=== PATIENT | female | born 1965 | race Caucasian/White ===

== ENCOUNTER 2024-10-07 13:04 | Outpatient (RCR) | payer OTHER, SELFPAY | END 2024-10-17 23:59 | disposition home or self-care (01) | LOC: SCTC 13:04 | PROVIDERS: PCP Internal Medicine; Referring Provider Internal Medicine; Visit Provider Internal Medicine Hematology & Oncology | DX: C90.00 Multiple myeloma not having achieved remission (principal); Z94.81 Bone marrow transplant status; G62.0 Drug-induced polyneuropathy; T45.1X5D Adverse effect of antineoplastic and immunosuppressive drugs, subsequent encounter; Z92.3 Personal history of irradiation | CPT/HCPCS: 99212; G0463 ==

== ENCOUNTER 2024-11-06 07:53 | Outpatient (RCR) | payer OTHER, SELFPAY ==
[2024-11-06 09:35] LABS: Basophils # (Auto) 0.1 Thou/mm3 (0.0-0.2); Basophils % (Auto) 2 % (0-2.5); Eosinophils # (Auto) 0.2 Thou/mm3 (0.0-0.5); Eosinophils % (Auto) 5 % (0-10); Hematocrit 31.9 % (36.0-46.0); Hemoglobin 11.3 g/dL (12.0-16.0); Immature Granulocytes % (Auto) 0 % (0-0); Immature Granulocytes Auto 0.01 Thou/mm3 (0.00-0.00); Lymphocytes # (Auto) 1.8 Thou/mm3 (1.0-4.8); Lymphocytes % (Auto) 39 % (10-50); Mean Corpuscular HGB Conc 35.4 g/dl (31.0-37.0); Mean Corpuscular Hemoglobin 33.8 pg (25.0-35.0); Mean Corpuscular Volume 96 fL (80-100); Monocytes # (Auto) 0.6 Thou/mm3 (0.0-0.8); Monocytes % (Auto) 13 % (0-12); Neutrophils # (Auto) 1.9 Thou/mm3 (1.8-7.7); Neutrophils % (Auto) 42 % (37-80); Nucleated Red Blood Cell % 0 /100 WBC (0); Platelet Count 252 Thou/mm3 (140-440); RDW Standard Deviation 41.5 fL (36.4-46.3); Red Blood Count 3.34 Miln/mm3 (4.00-5.20); White Blood Count 4.6 Thou/mm3 (3.6-11.0)
[2024-11-06 09:57] LABS: Alanine Aminotransferase 25 U/L (10-49); Albumin, Serum 4.7 gm/dL (3.4-4.8); Albumin/Globulin Ratio 2.9 (1.2-2.2); Alkaline Phosphatase 57 U/L (46-116); Anion Gap 9 (7-16); Aspartate Amino Transferase 23 U/L (0-34); BUN/Creatinine Ratio 18 Ratio (12-20); Bilirubin,Total 0.5 mg/dL (0.3-1.2); Blood Urea Nitrogen 14 mg/dL (9-23); Calcium 10.1 mg/dL (8.3-10.6); Calcium (Corrected) 10.1 mg/dL (8.5-10.1); Chloride 99 mMol/L (98-107); Creatinine (Component) 0.8 mg/dL (0.6-1.3); Globulin 1.6 gm/dL (2.3-3.5); Glucose 81 mg/dL (74-106); Osmolality,Calculated 265 (275-295); Potassium 4.1 mMol/L (3.4-5.1); Sodium 133 mMol/L (136-145); Total Protein 6.3 gm/dL (5.7-8.2); eGFR > 60 See Note
[2024-11-11 13:47] LABS: Albumin 4.4 g/dL (3.8-4.8); Alpha-1-Globulin 0.3 g/dL (0.2-0.3); Alpha-2-Globulin 0.6 g/dL (0.5-0.9); Beta-1-Globulin 0.3 g/dL (0.4-0.6); Beta-2-globulin 0.2 g/dL (0.2-0.5); Gamma Globulin 0.3 g/dL (0.8-1.7)
[2024-11-12 06:37] LABS: Protein, total, serum 6.1 g/dL (6.1-8.1)
[2024-11-16 22:05] LABS: Immunoglobulin G 373 mg/dL (600-1540); Kappa Light Chain, Free 4.3 mg/L (3.3-19.4)
[2024-11-17 06:26] LABS: Immunoglobulin A 12 mg/dL (70-320); Immunoglobulin M 15 mg/dL (50-300); Kappa/Lambda, Free Ratio 1.43 (0.26-1.65)
== END 2024-11-17 23:59 | disposition home or self-care (01) ==
LOC: SCTC 07:53
PROVIDERS: PCP Internal Medicine; Referring Provider Internal Medicine; Visit Provider Internal Medicine Hematology & Oncology
DX: C90.00 Multiple myeloma not having achieved remission (principal); G62.9 Polyneuropathy, unspecified; Z92.3 Personal history of irradiation; Z79.82 Long term (current) use of aspirin
CPT/HCPCS: 36591; 80053; 82232; 82784; 83521; 84155; 84165; 85025; 86334; A4216; J1642

== ENCOUNTER 2024-12-17 08:05 | Outpatient (RCR) | payer OTHER, SELFPAY ==
[2024-11-19 08:42] LABS: Basophils # (Auto) 0.1 Thou/mm3 (0.0-0.2); Basophils % (Auto) 2 % (0-2.5); Eosinophils # (Auto) 0.2 Thou/mm3 (0.0-0.5); Eosinophils % (Auto) 5 % (0-10); Hematocrit 31.4 % (36.0-46.0); Hemoglobin 11.2 g/dL (12.0-16.0); Immature Granulocytes % (Auto) 0 % (0-0); Immature Granulocytes Auto 0.01 Thou/mm3 (0.00-0.00); Lymphocytes # (Auto) 1.7 Thou/mm3 (1.0-4.8); Lymphocytes % (Auto) 38 % (10-50); Mean Corpuscular HGB Conc 35.7 g/dl (31.0-37.0); Mean Corpuscular Hemoglobin 34.5 pg (25.0-35.0); Mean Corpuscular Volume 97 fL (80-100); Monocytes # (Auto) 0.8 Thou/mm3 (0.0-0.8); Monocytes % (Auto) 17 % (0-12); Neutrophils # (Auto) 1.7 Thou/mm3 (1.8-7.7); Neutrophils % (Auto) 38 % (37-80); Nucleated Red Blood Cell % 0 /100 WBC (0); Platelet Count 229 Thou/mm3 (140-440); RDW Standard Deviation 42.4 fL (36.4-46.3); Red Blood Count 3.25 Miln/mm3 (4.00-5.20); White Blood Count 4.5 Thou/mm3 (3.6-11.0)
[2024-11-19 09:05] LABS: Alanine Aminotransferase 68 U/L (10-49); Albumin, Serum 4.6 gm/dL (3.4-4.8); Albumin/Globulin Ratio 2.9 (1.2-2.2); Alkaline Phosphatase 66 U/L (46-116); Anion Gap 8 (7-16); Aspartate Amino Transferase 49 U/L (0-34); BUN/Creatinine Ratio 13 Ratio (12-20); Bilirubin,Total 0.5 mg/dL (0.3-1.2); Blood Urea Nitrogen 12 mg/dL (9-23); Calcium 9.3 mg/dL (8.3-10.6); Calcium (Corrected) 9.3 mg/dL (8.5-10.1); Carbon Dioxide 25.1 mMol/L (20.0-31.0); Chloride 103 mMol/L (98-107); Creatinine (Component) 0.9 mg/dL (0.6-1.3); Globulin 1.6 gm/dL (2.3-3.5); Glucose 96 mg/dL (74-106); Osmolality,Calculated 271 (275-295); Potassium 4.1 mMol/L (3.4-5.1); Sodium 136 mMol/L (136-145); Total Protein 6.2 gm/dL (5.7-8.2); eGFR > 60 See Note
[2024-12-03 08:56] LABS: Basophils # (Auto) 0.1 Thou/mm3 (0.0-0.2); Basophils % (Auto) 1 % (0-2.5); Eosinophils # (Auto) 0.5 Thou/mm3 (0.0-0.5); Eosinophils % (Auto) 6 % (0-10); Hematocrit 33.3 % (36.0-46.0); Hemoglobin 11.7 g/dL (12.0-16.0); Immature Granulocytes % (Auto) 1 % (0-0); Immature Granulocytes Auto 0.04 Thou/mm3 (0.00-0.00); Lymphocytes # (Auto) 1.9 Thou/mm3 (1.0-4.8); Lymphocytes % (Auto) 26 % (10-50); Mean Corpuscular HGB Conc 35.1 g/dl (31.0-37.0); Mean Corpuscular Hemoglobin 33.5 pg (25.0-35.0); Mean Corpuscular Volume 95 fL (80-100); Monocytes # (Auto) 0.6 Thou/mm3 (0.0-0.8); Monocytes % (Auto) 8 % (0-12); Neutrophils # (Auto) 4.4 Thou/mm3 (1.8-7.7); Neutrophils % (Auto) 59 % (37-80); Nucleated Red Blood Cell % 0 /100 WBC (0); Platelet Count 221 Thou/mm3 (140-440); RDW Standard Deviation 42.4 fL (36.4-46.3); Red Blood Count 3.49 Miln/mm3 (4.00-5.20); White Blood Count 7.5 Thou/mm3 (3.6-11.0)
[2024-12-03 09:17] LABS: Alanine Aminotransferase 46 U/L (10-49); Albumin, Serum 4.8 gm/dL (3.4-4.8); Albumin/Globulin Ratio 2.8 (1.2-2.2); Alkaline Phosphatase 94 U/L (46-116); Anion Gap 8 (7-16); Aspartate Amino Transferase 29 U/L (0-34); BUN/Creatinine Ratio 26 Ratio (12-20); Bilirubin,Total 0.4 mg/dL (0.3-1.2); Blood Urea Nitrogen 23 mg/dL (9-23); Carbon Dioxide 24.5 mMol/L (20.0-31.0); Chloride 100 mMol/L (98-107); Creatinine (Component) 0.9 mg/dL (0.6-1.3); Globulin 1.7 gm/dL (2.3-3.5); Glucose 99 mg/dL (74-106); Osmolality,Calculated 268 (275-295); Potassium 4.3 mMol/L (3.4-5.1); Sodium 132 mMol/L (136-145); Total Protein 6.5 gm/dL (5.7-8.2); eGFR > 60 See Note
[2024-12-17 08:48] LABS: Basophils # (Auto) 0.3 Thou/mm3 (0.0-0.2); Basophils % (Auto) 5 % (0-2.5); Eosinophils # (Auto) 0.7 Thou/mm3 (0.0-0.5); Eosinophils % (Auto) 13 % (0-10); Hematocrit 30.7 % (36.0-46.0); Hemoglobin 10.6 g/dL (12.0-16.0); Immature Granulocytes % (Auto) 0 % (0-0); Immature Granulocytes Auto 0.02 Thou/mm3 (0.00-0.00); Lymphocytes # (Auto) 1.3 Thou/mm3 (1.0-4.8); Lymphocytes % (Auto) 25 % (10-50); Mean Corpuscular HGB Conc 34.5 g/dl (31.0-37.0); Mean Corpuscular Hemoglobin 33.4 pg (25.0-35.0); Mean Corpuscular Volume 97 fL (80-100); Monocytes # (Auto) 0.5 Thou/mm3 (0.0-0.8); Monocytes % (Auto) 10 % (0-12); Neutrophils # (Auto) 2.5 Thou/mm3 (1.8-7.7); Neutrophils % (Auto) 47 % (37-80); Nucleated Red Blood Cell % 0 /100 WBC (0); Platelet Count 224 Thou/mm3 (140-440); RDW Standard Deviation 44.8 fL (36.4-46.3); Red Blood Count 3.17 Miln/mm3 (4.00-5.20); White Blood Count 5.3 Thou/mm3 (3.6-11.0)
[2024-12-17 09:16] LABS: Alanine Aminotransferase 84 U/L (10-49); Albumin, Serum 4.2 gm/dL (3.4-4.8); Albumin/Globulin Ratio 2.2 (1.2-2.2); Alkaline Phosphatase 117 U/L (46-116); Anion Gap 8 (7-16); Aspartate Amino Transferase 50 U/L (0-34); BUN/Creatinine Ratio 20 Ratio (12-20); Bilirubin,Total 0.5 mg/dL (0.3-1.2); Blood Urea Nitrogen 18 mg/dL (9-23); Calcium 9.6 mg/dL (8.3-10.6); Calcium (Corrected) 9.6 mg/dL (8.5-10.1); Chloride 100 mMol/L (98-107); Creatinine (Component) 0.9 mg/dL (0.6-1.3); Globulin 1.9 gm/dL (2.3-3.5); Glucose 114 mg/dL (74-106); Osmolality,Calculated 269 (275-295); Potassium 4.2 mMol/L (3.4-5.1); Sodium 133 mMol/L (136-145); Total Protein 6.1 gm/dL (5.7-8.2); eGFR > 60 See Note
[2024-12-31 08:43] LABS: Basophils # (Auto) 0.2 Thou/mm3 (0.0-0.2); Basophils % (Auto) 4 % (0-2.5); Eosinophils # (Auto) 0.4 Thou/mm3 (0.0-0.5); Eosinophils % (Auto) 8 % (0-10); Hematocrit 30.3 % (36.0-46.0); Hemoglobin 10.6 g/dL (12.0-16.0); Immature Granulocytes % (Auto) 0 % (0-0); Immature Granulocytes Auto 0.02 Thou/mm3 (0.00-0.00); Lymphocytes # (Auto) 1.5 Thou/mm3 (1.0-4.8); Lymphocytes % (Auto) 31 % (10-50); Mean Corpuscular Hemoglobin 33.5 pg (25.0-35.0); Mean Corpuscular Volume 96 fL (80-100); Monocytes # (Auto) 0.5 Thou/mm3 (0.0-0.8); Monocytes % (Auto) 11 % (0-12); Neutrophils # (Auto) 2.1 Thou/mm3 (1.8-7.7); Neutrophils % (Auto) 46 % (37-80); Nucleated Red Blood Cell % 0 /100 WBC (0); Platelet Count 244 Thou/mm3 (140-440); RDW Standard Deviation 44.7 fL (36.4-46.3); Red Blood Count 3.16 Miln/mm3 (4.00-5.20); White Blood Count 4.7 Thou/mm3 (3.6-11.0)
[2024-12-31 08:55] LABS: Alanine Aminotransferase 50 U/L (10-49); Albumin, Serum 4.1 gm/dL (3.4-4.8); Albumin/Globulin Ratio 2.6 (1.2-2.2); Alkaline Phosphatase 105 U/L (46-116); Anion Gap 5 (7-16); Aspartate Amino Transferase 46 U/L (0-34); BUN/Creatinine Ratio 18 Ratio (12-20); Bilirubin,Total 0.5 mg/dL (0.3-1.2); Blood Urea Nitrogen 14 mg/dL (9-23); Calcium 9.4 mg/dL (8.3-10.6); Calcium (Corrected) 9.4 mg/dL (8.5-10.1); Chloride 104 mMol/L (98-107); Creatinine (Component) 0.8 mg/dL (0.6-1.3); Globulin 1.6 gm/dL (2.3-3.5); Glucose 94 mg/dL (74-106); Osmolality,Calculated 268 (275-295); Potassium 4.4 mMol/L (3.4-5.1); Sodium 134 mMol/L (136-145); Total Protein 5.7 gm/dL (5.7-8.2); eGFR > 60 See Note
[2025-01-05 23:34] LABS: Albumin 3.9 g/dL (3.8-4.8); Alpha-1-Globulin 0.2 g/dL (0.2-0.3); Alpha-2-Globulin 0.6 g/dL (0.5-0.9); Beta-1-Globulin 0.4 g/dL (0.4-0.6); Beta-2-globulin 0.2 g/dL (0.2-0.5); Gamma Globulin 0.3 g/dL (0.8-1.7)
[2025-01-06 06:23] LABS: Protein, total, serum 5.7 g/dL (6.1-8.1)
[2025-01-06 08:48] LABS: Immunoglobulin G 428 mg/dL (600-1540); Kappa Light Chain, Free 8.1 mg/L (3.3-19.4); Lambda Light Chain, Free 4.1 mg/L (5.7-26.3)
[2025-01-07 06:26] LABS: Immunoglobulin A 14 mg/dL (70-320); Immunoglobulin M 15 mg/dL (50-300); Kappa/Lambda, Free Ratio 1.98 (0.26-1.65)
== END 2024-12-18 23:59 | disposition home or self-care (01) ==
LOC: SCTC 08:05
PROVIDERS: Internal Medicine Hematology & Oncology; PCP Internal Medicine; Referring Provider Internal Medicine; Visit Provider Radiology Therapeutic Radiology
DX: Z51.11 Encounter for antineoplastic chemotherapy (principal); C90.00 Multiple myeloma not having achieved remission; Z92.3 Personal history of irradiation; Z94.81 Bone marrow transplant status
CPT/HCPCS: 36591; 80053; 85025; 96365; 96367; 96401; 99213; A4216; J1642; J3489; J7040; J9041; G0463

== ENCOUNTER → 2025-01-09 | Outpatient (CLI) | payer OTHER, SELFPAY ==
--- NOTE | 2025-01-09 09:30 | XR_ITS ---
Examination: MRI cervical spine with intravenous contrast Technique: Multiple sagittal and axial MR images cervical spine post intravenous ministration 12 cc gadolinium Indications: Diagnosis multiple myeloma, history weakly hypermetabolic soft tissue mass 17 x 16 mm destroying the left lateral articulating facets C1 involving the pedicle and left lamina Exam date and time: January 09, 2025 at 0959 hrs. Comparison January 27, 2024 Findings: The soft tissue mass involving the C1 left articulating facets and left pedicle is less evident on this study Smaller area of enhancement is noted involving the left C1 lateral articulating facet, measuring 8 x 6 mm compared to 17 x 16 mm on the PET/CT study February 15, 2024 There is no recurrent tumor impingement upon the cervical cord No localized enlargement cervical cord No abnormal enhancement involving the cervical cord Impression: Improvement compared to the PET CT scan February 15, 2024 Smaller area of enhancement is noted involving the left C1 lateral articulating facet, measuring 8 x 6 mm compared to 17 x 16 mm on the PET/CT scan February 15, 2024 There is no current enhancing tumor impinging upon the cervical cord on this study Follow-up CT scan cervical spine with better bone detail would best assess osteolytic component of the soft tissue tumor mass involving C1
--- NOTE | 2025-01-09 10:00 | XR_ITS ---
Examination: MRI thoracic spine with intravenous contrast Technique: Multiple axial sagittal MR images thoracic spine post intravenous ministration 12 cc gadolinium Indications: Diagnosis multiple myeloma MRI thoracic spine March 03, 2024 multiple enhancing lesions, the largest lesion in the thoracic spine involving T11 right lateral body of T11 the right pedicle and lamina and transverse process Exam date and time: January 09, 2025 1004 hrs. Comparison March 03, 2024 Findings: There remains abnormal enhancement involving the T11 posterior right vertebral body right pedicle, right lamina and right transverse process, but the area of tumor involvement is smaller on the current study compared to March 03, 2024 The transverse dimension of the enhancement in the vertebral body is 16 mm compared to 22 mm on March 03, 2024 The transverse dimension of the tumor involvement involving the pedicle and lamina T11 measures 12 mm compared to 20 mm on March 03, 2024 The enhancing lesions involving multiple other thoracic vertebral bodies on the March 03, 2024 exam are no longer evident On this study no tumor enhancement impinging upon the thoracic cord is identified Impression: Significant treatment response compared with March 03, 2024
== END | disposition home or self-care (01) ==
LOC: SMRI 08:58
PROVIDERS: Referring Provider Radiology Therapeutic Radiology; Visit Provider Radiology Therapeutic Radiology
DX: C90.00 Multiple myeloma not having achieved remission (principal)
CPT/HCPCS: 72142; 72147; A9579

== ENCOUNTER 2025-01-14 08:01 | Outpatient (RCR) | payer OTHER, SELFPAY ==
[2025-01-14 08:41] LABS: Basophils # (Auto) 0.1 Thou/mm3 (0.0-0.2); Basophils % (Auto) 3 % (0-2.5); Eosinophils # (Auto) 0.3 Thou/mm3 (0.0-0.5); Eosinophils % (Auto) 6 % (0-10); Hematocrit 31.2 % (36.0-46.0); Hemoglobin 10.7 g/dL (12.0-16.0); Immature Granulocytes % (Auto) 0 % (0-0); Immature Granulocytes Auto 0.02 Thou/mm3 (0.00-0.00); Lymphocytes # (Auto) 1.6 Thou/mm3 (1.0-4.8); Lymphocytes % (Auto) 35 % (10-50); Mean Corpuscular HGB Conc 34.3 g/dl (31.0-37.0); Mean Corpuscular Hemoglobin 32.9 pg (25.0-35.0); Mean Corpuscular Volume 96 fL (80-100); Monocytes # (Auto) 0.5 Thou/mm3 (0.0-0.8); Monocytes % (Auto) 12 % (0-12); Neutrophils % (Auto) 45 % (37-80); Nucleated Red Blood Cell % 0 /100 WBC (0); Platelet Count 199 Thou/mm3 (140-440); Red Blood Count 3.25 Miln/mm3 (4.00-5.20); White Blood Count 4.5 Thou/mm3 (3.6-11.0)
[2025-01-14 08:53] LABS: Alanine Aminotransferase 45 U/L (10-49); Albumin, Serum 4.4 gm/dL (3.4-4.8); Albumin/Globulin Ratio 2.6 (1.2-2.2); Alkaline Phosphatase 78 U/L (46-116); Anion Gap 7 (7-16); Aspartate Amino Transferase 35 U/L (0-34); BUN/Creatinine Ratio 18 Ratio (12-20); Bilirubin,Total 0.6 mg/dL (0.3-1.2); Blood Urea Nitrogen 18 mg/dL (9-23); Calcium 9.9 mg/dL (8.3-10.6); Calcium (Corrected) 9.9 mg/dL (8.5-10.1); Carbon Dioxide 26.7 mMol/L (20.0-31.0); Chloride 102 mMol/L (98-107); Globulin 1.7 gm/dL (2.3-3.5); Glucose 104 mg/dL (74-106); Osmolality,Calculated 273 (275-295); Sodium 136 mMol/L (136-145); Total Protein 6.1 gm/dL (5.7-8.2); eGFR > 60 See Note
== END 2025-01-15 23:59 | disposition home or self-care (01) ==
LOC: SCTC 08:01
PROVIDERS: Internal Medicine Hematology & Oncology; PCP Internal Medicine; Referring Provider Internal Medicine; Visit Provider Radiology Therapeutic Radiology
DX: Z51.11 Encounter for antineoplastic chemotherapy (principal); C90.00 Multiple myeloma not having achieved remission; Z92.3 Personal history of irradiation; G62.9 Polyneuropathy, unspecified; Z94.81 Bone marrow transplant status
CPT/HCPCS: 36591; 80053; 85025; 96401; A4216; J1642; J9041

== ENCOUNTER → 2025-02-09 | Outpatient (CLI) | payer OTHER, SELFPAY ==
[2025-02-09 12:33] LABS: Basophils # (Auto) 0.1 Thou/mm3 (0.0-0.2); Basophils % (Auto) 3 % (0-2.5); Eosinophils # (Auto) 0.2 Thou/mm3 (0.0-0.5); Eosinophils % (Auto) 4 % (0-10); Hemoglobin 10.5 g/dL (12.0-16.0); Immature Granulocytes % (Auto) 0 % (0-0); Immature Granulocytes Auto 0.01 Thou/mm3 (0.00-0.00); Lymphocytes # (Auto) 1.3 Thou/mm3 (1.0-4.8); Lymphocytes % (Auto) 29 % (10-50); Mean Corpuscular Hemoglobin 33.4 pg (25.0-35.0); Mean Corpuscular Volume 96 fL (80-100); Monocytes # (Auto) 0.5 Thou/mm3 (0.0-0.8); Monocytes % (Auto) 11 % (0-12); Neutrophils # (Auto) 2.3 Thou/mm3 (1.8-7.7); Neutrophils % (Auto) 52 % (37-80); Nucleated Red Blood Cell % 0 /100 WBC (0); Platelet Count 186 Thou/mm3 (140-440); RDW Standard Deviation 45.4 fL (36.4-46.3); Red Blood Count 3.14 Miln/mm3 (4.00-5.20); White Blood Count 4.4 Thou/mm3 (3.6-11.0)
[2025-02-09 12:46] LABS: Collection Type, Urine Clean Catch
[2025-02-09 13:20] LABS: Vitamin B12 400 pg/mL (211-911); Vitamin D 25 Hydroxy Total 31.7 ng/mL (7.3-40.2)
[2025-02-09 13:23] LABS: Bilirubin,Urine Negative (Negative); Blood,Urine Negative (Negative); Clarity,Urine Clear (Clear/Hazy); Color,Urine Colorless (Lt Yel-Yel); Glucose, Urine Negative (Negative); Ketones,Urine Negative (Negative); Leukocyte Esterase,Urine Negative (Negative); Nitrite,Urine Negative (Negative); PH,Urine 6.5 (5.0-7.0); Protein,Urine Negative (Neg - Trace); RBC,Urine 2 /hpf (0-3); Specific Gravity,Urine 1.014 (1.001-1.035); Squamous Epithelial Cell,Urine < 1 /hpf (0-5); Urobilinogen,Urine Negative mg/dL (0.0-1.0); WBC,Urine 1 /hpf (0-5)
[2025-02-09 15:53] LABS: Glucose Estimated Average 103 mg/dL (80-131); Hemoglobin A1C 5.2 % Hgb (4.8-6.0)
[2025-02-09 20:40] LABS: Alanine Aminotransferase 55 U/L (10-49); Albumin, Serum 4.2 gm/dL (3.4-4.8); Albumin/Globulin Ratio 2.6 (1.2-2.2); Alkaline Phosphatase 81 U/L (46-116); Anion Gap 9 (7-16); Aspartate Amino Transferase 39 U/L (0-34); BUN/Creatinine Ratio 18 Ratio (12-20); Bilirubin,Total 0.5 mg/dL (0.3-1.2); Blood Urea Nitrogen 18 mg/dL (9-23); Calcium 9.6 mg/dL (8.3-10.6); Calcium (Corrected) 9.6 mg/dL (8.5-10.1); Carbon Dioxide 25.7 mMol/L (20.0-31.0); Cardiac Risk Estimate 1.9 RATIO (3.7-5.6); Chloride 99 mMol/L (98-107); Cholesterol 175 mg/dL (132-200); Globulin 1.6 gm/dL (2.3-3.5); Glucose 84 mg/dL (74-106); HDL Cholesterol 91 mg/dL (40-60); LDL Cholesterol,Calculated 71 mg/dL (0-130); Osmolality,Calculated 269 (275-295); Potassium 4.5 mMol/L (3.4-5.1); Sodium 134 mMol/L (136-145); Thyroid Stimulating Hormone 1.71 uIU/mL (0.55-4.78); Total Protein 5.8 gm/dL (5.7-8.2); Triglycerides 64 mg/dL (30-150); Uric Acid 4.8 mg/dL (3.1-7.8); eGFR > 60 See Note
== END | disposition home or self-care (01) ==
LOC: COPL 11:43
PROVIDERS: PCP Internal Medicine; Referring Provider Internal Medicine; Visit Provider Internal Medicine
DX: Z00.00 Encounter for general adult medical examination without abnormal findings (principal); E03.9 Hypothyroidism, unspecified
CPT/HCPCS: 36415; 80053; 80061; 81001; 82306; 82607; 83036; 84443; 84550; 85025

== ENCOUNTER 2025-02-11 07:51 | Outpatient (RCR) | payer OTHER, SELFPAY ==
[2025-01-27 11:51] LABS: Basophils # (Auto) 0.1 Thou/mm3 (0.0-0.2); Basophils % (Auto) 3 % (0-2.5); Eosinophils # (Auto) 0.2 Thou/mm3 (0.0-0.5); Eosinophils % (Auto) 4 % (0-10); Hematocrit 32.5 % (36.0-46.0); Hemoglobin 11.1 g/dL (12.0-16.0); Immature Granulocytes % (Auto) 1 % (0-0); Immature Granulocytes Auto 0.02 Thou/mm3 (0.00-0.00); Lymphocytes # (Auto) 1.1 Thou/mm3 (1.0-4.8); Lymphocytes % (Auto) 27 % (10-50); Mean Corpuscular HGB Conc 34.2 g/dl (31.0-37.0); Mean Corpuscular Hemoglobin 33.9 pg (25.0-35.0); Mean Corpuscular Volume 99 fL (80-100); Monocytes # (Auto) 0.4 Thou/mm3 (0.0-0.8); Monocytes % (Auto) 9 % (0-12); Neutrophils # (Auto) 2.4 Thou/mm3 (1.8-7.7); Neutrophils % (Auto) 57 % (37-80); Nucleated Red Blood Cell % 0 /100 WBC (0); Platelet Count 198 Thou/mm3 (140-440); RDW Standard Deviation 47.1 fL (36.4-46.3); Red Blood Count 3.27 Miln/mm3 (4.00-5.20); White Blood Count 4.2 Thou/mm3 (3.6-11.0)
[2025-01-27 12:11] LABS: Alanine Aminotransferase 43 U/L (10-49); Albumin, Serum 4.1 gm/dL (3.4-4.8); Albumin/Globulin Ratio 2.3 (1.2-2.2); Alkaline Phosphatase 68 U/L (46-116); Anion Gap 7 (7-16); Aspartate Amino Transferase 31 U/L (0-34); BUN/Creatinine Ratio 20 Ratio (12-20); Bilirubin,Total 0.5 mg/dL (0.3-1.2); Blood Urea Nitrogen 18 mg/dL (9-23); Calcium 9.2 mg/dL (8.3-10.6); Calcium (Corrected) 9.2 mg/dL (8.5-10.1); Carbon Dioxide 23.8 mMol/L (20.0-31.0); Chloride 101 mMol/L (98-107); Creatinine (Component) 0.9 mg/dL (0.6-1.3); Globulin 1.8 gm/dL (2.3-3.5); Glucose 114 mg/dL (74-106); Osmolality,Calculated 267 (275-295); Potassium 4.4 mMol/L (3.4-5.1); Sodium 132 mMol/L (136-145); Total Protein 5.9 gm/dL (5.7-8.2); eGFR > 60 See Note
[2025-01-31 22:04] LABS: Kappa Light Chain, Free 7.5 mg/L (3.3-19.4); Lambda Light Chain, Free 4.3 mg/L (5.7-26.3)
[2025-02-01 07:18] LABS: Kappa/Lambda, Free Ratio 1.74 (0.26-1.65)
[2025-02-01 13:49] LABS: Albumin 4.1 g/dL (3.8-4.8); Alpha-1-Globulin 0.2 g/dL (0.2-0.3); Alpha-2-Globulin 0.6 g/dL (0.5-0.9); Beta-1-Globulin 0.3 g/dL (0.4-0.6); Beta-2-globulin 0.2 g/dL (0.2-0.5); Gamma Globulin 0.3 g/dL (0.8-1.7)
[2025-02-02 06:42] LABS: Protein, total, serum 5.8 g/dL (6.1-8.1)
[2025-02-05 07:05] LABS: Immunoglobulin G 445 mg/dL (600-1540)
[2025-02-08 06:53] LABS: Immunoglobulin A 16 mg/dL (70-320); Immunoglobulin M 14 mg/dL (50-300)
[2025-02-11 08:32] LABS: Basophils # (Auto) 0.2 Thou/mm3 (0.0-0.2); Basophils % (Auto) 4 % (0-2.5); Eosinophils # (Auto) 0.2 Thou/mm3 (0.0-0.5); Eosinophils % (Auto) 5 % (0-10); Hematocrit 29.6 % (36.0-46.0); Hemoglobin 10.3 g/dL (12.0-16.0); Immature Granulocytes % (Auto) 1 % (0-0); Immature Granulocytes Auto 0.02 Thou/mm3 (0.00-0.00); Lymphocytes # (Auto) 1.1 Thou/mm3 (1.0-4.8); Lymphocytes % (Auto) 25 % (10-50); Mean Corpuscular HGB Conc 34.8 g/dl (31.0-37.0); Mean Corpuscular Hemoglobin 33.6 pg (25.0-35.0); Mean Corpuscular Volume 96 fL (80-100); Monocytes # (Auto) 0.4 Thou/mm3 (0.0-0.8); Monocytes % (Auto) 10 % (0-12); Neutrophils # (Auto) 2.4 Thou/mm3 (1.8-7.7); Neutrophils % (Auto) 57 % (37-80); Nucleated Red Blood Cell % 0 /100 WBC (0); Platelet Count 189 Thou/mm3 (140-440); RDW Standard Deviation 46.6 fL (36.4-46.3); Red Blood Count 3.07 Miln/mm3 (4.00-5.20); White Blood Count 4.3 Thou/mm3 (3.6-11.0)
[2025-02-11 08:49] LABS: Alanine Aminotransferase 68 U/L (10-49); Albumin, Serum 4.1 gm/dL (3.4-4.8); Albumin/Globulin Ratio 2.2 (1.2-2.2); Alkaline Phosphatase 80 U/L (46-116); Anion Gap 8 (7-16); Aspartate Amino Transferase 67 U/L (0-34); BUN/Creatinine Ratio 18 Ratio (12-20); Bilirubin,Total 0.5 mg/dL (0.3-1.2); Blood Urea Nitrogen 16 mg/dL (9-23); Calcium 9.8 mg/dL (8.3-10.6); Calcium (Corrected) 9.8 mg/dL (8.5-10.1); Carbon Dioxide 24.1 mMol/L (20.0-31.0); Chloride 103 mMol/L (98-107); Creatinine (Component) 0.9 mg/dL (0.6-1.3); Globulin 1.9 gm/dL (2.3-3.5); Glucose 95 mg/dL (74-106); Osmolality,Calculated 271 (275-295); Potassium 4.3 mMol/L (3.4-5.1); Sodium 135 mMol/L (136-145); eGFR > 60 See Note
--- NOTE | 2025-03-17 07:15 | CTCFLWUP_ITS ---
Patient: EDER CORDOVA : 1965 MR#: [id number] Page 2 of 7 TELEHEALTH FOLLOW UP NOTE DATE OF CONSULTATION: 01/21/2025 NAME: EDER CORDOVA ACCOUNT: [id number] : 1965 AGE: 59 REFERRING PHYSICIAN: Austin Ryan MD PRIMARY PHYSICIAN: Jc Rico MD Patient did not complete visit. Electronically Signed by: Reynaldo Koch MD T: 7:13 AM CC: PCP: Jc Rico Referring: Austin Ryan This document was completed utilizing speech recognition software. Grammatical errors, random word insertions, pronoun errors, and incomplete sentences are an occasional consequence of this system due to software limitations, ambient noise, and hardware issues. Any formal questions or concerns about the content, text or information contained within the body of this dictation should be directly addressed to the provider for clarification.
== END 2025-02-15 23:59 | disposition home or self-care (01) ==
LOC: SCTC 07:51
PROVIDERS: PCP Internal Medicine; Referring Provider Internal Medicine; Visit Provider Internal Medicine Hematology & Oncology
DX: Z51.11 Encounter for antineoplastic chemotherapy (principal); C90.00 Multiple myeloma not having achieved remission; Z94.81 Bone marrow transplant status; Z92.3 Personal history of irradiation; Z92.21 Personal history of antineoplastic chemotherapy
CPT/HCPCS: 80053; 82784; 83521; 84155; 84165; 85025; 86334; 96401; 99212; A4216; J1642; J3489; J9041; G0463

== ENCOUNTER → 2025-02-25 | Outpatient (CLI) | payer OTHER, SELFPAY ==
--- NOTE | 2025-02-25 13:35 | XR_ITS ---
Examination: Bone densitometry Date and time of exam:February 25, 2025 1343 hrs. Indications: Hysterectomy age 30, family history mother osteoporosis, family history, mother hip fracture, personal history osteopenia, diagnosis multiple myeloma Chemotherapy Technique: Lumbar spine and hip total bone mineralization values of an calculated. Peak reference and age match control results have been displayed. Findings: Lumbar spine total bone mineralization is0.710 gm/cm2. This is 3.1 standard deviations below peak reference. This is 1.6 standard deviations below age-matched controls. Hip total bone mineralization is 0.760 gm/cm2 This is 1.5 standard deviations below peak reference. This is 0.5 standard deviations below age-matched controls Impression: There is osteoporosis based on lumbar spine measurements. There is osteopenia based on hip measurements Lumbar mineralization is decreased 18.9% compared with June 20, 2017 Hip mineralization is decreased 2.2% compared with June 20, 2017
--- NOTE | 2025-02-25 14:30 | XR_ITS ---
Examination: Screening digital mammography, bilateral Computer aided detection 3-D breast Tomosynthesis, bilateral Date and time of exam: 02/25/2025, 1:27 PM Comparisons: November 2020 through January 2024 Indications: Screening Technique: Nonmagnified MLO, CC views of the breasts to been obtained, reconstructed from 3-D Tomosynthesis images. R2 computer aided detection program utilized for evaluation of suspicious masses and/or abnormal calcifications. 3-D Tomosynthesis images obtained. Technologist: Findings: The breasts are heterogeneously dense, which may obscure small masses. No evidence of abnormal masses or suspicious calcifications. Stable postbiopsy marker clip Impression: BI-RADS category 2: Benign findings Recommend 1 year follow-up mammogram
== END | disposition home or self-care (01) ==
PROVIDERS: PCP Internal Medicine; Referring Provider Internal Medicine; Visit Provider Internal Medicine
DX: Z12.31 Encounter for screening mammogram for malignant neoplasm of breast (principal); R92.323 Mammographic fibroglandular density, bilateral breasts; M81.0 Age-related osteoporosis without current pathological fracture; M85.89 Other specified disorders of bone density and structure, multiple sites
CPT/HCPCS: 77063; 77067; 77080

== ENCOUNTER 2025-03-17 07:46 | Outpatient (RCR) | payer OTHER, SELFPAY ==
[2025-02-25 09:04] LABS: Basophils # (Auto) 0.2 Thou/mm3 (0.0-0.2); Basophils % (Auto) 4 % (0-2.5); Eosinophils # (Auto) 0.2 Thou/mm3 (0.0-0.5); Eosinophils % (Auto) 6 % (0-10); Hematocrit 30.9 % (36.0-46.0); Hemoglobin 10.9 g/dL (12.0-16.0); Immature Granulocytes % (Auto) 0 % (0-0); Immature Granulocytes Auto 0.01 Thou/mm3 (0.00-0.00); Lymphocytes # (Auto) 1.3 Thou/mm3 (1.0-4.8); Lymphocytes % (Auto) 32 % (10-50); Mean Corpuscular HGB Conc 35.3 g/dl (31.0-37.0); Mean Corpuscular Hemoglobin 34.3 pg (25.0-35.0); Mean Corpuscular Volume 97 fL (80-100); Monocytes # (Auto) 0.4 Thou/mm3 (0.0-0.8); Monocytes % (Auto) 11 % (0-12); Neutrophils % (Auto) 48 % (37-80); Nucleated Red Blood Cell % 0 /100 WBC (0); Platelet Count 198 Thou/mm3 (140-440); RDW Standard Deviation 47.8 fL (36.4-46.3); Red Blood Count 3.18 Miln/mm3 (4.00-5.20); White Blood Count 4.2 Thou/mm3 (3.6-11.0)
[2025-02-25 09:34] LABS: Alanine Aminotransferase 72 U/L (10-49); Albumin, Serum 4.3 gm/dL (3.4-4.8); Albumin/Globulin Ratio 2.4 (1.2-2.2); Alkaline Phosphatase 99 U/L (46-116); Anion Gap 8 (7-16); Aspartate Amino Transferase 49 U/L (0-34); BUN/Creatinine Ratio 18 Ratio (12-20); Bilirubin,Total 0.8 mg/dL (0.3-1.2); Blood Urea Nitrogen 18 mg/dL (9-23); Calcium 9.3 mg/dL (8.3-10.6); Calcium (Corrected) 9.3 mg/dL (8.5-10.1); Chloride 103 mMol/L (98-107); Globulin 1.8 gm/dL (2.3-3.5); Glucose 96 mg/dL (74-106); Osmolality,Calculated 270 (275-295); Potassium 4.3 mMol/L (3.4-5.1); Sodium 134 mMol/L (136-145); Total Protein 6.1 gm/dL (5.7-8.2); eGFR > 60 See Note
[2025-03-01 17:50] LABS: Albumin 4.1 g/dL (3.8-4.8); Alpha-1-Globulin 0.2 g/dL (0.2-0.3); Alpha-2-Globulin 0.6 g/dL (0.5-0.9); Beta-1-Globulin 0.4 g/dL (0.4-0.6); Beta-2-globulin 0.2 g/dL (0.2-0.5); Gamma Globulin 0.4 g/dL (0.8-1.7)
[2025-03-02 06:35] LABS: Protein, total, serum 5.9 g/dL (6.1-8.1)
[2025-03-08 11:18] LABS: Immunoglobulin G 503 mg/dL (600-1540); Kappa Light Chain, Free 8.5 mg/L (3.3-19.4); Lambda Light Chain, Free 5.8 mg/L (5.7-26.3)
[2025-03-09 06:35] LABS: Immunoglobulin A 25 mg/dL (70-320); Immunoglobulin M 17 mg/dL (50-300); Kappa/Lambda, Free Ratio 1.47 (0.26-1.65)
[2025-03-17 08:55] LABS: Basophils # (Auto) 0.1 Thou/mm3 (0.0-0.2); Basophils % (Auto) 3 % (0-2.5); Eosinophils # (Auto) 0.1 Thou/mm3 (0.0-0.5); Eosinophils % (Auto) 2 % (0-10); Hematocrit 29.7 % (36.0-46.0); Hemoglobin 10.3 g/dL (12.0-16.0); Immature Granulocytes % (Auto) 0 % (0-0); Immature Granulocytes Auto 0.02 Thou/mm3 (0.00-0.00); Lymphocytes % (Auto) 21 % (10-50); Mean Corpuscular HGB Conc 34.7 g/dl (31.0-37.0); Mean Corpuscular Hemoglobin 33.8 pg (25.0-35.0); Mean Corpuscular Volume 97 fL (80-100); Monocytes # (Auto) 0.4 Thou/mm3 (0.0-0.8); Monocytes % (Auto) 7 % (0-12); Neutrophils # (Auto) 3.3 Thou/mm3 (1.8-7.7); Neutrophils % (Auto) 66 % (37-80); Nucleated Red Blood Cell % 0 /100 WBC (0); Platelet Count 212 Thou/mm3 (140-440); RDW Standard Deviation 48.6 fL (36.4-46.3); Red Blood Count 3.05 Miln/mm3 (4.00-5.20); White Blood Count 4.9 Thou/mm3 (3.6-11.0)
[2025-03-17 09:15] LABS: Alanine Aminotransferase 53 U/L (10-49); Albumin, Serum 4.1 gm/dL (3.4-4.8); Albumin/Globulin Ratio 2.4 (1.2-2.2); Alkaline Phosphatase 87 U/L (46-116); Anion Gap 8 (7-16); Aspartate Amino Transferase 43 U/L (0-34); BUN/Creatinine Ratio 29 Ratio (12-20); Bilirubin,Total 1.1 mg/dL (0.3-1.2); Blood Urea Nitrogen 23 mg/dL (9-23); Carbon Dioxide 24.3 mMol/L (20.0-31.0); Chloride 104 mMol/L (98-107); Creatinine (Component) 0.8 mg/dL (0.6-1.3); Globulin 1.7 gm/dL (2.3-3.5); Glucose 106 mg/dL (74-106); Osmolality,Calculated 275 (275-295); Potassium 4.4 mMol/L (3.4-5.1); Sodium 136 mMol/L (136-145); Total Protein 5.8 gm/dL (5.7-8.2); eGFR > 60 See Note
== END 2025-03-17 23:59 | disposition home or self-care (01) ==
LOC: SCTC 07:46
PROVIDERS: PCP Internal Medicine; Referring Provider Internal Medicine; Visit Provider Internal Medicine Hematology & Oncology
DX: Z51.11 Encounter for antineoplastic chemotherapy (principal); C90.00 Multiple myeloma not having achieved remission; Z92.3 Personal history of irradiation; Z94.81 Bone marrow transplant status; G62.9 Polyneuropathy, unspecified
CPT/HCPCS: 80053; 82784; 83521; 84155; 84165; 85025; 86334; 96365; 96367; 96401; 96413; A4216; J1642; J3489; J7040; J9041

== ENCOUNTER → 2025-04-08 | Outpatient (CLI) | payer OTHER, SELFPAY ==
--- NOTE | 2025-04-08 16:15 | XR_ITS ---
EXAMINATION: PET/CT FUSION SKULL TO THIGH EXAM DATE AND TIME: April 08, [address] scan February 15, 2024 INDICATIONS: Diagnosis multiple myeloma, history hypermetabolic soft tissue mass destroying the left lateral articulating facet C1 vertebral body including the left pedicle and lamina, osteolytic lesions right eighth rib, C3, C5, C7, T11 on PET CT scan February 15, 2024 CTDI:vol (mGy) 4 DLP: (mGycm) 514.59 PROCEDURE: 17.3 mCi FDG was administered intravenously To allow for distribution and uptake of radiotracer, the patient was allowed to rest quietly in a shielded room. Imaging was performed on an integrated 16-slice PET/CT scanner, with scanning from the skull base to the mid thigh. CT scanning was performed without oral or intravenous contrast material. FINDINGS: Head and Neck: There is no mansoor hypermetabolism in the neck. The visualized portions of the brain are normal in appearance on CT. Chest: There is no mansoor hypermetabolism in the chest. There are no pulmonary nodules. Abdomen and Pelvis: There is no mansoor hypermetabolism in retroperitoneal or pelvic chains. The spleen is normal in size and FDG avidity. Musculoskeletal: The osteolytic lesion articulating left facet C1 left pedicle and lamina have re-mineralized on the current study substantially. This area is not hypermetabolic on the current PET CT scan Similarly the right eighth rib lesion now shows significant re-mineralization The small osteolytic lesions at C3 C5 and C7 are stable in appearance The T11 osteolytic lesion has partially re-mineralized posteriorly with the posterior cortex of this vertebral body now intact compared to the prior study. L1 vertebral body now demonstrates a 14 mm osteolytic defect not seen on the PET/CT scan February 15, 2024 There are new osteolytic lesions in the posterior iliac bones bilaterally, for instance image [id number] and 204, the largest is 16 mm image 201 IMPRESSION: Compared to PET/CT scan February 15, 2024: Prominent re-mineralization of the C1 osteolytic lesions Stable osteolytic lesion C3, C5, C7 Re-mineralization of the right eighth rib osteolytic lesion New 14 mm osteolytic defect L1 vertebral body New osteolytic lesions in the posterior iliac bones bilaterally, the largest is 16 mm in the left iliac bone
== END | disposition home or self-care (01) ==
PROVIDERS: PCP Internal Medicine; Referring Provider Internal Medicine Hematology; Visit Provider Internal Medicine Hematology
DX: M89.58 Osteolysis, other site (principal); C90.00 Multiple myeloma not having achieved remission
CPT/HCPCS: 78816; A9552

== ENCOUNTER 2025-04-14 08:46 | Outpatient (RCR) | payer OTHER, SELFPAY ==
--- NOTE | 2025-03-28 20:26 | CTCFLWUP_ITS ---
Patient: EDER CORDOVA : 1965 Page 3 of 5 FOLLOW UP NOTE DATE OF SERVICE: 03/24/2025 NAME: EDER CORDOVA ACCOUNT: [id number] : 1965 AGE: 59 INTERVAL HISTORY: No new complains ONCOLOGY HISTORY: DIAGNOSIS: ?CloneDiagnosis? Multiple myeloma not having achieved remission [ICD10] C90.00 R2-ISS intermediate?high risk: 2 poins, ISS?II (Albumin 3.7, beta-2 microglobulin 3.14, LDH 159, t(4;14)) IgG lambda multiple myeloma with multiple bone lytic lesions (01/27/2024) s/p radiation therapy to the cervical spine (02/07/2024 - 02/19/2024) S/p 4 cycles of D RVD chemotherapy (02/12/2024?05/15/2024). 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 daily DATE OF DIAGNOSIS: 02/03/2024 STAGE/TNM: Stage 3 s/p transplant high risk TREATMENT HISTORY: Care?Plan Start?Date Cycle Day Intent Zoledronic?Acid?4?mg?q?28?days?myeloma 02/12/2024 1 28 Palliative 1?DRVd?pretransplant?Ronaldo?Study?Induction 02/18/2024 1 21 Palliative [facility]?High?risk?MM?Maint?-?Bortezomib?1.3?mg/m*2,?Rx?Lenalido?10mg,?Rx?Dexa?20 11/19/2024 1 28 Maintenance Xgeva?120?mg?q?3?months 03/24/2025 1 90 Palliative HISTORY OF PRESENT ILLNESS: Oncological history Myeloma IgG lambda diagnosed on 01/27/2024 R-ISS stage II intermediate high risk 3 third out of 4 categories Deletion 17P present - and the patient also had 1 q. mutation serum LDH more than upper limit of normal also has T4 to 14 mutation high risk genetic mutation and there is a loss of T p53. Substantial skeletal involvement at presentation in the cervical spine treated with radiation status post 5 cycles pretransplant required induction with Nicolasa VRD S/p melphalan 200 based autotransplant day 0 was 07/01/2024 10/01/2024 D90 s/p melphalan autotransplant Myeloma serologies and marrow morphology from 08/31/2024 shows no evidence of myeloma Measurable residual disease by clonal sequence shows 13 cells per million. Low but detectable. Recommendations Maintenance with 10 mg lenalidomide daily Aspirin 81 mg for DVT prophylaxis Velcade 1.3 mg/m? subcu every 2 weeks Dex 20 mg p.o. every 2 weeks with Velcade Bone marrow planned for June 2025 At highest risk immunocompromise due to myeloma therapy PCP prophylaxis Bactrim DS q. Saturday We saturday for 3 to 6 months if CD4 count is more than 200 can stop every 3 months HSV varicella prophylaxis continue acyclovir 400 mg p.o. twice daily Consider IVIG if persistently less than 400 or in for infection complications Vaccination as per [facility] schedule 02/07/2024 - 02/19/2024: Ms. Cordova is with a total of 2900 cGy radiation therapy to the C-spine. 02/12/2024: Serum protein electrophoresis showed abnormal protein band of 5.7 g/dL. 02/12/2024: Ms. Cordova is started on DRVD chemotherapy as well as Zometa. She also started taking acyclovir, Bactrim, Levaquin as well as Eliquis. OTHER MEDICAL HISTORY/CONDITIONS: ANXIETY Laproscopic hysterectomy and RT ophorectomy- 2005 Cholecystectomy/ Appendectomy 2001 ?Clone Other Med Hx? FAMILY HISTORY: Patient?denies?family?cancer?history. ?Clone Family Hx? 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 Tobacco?Use:?denies ETOH?Use:?denies Drug?Note:?Denies Social?History?Note:?Lives?with? ?Clone Social Hx? [employer] HISTORY: Menarche?-?Age:?12 Date?LMP:?12/19/2005 :?2 Live?Births:?2 Age?1st?:?24 ?Clone [employer] TE[employer] Hx? MEDICATIONS: 1. acyclovir - 400 mg 1 tab Twice a Day 2. aspirin - 81 mg 1 tab Daily 3. Citracal + D Slow Release - 600 mg-12.5 mcg (500 unit) 1 tab one tab po twice a day 4. cyclobenzaprine - 10 mg 1 tab one tab po three times a day prn cramping 5. dapsone - 100 mg 1 tab Daily 6. dexamethasone - 4 mg 5 tab every 14 days on Day of Velcade injection 7. gabapentin - 100 mg 1 - 2 Capsule three times a day 8. hydromorphone - 4 mg 1 tab q6 9. lenalidomide - 10 mg 1 Capsule Daily 10. levothyroxine - 125 mcg 1 tab Daily?Palabra Meds? Medications Last Reconciled by Keerthi Elizalde MA on 03/24/2025 ALLERGIES: Penicillins; ZOLEDRONIC ACID REVIEW OF SYSTEMS: A complete 14-point review of systems was performed and is negative except as noted in interval history. PHYSICAL EXAMINATION: VITAL SIGNS: Temperature?98.3, B/P?127/79, Oxygen?Saturation?92% Weight?147?lbs (Change?since?03/17/25:?0.2?lbs) PAIN: 0 - No pain ECOG Performance Status: 0 - Asymptomatic and fully active GENERAL APPEARANCE: Appears well, in no apparent distress, appropriately interactive. HEENT: Normocephalic, no temporal wasting, normal conjunctiva, no scleral icterus, normal hearing, lips without lesions, neck normal range of motion. CARDIOVASCULAR: Not assessed. PULMONARY: Normal respiratory effort, no respiratory distress or use of accessory muscles, speaking in full sentences, no tachypnea. EXTREMITIES: No pedal edema or cyanosis. SKIN: Normal skin appearance. NEUROLOGIC: Alert and oriented x4. PSHYCHIATRIC: Appropriate affect, mood normal, behavior normal, intact thought and speech. LABORATORY DATA: I have personally reviewed and interpreted each of the patient?s relevant lab tests, abnormal findings are below: Date 02/25/25 03/17/25 ??WHITE?BLOOD?COUNT?(Thou/mm3) 4.2 4.9 ??RED?BLOOD?COUNT?(Miln/mm3) 3.18?L 3.05?L ??HEMOGLOBIN?(gm/dl) 10.9?L 10.3?L ??HEMATOCRIT?(%) 30.9?L 29.7?L ??PLATELET?COUNT?(Thou/mm3) 198 212 ??NEUTROPHILS?%,?AUTO?(%) 48 66 ??LYMPH?%,?AUTO?(%) 32 21 ??NEUTROPHILS,?AUTO?(Thou/mm3) 2.0 3.3 ??GLUCOSE,RANDOM?(mg/dL) 96 106 ??BLOOD?UREA?NITROGEN?(mg/dL) 18 23 ??CREATININE?(mg/dL) 1.00 0.80 ??SODIUM?(mmol/L) 134?L 136 ??POTASSIUM?(mmol/L) 4.3 4.4 ??CHLORIDE?(mmol/L) 103 104 ??CrCl?(CandG)?(ml/min) 61.59 77.63 ??AST/SGOT?(Unit/L) 49?H 43?H ??ALT/SGPT?(Unit/L) 72?H 53?H ??ALKALINE?PHOSPHATASE?(Unit/L) 99 87 ??BILIRUBIN,?TOTAL?(mg/dL) 0.8 1.1 ??PROTEIN?TOTAL?(gm/dl) 6.1 5.8 ??ALBUMIN,?SERUM?(gm/dl) 4.3 4.1 ??GLOBULIN?(gm/dl) 1.8?L 1.7?L ??ALBUMIN/GLOBULIN?RATIO 2.4?H 2.4?H ??CALCIUM,?SERUM?(mg/dL) 9.3 9.0 ??CALCIUM?SERUM?(CORRECTED)?(mg/dL) 9.3 9.0 ASSESSMENT/PLAN: R2-ISS intermediate?high risk: 2 poins, ISS?II(Albumin 3.7, beta-2 microglobulin 3.14, LDH 159, t(4;14)) IgG lambda multiple myeloma with multiple bone lytic lesions (01/27/2024) s/p radiation therapy to the cervical spine (02/07/2024 - 02/19/2024) 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 S/p me lphalan based autologous bone marrow transplantation on 07/01/2024.. Patient's myeloma series and marrow morphology from August 2024 shows no myeloma Patient had clonseq which showed 13 cells per million thus her myeloma is detectable As patient have intermediate risk myeloma, double maintenance therapy is recommended by [facility] Patient is advised to have following maintenance therapy Lenalidomide 10 mg daily Aspirin 81 daily for DVT prophylaxis Velcade 1.3 mg/m? subcu every 2 weeks Dex 20 mg p.o. every 2 weeks with Velcade I discussed with the patient that Velcade will cause neuropathy and will worsen it as the time goes off. Patient want to follow with dual therapy as recommended by higher level care. Will continue above therapy Serum amino pheresis and SPEP, free light chain ratio every 2 months along with CBC and CMP RTC in 2 months ORDERS: Order # Description [id number] CBC [id number] Lab Appointment [id number] Injection Clinic 15 Min [id number] CBC + Comprehensive Metabolic Panel [id number] Lab Appointment [id number] Basic Metabolic Panel [id number] Lab Appointment [id number] Follow Up Appointment [id number] Injection Clinic 15 Min [id number] Infusion 1 Hour [id number] CBC [id number] Lab Appointment [id number] Injection Clinic 15 Min [id number] CBC + Comprehensive Metabolic Panel [id number] Lab Appointment [id number] Follow Up Appointment [id number] Basic Metabolic Panel [id number] Lab Appointment [id number] Infusion 1 Hour [id number] Basic Metabolic Panel [id number] Lab Appointment [id number] Infusion 1 Hour [id number] Basic Metabolic Panel [id number] Lab Appointment [id number] Infusion 1 Hour [id number] Basic Metabolic Panel [id number] Lab Appointment [id number] Infusion 1 Hour [id number] Basic Metabolic Panel [id number] Lab Appointment [id number] Infusion 1 Hour [id number] Basic Metabolic Panel [id number] Lab Appointment [id number] Infusion 1 Hour [id number] Basic Metabolic Panel [id number] Lab Appointment [id number] Infusion 1 Hour [id number] Basic Metabolic Panel [id number] Lab Appointment [id number] Infusion 1 Hour [id number] Basic Metabolic Panel [id number] Lab Appointment [id number] Infusion 1 Hour [id number] Basic Metabolic Panel [id number] Lab Appointment [id number] Infusion 1 Hour [id number] Basic Metabolic Panel [id number] Lab Appointment [id number] Infusion 1 Hour [id number] Basic Metabolic Panel [id number] Lab Appointment [id number] Infusion 1 Hour [id number] Basic Metabolic Panel [id number] Lab Appointment [id number] Infusion 1 Hour [id number] Basic Metabolic Panel [id number] Lab Appointment [id number] Infusion 1 Hour [id number] Basic Metabolic Panel [id number] Lab Appointment [id number] Infusion 1 Hour [id number] Basic Metabolic Panel [id number] Lab Appointment [id number] Infusion 1 Hour [id number] Basic Metabolic Panel [id number] Lab Appointment [id number] Infusion 1 Hour [id number] Basic Metabolic Panel [id number] Lab Appointment RETURN TO CLINIC: BILLING AND COMPLIANCE: I reviewed external records from providers outside my specialty as summarized above. I spent a total of 50 minutes on this patient?s care on the day of their visit excluding time spent related to any billed procedures. This time includes time spent with the patient as well as time spent documenting in the medical record, reviewing patients records and tests, obtaining history, placing orders, communicating with other healthcare professionals, counseling the patient, family or caregiver, and/or care coordination for the diagnoses above. Electronically Signed by: Reynaldo Koch MD T: 8:24 PM CC: PCP: Jc Rico Referring: Jc Rico This document was completed utilizing speech recognition software. Grammatical errors, random word insertions, pronoun errors, and incomplete sentences are an occasional consequence of this system due to software limitations, ambient noise, and hardware issues. Any formal questions or concerns about the content, text or information contained within the body of this dictation should be directly addressed to the provider for clarification.
[2025-03-31 09:28] LABS: Basophils # (Auto) 0.1 Thou/mm3 (0.0-0.2); Basophils % (Auto) 1 % (0-2.5); Eosinophils # (Auto) 0.1 Thou/mm3 (0.0-0.5); Eosinophils % (Auto) 3 % (0-10); Hematocrit 26.1 % (36.0-46.0); Immature Granulocytes % (Auto) 1 % (0-0); Immature Granulocytes Auto 0.05 Thou/mm3 (0.00-0.00); Lymphocytes # (Auto) 1.1 Thou/mm3 (1.0-4.8); Lymphocytes % (Auto) 26 % (10-50); Mean Corpuscular HGB Conc 33.3 g/dl (31.0-37.0); Mean Corpuscular Hemoglobin 34.4 pg (25.0-35.0); Mean Corpuscular Volume 103 fL (80-100); Monocytes # (Auto) 0.3 Thou/mm3 (0.0-0.8); Monocytes % (Auto) 8 % (0-12); Neutrophils # (Auto) 2.7 Thou/mm3 (1.8-7.7); Neutrophils % (Auto) 61 % (37-80); Nucleated Red Blood Cell % 0 /100 WBC (0); Platelet Count 255 Thou/mm3 (140-440); RDW Standard Deviation 67.6 fL (36.4-46.3); Red Blood Count 2.53 Miln/mm3 (4.00-5.20); White Blood Count 4.4 Thou/mm3 (3.6-11.0)
[2025-03-31 09:35] LABS: Hemoglobin 8.7 g/dL (12.0-16.0)
[2025-03-31 09:36] LABS: Alanine Aminotransferase 72 U/L (10-49); Albumin, Serum 4.1 gm/dL (3.4-4.8); Albumin/Globulin Ratio 2.3 (1.2-2.2); Alkaline Phosphatase 131 U/L (46-116); Anion Gap 6 (7-16); Aspartate Amino Transferase 34 U/L (0-34); BUN/Creatinine Ratio 15 Ratio (12-20); Bilirubin,Total 1.2 mg/dL (0.3-1.2); Blood Urea Nitrogen 12 mg/dL (9-23); Calcium 8.4 mg/dL (8.3-10.6); Calcium (Corrected) 8.4 mg/dL (8.5-10.1); Carbon Dioxide 24.6 mMol/L (20.0-31.0); Chloride 106 mMol/L (98-107); Creatinine (Component) 0.8 mg/dL (0.6-1.3); Globulin 1.8 gm/dL (2.3-3.5); Glucose 130 mg/dL (74-106); Osmolality,Calculated 275 (275-295); Potassium 4.2 mMol/L (3.4-5.1); Sodium 137 mMol/L (136-145); Total Protein 5.9 gm/dL (5.7-8.2); eGFR > 60 See Note
[2025-04-06 11:54] LABS: Basophils # (Auto) 0.1 Thou/mm3 (0.0-0.2); Basophils % (Auto) 2 % (0-2.5); Eosinophils # (Auto) 0.1 Thou/mm3 (0.0-0.5); Eosinophils % (Auto) 4 % (0-10); Hematocrit 24.5 % (36.0-46.0); Immature Granulocytes % (Auto) 1 % (0-0); Immature Granulocytes Auto 0.03 Thou/mm3 (0.00-0.00); Lymphocytes # (Auto) 1.2 Thou/mm3 (1.0-4.8); Lymphocytes % (Auto) 33 % (10-50); Mean Corpuscular HGB Conc 35.1 g/dl (31.0-37.0); Mean Corpuscular Hemoglobin 35.5 pg (25.0-35.0); Mean Corpuscular Volume 101 fL (80-100); Monocytes # (Auto) 0.5 Thou/mm3 (0.0-0.8); Monocytes % (Auto) 15 % (0-12); Neutrophils # (Auto) 1.7 Thou/mm3 (1.8-7.7); Neutrophils % (Auto) 46 % (37-80); Nucleated Red Blood Cell % 0 /100 WBC (0); Platelet Count 213 Thou/mm3 (140-440); RDW Standard Deviation 64.4 fL (36.4-46.3); Red Blood Count 2.42 Miln/mm3 (4.00-5.20); White Blood Count 3.6 Thou/mm3 (3.6-11.0)
[2025-04-06 12:11] LABS: Hemoglobin 8.6 g/dL (12.0-16.0)
[2025-04-06 12:13] LABS: Alanine Aminotransferase 54 U/L (10-49); Albumin, Serum 4.1 gm/dL (3.4-4.8); Albumin/Globulin Ratio 2.3 (1.2-2.2); Alkaline Phosphatase 108 U/L (46-116); Anion Gap 6 (7-16); Aspartate Amino Transferase 32 U/L (0-34); BUN/Creatinine Ratio 22 Ratio (12-20); Bilirubin,Total 1.3 mg/dL (0.3-1.2); Blood Urea Nitrogen 20 mg/dL (9-23); Calcium 9.2 mg/dL (8.3-10.6); Calcium (Corrected) 9.2 mg/dL (8.5-10.1); Carbon Dioxide 27.4 mMol/L (20.0-31.0); Chloride 100 mMol/L (98-107); Creatinine (Component) 0.9 mg/dL (0.6-1.3); Globulin 1.8 gm/dL (2.3-3.5); Glucose 96 mg/dL (74-106); Osmolality,Calculated 268 (275-295); Sodium 133 mMol/L (136-145); Total Protein 5.9 gm/dL (5.7-8.2); eGFR > 60 See Note
[2025-04-14 09:35] LABS: Basophils # (Auto) 0.1 Thou/mm3 (0.0-0.2); Basophils % (Auto) 2 % (0-2.5); Eosinophils # (Auto) 0.1 Thou/mm3 (0.0-0.5); Eosinophils % (Auto) 1 % (0-10); Hematocrit 27.2 % (36.0-46.0); Hemoglobin 9.3 g/dL (12.0-16.0); Immature Granulocytes % (Auto) 1 % (0-0); Immature Granulocytes Auto 0.03 Thou/mm3 (0.00-0.00); Lymphocytes % (Auto) 16 % (10-50); Mean Corpuscular HGB Conc 34.2 g/dl (31.0-37.0); Mean Corpuscular Hemoglobin 35.8 pg (25.0-35.0); Mean Corpuscular Volume 105 fL (80-100); Monocytes # (Auto) 0.2 Thou/mm3 (0.0-0.8); Monocytes % (Auto) 4 % (0-12); Neutrophils # (Auto) 4.5 Thou/mm3 (1.8-7.7); Neutrophils % (Auto) 76 % (37-80); Nucleated Red Blood Cell % 0 /100 WBC (0); Platelet Count 208 Thou/mm3 (140-440); White Blood Count 5.9 Thou/mm3 (3.6-11.0)
[2025-04-14 09:51] LABS: Alanine Aminotransferase 74 U/L (10-49); Albumin, Serum 4.4 gm/dL (3.4-4.8); Albumin/Globulin Ratio 2.8 (1.2-2.2); Alkaline Phosphatase 110 U/L (46-116); Anion Gap 10 (7-16); Aspartate Amino Transferase 54 U/L (0-34); BUN/Creatinine Ratio 23 Ratio (12-20); Bilirubin,Total 1.2 mg/dL (0.3-1.2); Blood Urea Nitrogen 21 mg/dL (9-23); Calcium 9.1 mg/dL (8.3-10.6); Calcium (Corrected) 9.1 mg/dL (8.5-10.1); Carbon Dioxide 23.4 mMol/L (20.0-31.0); Chloride 102 mMol/L (98-107); Creatinine (Component) 0.9 mg/dL (0.6-1.3); Globulin 1.6 gm/dL (2.3-3.5); Glucose 107 mg/dL (74-106); Osmolality,Calculated 273 (275-295); Potassium 4.1 mMol/L (3.4-5.1); Sodium 135 mMol/L (136-145); eGFR > 60 See Note
[2025-04-19 22:05] LABS: Immunoglobulin G 565 mg/dL (600-1540); Kappa Light Chain, Free 9.2 mg/L (3.3-19.4); Lambda Light Chain, Free 6.7 mg/L (5.7-26.3)
[2025-04-19 23:35] LABS: Albumin 4.3 g/dL (3.8-4.8); Alpha-1-Globulin 0.3 g/dL (0.2-0.3); Alpha-2-Globulin 0.5 g/dL (0.5-0.9); Beta-1-Globulin 0.4 g/dL (0.4-0.6); Beta-2-globulin 0.2 g/dL (0.2-0.5); Gamma Globulin 0.4 g/dL (0.8-1.7)
[2025-04-20 06:33] LABS: Beta 2 Microglobulin 1.82 mg/L (< OR = 2.51); Immunoglobulin A 23 mg/dL (70-320); Immunoglobulin M 14 mg/dL (50-300); Kappa/Lambda, Free Ratio 1.37 (0.26-1.65); Protein, total, serum 6.1 g/dL (6.1-8.1)
== END 2025-04-17 23:59 | disposition home or self-care (01) ==
LOC: SCTC 08:46
PROVIDERS: PCP Internal Medicine; Referring Provider Internal Medicine; Visit Provider Internal Medicine Hematology & Oncology
DX: Z51.11 Encounter for antineoplastic chemotherapy (principal); C90.00 Multiple myeloma not having achieved remission; Z92.3 Personal history of irradiation; Z94.81 Bone marrow transplant status
CPT/HCPCS: 36591; 80053; 82232; 82784; 83521; 84155; 84165; 85025; 86334; 96360; 96401; 99212; A4216; J1642; J7030; J9041; G0463

== ENCOUNTER 2025-05-04 09:22 | Outpatient (RCR) | payer OTHER, SELFPAY ==
[2025-04-28 09:58] LABS: Basophils # (Auto) 0.1 Thou/mm3 (0.0-0.2); Basophils % (Auto) 2 % (0-2.5); Eosinophils # (Auto) 0.1 Thou/mm3 (0.0-0.5); Eosinophils % (Auto) 1 % (0-10); Hemoglobin 10.3 g/dL (12.0-16.0); Immature Granulocytes % (Auto) 0 % (0-0); Immature Granulocytes Auto 0.02 Thou/mm3 (0.00-0.00); Lymphocytes # (Auto) 0.6 Thou/mm3 (1.0-4.8); Lymphocytes % (Auto) 11 % (10-50); Mean Corpuscular HGB Conc 35.5 g/dl (31.0-37.0); Mean Corpuscular Hemoglobin 36.4 pg (25.0-35.0); Mean Corpuscular Volume 103 fL (80-100); Monocytes # (Auto) 0.1 Thou/mm3 (0.0-0.8); Monocytes % (Auto) 2 % (0-12); Neutrophils # (Auto) 4.3 Thou/mm3 (1.8-7.7); Neutrophils % (Auto) 83 % (37-80); Nucleated Red Blood Cell % 0 /100 WBC (0); Platelet Count 216 Thou/mm3 (140-440); RDW Standard Deviation 49.1 fL (36.4-46.3); Red Blood Count 2.83 Miln/mm3 (4.00-5.20); White Blood Count 5.2 Thou/mm3 (3.6-11.0)
[2025-04-28 10:13] LABS: Alanine Aminotransferase 61 U/L (10-49); Albumin, Serum 4.3 gm/dL (3.4-4.8); Albumin/Globulin Ratio 2.5 (1.2-2.2); Alkaline Phosphatase 111 U/L (46-116); Anion Gap 10 (7-16); Aspartate Amino Transferase 45 U/L (0-34); BUN/Creatinine Ratio 19 Ratio (12-20); Bilirubin,Total 0.7 mg/dL (0.3-1.2); Blood Urea Nitrogen 17 mg/dL (9-23); Calcium 9.4 mg/dL (8.3-10.6); Calcium (Corrected) 9.4 mg/dL (8.5-10.1); Carbon Dioxide 23.3 mMol/L (20.0-31.0); Chloride 103 mMol/L (98-107); Creatinine (Component) 0.9 mg/dL (0.6-1.3); Globulin 1.7 gm/dL (2.3-3.5); Glucose 106 mg/dL (74-106); Osmolality,Calculated 273 (275-295); Potassium 4.1 mMol/L (3.4-5.1); Sodium 136 mMol/L (136-145); eGFR > 60 See Note
== END 2025-05-17 23:59 | disposition home or self-care (01) ==
LOC: SCTC 09:22
PROVIDERS: PCP Internal Medicine; Referring Provider Internal Medicine; Visit Provider Internal Medicine Hematology & Oncology
DX: Z51.11 Encounter for antineoplastic chemotherapy (principal); C90.00 Multiple myeloma not having achieved remission; G62.0 Drug-induced polyneuropathy; T45.1X5D Adverse effect of antineoplastic and immunosuppressive drugs, subsequent encounter
CPT/HCPCS: 36591; 80053; 84450; 85025; 96360; 96372; 96401; A4216; J0897; J1642; J7030; J9041

== ENCOUNTER → 2025-06-04 | Outpatient (CLI) | payer OTHER, SELFPAY ==
--- NOTE | 2025-06-04 17:30 | XR_ITS ---
Examination: MRI lumbar spine, without intravenous contrast. MRI lumbar spine , with intravenous contrast. Exam date and time: June 04, 2025 1841 hours INDICATIONS: Diagnosis multiple myeloma not having achieved remission Technique: Multiple axial, sagittal and coronal images of the lumbar spine have been obtained with the Siemens high-resolution 1.5 Tressa MRI scanner. Images obtained included T2 weighted fat suppressed sagittal sections, TR 3500, TE 46, T2 weighted coronal fat suppressed images, TR 3050, TE 84, T2-weighted transverse fat suppressed images, TR 30-60, TE 63, proton density transverse images, TR 4720, TE 46, and T1 weighted coronal images, TR 560, TE 13. Axial, sagittal and coronal images are obtained post intravenous injection 13 cc gadolinium. Findings: Focal areas of abnormal signal each approximately 15 mm in the anterior inferior margin L1 and anterior superior margin L2, as well as 12 mm increased signal in the right margin of T12 These areas show enhancement on the postcontrast images No enhancing epidural tumor impinging upon the conus medullaris or cauda equina No pathologic vertebral body fracture IMPRESSION: Enhancing osseous lesions involving L1-L2, T12 consistent with the patient's diagnosis of multiple myeloma
--- NOTE | 2025-06-04 18:15 | XR_ITS ---
Examination: MRI right hip, without contrast Date and time of exam: June 04, 2025 1651 hours INDICATIONS: Multiple myeloma not having achieved remission, hip pain 3 weeks Technique: Multiple axial sagittal and coronal images of the right hip have been obtained with the Siemens high-resolution 1.5 Tressa MRI scanner. Images obtained include T2-weighted fat-suppressed sagittal sections, TR 3500, TE 46, T2 weighted coronal fat suppressed images, TR 3050, TE 84, T2-weighted transverse fat suppressed images, TR 3260, TE 63, proton density transverse images, TR 4720 TE 46, and T1 weighted coronal images, TR 560, TE 13. Findings: Homogeneous marrow signal involving the right femoral head neck and intertrochanteric as well as subtrochanteric region No occult fracture No avascular necrosis Left hip bones of the pelvis intact Intact urinary bladder No soft tissue mass in the pelvis IMPRESSION: No right hip occult fracture bone contusion or marrow edema, negative for osseous metastatic disease or osteolytic lesions involving the right hip
== END | disposition home or self-care (01) ==
PROVIDERS: PCP Internal Medicine; Referring Provider Internal Medicine Hematology & Oncology; Visit Provider Internal Medicine Hematology
DX: M25.551 Pain in right hip (principal); G95.89 Other specified diseases of spinal cord; C90.00 Multiple myeloma not having achieved remission
CPT/HCPCS: 72158; 73723; A9579

== ENCOUNTER 2025-06-16 08:25 | Outpatient (RCR) | payer OTHER, SELFPAY ==
[2025-05-19 09:45] LABS: Basophils # (Auto) 0.1 Thou/mm3 (0.0-0.2); Basophils % (Auto) 3 % (0-2.5); Eosinophils # (Auto) 0.1 Thou/mm3 (0.0-0.5); Eosinophils % (Auto) 2 % (0-10); Hematocrit 32.4 % (36.0-46.0); Hemoglobin 11.6 g/dL (12.0-16.0); Immature Granulocytes Auto 0.03 Thou/mm3 (0.00-0.00); Lymphocytes # (Auto) 0.9 Thou/mm3 (1.0-4.8); Lymphocytes % (Auto) 21 % (10-50); Mean Corpuscular HGB Conc 35.8 g/dl (31.0-37.0); Mean Corpuscular Hemoglobin 35.5 pg (25.0-35.0); Mean Corpuscular Volume 99 fL (80-100); Monocytes # (Auto) 0.1 Thou/mm3 (0.0-0.8); Monocytes % (Auto) 3 % (0-12); Neutrophils # (Auto) 2.9 Thou/mm3 (1.8-7.7); Neutrophils % (Auto) 70 % (37-80); Nucleated Red Blood Cell # 0.00 Thou/mm3 (0.00-0.00); Nucleated Red Blood Cell % 0 /100 WBC (0); Platelet Count 221 Thou/mm3 (140-440); RDW Standard Deviation 44.8 fL (36.4-46.3); Red Blood Count 3.27 Miln/mm3 (4.00-5.20); White Blood Count 4.1 Thou/mm3 (3.6-11.0)
[2025-05-19 10:21] LABS: Alanine Aminotransferase 55 U/L (10-49); Albumin, Serum 4.4 gm/dL (3.4-4.8); Albumin/Globulin Ratio 2.4 (1.2-2.2); Alkaline Phosphatase 93 U/L (46-116); Anion Gap 6 (7-16); Aspartate Amino Transferase 50 U/L (0-34); BUN/Creatinine Ratio 20 Ratio (12-20); Bilirubin,Total 0.4 mg/dL (0.3-1.2); Blood Urea Nitrogen 18 mg/dL (9-23); Calcium 9.4 mg/dL (8.3-10.6); Calcium (Corrected) 9.4 mg/dL (8.5-10.1); Carbon Dioxide 23.9 mMol/L (20.0-31.0); Chloride 105 mMol/L (98-107); Creatinine (Component) 0.9 mg/dL (0.6-1.3); Globulin 1.8 gm/dL (2.3-3.5); Glucose 127 mg/dL (74-106); Osmolality,Calculated 274 (275-295); Potassium 4.0 mMol/L (3.4-5.1); Sodium 135 mMol/L (136-145); Total Protein 6.2 gm/dL (5.7-8.2); eGFR > 60 See Note
[2025-05-25 08:48] LABS: Albumin 4.2 g/dL (3.8-4.8); Alpha-1-Globulin 0.3 g/dL (0.2-0.3); Alpha-2-Globulin 0.6 g/dL (0.5-0.9); Beta-1-Globulin 0.4 g/dL (0.4-0.6); Beta-2-globulin 0.2 g/dL (0.2-0.5); Gamma Globulin 0.5 g/dL (0.8-1.7)
[2025-05-25 13:49] LABS: Immunoglobulin G 576 mg/dL (600-1540); Kappa Light Chain, Free 10.8 mg/L (3.3-19.4); Lambda Light Chain, Free 6.5 mg/L (5.7-26.3)
[2025-05-26 06:19] LABS: Beta 2 Microglobulin 1.64 mg/L (< OR = 2.51); Immunoglobulin A 44 mg/dL (70-320); Immunoglobulin M 19 mg/dL (50-300); Kappa/Lambda, Free Ratio 1.66 (0.26-1.65); Protein, total, serum 6.2 g/dL (6.1-8.1)
[2025-06-02 09:33] LABS: Basophils # (Auto) 0.1 Thou/mm3 (0.0-0.2); Basophils % (Auto) 3 % (0-2.5); Eosinophils # (Auto) 0.1 Thou/mm3 (0.0-0.5); Eosinophils % (Auto) 1 % (0-10); Hematocrit 31.7 % (36.0-46.0); Hemoglobin 11.4 g/dL (12.0-16.0); Immature Granulocytes Auto 0.01 Thou/mm3 (0.00-0.00); Lymphocytes # (Auto) 0.9 Thou/mm3 (1.0-4.8); Lymphocytes % (Auto) 16 % (10-50); Mean Corpuscular HGB Conc 36.0 g/dl (31.0-37.0); Mean Corpuscular Hemoglobin 34.5 pg (25.0-35.0); Mean Corpuscular Volume 96 fL (80-100); Monocytes # (Auto) 0.2 Thou/mm3 (0.0-0.8); Monocytes % (Auto) 3 % (0-12); Neutrophils # (Auto) 4.1 Thou/mm3 (1.8-7.7); Neutrophils % (Auto) 77 % (37-80); Nucleated Red Blood Cell # 0.00 Thou/mm3 (0.00-0.00); Nucleated Red Blood Cell % 0 /100 WBC (0); Platelet Count 188 Thou/mm3 (140-440); RDW Standard Deviation 43.6 fL (36.4-46.3); Red Blood Count 3.30 Miln/mm3 (4.00-5.20); White Blood Count 5.4 Thou/mm3 (3.6-11.0)
[2025-06-02 09:48] LABS: Alanine Aminotransferase 82 U/L (10-49); Albumin, Serum 4.3 gm/dL (3.4-4.8); Albumin/Globulin Ratio 2.3 (1.2-2.2); Alkaline Phosphatase 104 U/L (46-116); Anion Gap 9 (7-16); Aspartate Amino Transferase 75 U/L (0-34); BUN/Creatinine Ratio 17 Ratio (12-20); Bilirubin,Total 0.5 mg/dL (0.3-1.2); Blood Urea Nitrogen 15 mg/dL (9-23); Calcium 9.8 mg/dL (8.3-10.6); Calcium (Corrected) 9.8 mg/dL (8.5-10.1); Carbon Dioxide 24.8 mMol/L (20.0-31.0); Chloride 101 mMol/L (98-107); Creatinine (Component) 0.9 mg/dL (0.6-1.3); Globulin 1.9 gm/dL (2.3-3.5); Glucose 113 mg/dL (74-106); Osmolality,Calculated 271 (275-295); Potassium 4.0 mMol/L (3.4-5.1); Sodium 135 mMol/L (136-145); Total Protein 6.2 gm/dL (5.7-8.2); eGFR > 60 See Note
[2025-06-16 09:45] LABS: Basophils # (Auto) 0.2 Thou/mm3 (0.0-0.2); Basophils % (Auto) 3 % (0-2.5); Eosinophils # (Auto) 0.1 Thou/mm3 (0.0-0.5); Eosinophils % (Auto) 1 % (0-10); Hematocrit 33.8 % (36.0-46.0); Hemoglobin 11.7 g/dL (12.0-16.0); Immature Granulocytes Auto 0.03 Thou/mm3 (0.00-0.00); Lymphocytes # (Auto) 1.0 Thou/mm3 (1.0-4.8); Lymphocytes % (Auto) 19 % (10-50); Mean Corpuscular HGB Conc 34.6 g/dl (31.0-37.0); Mean Corpuscular Hemoglobin 33.8 pg (25.0-35.0); Mean Corpuscular Volume 98 fL (80-100); Monocytes # (Auto) 0.2 Thou/mm3 (0.0-0.8); Monocytes % (Auto) 5 % (0-12); Neutrophils # (Auto) 3.7 Thou/mm3 (1.8-7.7); Neutrophils % (Auto) 72 % (37-80); Nucleated Red Blood Cell # 0.00 Thou/mm3 (0.00-0.00); Nucleated Red Blood Cell % 0 /100 WBC (0); Platelet Count 190 Thou/mm3 (140-440); RDW Standard Deviation 44.2 fL (36.4-46.3); Red Blood Count 3.46 Miln/mm3 (4.00-5.20); White Blood Count 5.1 Thou/mm3 (3.6-11.0)
[2025-06-16 10:04] LABS: Alanine Aminotransferase 101 U/L (10-49); Albumin, Serum 4.3 gm/dL (3.4-4.8); Albumin/Globulin Ratio 2.3 (1.2-2.2); Alkaline Phosphatase 135 U/L (46-116); Anion Gap 6 (7-16); Aspartate Amino Transferase 90 U/L (0-34); BUN/Creatinine Ratio 18 Ratio (12-20); Bilirubin,Total 0.4 mg/dL (0.3-1.2); Blood Urea Nitrogen 16 mg/dL (9-23); Calcium 9.1 mg/dL (8.3-10.6); Calcium (Corrected) 9.1 mg/dL (8.5-10.1); Carbon Dioxide 24.6 mMol/L (20.0-31.0); Chloride 103 mMol/L (98-107); Creatinine (Component) 0.9 mg/dL (0.6-1.3); Globulin 1.9 gm/dL (2.3-3.5); Glucose 111 mg/dL (74-106); Osmolality,Calculated 270 (275-295); Potassium 4.1 mMol/L (3.4-5.1); Sodium 134 mMol/L (136-145); Total Protein 6.2 gm/dL (5.7-8.2); eGFR > 60 See Note
== END 2025-06-17 23:59 | disposition home or self-care (01) ==
LOC: SCTC 08:25
PROVIDERS: Internal Medicine Hematology & Oncology; PCP Internal Medicine; Referring Provider Pediatrics Pediatric Gastroenterology; Visit Provider Radiology Therapeutic Radiology
DX: Z51.11 Encounter for antineoplastic chemotherapy (principal); C90.00 Multiple myeloma not having achieved remission; G89.3 Neoplasm related pain (acute) (chronic); Z94.81 Bone marrow transplant status; Z92.3 Personal history of irradiation
CPT/HCPCS: 36591; 80053; 82232; 82784; 83521; 84155; 84165; 85025; 86334; 96360; 96361; 96401; 99213; A4216; J1642; J7030; J9041; G0463

== ENCOUNTER → 2025-07-13 | Outpatient (CLI) | payer OTHER, SELFPAY ==
--- NOTE | 2025-07-13 08:45 | XR_ITS ---
EXAMINATION: PET/CT FUSION SKULL TO THIGH EXAM DATE AND TIME: July 13, 2025, 0950 hours, comparison PET CT scan February 15, 2024, PET CT scan April 08, 2025, MRI lumbar spine June 04, 2025 INDICATIONS: Diagnosis multiple myeloma, hypermetabolic soft tissue mass 17 x 16 mm The left lateral articulating facet of C1 vertebral body including the left pedicle and lamina, osteolytic lesions right eighth rib C3 C5 C7 C [address] scan February 15, 2024, PET CT scan April 08, 2025 re-mineralizations C1 osteolytic lesions, stable osteolytic lesion C3 C5 C7, new 14 mm osteolytic lesion L1 vertebral body new osteolytic lesions posterior iliac bones including 16 mm in the left iliac bone, enhancing osseous lesions L1, L2, T12 on MR lumbar spine June 04, 2025 CTDI:vol (mGy) 3.96 DLP: (mGycm) 410.72 PROCEDURE: 16.6 mCi FDG was administered intravenously To allow for distribution and uptake of radiotracer, the patient was allowed to rest quietly in a shielded room. Imaging was performed on an integrated 16-slice PET/CT scanner, with scanning from the skull base to the mid thigh. CT scanning was performed without oral or intravenous contrast material. FINDINGS: Head and Neck: There is no mansoor hypermetabolism in the neck. The visualized portions of the brain are normal in appearance on CT. The C1 vertebral body again demonstrates re-mineralization with no hypermetabolic activity Stable non hypermetabolic osteolytic lesions C3, C5, C7 compared with April 08, 2025. Chest: No interval hypermetabolic osteolytic rib lesions Stable osteolytic lesion posterior right T11 vertebral body Abdomen and Pelvis: Stable non hypermetabolic osteolytic lesion L1 compared with April 08, 2025 Stable non hypermetabolic osteolytic lesions posterior right and left iliac bones Musculoskeletal: Stable non hypermetabolic osteolytic lesions as above The whole-body 3-D images demonstrate no interval hypermetabolic lesions IMPRESSION: Compared with PET/CT scan April 08, 2025: Stable non hypermetabolic osteolytic lesions C3, C5, C7, T11, L1, posterior right and left iliac bones No new osteolytic lesions The 3-D whole-body images demonstrate no hypermetabolic lesions
== END | disposition home or self-care (01) ==
PROVIDERS: PCP Internal Medicine Hematology & Oncology; Referring Provider Internal Medicine Hematology & Oncology; Visit Provider Internal Medicine Hematology & Oncology
DX: M89.58 Osteolysis, other site (principal); C90.00 Multiple myeloma not having achieved remission
CPT/HCPCS: 78815; A9552

== ENCOUNTER 2025-07-14 08:10 | Outpatient (RCR) | payer OTHER, SELFPAY ==
--- NOTE | 2025-06-24 11:04 | CTCFLWUP_ITS ---
Patient: EDER CORDOVA : 1965 Page 3 of 5 FOLLOW UP NOTE DATE OF SERVICE: 06/24/2025 NAME: EDER CORDOVA ACCOUNT: [id number] : 1965 AGE: 59 INTERVAL HISTORY: Patient is complaining of pain in the hip. Patient states that gabapentin works and she already taking pain medicines. ONCOLOGY HISTORY:?CloneBlock Oncology Hx? DIAGNOSIS: ?CloneDiagnosis? Multiple myeloma not having achieved remission [ICD10] C90.00 R2-ISS intermediate?high risk: 2 poins, ISS?II (Albumin 3.7, beta-2 microglobulin 3.14, LDH 159, t(4;14)) IgG lambda multiple myeloma with multiple bone lytic lesions (01/27/2024) s/p radiation therapy to the cervical spine (02/07/2024 - 02/19/2024) S/p 4 cycles of D RVD chemotherapy (02/12/2024?05/15/2024). 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 daily DATE OF DIAGNOSIS: 02/03/2024 STAGE/TNM: Stage 3 s/p transplant high risk TREATMENT HISTORY: Care?Plan Start?Date Cycle Day Intent Zoledronic?Acid?4?mg?q?28?days?myeloma 02/12/2024 1 28 Palliative 1?DRVd?pretransplant?Ronaldo?Study?Induction 02/18/2024 1 21 Palliative [facility]?High?risk?MM?Maint?-?Bortezomib?1.3?mg/m*2,?Rx?Lenalido?10mg,?Rx?Dexa?20 11/19/2024 1 28 Maintenance Xgeva?120?mg?q?3?months 03/24/2025 1 90 Palliative PROLia?60mg?every?6?months 05/04/2025 1 180 Maintenance HISTORY OF PRESENT ILLNESS: Oncological history Myeloma IgG lambda diagnosed on 01/27/2024 R-ISS stage II intermediate high risk 3 third out of 4 categories Deletion 17P present 4- and the patient also had 1 q. mutation serum LDH more than upper limit of normal also has T4 to 14 mutation high risk genetic mutation and there is a loss of T p53. Substantial skeletal involvement at presentation in the cervical spine treated with radiation status post 5 cycles pretransplant required induction with Nicolasa VRD S/p melphalan 200 based autotransplant day 0 was 07/01/2024 10/01/2024 D90 s/p melphalan autotransplant Myeloma serologies and marrow morphology from 08/31/2024 shows no evidence of myeloma Measurable residual disease by clonal sequence shows 13 cells per million. Low but detectable. Recommendations Maintenance with 10 mg lenalidomide daily Aspirin 81 mg for DVT prophylaxis Velcade 1.3 mg/m? subcu every 2 weeks Dex 20 mg p.o. every 2 weeks with Velcade Bone marrow planned for June 2025 At highest risk immunocompromise due to myeloma therapy PCP prophylaxis Bactrim DS q. Saturday We saturday for 3 to 6 months if CD4 count is more than 200 can stop every 3 months HSV varicella prophylaxis continue acyclovir 400 mg p.o. twice daily Consider IVIG if persistently less than 400 or in for infection complications Vaccination as per [facility] schedule 02/07/2024 - 02/19/2024: Ms. Cordova is with a total of 2900 cGy radiation therapy to the C-spine. 02/12/2024: Serum protein electrophoresis showed abnormal protein band of 5.7 g/dL. 02/12/2024: Ms. Cordova is started on DRVD chemotherapy as well as Zometa. She also started taking acyclovir, Bactrim, Levaquin as well as Eliquis. OTHER MEDICAL HISTORY/CONDITIONS: ANXIETY Laproscopic hysterectomy and RT ophorectomy- 2005 Cholecystectomy/ Appendectomy 2001 ?Clone Other Med Hx? FAMILY HISTORY: Patient?denies?family?cancer?history. ?Clone Family Hx? 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 Tobacco?Use:?denies ETOH?Use:?denies Drug?Note:?Denies Social?History?Note:?Lives?with? ?Clone Social Hx? [employer] HISTORY: Menarche?-?Age:?12 Date?LMP:?12/19/2005 :?2 Live?Births:?2 Age?1st?:?24 ?Clone [employer] Hx? MEDICATIONS: 1. acyclovir - 400 mg 1 tab Twice a Day 2. aspirin - 81 mg 1 tab Daily 3. Citracal + D Slow Release - 600 mg-12.5 mcg (500 unit) 1 tab one tab po twice a day 4. Claritin - 10 mg 1 tab Daily 5. cyclobenzaprine - 10 mg 1 tab one tab po three times a day prn cramping 6. dexamethasone - 4 mg 5 tab every 14 days on Day of Velcade injection 7. gabapentin - 100 mg 2 - 3 Capsule three times a day 8. gabapentin - 300 mg 2 Capsule 2 caps three times a day 9. lenalidomide - 10 mg 1 Capsule Daily 10. levothyroxine - 125 mcg 1 tab Daily?Palabra Meds? Medications Last Reconciled by Keertih Elizalde MA on 06/24/2025 ALLERGIES: Penicillins; ZOLEDRONIC ACID REVIEW OF SYSTEMS: A complete 14-point review of systems was performed and is negative except as noted in interval history. PHYSICAL EXAMINATION:?CloneBlock PE? VITAL SIGNS: PAIN: 5 - Between moderate and severe pain GENERAL APPEARANCE: Appears well, in no apparent distress, appropriately interactive. HEENT: Normocephalic, no temporal wasting, normal conjunctiva, no scleral icterus, normal hearing, lips without lesions, neck normal range of motion. CARDIOVASCULAR: Not assessed. PULMONARY: Normal respiratory effort, no respiratory distress or use of accessory muscles, speaking in full sentences, no tachypnea. EXTREMITIES: No pedal edema or cyanosis. Able to move all extremities SKIN: Normal skin appearance. NEUROLOGIC: Alert and oriented x4. PSHYCHIATRIC: Appropriate affect, mood normal, behavior normal, intact thought and speech. LABORATORY DATA: I have personally reviewed and interpreted each of the patient?s relevant lab tests, abnormal findings are below: Date 06/02/25 06/16/25 ??WHITE?BLOOD?COUNT?(Thou/mm3) 5.4 5.1 ??RED?BLOOD?COUNT?(Miln/mm3) 3.30?L 3.46?L ??HEMOGLOBIN?(gm/dl) 11.4?L 11.7?L ??HEMATOCRIT?(%) 31.7?L 33.8?L ??PLATELET?COUNT?(Thou/mm3) 188 190 ??NEUTROPHILS?%,?AUTO?(%) 77 72 ??LYMPH?%,?AUTO?(%) 16 19 ??NEUTROPHILS,?AUTO?(Thou/mm3) 4.1 3.7 ??GLUCOSE,RANDOM?(mg/dL) 113?H 111?H ??BLOOD?UREA?NITROGEN?(mg/dL) 15 16 ??CREATININE?(mg/dL) 0.90 0.90 ??SODIUM?(mmol/L) 135?L 134?L ??POTASSIUM?(mmol/L) 4.0 4.1 ??CHLORIDE?(mmol/L) 101 103 ??CrCl?(CandG)?(ml/min) 70.32 69.75 ??AST/SGOT?(Unit/L) 75?H 90?H ??ALT/SGPT?(Unit/L) 82?H 101?H ??ALKALINE?PHOSPHATASE?(Unit/L) 104 135?H ??BILIRUBIN,?TOTAL?(mg/dL) 0.5 0.4 ??PROTEIN?TOTAL?(gm/dl) 6.2 6.2 ??ALBUMIN,?SERUM?(gm/dl) 4.3 4.3 ??GLOBULIN?(gm/dl) 1.9?L 1.9?L ??ALBUMIN/GLOBULIN?RATIO 2.3?H 2.3?H ??CALCIUM,?SERUM?(mg/dL) 9.8 9.1 ??CALCIUM?SERUM?(CORRECTED)?(mg/dL) 9.8 9.1 ASSESSMENT/PLAN:?Ivon Koch Assessment/Plan? 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 S/p melphalan based autologous bone marrow transplantation on 07/01/2024.. Patient's myeloma series and marrow morphology from August 2024 shows no myeloma Patient had clonseq which showed 13 cells per million thus her myeloma is detectable As patient have intermediate risk myeloma, double maintenance therapy is recommended by [facility] Patient is advised to have following maintenance therapy Lenalidomide 10 mg daily Aspirin 81 daily for DVT prophylaxis Velcade 1.3 mg/m? subcu every 2 weeks Dex 20 mg p.o. every 2 weeks with Velcade I discussed with the patient that Velcade will cause neuropathy and will worsen it as the time goes off. Patient want to follow with dual therapy as recommended by higher level care. Will continue above therapy Serum amino pheresis and SPEP, free light chain ratio every 2 months along with CBC and CMP RTC in 2 months. Patient is following up with [facility] in 2 weeks after the PET scan. I will wait for the recommendation Discussed with Ms. Cordova that her neuropathy is getting worse and that is the likely cause of her pain in the hips Will increase gabapentin to 600 mg 3 times daily as needed Continue current management RTC in 3 months Transaminitis Left elevated ORDERS: Order # Description [id number] Follow Up 3 Months [id number] Hep A, B and C panel [id number] Comprehensive Metabolic Panel - 12 + CBC with Auto Diff + AFP [id number] CBC [id number] Lab Appointment [id number] Injection Clinic 15 Min [id number] Basic Metabolic Panel [id number] Lab Appointment [id number] Infusion 1 Hour [id number] CBC + Comprehensive Metabolic Panel [id number] Lab Appointment [id number] Follow Up Appointment [id number] Injection Clinic 15 Min [id number] CBC [id number] Lab Appointment [id number] Injection Clinic 15 Min [id number] Basic Metabolic Panel [id number] Lab Appointment [id number] Infusion 1 Hour [id number] CBC + Comprehensive Metabolic Panel [id number] Lab Appointment [id number] Follow Up Appointment [id number] Injection Clinic 15 Min [id number] CBC [id number] Lab Appointment [id number] Injection Clinic 15 Min [id number] Basic Metabolic Panel [id number] Lab Appointment [id number] Infusion 1 Hour [id number] CBC + Comprehensive Metabolic Panel [id number] Lab Appointment [id number] Follow Up Appointment [id number] Injection Clinic 15 Min [id number] CBC [id number] Lab Appointment [id number] Injection Clinic 15 Min [id number] Basic Metabolic Panel [id number] Lab Appointment [id number] Infusion 1 Hour [id number] CBC + Comprehensive Metabolic Panel [id number] Lab Appointment [id number] Follow Up Appointment [id number] Injection Clinic 15 Min [id number] CBC [id number] Lab Appointment [id number] Injection Clinic 15 Min [id number] Basic Metabolic Panel [id number] Basic Metabolic Panel [id number] Lab Appointment [id number] Infusion 1 Hour [id number] CBC + Comprehensive Metabolic Panel [id number] Lab Appointment [id number] Follow Up Appointment [id number] Basic Metabolic Panel [id number] Lab Appointment [id number] Infusion 1 Hour [id number] Basic Metabolic Panel [id number] Lab Appointment [id number] Infusion 1 Hour [id number] Basic Metabolic Panel [id number] Lab Appointment [id number] Infusion 1 Hour [id number] Basic Metabolic Panel [id number] Lab Appointment [id number] Infusion 1 Hour [id number] Basic Metabolic Panel [id number] Lab Appointment [id number] Infusion 1 Hour [id number] Basic Metabolic Panel [id number] Lab Appointment [id number] Infusion 1 Hour [id number] Basic Metabolic Panel [id number] Basic Metabolic Panel [id number] Lab Appointment [id number] Infusion 1 Hour [id number] Basic Metabolic Panel [id number] Lab Appointment [id number] Infusion 1 Hour [id number] Basic Metabolic Panel [id number] Lab Appointment [id number] Infusion 1 Hour [id number] Basic Metabolic Panel [id number] Lab Appointment [id number] Infusion 1 Hour [id number] Basic Metabolic Panel [id number] Lab Appointment [id number] Infusion 1 Hour [id number] Basic Metabolic Panel [id number] Lab Appointment RETURN TO CLINIC: I reviewed the diagnosis, prognosis, and recommended treatment/procedure options with the patient (and/or their legal safety representative), including the potential benefits, risks, side effects and alternative therapies. We also discussed the option of no treatment and the possibility of clinical trial participation, if applicable. All questions were addressed, and they demonstrated understanding. They provided informed consent to proceed with the proposed plan of care. BILLING AND COMPLIANCE: I reviewed external records from providers outside my specialty as summarized above. I spent a total of 50 minutes on this patient?s care on the day of their visit excluding time spent related to any billed procedures. This time includes time spent with the patient as well as time spent documenting in the medical record, reviewing patients records and tests, obtaining history, placing orders, communicating with other healthcare professionals, counseling the patient, family or caregiver, and/or care coordination for the diagnoses above. Electronically Signed by: Reynaldo Koch MD T: 11:02 AM CC: PCP: Jc Rico Referring: Jc Rico This document was completed utilizing speech recognition software. Grammatical errors, random word insertions, pronoun errors, and incomplete sentences are an occasional consequence of this system due to software limitations, ambient noise, and hardware issues. Any formal questions or concerns about the content, text or information contained within the body of this dictation should be directly addressed to the provider for clarification.
[2025-06-30 09:56] LABS: Basophils # (Auto) 0.1 Thou/mm3 (0.0-0.2); Basophils % (Auto) 2 % (0-2.5); Eosinophils # (Auto) 0.2 Thou/mm3 (0.0-0.5); Eosinophils % (Auto) 4 % (0-10); Hematocrit 32.7 % (36.0-46.0); Hemoglobin 11.3 g/dL (12.0-16.0); Immature Granulocytes Auto 0.01 Thou/mm3 (0.00-0.00); Lymphocytes # (Auto) 0.9 Thou/mm3 (1.0-4.8); Lymphocytes % (Auto) 18 % (10-50); Mean Corpuscular HGB Conc 34.6 g/dl (31.0-37.0); Mean Corpuscular Hemoglobin 33.0 pg (25.0-35.0); Mean Corpuscular Volume 96 fL (80-100); Monocytes # (Auto) 0.3 Thou/mm3 (0.0-0.8); Monocytes % (Auto) 7 % (0-12); Neutrophils # (Auto) 3.2 Thou/mm3 (1.8-7.7); Neutrophils % (Auto) 69 % (37-80); Nucleated Red Blood Cell # 0.00 Thou/mm3 (0.00-0.00); Nucleated Red Blood Cell % 0 /100 WBC (0); Platelet Count 186 Thou/mm3 (140-440); RDW Standard Deviation 44.0 fL (36.4-46.3); Red Blood Count 3.42 Miln/mm3 (4.00-5.20); White Blood Count 4.7 Thou/mm3 (3.6-11.0)
[2025-06-30 10:03] LABS: Alanine Aminotransferase 75 U/L (10-49); Albumin, Serum 4.0 gm/dL (3.4-4.8); Albumin/Globulin Ratio 2.5 (1.2-2.2); Alkaline Phosphatase 109 U/L (46-116); Anion Gap 8 (7-16); Aspartate Amino Transferase 57 U/L (0-34); BUN/Creatinine Ratio 16 Ratio (12-20); Bilirubin,Total 0.6 mg/dL (0.3-1.2); Blood Urea Nitrogen 13 mg/dL (9-23); Calcium 9.1 mg/dL (8.3-10.6); Calcium (Corrected) 9.1 mg/dL (8.5-10.1); Carbon Dioxide 23.6 mMol/L (20.0-31.0); Chloride 106 mMol/L (98-107); Creatinine (Component) 0.8 mg/dL (0.6-1.3); Globulin 1.6 gm/dL (2.3-3.5); Glucose 97 mg/dL (74-106); Osmolality,Calculated 275 (275-295); Potassium 4.0 mMol/L (3.4-5.1); Sodium 138 mMol/L (136-145); Total Protein 5.6 gm/dL (5.7-8.2); eGFR > 60 See Note
[2025-07-02 23:32] LABS: Albumin 3.8 g/dL (3.8-4.8); Alpha-1-Globulin 0.2 g/dL (0.2-0.3); Alpha-2-Globulin 0.6 g/dL (0.5-0.9); Beta-1-Globulin 0.4 g/dL (0.4-0.6); Beta-2-globulin 0.2 g/dL (0.2-0.5); Gamma Globulin 0.4 g/dL (0.8-1.7)
[2025-07-04 15:34] LABS: Immunoglobulin G 507 mg/dL (600-1540); Kappa Light Chain, Free 7.7 mg/L (3.3-19.4); Lambda Light Chain, Free 5.0 mg/L (5.7-26.3)
[2025-07-05 06:51] LABS: Protein, total, serum 5.6 g/dL (6.1-8.1)
[2025-07-05 07:04] LABS: Beta 2 Microglobulin 1.60 mg/L (< OR = 2.51); Immunoglobulin A 45 mg/dL (70-320); Immunoglobulin M 16 mg/dL (50-300); Kappa/Lambda, Free Ratio 1.54 (0.26-1.65)
[2025-07-14 09:12] LABS: Basophils # (Auto) 0.1 Thou/mm3 (0.0-0.2); Basophils % (Auto) 3 % (0-2.5); Eosinophils # (Auto) 0.1 Thou/mm3 (0.0-0.5); Eosinophils % (Auto) 2 % (0-10); Hematocrit 33.8 % (36.0-46.0); Hemoglobin 11.6 g/dL (12.0-16.0); Immature Granulocytes Auto 0.02 Thou/mm3 (0.00-0.00); Lymphocytes # (Auto) 0.7 Thou/mm3 (1.0-4.8); Lymphocytes % (Auto) 18 % (10-50); Mean Corpuscular HGB Conc 34.3 g/dl (31.0-37.0); Mean Corpuscular Hemoglobin 32.6 pg (25.0-35.0); Mean Corpuscular Volume 95 fL (80-100); Monocytes # (Auto) 0.2 Thou/mm3 (0.0-0.8); Monocytes % (Auto) 6 % (0-12); Neutrophils # (Auto) 2.9 Thou/mm3 (1.8-7.7); Neutrophils % (Auto) 71 % (37-80); Nucleated Red Blood Cell # 0.00 Thou/mm3 (0.00-0.00); Nucleated Red Blood Cell % 0 /100 WBC (0); Platelet Count 186 Thou/mm3 (140-440); RDW Standard Deviation 45.6 fL (36.4-46.3); Red Blood Count 3.56 Miln/mm3 (4.00-5.20); White Blood Count 4.0 Thou/mm3 (3.6-11.0)
[2025-07-14 09:36] LABS: Alanine Aminotransferase 83 U/L (10-49); Albumin, Serum 4.2 gm/dL (3.4-4.8); Albumin/Globulin Ratio 2.6 (1.2-2.2); Alkaline Phosphatase 130 U/L (46-116); Anion Gap 9 (7-16); Aspartate Amino Transferase 50 U/L (0-34); BUN/Creatinine Ratio 19 Ratio (12-20); Bilirubin,Total 0.7 mg/dL (0.3-1.2); Blood Urea Nitrogen 17 mg/dL (9-23); Calcium 9.5 mg/dL (8.3-10.6); Calcium (Corrected) 9.5 mg/dL (8.5-10.1); Carbon Dioxide 24.0 mMol/L (20.0-31.0); Chloride 104 mMol/L (98-107); Creatinine (Component) 0.9 mg/dL (0.6-1.3); Globulin 1.6 gm/dL (2.3-3.5); Glucose 107 mg/dL (74-106); Osmolality,Calculated 275 (275-295); Potassium 4.2 mMol/L (3.4-5.1); Sodium 137 mMol/L (136-145); Total Protein 5.8 gm/dL (5.7-8.2); eGFR > 60 See Note
== END 2025-07-18 23:59 | disposition home or self-care (01) ==
LOC: SCTC 08:10
PROVIDERS: PCP Internal Medicine; Referring Provider Internal Medicine; Visit Provider Internal Medicine Hematology & Oncology
DX: Z51.11 Encounter for antineoplastic chemotherapy (principal); C90.00 Multiple myeloma not having achieved remission; Z92.3 Personal history of irradiation; G62.0 Drug-induced polyneuropathy; T45.1X5D Adverse effect of antineoplastic and immunosuppressive drugs, subsequent encounter
CPT/HCPCS: 36591; 80053; 82232; 82784; 83521; 84155; 84165; 85025; 86334; 96360; 96361; 96401; 99212; A4216; J1642; J7030; J9041; G0463

== ENCOUNTER 2025-08-11 07:02 | Outpatient (RCR) | payer OTHER, SELFPAY ==
[2025-08-11 07:46] LABS: Basophils # (Auto) 0.1 Thou/mm3 (0.0-0.2); Basophils % (Auto) 2 % (0-2.5); Eosinophils # (Auto) 0.5 Thou/mm3 (0.0-0.5); Eosinophils % (Auto) 10 % (0-10); Hematocrit 30.5 % (36.0-46.0); Hemoglobin 10.8 g/dL (12.0-16.0); Immature Granulocytes Auto 0.03 Thou/mm3 (0.00-0.00); Lymphocytes # (Auto) 0.7 Thou/mm3 (1.0-4.8); Lymphocytes % (Auto) 14 % (10-50); Mean Corpuscular HGB Conc 35.4 g/dl (31.0-37.0); Mean Corpuscular Hemoglobin 33.3 pg (25.0-35.0); Mean Corpuscular Volume 94 fL (80-100); Monocytes # (Auto) 0.6 Thou/mm3 (0.0-0.8); Monocytes % (Auto) 13 % (0-12); Neutrophils # (Auto) 2.9 Thou/mm3 (1.8-7.7); Neutrophils % (Auto) 60 % (37-80); Nucleated Red Blood Cell # 0.00 Thou/mm3 (0.00-0.00); Nucleated Red Blood Cell % 0 /100 WBC (0); Platelet Count 200 Thou/mm3 (140-440); RDW Standard Deviation 50.0 fL (36.4-46.3); Red Blood Count 3.24 Miln/mm3 (4.00-5.20); White Blood Count 4.8 Thou/mm3 (3.6-11.0)
[2025-08-11 07:58] LABS: Alanine Aminotransferase 80 U/L (10-49); Albumin, Serum 4.1 gm/dL (3.4-4.8); Albumin/Globulin Ratio 2.4 (1.2-2.2); Alkaline Phosphatase 252 U/L (46-116); Anion Gap 10 (7-16); Aspartate Amino Transferase 67 U/L (0-34); BUN/Creatinine Ratio 13 Ratio (12-20); Bilirubin,Total 0.7 mg/dL (0.3-1.2); Blood Urea Nitrogen 10 mg/dL (9-23); Calcium 9.1 mg/dL (8.3-10.6); Calcium (Corrected) 9.1 mg/dL (8.5-10.1); Carbon Dioxide 24.3 mMol/L (20.0-31.0); Chloride 102 mMol/L (98-107); Creatinine (Component) 0.8 mg/dL (0.6-1.3); Globulin 1.7 gm/dL (2.3-3.5); Glucose 120 mg/dL (74-106); Osmolality,Calculated 271 (275-295); Potassium 3.7 mMol/L (3.4-5.1); Sodium 136 mMol/L (136-145); Total Protein 5.8 gm/dL (5.7-8.2); eGFR > 60 See Note
== END 2025-08-17 23:59 | disposition home or self-care (01) ==
LOC: SCTC 07:02
PROVIDERS: PCP Internal Medicine; Referring Provider Internal Medicine; Visit Provider Internal Medicine Hematology & Oncology
DX: Z51.11 Encounter for antineoplastic chemotherapy (principal); C90.00 Multiple myeloma not having achieved remission; Z92.3 Personal history of irradiation; G62.0 Drug-induced polyneuropathy; T45.1X5D Adverse effect of antineoplastic and immunosuppressive drugs, subsequent encounter; R74.01 Elevation of levels of liver transaminase levels
CPT/HCPCS: 80053; 85025; 86850; 86900; 86901; 96367; 96375; 96413; 96415; A4216; J1200; J1642; J2405; J2919; J3490; J7030; J7040; J9145

== ENCOUNTER 2025-09-15 06:57 | Outpatient (RCR) | payer OTHER, SELFPAY ==
[2025-08-18 08:31] LABS: Basophils # (Auto) 0.1 Thou/mm3 (0.0-0.2); Basophils % (Auto) 2 % (0-2.5); Eosinophils # (Auto) 0.6 Thou/mm3 (0.0-0.5); Eosinophils % (Auto) 13 % (0-10); Hematocrit 29.3 % (36.0-46.0); Hemoglobin 10.3 g/dL (12.0-16.0); Immature Granulocytes Auto 0.02 Thou/mm3 (0.00-0.00); Lymphocytes # (Auto) 0.3 Thou/mm3 (1.0-4.8); Lymphocytes % (Auto) 7 % (10-50); Mean Corpuscular HGB Conc 35.2 g/dl (31.0-37.0); Mean Corpuscular Hemoglobin 32.8 pg (25.0-35.0); Mean Corpuscular Volume 93 fL (80-100); Monocytes # (Auto) 0.5 Thou/mm3 (0.0-0.8); Monocytes % (Auto) 11 % (0-12); Neutrophils # (Auto) 3.0 Thou/mm3 (1.8-7.7); Neutrophils % (Auto) 67 % (37-80); Nucleated Red Blood Cell # 0.00 Thou/mm3 (0.00-0.00); Nucleated Red Blood Cell % 0 /100 WBC (0); Platelet Count 194 Thou/mm3 (140-440); RDW Standard Deviation 50.4 fL (36.4-46.3); Red Blood Count 3.14 Miln/mm3 (4.00-5.20); White Blood Count 4.5 Thou/mm3 (3.6-11.0)
[2025-08-18 08:39] LABS: Alanine Aminotransferase 52 U/L (10-49); Albumin, Serum 4.0 gm/dL (3.4-4.8); Albumin/Globulin Ratio 2.2 (1.2-2.2); Alkaline Phosphatase 241 U/L (46-116); Anion Gap 10 (7-16); Aspartate Amino Transferase 42 U/L (0-34); BUN/Creatinine Ratio 11 Ratio (12-20); Bilirubin,Total 0.8 mg/dL (0.3-1.2); Blood Urea Nitrogen 9 mg/dL (9-23); Calcium 9.2 mg/dL (8.3-10.6); Calcium (Corrected) 9.2 mg/dL (8.5-10.1); Carbon Dioxide 23.0 mMol/L (20.0-31.0); Chloride 103 mMol/L (98-107); Creatinine (Component) 0.8 mg/dL (0.6-1.3); Globulin 1.8 gm/dL (2.3-3.5); Glucose 125 mg/dL (74-106); Osmolality,Calculated 271 (275-295); Potassium 3.4 mMol/L (3.4-5.1); Sodium 136 mMol/L (136-145); Total Protein 5.8 gm/dL (5.7-8.2); eGFR > 60 See Note
[2025-09-15 08:07] LABS: Basophils # (Auto) 0.1 Thou/mm3 (0.0-0.2); Basophils % (Auto) 3 % (0-2.5); Eosinophils # (Auto) 0.4 Thou/mm3 (0.0-0.5); Eosinophils % (Auto) 9 % (0-10); Hematocrit 32.9 % (36.0-46.0); Hemoglobin 11.1 g/dL (12.0-16.0); Immature Granulocytes Auto 0.02 Thou/mm3 (0.00-0.00); Lymphocytes # (Auto) 1.2 Thou/mm3 (1.0-4.8); Lymphocytes % (Auto) 27 % (10-50); Mean Corpuscular HGB Conc 33.7 g/dl (31.0-37.0); Mean Corpuscular Hemoglobin 32.3 pg (25.0-35.0); Mean Corpuscular Volume 96 fL (80-100); Monocytes # (Auto) 0.7 Thou/mm3 (0.0-0.8); Monocytes % (Auto) 16 % (0-12); Neutrophils # (Auto) 2.0 Thou/mm3 (1.8-7.7); Neutrophils % (Auto) 45 % (37-80); Nucleated Red Blood Cell # 0.00 Thou/mm3 (0.00-0.00); Nucleated Red Blood Cell % 0 /100 WBC (0); Platelet Count 220 Thou/mm3 (140-440); RDW Standard Deviation 53.9 fL (36.4-46.3); Red Blood Count 3.44 Miln/mm3 (4.00-5.20); White Blood Count 4.4 Thou/mm3 (3.6-11.0)
[2025-09-15 08:24] LABS: Alanine Aminotransferase 45 U/L (10-49); Albumin, Serum 4.4 gm/dL (3.4-4.8); Albumin/Globulin Ratio 3.1 (1.2-2.2); Alkaline Phosphatase 162 U/L (46-116); Anion Gap 11 (7-16); Aspartate Amino Transferase 84 U/L (0-34); BUN/Creatinine Ratio 13 Ratio (12-20); Bilirubin,Total 0.7 mg/dL (0.3-1.2); Blood Urea Nitrogen 10 mg/dL (9-23); Calcium 8.9 mg/dL (8.3-10.6); Calcium (Corrected) 8.9 mg/dL (8.5-10.1); Carbon Dioxide 24.1 mMol/L (20.0-31.0); Chloride 105 mMol/L (98-107); Creatinine (Component) 0.8 mg/dL (0.6-1.3); Globulin 1.4 gm/dL (2.3-3.5); Glucose 91 mg/dL (74-106); Osmolality,Calculated 278 (275-295); Potassium 4.1 mMol/L (3.4-5.1); Sodium 140 mMol/L (136-145); Total Protein 5.8 gm/dL (5.7-8.2); eGFR > 60 See Note
[2025-09-17 23:34] LABS: Albumin 3.6 g/dL (3.8-4.8); Alpha-1-Globulin 0.4 g/dL (0.2-0.3); Alpha-2-Globulin 0.9 g/dL (0.5-0.9); Beta-1-Globulin 0.4 g/dL (0.4-0.6); Beta-2-globulin 0.2 g/dL (0.2-0.5); Gamma Globulin 0.3 g/dL (0.8-1.7)
[2025-09-20 07:00] LABS: Protein, total, serum 5.8 g/dL (6.1-8.1)
[2025-09-21 15:36] LABS: Immunoglobulin G 353 mg/dL (600-1540); Kappa Light Chain, Free 7.1 mg/L (3.3-19.4); Lambda Light Chain, Free 3.7 mg/L (5.7-26.3)
[2025-09-22 06:28] LABS: Beta 2 Microglobulin 2.18 mg/L (< OR = 2.51); Immunoglobulin A 34 mg/dL (70-320); Immunoglobulin M 12 mg/dL (50-300); Kappa/Lambda, Free Ratio 1.92 (0.26-1.65)
== END 2025-09-17 23:59 | disposition home or self-care (01) ==
LOC: SCTC 06:57
PROVIDERS: Internal Medicine Hematology & Oncology; PCP Internal Medicine; Referring Provider Internal Medicine; Visit Provider Radiology Therapeutic Radiology
DX: Z51.11 Encounter for antineoplastic chemotherapy (principal); C90.00 Multiple myeloma not having achieved remission; Z92.3 Personal history of irradiation
CPT/HCPCS: 80053; 82232; 82784; 83521; 84155; 84165; 85025; 86334; 96367; 96375; 96413; 96415; 99213; A4216; J1200; J1642; J2405; J2919; J3490; J7040; J9145; A9270; G0463

== ENCOUNTER 2025-09-16 10:38 | Inpatient (IN) | payer OTHER, SELFPAY ==
[2025-09-16] VITALS (64 sets, daily range): BP systolic 70–162; BP diastolic 39–110; PULSE 47–245; RESP 0–27; TEMP 35.9–36.5; O2SAT 96–100; BMI 22.8
--- NOTE | 2025-09-16 | ECHO_ITS ---
Patient Info Name: Jeanine Lozano Age: 59 yrs Admit Date: 09/16/2025 Exam Date: 09/16/2025 12:39 PM Patient Status: E Site: [facility] Wt: 77 kg Gender: Female : 1965 Exam Type: CCL heart cath LT ventricle Procedure Staff Name: Matheus Braxton Title: Role: Film Drying Machine Operator Name: Gordo Diaz Title: LAKESHA Role: Case Management Rn Name: Keerthi Montez Title: Tech Role: Monitor Name: Guy Montiel Title: Quality Assurance Test Program Manager Role: Scrub Name: Cherri Bello Title: LAKESHA Role: Sedation Nurse Name: Leela Palumbo Title: LAKESHA Role: Case Management Rn Procedure(s) Code: 89704039 Description: [facility] WITH VENTRICULOGRAM Code: [id number] Description: CONSCIOUS SEDATION INITIAL Exam Priority: S Diagnostic Cath Status: Emergency Diagnostic Findings * No disease noted in the Left Main, Left Anterior Descending, Right, or Circumflex coronary arteries. * Coronary angiography shows left dominance. Left Ventriculography Findings Normal left ventricular systolic function. EF 60 %, estimated. Cath Hemodynamic Data Pressures Phase:Baseline AO : 117 mmHg/69 mmHg(85 mmHg) @ 12:52:49 PM LV : 133 mmHg/-1 mmHg/21 mmHg @ 12:52:41 PM 127 mmHg/-1 mmHg/22 mmHg @ 12:52:42 PM AO HR: 95 bpm @ 12:52:49 PM LV HR: 97 bpm @ 12:52:41 PM 96 bpm @ 12:52:42 PM LV DP/DT: 1,206 mmHg/s @ 12:52:41 PM 1,061 mmHg/s @ 12:52:42 PM Procedural Details Post Procedure Teaching Performed. Patient Verbalizes Understanding Of Teaching. 5FR ANGIO KIT 5FR. Brilinta PO 180 mg. SpO2 93%; HR 102 bpm; 129/63/89 NBP; LOC 1; LOP 0; RR 0/min INSP: 0 mmHg; EXP: 0 mmHg; used for stiff micro puncture. Percutaneous Puncture To RFA. Patient intubated. Versed drip 2mg/hr. Right Coronary System Injected and Multiple Views Taken. Catheter Repositioned. Patient Allergies: PENCILLINS. 6fr x 10cm Sheath / [place]. Guidewire Inserted. Patient prepped and draped in usual sterile technique. Propofol IV 40 mg. Pullback from LV to AO. Infusor 500ml pressure bag administered. Guidewire/ 0.035/ 260cm/ 3mm J (Exchange). FROM THE ER. 500ml NS with 2500 units Heparin administered. 6fr x 10cm Sheath / Hadley sheath inserted into RFA. Catheter Removed. Catheter Removed catheter inserted by guidewire. 1% Lidocaine Administered To Rt Groin. 1000 ml NS with 5000 units Heparin administered. Left Coronary System Injected and Multiple Views Taken. Sterile Dressing Applied To Site. Catheter Removed with Guidewire. FL4 Catheter Inserted By Guidewire. Snapshot: Pullback from LV to AO. Guidewire Removed. Propofol IV 45 mg. LV Gram Performed. Consent Signed And On Chart (Emergent). Guidewire Inserted. Complication Findings None. Cardiac Arrest: Out of Hospital Arrest Witnessed: No First Cardiac Arrest Rhythm: Shockable X-ray Summary Total Time (min): 1.63 Interventional Time (min): --- Diagnostic Time (min): --- Total Dose (mGy): --- Air Kerma (mGy): --- DAP (cGy*cm2): --- Contrast Contrast: ISOVUE 370 Amount (mL): 70 ml Conclusions 1. No disease noted in the Left Main, Left Anterior Descending, Right, or Circumflex coronary arteries. 2. Normal left ventricular systolic function. 3. EF 60 %, estimated. Recommendations * Continue medical management and risk factor modification. Report Signatures Interventional Finalized by Matheus Braxton on 09/16/2025 01:07 PM Diagnostic Finalized by Matheus Braxton on 09/16/2025 01:07 PM
[2025-09-16] MEDS: EPINEPHrine INJ 0.1 MG/ML SYRINGE 10ML 1 MG IVP (10:44)
[2025-09-16] MEDS: ETOMIDATE INJ 2 MG/ML VIAL 10 ML 20 MG IVP (10:45)
[2025-09-16] MEDS: SUCCINYLCHOLINE INJ 20 MG/ML VIAL 10 ML 100 MG IV (10:45)
[2025-09-16] MEDS: Sodium Bicarb Inj 8.4% SYR 50 ML SYRINGE IV ×2 (10:49)
--- NOTE | 2025-09-16 10:50 | PD.EDARRY ---
ED Arrhythmia Palp. RME/HPI General Stated Complaint: STAT Arrival date/time: 09/16/25 10:38 Related Data Home Medications ?Medication ?Instructions ?Recorded ?Confirmed levothyroxine 125 mcg tablet 125 mcg PO QAM 01/29/18 05/26/24 acyclovir 800 mg tablet 800 mg PO BID 02/07/24 03/04/24 sulfamethoxazole 800 1 tab PO QDAY 02/07/24 05/26/24 mg-trimethoprim 160 mg tablet calcium 325 mg-vit D3 12.5 2 tab PO BID 03/04/24 03/04/24 mcg-zinc 2.75 [id number] tablet (Citracal-D3 Maximum Plus) cyclobenzaprine 10 mg tablet 10 mg PO DAILY PRN Cramps 03/04/24 05/26/24 hydrocodone 5 mg-acetaminophen 325 1 tab PO Q6H PRN Pain 03/04/24 05/26/24 mg tablet ondansetron 4 mg disintegrating 4 mg PO Q6H PRN Nausea And Vomiting 03/04/24 05/26/24 tablet sodium chloride 1 gram tablet 1,000 mg PO TID 03/04/24 05/26/24 gabapentin 100 mg capsule 100 mg PO BID 05/26/24 05/26/24 Previous Rx's ?Medication ?Instructions ?Recorded apixaban 2.5 mg tablet (Eliquis) 2.5 mg PO BID 1 month #60 tabs 03/05/24 Held on 05/26/24. Instructions: Resume on 06/17/24. resume medication when PCP says when it is appropriate to take sennosides 8.6 mg capsule (senna) 8.6 mg PO BID PRN constipation #30 03/05/24 caps Allergies Allergy/AdvReac Type Severity Reaction Status Date / Time Penicillins Allergy Unknown Rash Verified 05/25/24 16:40 Course Orders Category Date Time Status Etomidate Inj [Amidate Inj] Med 09/16/25 10:41 Discontinued 20 mg .ROUTE .STK-MED ONE Succinylcholine Inj [Anectine Inj] Med 09/16/25 10:41 Discontinued 200 mg .ROUTE .STK-MED ONE Arrhythmia/Palpitations Medications / Prescriptions Medication administrations:: Medication Administration History Discontinued Medications Etomidate (Etomidate Inj 2 Mg/Ml Vial 10 Ml) Confirm Administered Dose 20 mg .ROUTE .STK-MED ONE Stop: 09/16/25 10:42 Succinylcholine Chloride (Succinylcholine Inj 20 Mg/Ml Vial 10 Ml) Confirm Administered Dose 200 mg .ROUTE .STK-MED ONE Stop: 09/16/25 10:42 Discharge Plan Prescriptions/Referrals Prescriptions/Med Rec: No Action levothyroxine 125 mcg Tablet 125 mcg PO QAM cyclobenzaprine 10 mg tablet 10 mg PO DAILY PRN (Reason: Cramps) hydrocodone-acetaminophen 5-325 mg Tablet 1 tab PO Q6H PRN (Reason: Pain) sodium chloride 1 gram Tablet 1,000 mg PO TID ondansetron 4 mg Tablet,Disintegrating 4 mg PO Q6H PRN (Reason: Nausea And Vomiting) [id number] [Citracal-D3 Maximum Plus] 325 mg-12.5 mcg -2.75 mg Tablet 2 tab PO BID senna 8.6 mg capsule 8.6 mg PO BID PRN (Reason: constipation) Qty: 30 0RF Eliquis 2.5 mg tablet 2.5 mg PO BID 30 Days Qty: 60 0RF sulfamethoxazole-trimethoprim 800-160 mg tablet 1 tab PO QDAY Patient Comments: TAKE 1 TABLET BY MOUTH EVERY DAY acyclovir 800 mg tablet 800 mg PO BID Patient Comments: TAKE 1 TABLET BY MOUTH TWICE DAILY gabapentin 100 mg Capsule 100 mg PO BID Rx Instructions: take 2 capsule of 100mg BID Referrals: Jc Rico MD [Primary Care Provider, Nephrology] - In 1 week Patient/Caregiver Discharge Instructions Print Language: Citizen [place]
--- NOTE | 2025-09-16 10:51 | PD.EDCPR ---
ED CPR RME/HPI General Chief Complaint: Cardiac Arrest/CPR Stated Complaint: STAT Arrival date/time: 09/16/25 10:38 RME / HPI RME / HPI narrative: See [facility] for Dr. Cordova's HPI documentation. Related Data Home Medications ?Medication ?Instructions ?Recorded ?Confirmed levothyroxine 125 mcg tablet 125 mcg PO QAM 01/29/18 09/17/25 acyclovir 800 mg tablet 800 mg PO BID 02/07/24 03/04/24 sulfamethoxazole 800 1 tab PO QDAY 02/07/24 05/26/24 mg-trimethoprim 160 mg tablet calcium 325 mg-vit D3 12.5 2 tab PO BID 03/04/24 03/04/24 mcg-zinc 2.75 [id number] tablet (Citracal-D3 Maximum Plus) cyclobenzaprine 10 mg tablet 10 mg PO DAILY PRN Cramps 03/04/24 05/26/24 hydrocodone 5 mg-acetaminophen 325 1 tab PO Q6H PRN Pain 03/04/24 05/26/24 mg tablet ondansetron 4 mg disintegrating 4 mg PO Q6H PRN Nausea And Vomiting 03/04/24 05/26/24 tablet sodium chloride 1 gram tablet 1,000 mg PO TID 03/04/24 05/26/24 gabapentin 100 mg capsule 100 mg PO BID 05/26/24 05/26/24 acyclovir 400 mg tablet 400 mg PO Q12H 09/17/25 09/17/25 aspirin 81 mg tablet 81 mg PO QDAY 09/17/25 09/17/25 denosumab 120 mg/1.7 mL (70 mg/mL) 120 mg subcut Q7D 09/17/25 09/17/25 subcutaneous solution gabapentin 300 mg capsule 600 mg PO Q8H 09/17/25 09/17/25 ondansetron HCl 8 mg tablet 8 mg PO QDAY 09/17/25 09/17/25 Previous Rx's ?Medication ?Instructions ?Recorded apixaban 2.5 mg tablet (Eliquis) 2.5 mg PO BID 1 month #60 tabs 03/05/24 Held on 05/26/24. Instructions: Resume on 06/17/24. resume medication when PCP says when it is appropriate to take sennosides 8.6 mg capsule (senna) 8.6 mg PO BID PRN constipation #30 03/05/24 caps Allergies Allergy/AdvReac Type Severity Reaction Status Date / Time Penicillins Allergy Unknown Rash Verified 05/25/24 16:40 Review of Systems Review of Systems ROS Unobtainable: unobtainable due to mental status Past Medical History Past Medical History NEUROLOGIC: Positive Neurological Disorders and Meningitis RESPIRATORY: Positive Bronchitis (in past) GASTROINTESTINAL: Positive Gastrointestinal Disorders and Gall Bladder Disease GENITOURINARY: Positive Genitourinary Disorders and Kidney Stones REPRODUCTIVE: Positive Previous Pregnancies MUSCULOSKELETAL: Positive Musculoskeletal Disorders (right side of neck pain) ENDOCRINE: Positive Endocrine Disorders and Hypothyroidism HEMATOLOGIC: Positive Blood Disorders and Anemia PSYCHO/SOCIAL: Positive Anxiety (not taking meds) OTHER HISTORY: Positive Hospitalization, Chemotherapy, Radiation Therapy, Measles and Cancer (multiple myeloma) Family History FAMILY HISTORY: Positive Family Respiratory Disorders, Family Cardiac Disorders and Family Gastrointestinal Problems Surgical History SURGICAL: Positive Abdominal Surgery and Hysterectomy Social History SMOKING STATUS: Never smoker ED Exam Narrative Physical exam: See MDM for Dr. Cordova's physical exam documentation. Course Quality Measures none Orders Category Date Time Status Bedside COVID-19 Antigen Test NOW Care 09/16/25 10:51 Active COVID-19 Screening Questionnaire NOW Care 09/16/25 12:[address] Screening NOW Care 09/16/25 10:54 Active Decision to Admit X1 Care 09/16/25 12:05 Completed EKG (ED ONLY) *Do not use* NOW Care 09/16/25 10:53 Completed [place] to [place] Routine Care 09/16/25 10:52 Ordered Insert NG / OG tube NOW Care 09/16/25 10:52 Active Intubation NOW Care 09/16/25 11:05 Completed Saline [Insert IV] NOW Care 09/16/25 10:52 Active Consult to Cardiology Stat Cons 09/16/25 11:07 Ordered Consult to Practice Billing Associate Stat Cons 09/16/25 11:25 Ordered CCL heart cath LT ventricle Stat Exams 09/16/[address] angio chest abdomen pelvis Stat Exams 09/16/25 10:[address] cervical spine wo con Stat Exams 09/16/25 10:[address] head/brain wo con Stat Exams 09/16/25 10:54 Completed EKG (ED Only) Stat Exams 09/16/25 10:53 Draft US abdomen limited Stat Exams 09/16/25 10:54 Ordered XR chest 1V portable Stat Exams 09/16/25 10:54 Completed Alcohol, Blood Medical Stat Lab 09/16/25 10:52 Completed BNP [B-Type Natriuretic Peptide] Stat Lab 09/16/25 10:52 Completed Beta Hydroxybutyrate Stat Lab 09/16/25 10:52 Completed Bilirubin,Direct Stat Lab 09/16/25 10:52 Completed Blood Culture (Lab) Stat Lab 09/16/25 14:25 Received CBC Stat Lab 09/16/25 10:52 Completed CK [Creatine Kinase] Stat Lab 09/16/25 10:52 Completed CMP [Comprehensive Metabolic Panel] Stat Lab 09/16/25 10:52 Completed CRP [C-Reactive Protein] Stat Lab 09/16/25 10:52 Completed D-Dimer Stat Lab 09/16/25 10:52 Completed Drug Screen,Urine Stat Lab 09/16/25 11:45 Completed ESR [Sed Rate (ESR)] Stat Lab 09/16/25 10:52 Completed Lactate (Lactic Acid) Stat Lab 09/16/25 10:52 Completed Lipase Stat Lab 09/16/25 10:52 Completed Magnesium Stat Lab 09/16/25 10:52 Completed PT [Prothrombin Time with INR] Stat Lab 09/16/25 10:52 Completed PTT [Partial Thromboplastin Time] Stat Lab 09/16/25 10:52 Completed Procalcitonin Stat Lab 09/16/25 10:52 Completed TSH [Thyroid Stimulating Hormone] Stat Lab 09/16/25 10:52 Completed Troponin I Stat Lab 09/16/25 10:52 Completed UA, C/S IF [Urinalysis, C/S if Indicated] Stat Lab 09/16/25 11:45 Completed Urine Culture Stat Lab 09/16/25 11:45 Received Adenosine 6mg Inj [Adenocard Inj] Med 09/16/25 11:58 Discontinued 30 mg .ROUTE .STK-MED ONE Amiodarone 360 mg Ivpb [Nexterone Ivpb] Med 09/16/25 12:11 Discontinued 360 mg in 200 ml IV .STK-MED Amiodarone 360 mg Ivpb [Nexterone Ivpb] Med 09/16/25 10:52 Discontinued 360 mg in 200 ml IV 33.333 mls/hr Amiodarone Inj [Cordarone Inj] Med 09/16/25 11:58 Discontinued 900 mg IV .STK-MED ONE Amiodarone Inj [Cordarone Inj] 300 mg Med 09/16/25 10:40 Discontinued Dextrose 5%-Water [D5w] 100 ml IV X1 Aspirin Chew Med 09/16/25 12:36 Discontinued 324 mg .ROUTE .STK-MED ONE Atropine Inj Vial Med 09/16/25 11:57 Discontinued 1 mg .ROUTE .STK-MED ONE Azithromycin Inj [Zithromax Inj] 500 mg Med 09/16/25 11:58 Discontinued Sodium Chloride 0.9% 250 ml [Ns] 250 ml IV X1 DOPamine/D5w 400 MG IVPB [Intropin in D5w Ivpb] Med 09/16/25 12:07 Discontinued 400 mg in 250 ml IV .STK-MED EPINEPHrine Inj Abboject Med 09/16/25 11:59 Discontinued 1 mg .ROUTE .STK-MED ONE EPINEPHrine Inj Abboject Med 09/16/25 10:40 Discontinued 1 mg IVP X1 ONE EPINEPHrine in NS 4 MG IVPB [Adrenalin/NS 4 MG IVPB] Med 09/16/25 10:52 Discontinued 4 mg in 250 ml IV 0.05 mcg/kg/min Etomidate Inj [Amidate Inj] Med 09/16/25 10:41 Discontinued 20 mg .ROUTE .STK-MED ONE Etomidate Inj [Amidate Inj] Med 09/16/25 10:40 Discontinued 20 mg IVP X1 ONE Heparin* 1000 UNITS/ML- 10 ML [Heparin 1000 UNITS/ML- Med 09/16/25 11:58 Discontinued 10 ML] 30,000 unit .ROUTE .STK-MED ONE Lidocaine 1% Pf 30 ml [Xylocaine 1% Pf 30 ml] Med 09/16/25 11:58 Discontinued 30 ml .ROUTE .STK-MED ONE Lidocaine 2% Abboject 5 ml [Xylocaine 2% Abboject 5 ml] Med 09/16/25 11:30 Discontinued 100 mg IV X1 ONE Lidocaine/D5w 1,000 mg Ivpb [Xylocaine in D5w Ivpb] Med 09/16/25 11:28 Discontinued 1,000 mg in 250 ml IV 15 mls/hr Magnesium Sulfate 2 GM Ivpb [Magnesium Sulfate Ivpb] 50 Med 09/16/25 11:08 Discontinued ml IV .STK-MED Metoprolol Tartrate Inj [Lopressor Inj] Med 09/16/25 11:57 Discontinued 15 mg .ROUTE .STK-MED ONE Midazolam Inj [Versed Inj] Med 09/16/25 11:57 Discontinued 2 mg .ROUTE .STK-MED ONE Midazolam Inj [Versed Inj] Med 09/16/25 11:16 Discontinued 5 mg IVP X1 ONE Midazolam Inj [Versed Inj] Med 09/16/25 11:15 Discontinued 6 mg .ROUTE .STK-MED ONE Midazolam/Ns 100 mg Ivpb [Versed Pf Inj in Ns Premix] Med 09/16/25 11:18 Discontinued 100 mg in 100 ml IV .STK-MED Midazolam/Ns 100 mg Ivpb [Versed Pf Inj in Ns Premix] Med 09/16/25 11:16 Discontinued 100 mg in 100 ml IV 1 mg/hr NALOXONE INJ (Vial) [Narcan Inj (Vial)] Med 09/16/25 11:57 Discontinued 1.2 mg .ROUTE .STK-MED ONE Nitroglycerin/D5w 50 MG IVPB [Nitroglycerin in D5w Ivpb Med 09/16/25 11:59 Discontinued ] 50 mg in 250 ml .ROUTE .STK-MED Norepinephrine/D5W 8mg/250ml [Levophed in D5W 8mg/250ml Med 09/16/25 12:07 Discontinued ] 8 mg in 250 ml IV .STK-MED Ondansetron Inj [Zofran Inj] Med 09/16/25 10:52 Discontinued 4 mg IVP X1 ONE PHENYLEPHRINE INJ in NS [Jakob-synephrine Inj/Ns] Med 09/16/25 11:58 Discontinued 1,000 mcg .ROUTE .STK-MED ONE Propofol 1,000 mg Ivpb [Diprivan Ivpb] Med 09/16/25 10:57 Discontinued 1,000 mg in 100 ml IV 5 mcg/kg/min Ringers Lactated 1000 ml [Lactated Ringers] 1,000 ml Med 09/16/25 12:41 Discontinued IV 999 mls/hr Ringers Lactated 1000 ml [Lactated Ringers] 1,000 ml Med 09/16/25 12:41 Discontinued IV 999 mls/hr Sodium Bicarb 8.4% SYR Med 09/16/25 10:50 Discontinued 50 ml IV X1 ONE Sodium Chloride 0.9% 1000 ml [Ns] 1,000 ml Med 09/16/25 10:52 Discontinued IV 999 mls/hr Sodium Chloride 0.9% 1000 ml [Ns] 1,000 ml Med 09/16/25 11:30 Discontinued IV 999 mls/hr Sodium Chloride Rt Gail 10% [NS Rt Gail 10%] Med 09/16/25 11:06 Discontinued 5 ml INH X1 ONE Succinylcholine Inj [Anectine Inj] Med 09/16/25 10:40 Discontinued 100 mg IV X1 ONE Succinylcholine Inj [Anectine Inj] Med 09/16/25 10:41 Discontinued 200 mg .ROUTE .STK-MED ONE Ticagrelor [Brilinta] Med 09/16/25 12:36 Discontinued 180 mg .ROUTE .STK-MED ONE fentaNYL INJ [Sublimaze Inj] Med 09/16/25 11:57 Discontinued 100 mcg .ROUTE .STK-MED ONE flumazeniL [Romazicon Inj] Med 09/16/25 11:58 Discontinued 1 mg .ROUTE .STK-MED ONE Mechanical [Volume Ventilator] Stat RT 09/16/25 Active Sputum Induction PRN RT 09/16/25 11:15 Ordered Vital Signs Vital signs: Vital Signs Pulse Rate 245 H 09/16/25 10:44 Blood Pressure 121/68 09/16/25 10:44 PROCEDURES: Intubation Time out performed: Yes sedative: Etomidate Mg Given: 20 paralytic: Succinylcholine Mg Given: 100 Laryngoscope: fiber optic video scope Assist Device Used: fiber optic device ET Tube Size: 7.5 ET Tube Uncuffed: No Tube Secured Depth (cm): 22 Tube Secured Location: lips Tube Placement Confirmation: visualized tube passing through cords, equal breath sounds bilaterally, no breath sounds over epigastrium and confirmation by capnometry Patient Tolerated Procedure: well and no complications Intubation Complications: none Cardiac Arrest / CPR MDM Narrative MDM Narrative:: This section includes all my notes and documentations, including HPI, PE, and ED course. Nithin Cordova MD HPI: 59 year old female here after probable cardiac arrest. 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 She was sitting on a bench outside. Witnessed syncope and collapse on the bench. Didn't fall off the bed. AED shocked her once. EMS shocked her 3 times for ventricular tachycardia/fibrillation. ROS: All negative except as documented in HPI. Physical Exam: General: Patient is unresponsive. Eyes: Pupils fixed and dilated. ENT: No signs of head trauma. Heart: No cardiac activity. Lungs: No spontaneous respiration. Abdomen: Soft. Skin: Cyanosis and pallor noted. Neuro: GCS 3. I reviewed EMS notes. I reviewed all diagnostic test results: My interpretation of the EKG is sinus rhythm with no STEMI. My interpretation of the chest x-ray is bilateral infiltrates. My review of head CT report is NAD. My review of cervical spine CT report is no fracture. My review of chest/abdominal CT report is PE, bilateral pneumonia, and bilateral rib fractures. Blood tests and urine tests: D-Dimer >3,820, lactic acid 7.9, potassium 3.7, magnesium 1.8, troponin 7.031, BNP 385. Urine with 48 RBC and 46 WBC, rare bacteria, no leukocyte esterase At this point, diagnoses include: Cardiac arrest Acute PA PE Syncope and collapse Ventricular tachycardia Ventricular fibrillation Treatment from me here included: ACLS protocol including epinephrine as needed and multiple defibrillations due to ventricular tachycardia/fibrillation Intubation (see procedure note) Etomidate 20 mg IV and succinylcholine 100 mg IV for intubation IV fluid Amiodarone bolus and drip Propofol drip Versed bolus and drip MgSO4 4 gram IV Lidocaine bolus and drip due to persistent ventricular tachycardia/fibrillation Epinephrine drip Bicarb boluses I discussed the case with our ICU team and our academic interventionist, Dr. Braxton.? About the presentation and exam and diagnostics and treatments here.? And need of further care in the hospital.? Will accept the patient. 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 My interpretation of the chest x-ray is bilateral infiltrates. My review of head CT report is NAD. My review of cervical spine CT report is no fracture. My review of chest/abdominal CT report is PE, bilateral pneumonia, and bilateral rib fractures. Blood tests and urine tests: D-Dimer >3,820, lactic acid 7.9, potassium 3.7, magnesium 1.8, troponin 7.031, BNP 385. Urine with 48 RBC and 46 WBC, rare bacteria, no leukocyte esterase Medications / Prescriptions Medications or Prescriptions considered but not ordered:: None Medication administrations:: Medication Administration History Norepinephrine/Dextrose (Levophed In D5w 8mg/250ml) 8 mg in 250 mls @ 6.572 mls/hr IV .Q24H PRN; Protocol PRN Reason: PER PROTOCOL Stop: 10/16/25 14:42 Last Titration: 09/17/25 06:00 Dose: 0.09 mcg/kg/min, 11.829 mls/hr Documented By: Titration: 09/17/25 05:00 Dose: 0.09 mcg/kg/min, 11.829 mls/hr Documented By: Titration: 09/17/25 04:00 Dose: 0.11 mcg/kg/min, 14.458 mls/hr Documented By: Titration: 09/17/25 03:45 Dose: 0.13 mcg/kg/min, 17.087 mls/hr Documented By: Admin: 09/17/25 03:38 Dose: 0.15 mcg/kg/min, 19.716 mls/hr Documented By: Titration: 09/17/25 03:38 Dose: Infused Documented By: Titration: 09/17/25 02:00 Dose: 0.15 mcg/kg/min, 19.716 mls/hr Documented By: Titration: 09/17/25 01:00 Dose: 0.15 mcg/kg/min, 19.716 mls/hr Documented By: Titration: 09/17/25 00:30 Dose: 0.15 mcg/kg/min, 19.716 mls/hr Documented By: Titration: 09/17/25 00:15 Dose: 0.17 mcg/kg/min, 22.344 mls/hr Documented By: Titration: 09/17/25 00:00 Dose: 0.19 mcg/kg/min, 24.973 mls/hr Documented By: Titration: 09/16/25 23:00 Dose: 0.21 mcg/kg/min, 27.602 mls/hr Documented By: Titration: 09/16/25 22:00 Dose: 0.21 mcg/kg/min, 27.602 mls/hr Documented By: Titration: 09/16/25 21:15 Dose: 0.21 mcg/kg/min, 27.602 mls/hr Documented By: Titration: 09/16/25 21:00 Dose: 0.19 mcg/kg/min, 24.973 mls/hr Documented By: Titration: 09/16/25 20:45 Dose: 0.17 mcg/kg/min, 22.344 mls/hr Documented By: Titration: 09/16/25 20:30 Dose: 0.15 mcg/kg/min, 19.716 mls/hr Documented By: Titration: 09/16/25 20:20 Dose: 0.13 mcg/kg/min, 17.087 mls/hr Documented By: Titration: 09/16/25 20:10 Dose: 0.11 mcg/kg/min, 14.458 mls/hr Documented By: Titration: 09/16/25 19:21 Dose: 0.09 mcg/kg/min, 11.829 mls/hr Documented By: Titration: 09/16/25 19:00 Dose: 0.11 mcg/kg/min, 14.458 mls/hr Documented By: Titration: 09/16/25 18:58 Dose: 0.13 mcg/kg/min, 17.087 mls/hr Documented By: Titration: 09/16/25 18:49 Dose: 0.15 mcg/kg/min, 19.716 mls/hr Documented By: Titration: 09/16/25 18:10 Dose: 0.17 mcg/kg/min, 22.344 mls/hr Documented By: Titration: 09/16/25 18:00 Dose: 0.19 mcg/kg/min, 24.973 mls/hr Documented By: Titration: 09/16/25 17:15 Dose: 0.17 mcg/kg/min, 22.344 mls/hr Documented By: Titration: 09/16/25 17:05 Dose: 0.15 mcg/kg/min, 19.716 mls/hr Documented By: Titration: 09/16/25 17:00 Dose: 0.13 mcg/kg/min, 17.087 mls/hr Documented By: Titration: 09/16/25 16:51 Dose: 0.11 mcg/kg/min, 14.458 mls/hr Documented By: Titration: 09/16/25 16:45 Dose: 0.09 mcg/kg/min, 11.829 mls/hr Documented By: Titration: 09/16/25 16:39 Dose: 0.07 mcg/kg/min, 9.201 mls/hr Documented By: Admin: 09/16/25 16:28 Dose: 0.05 mcg/kg/min, 6.572 mls/hr Documented By: GE Vasopressin/Sodium Chloride (Vasostrict/Ns Ivpb) 20 unit in 100 mls @ 9 mls/hr IV .Q11H7M PRN; Protocol PRN Reason: PER PROTOCOL Stop: 10/16/25 17:51 Last Titration: 09/17/25 06:00 Dose: 0.03 unit/min, 9 mls/hr Documented By: Titration: 09/17/25 05:00 Dose: 0.03 unit/min, 9 mls/hr Documented By: Titration: 09/17/25 04:00 Dose: 0.03 unit/min, 9 mls/hr Documented By: Admin: 09/17/25 03:38 Dose: 0.03 unit/min, 9 mls/hr Documented By: LIBERTAD Heparin Sodium/Dextrose (Heparin In D5w Ivpb) 25,000 unit in 250 mls @ 12.618 mls/hr IV .[id number] GABE; Protocol Stop: 09/30/25 18:14 Last Titration: 09/17/25 06:00 Dose: 15 units/kg/hr, 10.515 mls/hr Documented By: LIBERTAD Co-signed By: AD Titration: 09/17/25 05:00 Dose: 15 units/kg/hr, 10.515 mls/hr Documented By: LIBERTAD Co-signed By: AD Titration: 09/17/25 03:25 Dose: 15 units/kg/hr, 10.515 mls/hr Documented By: LIBERTAD Co-signed By: VR Titration: 09/17/25 02:25 Dose: 0 units/kg/hr, 0 mls/hr Documented By: LIBERTAD Co-signed By: MLD Titration: 09/16/25 21:00 Dose: 18 units/kg/hr, 12.618 mls/hr Documented By: LIBERTAD Co-signed By: MLD Titration: 09/16/25 20:00 Dose: 18 units/kg/hr, 12.618 mls/hr Documented By: LIBERTAD Co-signed By: MLD Titration: 09/16/25 19:00 Dose: 18 units/kg/hr, 12.618 mls/hr Documented By: LIBERTAD Co-signed By: MLD Admin: 09/16/25 18:35 Dose: 18 units/kg/hr, 12.618 mls/hr Documented By: HR Co-signed By: manisha Cefepime HCl 2 gm/ Sodium (Chloride) 50 mls @ 100 mls/hr IV Q8HR GABE Stop: 09/23/25 21:59 Last Infusion: 09/17/25 07:00 Dose: Infused Documented By: Admin: 09/16/25 23:15 Dose: 100 mls/hr Documented By: LIBERTAD Albumin Human (Albuminex 25% Ivpb) 25 gm in 100 mls @ 100 mls/hr IV QDAY GABE Stop: 09/19/25 20:49 Last Infusion: 09/17/25 07:00 Dose: Infused Documented By: Admin: 09/16/25 21:52 Dose: 100 mls/hr Documented By: LIBERTAD Amiodarone HCl/Dextrose (Nexterone Ivpb) 360 mg in 200 mls @ 16.667 mls/hr IV .Q12H GABE Stop: 09/17/25 21:59 Last Infusion: 09/17/25 06:00 Dose: 16.667 mls/hr Documented By: Infusion: 09/17/25 05:00 Dose: 16.667 mls/hr Documented By: Infusion: 09/17/25 04:00 Dose: 16.667 mls/hr Documented By: Infusion: 09/17/25 03:00 Dose: 16.667 mls/hr Documented By: Infusion: 09/17/25 02:00 Dose: 16.667 mls/hr Documented By: Infusion: 09/17/25 01:00 Dose: 16.667 mls/hr Documented By: Infusion: 09/17/25 00:00 Dose: 16.667 mls/hr Documented By: Infusion: 09/16/25 23:00 Dose: 16.667 mls/hr Documented By: Admin: 09/16/25 22:00 Dose: 16.667 mls/hr Documented By: LIBERTAD Vancomycin/Sodium Chloride (Vancomycin/Ns 750 Mg Ivpb) 750 mg in 150 mls @ 120 mls/hr IV Q12H GABE; Protocol Stop: 09/24/25 09:59 Fentanyl Citrate (Sublimaze Inj 2,500 Mcg/250 Ml Bag) 2,500 mcg in 250 mls @ 2.5 mls/hr IV .Q24H PRN; Protocol PRN Reason: PER PROTOCOL Stop: 09/21/25 13:46 Propofol (Diprivan Ivpb) 1,000 mg in 100 mls @ 2.31 mls/hr IV .Q24H PRN; Protocol PRN Reason: Per Protocol Stop: 10/16/25 10:56 Levothyroxine Sodium (Levothyroxine Inj 100 Mcg Vial) 88 mcg IV DAILY GABE Stop: 10/17/25 08:59 Pantoprazole Sodium (Pantoprazole Inj 40 Mg Vial) 40 mg IV QDAY GABE Stop: 10/16/25 16:44 Last Admin: 09/16/25 16:58 Dose: 40 mg Documented By: Pharmacy Consult (Vancomycin Pharmacy To Dose 1 Each Each) 1 each IV QDAY GABE Stop: 10/17/25 08:59 Discontinued Medications Adenosine (Adenosine Inj 3 Mg/Ml Vial) Confirm Administered Dose 30 mg .ROUTE .STK-MED ONE Stop: 09/16/25 11:59 Last Admin: 09/16/25 14:25 Dose: Not Given Documented By: GE Non-Admin Reason: Duplicate Medication on eMAR Albumin Human (Albumin Human-Kjda 25% Ivpb 25 Gm/100 Ml Btl) 25 gm IV X1 ONE Stop: 09/17/25 01:01 Last Admin: 09/17/25 01:10 Dose: 25 gm Documented By: LIBERTAD Amiodarone HCl (Amiodarone Inj 50 Mg/Ml Vial 9 Ml) Confirm Administered Dose 900 mg IV .STK-MED ONE Stop: 09/16/25 11:59 Last Admin: 09/16/25 14:25 Dose: Not Given Documented By: GE Non-Admin Reason: Duplicate Medication on eMAR Aspirin (Aspirin 81 Mg Chew) Confirm Administered Dose 324 mg .ROUTE .STK-MED ONE Stop: 09/16/25 12:37 Last Admin: 09/16/25 14:27 Dose: Not Given Documented By: GE Non-Admin Reason: Duplicate Medication on eMAR Atropine Sulfate (Atropine Sulf Inj 1 Mg/Ml Vial) Confirm Administered Dose 1 mg .ROUTE .STK-MED ONE Stop: 09/16/25 11:58 Last Admin: 09/16/25 14:24 Dose: Not Given Documented By: GE Non-Admin Reason: Duplicate Medication on eMAR Calcium Gluconate (Calcium Gluconate 10% Inj 1 Gm/10 Ml Vial) 1 gm IV X1 ONE Stop: 09/16/25 21:12 Last Admin: 09/16/25 21:52 Dose: 1 gm Documented By: LIBERTAD Epinephrine HCl (Epinephrine Inj 0.1 Mg/Ml Syringe 10ml) Confirm Administered Dose 1 mg .ROUTE .STK-MED ONE Stop: 09/16/25 12:00 Last Admin: 09/16/25 14:25 Dose: Not Given Documented By: GE Non-Admin Reason: Duplicate Medication on eMAR Epinephrine HCl (Epinephrine Inj 0.1 Mg/Ml Syringe 10ml) 1 mg IVP X1 ONE Stop: 09/16/25 10:41 Last Admin: 09/16/25 10:44 Dose: 1 mg Documented By: RADHA Etomidate (Etomidate Inj 2 Mg/Ml Vial 10 Ml) Confirm Administered Dose 20 mg .ROUTE .STK-MED ONE Stop: 09/16/25 10:42 Last Admin: 09/16/25 12:11 Dose: Not Given Documented By: LF Non-Admin Reason: Override Medication Etomidate (Etomidate Inj 2 Mg/Ml Vial 10 Ml) 20 mg IVP X1 ONE Stop: 09/16/25 10:41 Last Admin: 09/16/25 10:45 Dose: 20 mg Documented By: VL Fentanyl Citrate (Fentanyl Cit Inj 50 Mcg/Ml Amp 2ml) Confirm Administered Dose 100 mcg .ROUTE .STK-MED ONE Stop: 09/16/25 11:58 Last Admin: 09/16/25 14:24 Dose: Not Given Documented By: GE Non-Admin Reason: Duplicate Medication on eMAR Flumazenil (Flumazenil Inj 0.1 Mg/Ml Vial 10 Ml) Confirm Administered Dose 1 mg .ROUTE .STK-MED ONE Stop: 09/16/25 11:59 Last Admin: 09/16/25 14:25 Dose: Not Given Documented By: GE Non-Admin Reason: Duplicate Medication on eMAR Heparin Sodium (Porcine) (Heparin Sod Inj 1000 Unit/Ml Vial 10 Ml) Confirm Administered Dose 30,000 unit .ROUTE .STK-MED ONE Stop: 09/16/25 11:59 Last Admin: 09/16/25 14:25 Dose: Not Given Documented By: GE Non-Admin Reason: Duplicate Medication on eMAR Heparin Sodium (Porcine) (Heparin Sod Inj 5000 Unit/Ml Vial) 5,000 unit SC Q12HR GABE Stop: 09/30/25 20:59 Heparin Sodium (Porcine) (Heparin Sod Inj 5000 Unit/Ml Vial) 5,600 unit 80 unit/kg (5600 unit) IV X1 ONE; Protocol Stop: 09/16/25 18:11 Last Admin: 09/16/25 18:33 Dose: 5,600 unit Documented By: HR Co-signed By: manisha Epinephrine/Sodium Chloride (Adrenalin/Ns 4 Mg Ivpb) 4 mg in 250 mls @ 14.438 mls/hr IV .[id number] PRN; Protocol PRN Reason: per protocol Stop: 10/16/25 10:51 Last Titration: 09/16/25 16:30 Dose: 0 mcg/kg/min, 0 mls/hr Documented By: Titration: 09/16/25 16:09 Dose: 0.01 mcg/kg/min, 2.888 mls/hr Documented By: Titration: 09/16/25 14:38 Dose: 0.03 mcg/kg/min, 8.663 mls/hr Documented By: Titration: 09/16/25 14:30 Dose: 0.01 mcg/kg/min, 2.888 mls/hr Documented By: Titration: 09/16/25 14:23 Dose: 0.03 mcg/kg/min, 8.663 mls/hr Documented By: Titration: 09/16/25 14:00 Dose: 0.05 mcg/kg/min, 14.438 mls/hr Documented By: Admin: 09/16/25 13:39 Dose: 0.05 mcg/kg/min, 14.438 mls/hr Documented By: GE Sodium Chloride (Ns) 1,000 mls @ 999 mls/hr IV .Q1H1M ONE Stop: 09/16/25 11:52 Last Admin: 09/16/25 12:50 Dose: Not Given Documented By: VL Non-Admin Reason: Cancelled by Provider Amiodarone HCl/Dextrose (Nexterone Ivpb) 360 mg in 200 mls @ 33.333 mls/hr IV .Q6H ONE Stop: 09/16/25 16:51 Last Admin: 09/16/25 11:03 Dose: 33.333 mls/hr Documented By: LF Propofol (Diprivan Ivpb) 1,000 mg in 100 mls @ 2.31 mls/hr IV .Q24H PRN; Protocol PRN Reason: Per Protocol Stop: 10/16/25 10:56 Last Titration: 09/16/25 16:00 Dose: 30 mcg/kg/min, 13.86 mls/hr Documented By: Titration: 09/16/25 15:00 Dose: 25 mcg/kg/min, 11.55 mls/hr Documented By: Titration: 09/16/25 14:00 Dose: 30 mcg/kg/min, 13.86 mls/hr Documented By: Titration: 09/16/25 13:39 Dose: 30 mcg/kg/min, 13.86 mls/hr Documented By: Admin: 09/16/25 11:07 Dose: 5 mcg/kg/min, 2.31 mls/hr Documented By: LF Co-signed By: VG Magnesium Sulfate (Magnesium Sulfate Ivpb) Confirm Administered Dose 50 mls @ ud IV .STK-MED ONE Stop: 09/16/25 11:09 Last Admin: 09/16/25 11:14 Dose: 200 mls/hr Documented By: LF Midazolam HCl (Versed Pf Inj In Ns Premix) 100 mg in 100 mls @ 1 mls/hr IV .Q24H PRN; Protocol PRN Reason: PER PROTOCOL Stop: 09/21/25 11:15 Last Titration: 09/16/25 14:00 Dose: 0 mg/hr, 0 mls/hr Documented By: Admin: 09/16/25 12:09 Dose: 1 mg/hr, 1 mls/hr Documented By: LF Co-signed By: ROSELYN Midazolam HCl (Versed Pf Inj In Ns Premix) Confirm Administered Dose 100 mg in 100 mls @ ud IV .STK-MED ONE Stop: 09/16/25 11:19 Last Admin: 09/16/25 12:10 Dose: Not Given Documented By: LF Non-Admin Reason: Duplicate Medication on eMAR Lidocaine HCl/Dextrose (Xylocaine In D5w Ivpb) 1,000 mg in 250 mls @ 15 mls/hr IV .[id number] GABE; Protocol Stop: 10/16/25 11:27 Last Infusion: 09/16/25 21:02 Dose: 0 mls/hr Documented By: Infusion: 09/16/25 18:12 Dose: 15 mls/hr Documented By: Admin: 09/16/25 14:38 Dose: 22.5 mls/hr Documented By: GE Sodium Chloride (Ns) 1,000 mls @ 999 mls/hr IV .Q1H1M ONE Stop: 09/16/25 12:30 Last Admin: 09/16/25 12:51 Dose: Not Given Documented By: VL Non-Admin Reason: Cancelled by Provider Azithromycin 500 mg/ Sodium (Chloride) 250 mls @ 250 mls/hr IV X1 ONE Stop: 09/16/25 12:57 Last Admin: 09/16/25 17:16 Dose: Not Given Documented By: GE Non-Admin Reason: Cancelled by Provider Nitroglycerin/Dextrose (Nitroglycerin In D5w Ivpb) Confirm Administered Dose 50 mg in 250 mls @ ud .ROUTE .STK-MED ONE Stop: 09/16/25 12:00 Last Admin: 09/16/25 14:26 Dose: Not Given Documented By: GE Non-Admin Reason: Duplicate Medication on eMAR Dopamine HCl/Dextrose (Intropin In D5w Ivpb) Confirm Administered Dose 400 mg in 250 mls @ ud IV .STK-MED ONE Stop: 09/16/25 12:08 Last Admin: 09/16/25 14:26 Dose: Not Given Documented By: GE Non-Admin Reason: Duplicate Medication on eMAR Norepinephrine/Dextrose (Levophed In D5w 8mg/250ml) Confirm Administered Dose 8 mg in 250 mls @ ud IV .STK-MED ONE Stop: 09/16/25 12:08 Last Admin: 09/16/25 14:26 Dose: Not Given Documented By: GE Non-Admin Reason: Duplicate Medication on eMAR Amiodarone HCl/Dextrose (Nexterone Ivpb) Confirm Administered Dose 360 mg in 200 mls @ ud IV .STK-MED ONE Stop: 09/16/25 12:12 Last Admin: 09/16/25 14:26 Dose: Not Given Documented By: GE Non-Admin Reason: Duplicate Medication on eMAR Amiodarone HCl 300 mg/ (Dextrose) 106 mls @ 600 mls/hr IV X1 ONE Stop: 09/16/25 10:50 Last Admin: 09/16/25 12:50 Dose: Not Given Documented By: RADHA Non-Admin Reason: WRONG MED ENTERED Lactated Ringer's (Lactated Ringers) 1,000 mls @ 999 mls/hr IV .Q1H1M ONE Stop: 09/16/25 13:41 Last Infusion: 09/16/25 15:07 Dose: Infused Documented By: Admin: 09/16/25 11:55 Dose: 999 mls/hr Documented By: VL Lactated Ringer's (Lactated Ringers) 1,000 mls @ 999 mls/hr IV .Q1H1M ONE Stop: 09/16/25 13:41 Last Infusion: 09/16/25 15:07 Dose: Infused Documented By: Admin: 09/16/25 11:55 Dose: 999 mls/hr Documented By: VL Magnesium Sulfate (Magnesium Sulfate Ivpb) 2 gm in 50 mls @ 999 mls/hr IV X1 ONE Stop: 09/16/25 11:10 Last Infusion: 09/17/25 07:00 Dose: Infused Documented By: Admin: 09/16/25 11:10 Dose: 999 mls/hr Documented By: RADHA Azithromycin 500 mg/ Sodium (Chloride) 250 mls @ 250 mls/hr IV QDAY [facility] Stop: 09/24/25 08:59 Ceftriaxone Sodium/Dextrose (Rocephin/D5w 1gm Iv Premix) 1 gm in 50 mls @ 100 mls/hr IV QDAY [facility] Stop: 09/23/25 13:46 Last Infusion: 09/17/25 07:00 Dose: Infused Documented By: Admin: 09/16/25 16:32 Dose: 100 mls/hr Documented By: PERICO Fentanyl Citrate (Sublimaze Inj 2,500 Mcg/250 Ml Bag) 2,500 mcg in 250 mls @ 2.5 mls/hr IV .Q24H PRN; Protocol PRN Reason: PER PROTOCOL Stop: 09/21/25 13:46 Last Titration: 09/17/25 07:00 Dose: 125 mcg/hr, 12.5 mls/hr Documented By: Titration: 09/17/25 06:00 Dose: 125 mcg/hr, 12.5 mls/hr Documented By: Titration: 09/17/25 05:00 Dose: 125 mcg/hr, 12.5 mls/hr Documented By: Titration: 09/17/25 04:00 Dose: 125 mcg/hr, 12.5 mls/hr Documented By: Titration: 09/17/25 03:00 Dose: 125 mcg/hr, 12.5 mls/hr Documented By: Titration: 09/17/25 02:00 Dose: 125 mcg/hr, 12.5 mls/hr Documented By: Titration: 09/17/25 01:00 Dose: 125 mcg/hr, 12.5 mls/hr Documented By: Titration: 09/17/25 00:00 Dose: 125 mcg/hr, 12.5 mls/hr Documented By: Titration: 09/16/25 23:00 Dose: 125 mcg/hr, 12.5 mls/hr Documented By: Titration: 09/16/25 22:00 Dose: 125 mcg/hr, 12.5 mls/hr Documented By: Titration: 09/16/25 21:00 Dose: 125 mcg/hr, 12.5 mls/hr Documented By: Titration: 09/16/25 20:00 Dose: 125 mcg/hr, 12.5 mls/hr Documented By: Titration: 09/16/25 19:25 Dose: 125 mcg/hr, 12.5 mls/hr Documented By: Titration: 09/16/25 18:48 Dose: 75 mcg/hr, 7.5 mls/hr Documented By: Titration: 09/16/25 18:12 Dose: 25 mcg/hr, 2.5 mls/hr Documented By: Titration: 09/16/25 18:00 Dose: 75 mcg/hr, 7.5 mls/hr Documented By: Titration: 09/16/25 17:00 Dose: 75 mcg/hr, 7.5 mls/hr Documented By: Titration: 09/16/25 16:00 Dose: 75 mcg/hr, 7.5 mls/hr Documented By: Titration: 09/16/25 15:20 Dose: 75 mcg/hr, 7.5 mls/hr Documented By: Titration: 09/16/25 15:00 Dose: 25 mcg/hr, 2.5 mls/hr Documented By: Admin: 09/16/25 14:09 Dose: 25 mcg/hr, 2.5 mls/hr Documented By: PERICO Co-signed By: HR Propofol (Diprivan Ivpb) 1,000 mg in 100 mls @ 2.31 mls/hr IV .Q24H PRN; Protocol PRN Reason: Per Protocol Stop: 10/16/25 10:56 Last Titration: 09/17/25 02:00 Dose: 20 mcg/kg/min, 9.24 mls/hr Documented By: Titration: 09/17/25 01:00 Dose: 20 mcg/kg/min, 9.24 mls/hr Documented By: Titration: 09/17/25 00:00 Dose: 20 mcg/kg/min, 9.24 mls/hr Documented By: Titration: 09/16/25 23:00 Dose: 20 mcg/kg/min, 9.24 mls/hr Documented By: Titration: 09/16/25 22:00 Dose: 20 mcg/kg/min, 9.24 mls/hr Documented By: Titration: 09/16/25 21:45 Dose: 20 mcg/kg/min, 9.24 mls/hr Documented By: Titration: 09/16/25 21:00 Dose: 20 mcg/kg/min, 9.24 mls/hr Documented By: Titration: 09/16/25 20:00 Dose: 20 mcg/kg/min, 9.24 mls/hr Documented By: Titration: 09/16/25 19:32 Dose: 15 mcg/kg/min, 6.93 mls/hr Documented By: Titration: 09/16/25 18:49 Dose: 10 mcg/kg/min, 4.62 mls/hr Documented By: Titration: 09/16/25 18:35 Dose: 0 mcg/kg/min, 0 mls/hr Documented By: Titration: 09/16/25 18:00 Dose: 30 mcg/kg/min, 13.86 mls/hr Documented By: Titration: 09/16/25 17:52 Dose: 30 mcg/kg/min, 13.86 mls/hr Documented By: Titration: 09/16/25 17:00 Dose: 35 mcg/kg/min, 16.17 mls/hr Documented By: Admin: 09/16/25 16:19 Dose: 35 mcg/kg/min, 16.17 mls/hr Documented By: PERICO Co-signed By: TERRI Doxycycline Hyclate 100 mg/ (Sodium Chloride) 100 mls @ 100 mls/hr IV BID GABE Stop: 09/23/25 20:59 Potassium Chloride (Kcl Ivpb) 10 meq in 100 mls @ 100 mls/hr IV Q1H GABE Stop: 09/16/25 19:36 Last Infusion: 09/17/25 07:00 Dose: Infused Documented By: Admin: 09/16/25 19:32 Dose: 100 mls/hr Documented By: Infusion: 09/16/25 19:32 Dose: Infused Documented By: Admin: 09/16/25 18:59 Dose: 100 mls/hr Documented By: Infusion: 09/16/25 18:49 Dose: Infused Documented By: Admin: 09/16/25 17:49 Dose: 100 mls/hr Documented By: Infusion: 09/16/25 17:31 Dose: Infused Documented By: Admin: 09/16/25 16:31 Dose: 100 mls/hr Documented By: PERICO Amiodarone HCl/Dextrose (Nexterone Ivpb) 360 mg in 200 mls @ 33.333 mls/hr IV .Q6H ONE Stop: 09/16/25 23:09 Last Admin: 09/16/25 17:17 Dose: 33.333 mls/hr Documented By: PERICO Ceftriaxone Sodium 2 gm/ (Sodium Chloride) 50 mls @ 100 mls/hr IV QDAY GABE Stop: 09/23/25 18:18 Last Infusion: 09/17/25 07:00 Dose: Infused Documented By: Admin: 09/16/25 19:32 Dose: 100 mls/hr Documented By: LIBERTAD Propofol (Diprivan Ivpb) 1,000 mg in 100 mls @ 2.103 mls/hr IV .Q24H PRN; Protocol PRN Reason: Per Protocol Stop: 10/16/25 10:56 Last Titration: 09/17/25 07:00 Dose: 30 mcg/kg/min, 12.618 mls/hr Documented By: Titration: 09/17/25 06:00 Dose: 30 mcg/kg/min, 12.618 mls/hr Documented By: Titration: 09/17/25 05:00 Dose: 30 mcg/kg/min, 12.618 mls/hr Documented By: Titration: 09/17/25 04:00 Dose: 25 mcg/kg/min, 10.515 mls/hr Documented By: Admin: 09/17/25 03:04 Dose: 20 mcg/kg/min, 8.412 mls/hr Documented By: LIBERTAD Vancomycin HCl/Dextrose (Vancomycin/D5w 1500 Mg Ivpb) 300 mls @ 120 mls/hr IV X1 ONE Stop: 09/16/25 22:14 Last Infusion: 09/17/25 07:00 Dose: Infused Documented By: Admin: 09/16/25 20:44 Dose: 120 mls/hr Documented By: JANETH Amiodarone HCl/Dextrose (Nexterone Ivpb) 360 mg in 200 mls @ 20.8 mls/hr IV .Q9H37M ONE Stop: 09/17/25 02:46 Sodium Chloride (Ns) 1,000 mls @ 999 mls/hr IV .Q1H1M ONE Stop: 09/17/25 00:44 Last Infusion: 09/17/25 07:00 Dose: Infused Documented By: Admin: 09/16/25 23:40 Dose: 999 mls/hr Documented By: LIBERTAD Amiodarone HCl/Dextrose (Nexterone Ivpb) 360 mg in 200 mls @ 16.667 mls/hr IV .Q12H GABE Stop: 09/18/25 00:55 Sodium Chloride (Ns) 1,000 mls @ 250 mls/hr IV .Q4H ONE Stop: 09/17/25 07:02 Last Admin: 09/17/25 03:05 Dose: 250 mls/hr Documented By: LIBERTAD Lidocaine HCl (Lidocaine Inj 2% 20 Mg/Ml Syringe 5 Ml) 100 mg IV X1 ONE Stop: 09/16/25 11:31 Last Admin: 09/16/25 11:47 Dose: 100 mg Documented By: FER Lidocaine HCl (Lidocaine Inj Pf 1% 30 Ml Vial) Confirm Administered Dose 30 ml .ROUTE .STK-MED ONE Stop: 09/16/25 11:59 Last Admin: 09/16/25 14:25 Dose: Not Given Documented By: PERICO Non-Admin Reason: Duplicate Medication on eMAR Metoprolol Tartrate (Metoprolol Tartrate Inj 1 Mg/Ml Amp 5 Ml) Confirm Administered Dose 15 mg .ROUTE .STK-MED ONE Stop: 09/16/25 11:58 Last Admin: 09/16/25 14:24 Dose: Not Given Documented By: PERICO Non-Admin Reason: Duplicate Medication on eMAR Midazolam HCl (Midazolam Inj 1 Mg/Ml Vial 2 Ml) 5 mg IVP X1 ONE Stop: 09/16/25 11:17 Last Admin: 09/16/25 11:23 Dose: 5 mg Documented By: FER Midazolam HCl (Midazolam Inj 1 Mg/Ml Vial 2 Ml) Confirm Administered Dose 6 mg .ROUTE .STK-MED ONE Stop: 09/16/25 11:16 Last Admin: 09/16/25 12:09 Dose: Not Given Documented By: FER Non-Admin Reason: Duplicate Medication on eMAR Midazolam HCl (Midazolam Inj 1 Mg/Ml Vial 2 Ml) Confirm Administered Dose 2 mg .ROUTE .STK-MED ONE Stop: 09/16/25 11:58 Last Admin: 09/16/25 14:24 Dose: Not Given Documented By: GE Non-Admin Reason: Duplicate Medication on eMAR Naloxone HCl (Naloxone Inj 0.4 Mg/Ml Vial) Confirm Administered Dose 1.2 mg .ROUTE .STK-MED ONE Stop: 09/16/25 11:58 Last Admin: 09/16/25 14:25 Dose: Not Given Documented By: GE Non-Admin Reason: Duplicate Medication on eMAR Ondansetron HCl (Ondansetron Inj 2 Mg/Ml Inj 2 Ml) 4 mg IVP X1 ONE; Protocol Stop: 09/16/25 10:53 Last Admin: 09/16/25 12:50 Dose: Not Given Documented By: VL Non-Admin Reason: Cancelled by Provider Phenylephrine HCl (Phenylephrine Inj In Ns 100 Mcg/Ml 10 Ml Syringe) Confirm Administered Dose 1,000 mcg .ROUTE .STK-MED ONE Stop: 09/16/25 11:59 Last Admin: 09/16/25 14:25 Dose: Not Given Documented By: GE Non-Admin Reason: Duplicate Medication on eMAR Sodium Bicarbonate (Sodium Bicarb Inj 8.4% Syr 50 Ml Syringe) 50 ml IV X1 ONE Stop: 09/16/25 10:51 Last Admin: 09/16/25 10:49 Dose: 50 ml Documented By: RADHA Sodium Bicarbonate (Sodium Bicarb Inj 8.4% Syr 50 Ml Syringe) 50 ml IV X1 ONE Stop: 09/16/25 10:49 Last Admin: 09/16/25 10:49 Dose: 50 ml Documented By: RADHA Sodium Chloride (Sodium Chloride Rt 10% 15 Ml Nebu) 5 ml INH X1 ONE Stop: 09/16/25 11:07 Last Admin: 09/16/25 20:14 Dose: Not Given Documented By: AD Non-Admin Reason: Not In Room Sodium Chloride (Sodium Chloride Rt 10% 15 Ml Nebu) 5 ml INH X1 ONE Stop: 09/16/25 13:47 Last Admin: 09/16/25 20:14 Dose: Not Given Documented By: AD Non-Admin Reason: Not In Room Sodium Chloride (Sodium Chloride Rt 10% 15 Ml Nebu) 5 ml INH X1 ONE Stop: 09/16/25 19:56 Succinylcholine Chloride (Succinylcholine Inj 20 Mg/Ml Vial 10 Ml) Confirm Administered Dose 200 mg .ROUTE .STK-MED ONE Stop: 09/16/25 10:42 Last Admin: 09/16/25 12:10 Dose: Not Given Documented By: LF Non-Admin Reason: Duplicate Medication on eMAR Succinylcholine Chloride (Succinylcholine Inj 20 Mg/Ml Vial 10 Ml) 100 mg IV X1 ONE Stop: 09/16/25 10:41 Last Admin: 09/16/25 10:45 Dose: 100 mg Documented By: RADHA Ticagrelor (Ticagrelor 90 Mg Tablet) Confirm Administered Dose 180 mg .ROUTE .STK-MED ONE Stop: 09/16/25 12:37 Last Admin: 09/16/25 14:27 Dose: Not Given Documented By: GE Non-Admin Reason: Duplicate Medication on eMAR Treatment FROM ME here included: ACLS protocol including epinephrine as needed and multiple defibrillations due to ventricular tachycardia/fibrillation Intubation (see procedure note) Etomidate 20 mg IV and succinylcholine 100 mg IV for intubation IV fluid Amiodarone bolus and drip Propofol drip Versed bolus and drip MgSO4 4 gram IV Lidocaine bolus and drip due to persistent ventricular tachycardia/fibrillation Epinephrine drip Bicarb boluses Consultations Consultation(s) initiated? (list below): Yes Consultation #1 (Physician, Specialty, Details): I discussed the case with our ICU team and our academic interventionist, Dr. Braxton.? About the presentation and exam and diagnostics and treatments here.? And need of further care in the hospital.? Will accept the patient. Diagnosis Cardiac arrest differential diagnosis: acute massive pulmonary embolism, acute respiratory failure, acute myocardial infarction and cardiac arrest Most likely diagnosis given after review of the tests above:: At this point, diagnoses include: Cardiac arrest Acute PA PE Syncope and collapse Ventricular tachycardia Ventricular fibrillation Admission Indicated Admission indicated?: indicated Explain why admission is indicated or not indicated:: Cardiac arrest Acute PA PE Syncope and collapse Ventricular tachycardia Ventricular fibrillation Admission Request Was there a request for admission?: Yes Admission Attestation Admission request attestation: Discussed case with our ICU service regarding admission. Discussed patients ED course, exam findings, labs, and radiology results. Agreed to accept the patient for admission. Disposition Plan Disposition Plan: Admit Critical Care Time Critical Care Time Critical Care Time: Yes Total Critical Care Time (min.): 60 Attestation: Due to a high probability of clinically significant, life threatening deterioration, the patient required my highest level of preparedness to intervene emergently and I personally spent this critical care time directly and personally managing the patient. This critical care time included obtaining a history; examining the patient; ordering and review of studies; arranging urgent treatment with development of a management plan; evaluation of patient's response to treatment; frequent reassessment; and discussions with family and other providers. It was exclusive of separately billable procedures and treating other patients and teaching time. Nithin Cordova MD Discharge Plan Plan Patient Disposition: Admit Acute Care w/in Hospital Problem List Clinical Impression: Cardiac arrest, Acute PA, Syncope and collapse, Ventricular tachycardia, Ventricular fibrillation, UTI (urinary tract infection), Pneumonia
--- NOTE | 2025-09-16 10:53 | EKG_ITS ---
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
--- NOTE | 2025-09-16 10:54 | XR_ITS ---
Examination: CT brain head without contrast. 2-D sagittal coronal reconstructions Date and time of exam: September 16, 2025, 1530 hours INDICATIONS: Altered mental status today, patient fell with injury to head, head pain CTDI: vol (mGy): 48.5 DLP: (mGycm): 966 Technique: Multiple CT axial sections of the brain have been obtained, 5 mm slice thickness. Contrast has not been administered. 2-D sagittal, coronal reconstructions have been obtained Low dose protocols were performed. One or more of the following dose reduction techniques were used; automated exposure control, adjustment of the mA and/or KV according to patient size, use of iterative reconstruction technique. Findings: No significant ventricular enlargement. Intra-axial or extra-axial hemorrhage density is not seen. No mass effect or midline shift Basal cisterns are not remarkable. Fourth ventricle is midline. Numerous osteolytic cranial fossa lesions ranging in size from 2 mm to 6 mm in the left frontal bone Impression: Negative for acute hemorrhage, mass effect or midline shift
--- NOTE | 2025-09-16 10:54 | XR_ITS ---
EXAMINATION: AP chest single view TECHNIQUE: AP portable supine chest single view Date and time: September 16, 2025, 1116 hours INDICATIONS: Status post cardiopulmonary arrest, post intubation FINDINGS: Extensive bilateral lung opacity, consider pulmonary edema, aspiration pneumonia Minor prominence left ventricle Right internal jugular Port-A-Cath tip SVC satisfactory position Endotracheal tube tip approximately 5.3 cm above josephine There appears to be an orogastric tube coiled in the upper esophagus No pneumothorax Acute appearing nondisplaced fracture left seventh rib in the midaxillary line Fracture right eighth rib posterolaterally IMPRESSION: Endotracheal tube tip 5.3 cm above josephine Extensive bilateral pneumonia and or pulmonary edema No pneumothorax Acute appearing fractures left seventh rib and right eighth rib Recommend removing the orogastric tube completely and reinserting
--- NOTE | 2025-09-16 10:54 | XR_ITS ---
Examination: CT cervical spine without contrast 2-D sagittal reconstructions 2-D coronal reconstructions 3-D reconstructions. Exam date and time: September 16, 2025, 1530 hours INDICATIONS: Patient fell today with injury to the neck, neck pain CTDI:vol (mGy) 14.2 DLP: (mGycm) 330 Technique: Multiple 2 mm axial sections of the cervical spine have been obtained. The coronal and sagittal reconstructions have been obtained. 3-D reconstructions have been obtained. Low dose protocols were performed. One or more of the following dose reduction techniques were used; automated exposure control, adjustment of the mA and/or KV according to patient size, use of iterative reconstruction technique. Findings: Severe osteopenia No acute cervical fracture Multiple osteolytic lesions in the cervical spine, including left articulating facet C1, posterior C3 vertebral body anterior C5 vertebral body right C6 vertebral body, T1 posteriorly No acute cervical vertebral body compression fracture Satisfactory alignment posterior spinous processes Extensive opacity in the lung porter, consider aspiration pneumonia, pulmonary edema IMPRESSION: Severe osteopenia No acute cervical fracture Multiple osteolytic lesions consistent with the patient's diagnosis of multiple myeloma Extensive lung opacity, consider aspiration pneumonia
--- NOTE | 2025-09-16 10:54 | XR_ITS ---
Examination: CTA chest, with intravenous contrast. CTA abdomen, with intravenous contrast. CTA pelvis, with intravenous contrast. 2-D sagittal and coronal reconstructions. 3-D reconstructions. Date and time of exam: September 16, 2025, 1548 hours INDICATIONS: Status post cardiopulmonary arrest today, post intubation, syncope, hemoptysis, vomiting, diagnosis multiple myeloma CTDI vol (mgy) 49.9 DLP (MGycm) 1199 Technique: Multiple CTA images, 2.0 mm slice thickness, obtained chest, abdomen, pelvis, with the high-resolution 64 slice scanner. 100 cc Isovue-370 is administered intravenously. Sagittal and coronal 2-D reconstructions are obtained. 3-D reconstructions, angiographic images are obtained. 3-D postprocessing, including vascular maximum intensity projections. Low dose protocols were performed. One or more of the following dose reduction techniques were used; automated exposure control, adjustment of the mA and/or KV according to patient size, use of iterative reconstruction technique. Findings: No thoracic aortic aneurysm dilatation or dissection Positive for pulmonary artery emboli in upper lobe right pulmonary artery branches, for instance axial images 72 through 75 and right lower lobe pulmonary artery branches for instance axial image 91 as well as right upper lobe pulmonary artery branches for instance axial image 99 Diffuse extensive lung opacity more severe in the left lung consider aspiration pneumonia, pulmonary hemorrhage not excluded No pneumothorax Endotracheal tube 3.2 cm above josephine Manubrium and body of the sternum intact Widespread osteolytic lesions in the thoracic and lumbar spine, the largest involves T11 including the posterior vertebral body pedicle and part of the lamina, L1 anterior portion of the vertebral body bilateral posterior iliac bones. Acute fractures right first, second, third, fourth, fifth, sixth ribs anterolaterally, acute fractures left third fourth fifth sixth ribs anteriorly without displacement No visualized liver splenic lesion Abdominal aorta intact No bowel obstruction Urinary bladder contracted around a Yung catheter Orogastric tube in the stomach No pericecal inflammatory change No diverticulitis IMPRESSION: Positive for pulmonary artery emboli Diffuse extensive lung opacity, differential would include aspiration pneumonia, pulmonary hemorrhage not excluded Endotracheal tube 3.2 cm above josephine Widespread osteolytic lesions as above consistent with the patient's diagnosis of multiple myeloma Multiple bilateral rib fractures, however no pneumothorax No abdominal parenchymal laceration Abdominal aorta intact No free fluid in the abdomen or pelvis
[2025-09-16] MEDS: AMIODARONE 360 MG IVPB 360 MG/200 ML BAG 33.333 MG IV ×2 (11:03→17:17)
[2025-09-16] MEDS: PROPOFOL 1,000 MG IVPB 1,000 MG/100 ML VIAL 2.31 MG IV (11:07)
[2025-09-16 11:10] LABS: Basophils # (Auto) 0.1 Thou/mm3 (0.0-0.2); Basophils % (Auto) 2 % (0-2.5); Eosinophils # (Auto) 0.1 Thou/mm3 (0.0-0.5); Eosinophils % (Auto) 2 % (0-10); Hematocrit 37.6 % (36.0-46.0); Hemoglobin 12.0 g/dL (12.0-16.0); Immature Granulocytes Auto 0.33 Thou/mm3 (0.00-0.00); Lymphocytes # (Auto) 3.8 Thou/mm3 (1.0-4.8); Lymphocytes % (Auto) 44 % (10-50); Mean Corpuscular HGB Conc 31.9 g/dl (31.0-37.0); Mean Corpuscular Hemoglobin 32.2 pg (25.0-35.0); Mean Corpuscular Volume 101 fL (80-100); Monocytes # (Auto) 0.8 Thou/mm3 (0.0-0.8); Monocytes % (Auto) 10 % (0-12); Neutrophils # (Auto) 3.3 Thou/mm3 (1.8-7.7); Neutrophils % (Auto) 39 % (37-80); Nucleated Red Blood Cell # 0.05 Thou/mm3 (0.00-0.00); Nucleated Red Blood Cell % 1 /100 WBC (0); Platelet Count 215 Thou/mm3 (140-440); RDW Standard Deviation 57.9 fL (36.4-46.3); Red Blood Count 3.73 Miln/mm3 (4.00-5.20); White Blood Count 8.5 Thou/mm3 (3.6-11.0)
[2025-09-16] MEDS: Magnesium Sulfate 2 GM Ivpb 2 GM/50 ML BAG IV (11:10)
[2025-09-16 11:11] LABS: Lactate (Lactic Acid) 7.9 mMol/L (0.4-2.0)
[2025-09-16] MEDS: Magnesium Sulfate 2 GM Ivpb 50 ML IV (11:14)
[2025-09-16 11:17] LABS: Beta Hydroxybutyrate 0.1 mmol/L (<0.6)
[2025-09-16 11:21] LABS: INR 1.1 (0.9-1.3); Partial Thromboplastin Time 20.6 Seconds (22.0-36.0); Prothrombin Time 11.3 Seconds (9.0-12.2)
[2025-09-16] MEDS: MIDAZOLAM INJ 1 MG/ML VIAL 2 ML 5 MG IVP (11:23)
[2025-09-16 11:26] LABS: B-Type Natriuretic Peptide 385 pg/mL (0-100)
[2025-09-16 11:36] LABS: D-Dimer > 3820 ng/mL (<600)
[2025-09-16 11:43] LABS: Alanine Aminotransferase 95 U/L (10-49); Albumin, Serum 3.9 gm/dL (3.4-4.8); Albumin/Globulin Ratio 2.6 (1.2-2.2); Alcohol, Blood Medical < 3.0 mg/dL (0-10.0); Alkaline Phosphatase 170 U/L (46-116); Anion Gap 15 (7-16); Aspartate Amino Transferase 136 U/L (0-34); BUN/Creatinine Ratio 10 Ratio (12-20); Bilirubin,Direct < 0.1 mg/dL (0.0-0.3); Bilirubin,Total 0.4 mg/dL (0.3-1.2); Blood Urea Nitrogen 11 mg/dL (9-23); C-Reactive Protein < 0.5 mg/dL (0.0-0.9); Calcium 8.8 mg/dL (8.3-10.6); Calcium (Corrected) 8.9 mg/dL (8.5-10.1); Carbon Dioxide 19.9 mMol/L (20.0-31.0); Chloride 106 mMol/L (98-107); Creatine Kinase 211 U/L (34-171); Creatinine (Component) 1.1 mg/dL (0.6-1.3); Globulin 1.5 gm/dL (2.3-3.5); Glucose 120 mg/dL (74-106); Lipase 35 U/L (12-53); Magnesium 1.8 mg/dL (1.6-2.6); Osmolality,Calculated 281 (275-295); Potassium 3.7 mMol/L (3.4-5.1); Procalcitonin 0.05 ng/ml (0.0-0.49); Sodium 141 mMol/L (136-145); Thyroid Stimulating Hormone 3.31 uIU/mL (0.55-4.78); Total Protein 5.4 gm/dL (5.7-8.2); eGFR 57 See Note
[2025-09-16 11:51] LABS: Collection Type, Urine Clean Catch
[2025-09-16 11:52] LABS: Troponin I 7.031 ng/mL (0.0-0.045)
[2025-09-16] MEDS: RINGERS LACTATED 1000 ML 1,000 ML 999 ML IV ×2 (11:55)
[2025-09-16 11:57] LABS: Sed Rate (ESR) 2 mm/hr (0-30)
[2025-09-16 12:09] LABS: Bacteria,Urine Rare; Bilirubin,Urine Negative (Negative); Blood,Urine 2+ (Negative); Color,Urine Lt-Yellow (Lt Yel-Yel); Glucose, Urine 3+ (Negative); Ketones,Urine Negative (Negative); Leukocyte Esterase,Urine Negative (Negative); Nitrite,Urine Negative (Negative); PH,Urine 7.0 (5.0-7.0); Protein,Urine 3+ (Neg - Trace); RBC,Urine 48 /hpf (0-3); Specific Gravity,Urine 1.016 (1.001-1.035); Squamous Epithelial Cell,Urine < 1 /hpf (0-5); Urobilinogen,Urine Negative mg/dL (0.0-1.0); WBC,Urine 46 /hpf (0-5)
[2025-09-16] MEDS: MIDAZOLAM/NS 100 MG IVPB 100 MG/100 ML BAG IV (12:09)
[2025-09-16 12:10] LABS: Clarity,Urine Hazy (Clear/Hazy); Culture Indicated,Urine Yes
--- NOTE | 2025-09-16 12:10 | PC.NURSE ---
PATIENT WAS BROUGHT IN BY EMS FROM A SCHOOL FACILITY PRIOR TO ARRIVAL. PATIENT WAS BROUGHT IN A STAT POST CARDIAC ARREST FROM FIELD. PER EMS PATIENT WAS GIVEN CPR BY BYSTANDER AFTER BECOMING UNRESPONSIVE AT THE SCHOOL. PATIENT KNOWN TO HAVE HISTORY OF CANCER, PATIENT LAST CHEMO WAS YESTERDAY. PATIENT WAS GIVEN CPR AND ONE SHOCK AT SCHOOL FACILITY. WHEN EMS ARRIVED PATIENT WAS RESPONSIVE BUT IN V-TACH HEART RATE 250S. EMS SHOCKED PATIENT A TOTAL OF 3 TIMES BEFORE ARRIVING TO ED. PATIENT ON ARRIVAL WAS AWAKE BUT IN V-TACH HEART RATE 200S. 300MG IV AMIODRAONE PUSH WAS GIVEN PER DR. HERNANDEZ ORDER WELL 2GM MAGNESIUM IV PUSH. PATIENT LOST PULSE AT 1042. CODE BLUE CALLED. PLEASE SEE CODE SHEET FOR MORE INFORMATION. PATIENT REGAINED ROSC AT 1047. PATIENT WAS STARTED ON EPI DRIP, PROPOFOL DRIP, AMIODARONE DRIP, VERSED DRIP, FLUIDS, LIDOCAINE IV PUSH GIVEN WELL LIDOCAINE DRIP STARTED, AND 2 MORE GRAMS OF MAGNESIUM IV WIDE OPEN PER DR. HERNANDEZ ORDER. PATIENT WAS GOING IN AND OUT OF V FIB. PATIENT WAS SHOCKED A TOTAL OF 7 TIMES IN ED ROOM 2 DURING THIS PROCESS. PATIENT CAME TO BEDSIDE. DR. BARRETT ASSESSED PATIENT AT BEDSIDE. PATIENT WAS [place] [address] FOR PROCEDURE. TRANSFER OF CARE/ REPORT WAS GIVEN TO LAKESHA OSMAN IN ICU AND LAKESHA TONEY IN ICU.
[2025-09-16 12:11] LABS: Amphetamine/Methamp Scrn,U Negative (Negative); Barbiturate Screen,Urine Negative (Negative); Benzodiazepines Screen,Urine Negative (Negative); Benzoylecgonine Screen, Ur Negative (Negative); Fentanyl Screen,Urine Negative (Negative); Opiate Screen,Urine Negative (Negative); THC Screen,Urine Positive (Negative)
--- NOTE | 2025-09-16 12:26 | PC.NURSE ---
REPORT GIVEN TO LAKESHA TONEY PATIENT TAKEN TO CERTIFIED LACTATION COUNSELOR VIA GURNEY WITH DR. MATIAS AT BEDSIDE AND [employer].
--- NOTE | 2025-09-16 13:04 | ESCONSULT_ITS ---
<Statement entered by Matheus Braxton MD - 09/18/25 13:13> I personally evaluated examined the patient emergency room in consultation as well as spent additional 60 minutes of critical care time managing in the emergency room with management of ventricular fibrillation and antiarrhythmic drug therapy and bedside echo patient the patient had [id number] cardiac arrest successfully resuscitated primary arrhythmia was ventricular fibrillation has recurrent ventricular fibrillation episodes in the emergency department multiple shocks were delivered multiple vasopressors epinephrine has been given maintaining sinus rhythm so far lidocaine amiodarone infusion also started. Because of t high likelihood of possibility of acute myocardial infarction ischemic etiology causing ventricular fibrillation emergency coronary angiogram was recommended. I did perform coronary angiogram emergency procedure showed evidence of widely patent coronary arteries normal left ventricle function. Bedside echo also showed normal left ventricle function Patient also with ventricular fibrillation possibly due to polymorphic ventricular tachycardia and VF due to prolonged QT interval possibly aggravated by Zofran and other medications patient has had history of multiple myeloma bone marrow stem cell transplantation now undergoing chemotherapy with Revlimid received Zofran has had [id number] cardiac arrest witnessed arrest successful resuscitation cardiac catheterization laboratory RN was present providing BLS until EMS arrived defibrillated the patient successfully rhythm strips clearly show ventricular fibrillation polymorphic torsade de points type of ventricular fibrillation possibly due to QT prolongation. Patient is transported to ICU in stable condition hemodynamically requiring IV vasopressors including epinephrine sheath was placed and placed to have hemodynamic monitoring discussed with local telephone operator as well coordinated the care. CT scan of the chest was ordered to evaluate for possible pulm embolism high likelihood because of setting of malignancy. Evaluated patient with resident physician and treatment plan recommendation discussed with ICU team agree with the treatment plan recommendation as documented by Dr. Tomer OSUNA. HPI Data of Consult Primary Care Provider: Jc Rico MD Consult Narrative History of present illness: Jeanine Lzoano is a 59-year-old female with a past medical history of multiple myeloma with multiple bony lytic lesions (status post radiation, four cycles of D-RVd chemotherapy, and bone marrow transplant), Basia's thyroiditis, and SIADH/hyponatremia who presents after having undergone cardiac arrest. Upon evaluation, patient was intubated and sedated and history obtained from various medical personnel, who is at bedside, and chart review. Patient was at an elementary school visiting her granddaughter where she was found unconscious on a bench by medical personnel and did not have a pulse and so CPR started immediately. On scene, school staff had placed an AED and shocked once and then fire department arrived, continued CPR momentarily but patient was conscious and moving. En route, she was shocked an additional 3 times prior to arrival to the ED. In the ED, patient was reported to have multiple episodes of VT/VF requiring multiple shocks while on amiodarone drip and at this time cardiology was called, who recommended to start patient on lidocaine drip. Soon thereafter cardiology arrived to the ED and in the interim she was intubated and sedated. Bedside echo was performed that did not show signs of regional wall motion abnormalities, though patient noted to be on pressor support with epinephrine. Given that leading cause of VT/VF remains to be ischemic heart disease risks and benefits were discussed with at bedside regarding cardiac cath and decision was made to take patient to flue dust laborer emergently. Cardiology consulted for cardiac arrest secondary to VT/VF. PMHx: multiple myeloma, Basia's thyroiditis, SIADH FHx: maternal grandmother with emphysema, mother with hypertension and pacemaker but both parents in mid-80s SHx: lives with , Dylan; no history of significant EtOH, smoking, or illlicit drug use PSHx: cholecystectomy (), appendectomy (), hysterectomy & R oophorectomy (1995) cc:: cc: Review of Systems Review of Systems ROS Unobtainable: unobtainable due to mental status, unobtainable due to medical condition and due to endotracheal tube Exam Vital Signs Temp Pulse Resp BP Pulse Ox O2 Del Method FiO2 97.7 F 97 16 93/62 98 Room Air 100 09/16/25 11:33 09/16/25 11:33 09/16/25 11:33 09/16/25 11:33 09/16/25 11:33 09/16/25 11:33 09/16/25 11:09 Narrative Exam General: intubated and sedated on mechanical ventilation, OG tube in place HEENT: NC/AT, mucous membranes moist, bilateral sclera anicteric Cardiovascular: regular rate and rhythm, S1/S2 present, no murmurs appreciated Pulmonary: clear to auscultation bilaterally, no rales/rhonchi/wheezes Abdominal: soft, non-tender, non-distended, no rebound/guarding, normal bowel sounds present Musculoskeletal: normal ROM, no peripheral edema Skin: warm and dry, intact, no rashes Results Labs 09/18/25 10:00 09/18/25 03:02 Labs: Short CBC 09/16/25 Range/Units 10:52 WBC 8.5 D (3.6-11.0) Thou/mm3 Hgb 12.0 (12.0-16.0) g/dL Hct 37.6 (36.0-46.0) % Plt Count 215 (140-440) Thou/mm3 BMP 09/16/25 10:52 Sodium 141 Potassium 3.7 Chloride 106 Carbon Dioxide 19.9 L BUN 11 Creatinine 1.1 Glucose 120 H Calcium 8.8 Cardiac Enzymes 09/16/25 Range/Units 10:52 Total Creatine Kinase 211 H (34-171) U/L Troponin I 7.031 H* (0.0-0.045) ng/mL Liver Function 09/16/25 Range/Units 10:52 Total Bilirubin 0.4 (0.3-1.2) mg/dL Direct Bilirubin < 0.1 (0.0-0.3) mg/dL AST 136 H (0-34) U/L ALT 95 H (10-49) U/L Alkaline Phosphatase 170 H (46-116) U/L Albumin 3.9 D (3.4-4.8) gm/dL Urine 09/16/25 Range/Units 11:45 Urine Color Lt-Yellow (Lt Yel-Yel) Urine Clarity Hazy (Clear/Hazy) Urine pH 7.0 (5.0-7.0) Ur Specific [place] 1.016 (1.001-1.035) Urine Protein 3+ A (Neg - Trace) Urine Glucose (UA) 3+ A (Negative) Quality Measures Quality Measures none Medications Home Medications and Allergies Home Medications ?Medication ?Instructions ?Recorded ?Confirmed ?Type levothyroxine 125 mcg tablet 125 mcg PO QAM 01/29/18 1 11/18/24 History sulfamethoxazole 800 1 tab PO QDAY 02/07/2409/18 History mg-trimethoprim 160 mg tablet Held on 09/18/25. Instructions: Doctor's Order calcium 325 mg-vit D3 12.5 2 tab PO BID 03/04/2409/18 History mcg-zinc 2.75 zx-bipsyp-haujbiqge tablet (Citracal-D3 Maximum Plus) cyclobenzaprine 10 mg tablet 10 mg PO DAILY PRN Cramps 03/04/24 09/18/25 History hydrocodone 5 mg-acetaminophen 325 1 tab PO Q6H PRN Pa in 03/04/24 09/18/25 History mg tablet Held on 09/18/25. Instructions: Doctor's Order ondansetron 4 mg disintegrating 4 mg PO Q6H PRN Nausea And Vomiting 03/04/24 09/18/25 History tablet sodium chloride 1 gram tablet 1,000 mg PO TID 03/04/24 09/18/25 History gabapentin 100 mg capsule 100 mg PO BID 05/26/2409/18 History acyclovir 400 mg tablet 400 mg PO Q12H 09/17/2512/12 History aspirin 81 mg tablet 81 mg PO QDAY 09/17/2509/18 History denosumab 120 mg/1.7 mL (70 mg/mL) 120 mg subcut Q7D 1 09/17/25 History subcutaneous solution gabapentin 300 mg capsule 600 mg PO Q8H 09/17/2509/18 History ondansetron HCl 8 mg tablet 8 mg PO QDAY 09/17/2508/20 History docusate sodium 100 mg capsule 100 mg PO QDAY PRN cons tipation 09/18/25 09/18/25 History loratadine 10 mg capsule (Allergy 10 mg PO QDAY 09/18/25 History Relief (loratadine)) Allergies Allergy/AdvReac Type Severity Reaction Status Date / Time Penicillins Allergy Unknown Rash Verified 05/25/24 16:40 Visit Medications Heparin Sodium (Porcine) (Heparin Sod Inj 5000 Unit/Ml Vial) 5,000 unit SC Q12HR GABE Stop: 09/30/25 20:59 Epinephrine/Sodium Chloride (Adrenalin/Ns 4 Mg Ivpb) 4 mg in 250 mls @ 14.438 mls/hr IV .[id number] PRN; Protocol PRN Reason: per protocol Stop: 10/16/25 10:51 Amiodarone HCl/Dextrose (Nexterone Ivpb) 360 mg in 200 mls @ 33.333 mls/hr IV .Q6H ONE Stop: 09/16/25 16:51 Last Admin: 09/16/25 11:03 Dose: 33.333 mls/hr Propofol (Diprivan Ivpb) 1,000 mg in 100 mls @ 2.31 mls/hr IV .Q24H PRN; Protocol PRN Reason: Per Protocol Stop: 10/16/25 10:56 Last Admin: 09/16/25 11:07 Dose: 5 mcg/kg/min, 2.31 mls/hr Midazolam HCl (Versed Pf Inj In Ns Premix) 100 mg in 100 mls @ 1 mls/hr IV .Q24H PRN; Protocol PRN Reason: PER PROTOCOL Stop: 09/21/25 11:15 Last Admin: 09/16/25 12:09 Dose: 1 mg/hr, 1 mls/hr Lidocaine HCl/Dextrose (Xylocaine In D5w Ivpb) 1,000 mg in 250 mls @ 15 mls/hr IV .[id number] GABE; Protocol Stop: 10/16/25 11:27 Lactated Ringer's (Lactated Ringers) 1,000 mls @ 999 mls/hr IV .Q1H1M ONE Stop: 09/16/25 13:41 Lactated Ringer's (Lactated Ringers) 1,000 mls @ 999 mls/hr IV .Q1H1M ONE Stop: 09/16/25 13:41 Magnesium Sulfate (Magnesium Sulfate Ivpb) 2 gm in 50 mls @ 999 mls/hr IV X1 ONE Stop: 09/16/25 11:10 Pantoprazole Sodium (Pantoprazole 40 Mg Tablet) 40 mg PO QDAY [facility] Stop: 10/16/25 13:14 Discontinued Medications Epinephrine HCl (Epinephrine Inj 0.1 Mg/Ml Syringe 10ml) 1 mg IVP X1 ONE Stop: 09/16/25 10:41 Last Admin: 09/16/25 10:44 Dose: 1 mg Etomidate (Etomidate Inj 2 Mg/Ml Vial 10 Ml) 20 mg IVP X1 ONE Stop: 09/16/25 10:41 Last Admin: 09/16/25 10:45 Dose: 20 mg Sodium Chloride (Ns) 1,000 mls @ 999 mls/hr IV .Q1H1M ONE Stop: 09/16/25 11:52 Last Admin: 09/16/25 12:50 Dose: Not Given Sodium Chloride (Ns) 1,000 mls @ 999 mls/hr IV .Q1H1M ONE Stop: 09/16/25 12:30 Last Admin: 09/16/25 12:51 Dose: Not Given Azithromycin 500 mg/ Sodium (Chloride) 250 mls @ 250 mls/hr IV X1 ONE Stop: 09/16/25 12:57 Ceftriaxone Sodium/Dextrose (Rocephin/D5w 1gm Iv Premix) 1 gm in 50 mls @ 100 mls/hr IV X1 ONE Stop: 09/16/25 12:27 Amiodarone HCl 300 mg/ (Dextrose) 106 mls @ 600 mls/hr IV X1 ONE Stop: 09/16/25 10:50 Last Admin: 09/16/25 12:50 Dose: Not Given Lidocaine HCl (Lidocaine Inj 2% 20 Mg/Ml Syringe 5 Ml) 100 mg IV X1 ONE Stop: 09/16/25 11:31 Last Admin: 09/16/25 11:47 Dose: 100 mg Midazolam HCl (Midazolam Inj 1 Mg/Ml Vial 2 Ml) 5 mg IVP X1 ONE Stop: 09/16/25 11:17 Last Admin: 09/16/25 11:23 Dose: 5 mg Ondansetron HCl (Ondansetron Inj 2 Mg/Ml Inj 2 Ml) 4 mg IVP X1 ONE; Protocol Stop: 09/16/25 10:53 Last Admin: 09/16/25 12:50 Dose: Not Given Sodium Bicarbonate (Sodium Bicarb Inj 8.4% Syr 50 Ml Syringe) 50 ml IV X1 ONE Stop: 09/16/25 10:51 Last Admin: 09/16/25 10:49 Dose: 50 ml Sodium Chloride (Sodium Chloride Rt 10% 15 Ml Nebu) 5 ml INH X1 ONE Stop: 09/16/25 11:07 Succinylcholine Chloride (Succinylcholine Inj 20 Mg/Ml Vial 10 Ml) 100 mg IV X1 ONE Stop: 09/16/25 10:41 Last Admin: 09/16/25 10:45 Dose: 100 mg Assessment & Plan Plan Jeanine Lozano is a 59-year-old female with a past medical history of multiple myeloma with multiple bony lytic lesions (status post radiation, four cycles of D-RVd chemotherapy, and bone marrow transplant), Basia's thyroiditis, and SIADH/hyponatremia who is admitted status-post cardiac arrest secondary to ventricular arrhythmia and cardiology consulted for the same. #[id number] cardiac arrest successful resuscitation primary arrhythmia ventricular fibrillation polymorphic VTCardiac arrest #Ventricular fibrillation polymorphic ventricular tachycardia Prolonged QT interval possibly secondary to drug-induced Presents after suffering cardiac arrest in field, underwent CPR, and required multiple shocks for ventricular arrhythmia. Started on amiodarone drip and continued to have episodes of arrhythmia requiring defibrillation and recommended lidocaine drip. Bedside echo did not show regional wall motion abnormalities but patient noted to be on epinephrine drip. Given that leading cause of ventricular arrhythmia remains to be ischemic heart disease decision was made to take patient to Associate Product Manager emergently but revealed no significant no coronary artery disease, normal LV systolic function with estimated EF of 60%. Differentials include cardiomyopathy (dilated vs hypertrophic vs infiltrative), electrolyte abnormalities, channelopathies, drug-induced, and acute illness. Electrolytes were within normal limits. EKG 09/16 showed QTc 479 on amiodarone and previous EKGs show QTc 440-480. However the EKG manual measurement of the QT is more than 400 ms QTc appears to be close to 500 ms T wave is almost near the P wave.Per chart review, she is on some medications associated with arrhythmias (Bactrim, dapsone, gabapentin, lenalidomide, Velcade). Imaging revealed diffuse left-sided lung opacity concerning for pneumonia/ARDS and multiple pulmonary emboli with no signs of RV strain. ? Continue amiodarone drip ? Wean off lidocaine drip ? Closely monitor electrolytes; K > 4, Mg > 2 ? Closely monitor on telemetry ? Avoid QT prolonging agents when possible ?The patient has a prolonged QT interval secondary to Zofran and multiple agents #Shock, likely septic vs Cardiogenic shock #Pneumonia with ARDS CT scan of the chest showed evidence of extensive left lung infiltrate possible pneumonia and immunocompromise host #Multiple pulmonary emboli The patient had a CT scan of the chest pulmonary angio showed evidence of multiple pulmonary emboli subsegmental branches not massive. Bedside echo showed no evidence of RV overload #Hepatitis #Lactic acidosis #Basia disease #Sepsis ? Continue management per primary team ----- Matheus Osuna MD PGY-2 Internal Medicine Attending Provider Attestation/Addendum I personally examined the patient and evaluated the patient emergency room spent more than 60 minutes critical care time in the emergency room and evaluation and consultation report subsequently went on to perform coronary angiography cardiac catheterization on emergency basis.
[2025-09-16] MEDS: EPINEPHrine in NS 4 MG IVPB 4 MG/250 ML BAG 14.438 MG IV (13:39)
[2025-09-16 14:05] LABS: Reflex Lactate? Y
[2025-09-16] MEDS: fentaNYL 2,500 MCG/250 ML BAG 2,500 MCG/250 ML BAG IV (14:09)
[2025-09-16 14:36] LABS: Lactate (Lactic Acid) 4.5 mMol/L (0.4-2.0)
[2025-09-16] MEDS: LIDOCAINE IV (14:38)
[2025-09-16] MEDS: D5W IV (14:38)
[2025-09-16 15:00] LABS: Alanine Aminotransferase 292 U/L (10-49); Albumin, Serum 3.4 gm/dL (3.4-4.8); Albumin/Globulin Ratio 3.1 (1.2-2.2); Alkaline Phosphatase 178 U/L (46-116); Anion Gap 12 (7-16); Aspartate Amino Transferase 557 U/L (0-34); BUN/Creatinine Ratio 15 Ratio (12-20); Bilirubin,Total 0.5 mg/dL (0.3-1.2); Blood Urea Nitrogen 15 mg/dL (9-23); Calcium 7.9 mg/dL (8.3-10.6); Calcium (Corrected) 8.4 mg/dL (8.5-10.1); Carbon Dioxide 26.7 mMol/L (20.0-31.0); Chloride 102 mMol/L (98-107); Creatinine (Component) 1.0 mg/dL (0.6-1.3); Estimated Creatinine Clearance 61.7 mL/min (>60); Globulin 1.1 gm/dL (2.3-3.5); Glucose 190 mg/dL (74-106); Osmolality,Calculated 287 (275-295); Potassium 3.2 mMol/L (3.4-5.1); Sodium 141 mMol/L (136-145); Total Protein 4.5 gm/dL (5.7-8.2); eGFR > 60 See Note
--- NOTE | 2025-09-16 15:00 | PC.NURSE ---
Limited assessment pt intubated sedated and restrained. PT requiring multiple titrations and medications. pt to CT vitals stable.
[2025-09-16] MEDS: PROPOFOL 1,000 MG IVPB 1,000 MG/100 ML VIAL 16.17 MG IV (16:19)
[2025-09-16] MEDS: Norepinephrine/D5W 8mg/250ml 8 MG/250 ML BAG 6.572 MG IV (16:28)
[2025-09-16] MEDS: POTASSIUM CHL 10 mEq IVPB 10 MEQ/100 ML BAG 100 MEQ IV ×4 (16:31→19:32)
[2025-09-16] MEDS: cefTRIAXone/D5w 1gm IV premix 1 GM/50 ML BAG IV (16:32)
--- NOTE | 2025-09-16 17:28 | ESHP_ITS ---
<Statement entered by Betty Meng MD - 09/19/25 18:20> TOTAL CC TIME: 90 MIN I saw and evaluated the patient. I reviewed the resident?s note and agree with findings and plan as documented in the resident?s note. Upon my evaluation, this patient had a high probability of imminent or life- threatening deterioration due to cardiogenic shock post ventricular fibrillation induced cardiac arrest, which required my direct attention, intervention, and personal management. This time is exclusive of time spent on procedures, which are documented separately if performed. BL pulm emboli (at risk due to MM and medications to treat) on heparin gtt ECHO and CTA reviewed - pulm trunk : aorta x-sec >1 c/w strain but not severe. minimal ivc to hepatic venous reflux shock 2/2 stunned myocardium post arrest in addition to sedation, pneumonia, and PEs. Not candidate for lytics d/w pts heme/onc physician at [facility] - agrees with care. empiric abx reyes clx track LA and LFTs discussed at bedside with at length d/w cardiology team pre and post cath (coronaries clear) Documentation for date of: 09/16/25 HPI History of Present Illness Chief complaint: Septic shock History of present illness: 59 y/o F with PMHx significant for multiple myeloma on chemotherapy, anemia, Basia's presented to ED after having been witnessed to slump over and pass out on a bench. Patient received 1 shock from AED in the field, 3 more shocks from EMS. In ED, patient found to be altered, unresponsive. Underwent multiple rounds of v-fib/v-tach in ED requiring mutiple shocks. Due to concern for ischemic heart disease causing arrythmias, patient underwent urgent cardiac catheterization which revealed no obstructions. Patient was started on amiodarone drip, lidocaine drip, Versed drip, epinephrine drip in the ED. Patient received 2 L bolus lactated Ringer's. Intubated in the ED. ED course: Labs significant for: Lactic acid 7.9, BNP 385, potassium 3.2, calcium 8.4, AST 136, ALT 95, T. bili 0.4, troponin 7. Beta hydroxybutyrate 0.1, Pro-Nehemias 0.05. TSH 3.31. Urinalysis showed 3+ protein, 3+ glucose, RBC 48, WBC 46, rare bacteria. U tox positive for marijuana. Imaging significant for: Chest/abdomen/pelvis CTA positive for multiple pulmonary emboli, widespread significant pneumonia, widespread osteolytic lesions, multiple bilateral rib fractures. Head CT unremarkable. EKG showed sinus tachycardia, QTc 479. Review of Systems Review of Systems Systems Reviewed: All systems reviewed, normal except as documented Exam Vital Signs Temp Pulse Resp BP Pulse Ox O2 Del Method FiO2 96.6 F L 55 L 18 81/57 L 100 Mechanical Ventilation 100 09/16/25 16:09 09/16/25 17:17 09/16/25 17:00 09/16/25 17:17 09/16/25 17:00 09/16/25 16:09 09/16/25 16:09 Narrative Exam PE: Gen: Well-developed and well-nourished. Sedated and intubated. HEENT: NCAT, PERRLA, EOMI, MMM, anicteric conjunctivae. Pupils sluggish but responsive. CVS: Bradycardic. Resp: Diffuse rhonchorous breath sounds. Abd: soft, non-tender, non-distended. BS+ in all 4 quadrants. MSK: No edema or rash. Neuro: Patient sedated, arousable to voice, follows commands. Results: Labs 09/17/25 06:15 09/17/25 06:15 Labs: Short CBC 09/16/25 Range/Units 10:52 WBC 8.5 D (3.6-11.0) Thou/mm3 Hgb 12.0 (12.0-16.0) g/dL Hct 37.6 (36.0-46.0) % Plt Count 215 (140-440) Thou/mm3 BMP 09/16/25 09/16/25 10:52 14:25 Sodium 141 141 Potassium 3.7 3.2 L D Chloride 106 102 Carbon Dioxide 19.9 L 26.7 BUN 11 15 Creatinine 1.1 1.0 Glucose 120 H 190 H D Calcium 8.8 7.9 L Cardiac Enzymes 09/16/25 Range/Units 10:52 Total Creatine Kinase 211 H (34-171) U/L Troponin I 7.031 H* (0.0-0.045) ng/mL Liver Function 09/16/25 09/16/25 Range/Units 10:52 14:25 Total Bilirubin 0.4 0.5 (0.3-1.2) mg/dL Direct Bilirubin < 0.1 (0.0-0.3) mg/dL AST 136 H 557 H* (0-34) U/L ALT 95 H 292 H (10-49) U/L Alkaline Phosphatase 170 H 178 H (46-116) U/L Albumin 3.9 D 3.4 D (3.4-4.8) gm/dL Urine 09/16/25 Range/Units 11:45 Urine Color Lt-Yellow (Lt Yel-Yel) Urine Clarity Hazy (Clear/Hazy) Urine pH 7.0 (5.0-7.0) Ur Specific [place] 1.016 (1.001-1.035) Urine Protein 3+ A (Neg - Trace) Urine Glucose (UA) 3+ A (Negative) Quality Measures Quality Measures VTE therapy Medications Home Medications and Allergies Home Medications ?Medication ?Instructions ?Recorded ?Confirmed ?Type levothyroxine 125 mcg tablet 125 mcg PO QAM 01/29/18 1 History acyclovir 800 mg tablet 800 mg PO BID 02/07/2403/04 History sulfamethoxazole 800 1 tab PO QDAY 02/07/2405/26 History mg-trimethoprim 160 mg tablet calcium 325 mg-vit D3 12.5 2 tab PO BID 03/04/2403/04 History mcg-zinc 2.75 fc-qojjhi-alfoummdf tablet (Citracal-D3 Maximum Plus) cyclobenzaprine 10 mg tablet 10 mg PO DAILY PRN Cramps 03/04/24 05/26/24 History hydrocodone 5 mg-acetaminophen 325 1 tab PO Q6H PRN Pa in 03/04/24 05/26/24 History mg tablet ondansetron 4 mg disintegrating 4 mg PO Q6H PRN Nausea And Vomiting 03/04/24 05/26/24 History tablet sodium chloride 1 gram tablet 1,000 mg PO TID 03/04/24 05/26/24 History gabapentin 100 mg capsule 100 mg PO BID 05/26/2405/26 History acyclovir 400 mg tablet 400 mg PO Q12H 09/17/25 10/12/12 History aspirin 81 mg tablet 81 mg PO QDAY 09/17/2509/17 History denosumab 120 mg/1.7 mL (70 mg/mL) 120 mg subcut Q7D 1 09/17/25 History subcutaneous solution gabapentin 300 mg capsule 600 mg PO Q8H 09/17/2509/17 History ondansetron HCl 8 mg tablet 8 mg PO QDAY 09/17/25 1012/12 History Allergies Allergy/AdvReac Type Severity Reaction Status Date / Time Penicillins Allergy Unknown Rash Verified 05/25/24 16:40 Visit Medications Heparin Sodium (Porcine) (Heparin Sod Inj 5000 Unit/Ml Vial) 5,000 unit SC Q12HR [facility] Stop: 09/30/25 20:59 Epinephrine/Sodium Chloride (Adrenalin/Ns 4 Mg Ivpb) 4 mg in 250 mls @ 14.438 mls/hr IV .[id number] PRN; Protocol PRN Reason: per protocol Stop: 10/16/25 10:51 Last Titration: 09/16/25 16:30 Dose: 0 mcg/kg/min, 0 mls/hr Midazolam HCl (Versed Pf Inj In Ns Premix) 100 mg in 100 mls @ 1 mls/hr IV .Q24H PRN; Protocol PRN Reason: PER PROTOCOL Stop: 09/21/25 11:15 Last Titration: 09/16/25 14:00 Dose: 0 mg/hr, 0 mls/hr Lidocaine HCl/Dextrose (Xylocaine In D5w Ivpb) 1,000 mg in 250 mls @ 15 mls/hr IV .[id number] GABE; Protocol Stop: 10/16/25 11:27 Last Admin: 09/16/25 14:38 Dose: 22.5 mls/hr Ceftriaxone Sodium/Dextrose (Rocephin/D5w 1gm Iv Premix) 1 gm in 50 mls @ 100 mls/hr IV QDAY [facility] Stop: 09/23/25 13:46 Last Admin: 09/16/25 16:32 Dose: 100 mls/hr Fentanyl Citrate (Sublimaze Inj 2,500 Mcg/250 Ml Bag) 2,500 mcg in 250 mls @ 2.5 mls/hr IV .Q24H PRN; Protocol PRN Reason: PER PROTOCOL Stop: 09/21/25 13:46 Last Admin: 09/16/25 14:09 Dose: 25 mcg/hr, 2.5 mls/hr Propofol (Diprivan Ivpb) 1,000 mg in 100 mls @ 2.31 mls/hr IV .Q24H PRN; Protocol PRN Reason: Per Protocol Stop: 10/16/25 10:56 Doxycycline Hyclate 100 mg/ (Sodium Chloride) 100 mls @ 100 mls/hr IV BID GABE Stop: 09/23/25 20:59 Norepinephrine/Dextrose (Levophed In D5w 8mg/250ml) 8 mg in 250 mls @ 6.572 mls/hr IV .Q24H PRN; Protocol PRN Reason: PER PROTOCOL Stop: 10/16/25 14:42 Last Titration: 09/16/25 17:15 Dose: 0.17 mcg/kg/min, 22.344 mls/hr Potassium Chloride (Kcl Ivpb) 10 meq in 100 mls @ 100 mls/hr IV Q1H GABE Stop: 09/16/25 19:36 Last Admin: 09/16/25 16:31 Dose: 100 mls/hr Amiodarone HCl/Dextrose (Nexterone Ivpb) 360 mg in 200 mls @ 33.333 mls/hr IV .Q6H ONE Stop: 09/16/25 23:09 Last Admin: 09/16/25 17:17 Dose: 33.333 mls/hr Pantoprazole Sodium (Pantoprazole Inj 40 Mg Vial) 40 mg IV QDAY GABE Stop: 10/16/25 16:44 Last Admin: 09/16/25 16:58 Dose: 40 mg Discontinued Medications Epinephrine HCl (Epinephrine Inj 0.1 Mg/Ml Syringe 10ml) 1 mg IVP X1 ONE Stop: 09/16/25 10:41 Last Admin: 09/16/25 10:44 Dose: 1 mg Etomidate (Etomidate Inj 2 Mg/Ml Vial 10 Ml) 20 mg IVP X1 ONE Stop: 09/16/25 10:41 Last Admin: 09/16/25 10:45 Dose: 20 mg Sodium Chloride (Ns) 1,000 mls @ 999 mls/hr IV .Q1H1M ONE Stop: 09/16/25 11:52 Last Admin: 09/16/25 12:50 Dose: Not Given Amiodarone HCl/Dextrose (Nexterone Ivpb) 360 mg in 200 mls @ 33.333 mls/hr IV .Q6H ONE Stop: 09/16/25 16:51 Last Admin: 09/16/25 11:03 Dose: 33.333 mls/hr Propofol (Diprivan Ivpb) 1,000 mg in 100 mls @ 2.31 mls/hr IV .Q24H PRN; Protocol PRN Reason: Per Protocol Stop: 10/16/25 10:56 Last Titration: 09/16/25 15:00 Dose: 25 mcg/kg/min, 11.55 mls/hr Sodium Chloride (Ns) 1,000 mls @ 999 mls/hr IV .Q1H1M ONE Stop: 09/16/25 12:30 Last Admin: 09/16/25 12:51 Dose: Not Given Azithromycin 500 mg/ Sodium (Chloride) 250 mls @ 250 mls/hr IV X1 ONE Stop: 09/16/25 12:57 Last Admin: 09/16/25 17:16 Dose: Not Given Amiodarone HCl 300 mg/ (Dextrose) 106 mls @ 600 mls/hr IV X1 ONE Stop: 09/16/25 10:50 Last Admin: 09/16/25 12:50 Dose: Not Given Lactated Ringer's (Lactated Ringers) 1,000 mls @ 999 mls/hr IV .Q1H1M ONE Stop: 09/16/25 13:41 Last Infusion: 09/16/25 15:07 Dose: Infused Lactated Ringer's (Lactated Ringers) 1,000 mls @ 999 mls/hr IV .Q1H1M ONE Stop: 09/16/25 13:41 Last Infusion: 09/16/25 15:07 Dose: Infused Magnesium Sulfate (Magnesium Sulfate Ivpb) 2 gm in 50 mls @ 999 mls/hr IV X1 ONE Stop: 09/16/25 11:10 Last Admin: 09/16/25 11:10 Dose: 999 mls/hr Azithromycin 500 mg/ Sodium (Chloride) 250 mls @ 250 mls/hr IV QDAY GABE Stop: 09/24/25 08:59 Lidocaine HCl (Lidocaine Inj 2% 20 Mg/Ml Syringe 5 Ml) 100 mg IV X1 ONE Stop: 09/16/25 11:31 Last Admin: 09/16/25 11:47 Dose: 100 mg Midazolam HCl (Midazolam Inj 1 Mg/Ml Vial 2 Ml) 5 mg IVP X1 ONE Stop: 09/16/25 11:17 Last Admin: 09/16/25 11:23 Dose: 5 mg Ondansetron HCl (Ondansetron Inj 2 Mg/Ml Inj 2 Ml) 4 mg IVP X1 ONE; Protocol Stop: 09/16/25 10:53 Last Admin: 09/16/25 12:50 Dose: Not Given Sodium Bicarbonate (Sodium Bicarb Inj 8.4% Syr 50 Ml Syringe) 50 ml IV X1 ONE Stop: 09/16/25 10:51 Last Admin: 09/16/25 10:49 Dose: 50 ml Sodium Bicarbonate (Sodium Bicarb Inj 8.4% Syr 50 Ml Syringe) 50 ml IV X1 ONE Stop: 09/16/25 10:49 Last Admin: 09/16/25 10:49 Dose: 50 ml Sodium Chloride (Sodium Chloride Rt 10% 15 Ml Nebu) 5 ml INH X1 ONE Stop: 09/16/25 11:07 Sodium Chloride (Sodium Chloride Rt 10% 15 Ml Nebu) 5 ml INH X1 ONE Stop: 09/16/25 13:47 Succinylcholine Chloride (Succinylcholine Inj 20 Mg/Ml Vial 10 Ml) 100 mg IV X1 ONE Stop: 09/16/25 10:41 Last Admin: 09/16/25 10:45 Dose: 100 mg Assessment & Plan Plan 59 y/o F with PMHx significant for multiple myeloma on chemotherapy, anemia, Basia's presented to ED after having been witnessed to slump over and pass out on a bench, admitted to ICU for septic shock Neuro: #Sedation Patient is sedated, initially propofol and fentanyl, but propofol is being weaned off due to bradycardia. Patient remains intubated, GCS 11 T. -Will titrate down sedation as appropriate Cardio: #Septic shock DDx: Pneumonia, UTI Patient presented in shock requiring pressors. Initially suspected to be due to poor heart function in setting of multiple V-fib/V. tach episodes. Bedside echo showed adequate heart function, incongruent with level of shock. Patient found to have significant diffuse pneumonia on CT imaging. Urinalysis indicates potential UTI with rare bacteria, 46 WBCs. - Follow-up urine/blood/sputum cultures - Empiric antibiotics: Vancomycin and ceftriaxone (started 09/16) - Levophed and vasopressin, titrate as needed - Can give fluid if fluid responsive #V-fib/V. tach DDx: Medication side effect, acidosis Patient slumped over and passed out, received AED shock, +3 shocks from EMS en route to hospital In ED patient underwent multiple rounds of V-fib/V. tach requiring multiple shocks. Patient taken for urgent cardiac catheterization, revealed no obstructions. Per chart review, patient taken multiple medications associated with arrhythmias: -Bactrim, dapsone, gabapentin, lenalidomide, Velcade EKG revealed prolonged QTc: 479 - Telemetry monitoring - Cardiology consulted, appreciate recommendations - Monitor electrolytes, replete as needed - Avoid QTc prolonging agents - Lidocaine drip, weaning off - Amiodarone drip Pulm: #Pneumonia with ARDS Patient was intubated due to inability protect airway in setting of V-fib/V. tach. CT chest/abdomen/pelvis revealed extensive bilateral pneumonia. - Sputum culture and Gram stain pending - Ventilated, lung protective strategies - Empiric antibiotics: Vancomycin and Rocephin (started 09/16) #Multiple pulmonary emboli CT angio revealed multiple pulmonary emboli, right sided. Based on imaging, not massive PE, no significant right ventricular strain. Suspect hemodynamic instability due to sepsis and sedation, HR improved with propofol off. Discussed risk/benefits of thrombolytic therapy with patient's , will hold off at this time, consider if hemodynamic instability worsens. -Heparin drip protocol - Telemetry monitoring - Intubated as above GI: #Hepatitis DDx: Sepsis, medication side effect Patient presents with elevated liver enzymes. LFTs worsened on repeat check: AST 557, ALT 292, ALP 178. Total bilirubin normal. Unlikely shock liver given normal kidney function. -Monitor LFTs - Avoid hepatotoxins - Judicious use of hepatically metabolized medications Renal: #Lactic acidosis Lactic acid elevated, 7.9 on admission. After receiving IV fluids, lactic acid improved to 2.6. 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 -Levothyroxine 88 mcg IV daily Heme: No active issues ID: #Sepsis Patient presented with septic shock. Urine, blood, sputum cultures pending. Significant pneumonia seen on imaging. - Treat as above ICU Health maintenance: Mechanical ventilation: Sedation: Fentanyl Diet: N.p.o. DVT ppx: Heparin drip GI ppx: Protonix Yung: Yes IV lines: PIV Central line: Right subclavian Arterial line: Yes Code status: Full code Plan of care discussed with attending Dr. Meng. Pedro Nath MD PGY?2
--- NOTE | 2025-09-16 17:30 | PC.RT ---
PT returned from CT @ approx 1615 and placed back on vent with same settings. HR55,RR19, Spo2 100% BP 106/52.
[2025-09-16 17:32] LABS: Reflex Lactate? Y
--- NOTE | 2025-09-16 18:16 | PD.EVENT ---
Documentation for date of: 09/16/25 Event Note Event Note: CTA c/w bl L>R pneumonia and bilateral pulmonary emboli. We are starting heparin gtt stat. Lytics will be held for now because she has hematemesis and has undergone CPR. If she becomes hemodynamically more unstable then we will reconsider and likely have no choice but to give lytics. I have discussed the above with Dylan Lozano her over the phone
[2025-09-16] MEDS: HEPARIN SOD INJ 5000 UNIT/ML VIAL 5600 UNIT IV (18:33)
[2025-09-16] MEDS: Heparin/D5w 25K 250 ML Ivpb 25,000 UNIT/250 ML BAG 12.618 UNIT IV (18:35)
--- NOTE | 2025-09-16 18:37 | ECHO_ITS ---
Patient Info Name: Jeanine Lozano Age: 59 years : 1965 Gender: Female Ht: 175 cm Wt: 70 kg BSA: 1.85 m2 BP: 95 / 60 mmHg HR: 56 bpm Exam Date: 09/17/2025 8:08 AM Admit Date: 09/16/2025 Site: [facility] Room Number: [id number] Patient Status: I Exam Type: CA echo doppler complete Soil Tester: Candie Pichardo Ordering Physician: Tomer Osuna Study Info Indications Ventricular fibrillation, cardiac arrest, pulmonary embolism - Primary Location: [facility] Cardiac Arrest: Out of Hospital Arrest Witnessed: No First Cardiac Arrest Rhythm: Shockable Left Ventricular Outflow Tract Name Value Normal LVOT 2D LVOT Diameter 1.9 cm LVOT Doppler LVOT Peak Velocity 101 cm/s LVOT Mean Gradient 2 mmHg LVOT VTI 22 cm LVOT VTI/AV VTI Ratio 0.7 LVOT Stroke Volume 62 ml Pulmonic Valve Name Value Normal PV Doppler PV Peak Velocity 86 cm/s PV Regurgitation Doppler FL Peak End Diastolic Velocity 187 cm/s Mitral Valve Name Value Normal MV Doppler MV Decel [place] 323 cm/s2 MV PHT 66 ms MV Area (PHT) 3.3 cm2 4.0-5.0 MV Diastolic Function MV E Peak Velocity 74 cm/s MV A Peak Velocity 71 cm/s MV E/A 1.0 MV Annular TDI MV Septal e' Velocity 10.2 cm/s MV E/e' (Septal) 7.3 MV Lateral e' Velocity 9.3 cm/s MV E/e' (Lateral) 8.0 MV e' Average 9.73 cm/s MV E/e' (Average) 7.6 Tricuspid Valve Name Value Normal TV Regurgitation Doppler TR Peak Velocity 271 cm/s Estimated PAP/RSVP RA Pressure 3 mmHg <=5 PA Systolic Pressure 32 mmHg <36 RV Systolic Pressure 32 mmHg <36 TV Annular TDI TV Lateral Jayna s' Velocity 13.6 cm/s >=9.5 Aortic Valve Name Value Normal AV 2D/MM AV Cusp Sep (MM) 1.2 cm AV Doppler AV Peak Velocity 157 cm/s AV Mean Gradient 5 mmHg AV VTI 32 cm AV Area (Cont Eq VTI) 1.9 cm2 >=3.0 AV Area (Cont Eq Michael) 1.8 cm2 AV DI (Michael) 0.64 AV Regurgitation 2D LVOT Area 2.8 cm2 Ventricles Name Value Normal LV Dimensions 2D/MM IVS Diastolic Thickness (2D) 1.0 cm 0.6-0.9 LVID Diastole (2D) 5.1 cm 3.8-5.2 LVIW Diastolic Thickness (2D) 1.1 cm 0.6-0.9 LVID Systole (2D) 3.1 cm 2.2-3.5 LVOT Diameter 1.9 cm LV Mass (2D Cubed) 200.78 g 67.00-162.00 LV Mass Index (2D Cubed) 109 g/m2 43-95 Relative Wall Thickness (2D) 0.43 <=0.42 IVS/LVIW Diastolic Thickness (2D) 0.91 0.00-1.50 LV Fractional Shortening/Ejection Fraction 2D/MM LV Fractional Shortening (2D) 39 % 27-45 LV EF (2D Teichholz) 69 % Atria Name Value Normal LA Dimensions LA Volume (4C A-L) 46 ml LA Volume (BP A-L) 64 ml Left Ventricle Left ventricular chamber dimension is normal. Left ventricular systolic function is normal with visually estimated ejection fraction of 55-60%. There is mild concentric hypertrophy noted in the left ventricle. Left ventricular segmental wall motion is normal. There is normal diastolic function in the left ventricle. Right Ventricle Right ventricular chamber dimension is normal. Right ventricular systolic function is normal. Left Atrium Left atrial chamber dimension is mildly enlarged. Right Atrium Right atrial chamber dimension is normal. Aortic Valve The aortic valve is trileaflet. There is no aortic valve sclerosis. There is no aortic valve stenosis with a peak velocity of 157 cm/s, mean gradient of 5 mmHg, and aortic valve area of 1.9 cm2. There is trace aortic valve regurgitation. Pulmonic Valve The pulmonic valve is normal. There is no pulmonic valve stenosis. There is trace pulmonic regurgitation. Mitral Valve The mitral valve has normal leaflets. There is no mitral valve stenosis. There is mild mitral valve regurgitation. Tricuspid Valve The tricuspid valve leaflets are normal. There is no tricuspid valve stenosis. There is mild tricuspid valve regurgitation. No pulmonary hypertension, estimated pulmonary arterial systolic pressure is 32 mmHg and systemic blood pressure of 95 mmHg in systole. Pericardium/Pleural The pericardium appears normal. There is no pericardial effusion. No pleural effusion visualized. Inferior Vena Cava Normal inferior vena cava with >50% collapse upon inspiration consistent with normal right atrial pressure, 3 mmHg. Aorta The aortic measurements are indexed to age and body surface area. The aortic root at the sinus of Valsalva is not well visualized. The prox ascending aorta is not well visualized. Summary 1. Left ventricle size is normal and systolic function is normal. Visually estimated ejection fraction is 55-60%. There is normal diastolic function.There is mild concentric hypertrophy noted. 2. Right ventricle size is normal and systolic function is normal. Estimated RVSP is 32 mmHg. 3. There is trace aortic valve regurgitation. 4. There is mild mitral valve regurgitation. 5. There is mild tricuspid valve regurgitation. 6. trace pulmonic valve regurgitation. 7. The left atrium is mildly enlarged. The right atrium is normal. 8. Normal IVC with estimated RA pressure 3 mmHg. Report Signatures Finalized by Matheus Braxton on 09/17/2025 01:27 PM
[2025-09-16 18:56] LABS: Lactate (Lactic Acid) 2.6 mMol/L (0.4-2.0)
[2025-09-16 19:03] LABS: Base Excess 0 (-3-3); HCO3 25 mEq/L (20-26); Inspired Oxygen, FIO2 21 %; O2 Saturation 99 % (91-98); PCO2 43 mmHg (32.0-48.0); PO2 353 mmHg (83-108); pH, Arterial 7.38 (7.35-7.45)
[2025-09-16 19:04] LABS: Allen Test Not Performed; Puncture Site Arterial Line
[2025-09-16 19:28] LABS: INR 1.2 (0.9-1.3); Prothrombin Time 12.3 Seconds (9.0-12.2)
[2025-09-16 19:29] LABS: Partial Thromboplastin Time > 139.0 Seconds (22.0-36.0)
[2025-09-16] MEDS: cefTRIAXone 2 GM in SODIUM CHLORIDE 0.9% (Popper) 50 ML IV (19:32)
--- NOTE | 2025-09-16 19:52 | PD.EVENT ---
Documentation for date of: 09/16/25 Event Note Event Note: I reviewed images again - RV in enlarged but there is not severe strain signs. d/w Dr. Braxton who agreed based on his cardiac cath findings and informal echo we performed. The pneumonia (septic shock) + sedation is likely the main contributor to the hypotension and lactic acidosis. Lytics would be very high risk and the evidence in her case does not currently support their use. She received he 30cc/kg bolus ivfs in the ED and additional fluid was given in ICU. LA slightly improved. Bld clx already ordered. sputum ett clx ordered stat. f/u LA. sepsis reassessment in ICU at 6:35pm was discussed with resident: skin was not mottled - IVC was wnl w/o resp variation, HR was wnl; cap refill 3s; RR synchronized on MV.
[2025-09-16] MEDS: VANCOMYCIN/D5W 1500 MG IVPB 300 ML 120 MG IV (20:44)
[2025-09-16 21:52] LABS: Reflex Lactate? Y
[2025-09-16] MEDS: CALCIUM GLUCONATE 10% INJ 1 GM/10 ML VIAL IV (21:52)
[2025-09-16] MEDS: ALBUMIN HUMAN-KJDA 25% IVPB 25 GM/100 ML BTL IV (21:52)
[2025-09-16] MEDS: AMIODARONE 360 MG IVPB 360 MG/200 ML BAG 16.667 MG IV (22:00)
[2025-09-16 22:49] LABS: Lactic Acid, 3 HR 2.3 mMol/L (0.4-2.0)
[2025-09-16 23:06] LABS: Albumin, Serum 3.8 gm/dL (3.4-4.8); Anion Gap 7 (7-16); BUN/Creatinine Ratio 15 Ratio (12-20); Blood Urea Nitrogen 15 mg/dL (9-23); Calcium 9.4 mg/dL (8.3-10.6); Calcium (Corrected) 9.6 mg/dL (8.5-10.1); Carbon Dioxide 24.9 mMol/L (20.0-31.0); Chloride 101 mMol/L (98-107); Creatinine (Component) 1.0 mg/dL (0.6-1.3); Estimated Creatinine Clearance 61.7 mL/min (>60); Glucose 163 mg/dL (74-106); Osmolality,Calculated 271 (275-295); Phosphorous 4.0 mg/dL (2.4-5.1); Potassium 4.8 mMol/L (3.4-5.1); Sodium 133 mMol/L (136-145); eGFR > 60 See Note
[2025-09-16] MEDS: CEFEPIME INJ 2 GM in SODIUM CHLORIDE 0.9% (Popper) 50 ML IV (23:15)
[2025-09-16] MEDS: SODIUM CHLORIDE 0.9% 1000 ML 1,000 ML 999 ML IV (23:40)
[2025-09-17] VITALS (113 sets, daily range): BP systolic 85–143; BP diastolic 31–81; PULSE 47–101; RESP 0–29; TEMP 36–37.3; O2SAT 85–100; BMI 22.8
[2025-09-17] MEDS: ALBUMIN HUMAN-KJDA 25% IVPB 25 GM/100 ML BTL IV ×2 (01:10→08:34)
[2025-09-17 02:24] LABS: Partial Thromboplastin Time > 139.0 Seconds (22.0-36.0)
[2025-09-17] MEDS: PROPOFOL 1,000 MG IVPB 1,000 MG/100 ML VIAL 8.412 MG IV (03:04)
[2025-09-17] MEDS: SODIUM CHLORIDE 0.9% 1000 ML 1,000 ML 250 ML IV (03:05)
[2025-09-17] MEDS: VASOPRESSIN IN NS IVPB 20 UNIT/100 ML BAG 9 UNIT IV (03:38)
[2025-09-17] MEDS: Norepinephrine/D5W 8mg/250ml 8 MG/250 ML BAG 19.716 MG IV (03:38)
[2025-09-17 04:28] LABS: Base Excess -2 (-3-3); HCO3 24 mEq/L (20-26); Inspired Oxygen, FIO2 21 %; O2 Saturation 100 % (91-98); PCO2 43 mmHg (32.0-48.0); PO2 171 mmHg (83-108); pH, Arterial 7.35 (7.35-7.45)
[2025-09-17 04:33] LABS: Allen Test Not Performed; Puncture Site Right Femoral
[2025-09-17 06:22] LABS: Lactate (Lactic Acid) 1.7 mMol/L (0.4-2.0)
[2025-09-17 06:26] LABS: Basophils # (Auto) 0.1 Thou/mm3 (0.0-0.2); Basophils % (Auto) 1 % (0-2.5); Eosinophils # (Auto) 0.1 Thou/mm3 (0.0-0.5); Eosinophils % (Auto) 1 % (0-10); Hematocrit 24.8 % (36.0-46.0); Hemoglobin 8.3 g/dL (12.0-16.0); Immature Granulocytes Auto 0.03 Thou/mm3 (0.00-0.00); Lymphocytes # (Auto) 0.7 Thou/mm3 (1.0-4.8); Lymphocytes % (Auto) 16 % (10-50); Mean Corpuscular HGB Conc 33.5 g/dl (31.0-37.0); Mean Corpuscular Hemoglobin 33.1 pg (25.0-35.0); Mean Corpuscular Volume 99 fL (80-100); Monocytes # (Auto) 0.7 Thou/mm3 (0.0-0.8); Monocytes % (Auto) 15 % (0-12); Neutrophils # (Auto) 2.9 Thou/mm3 (1.8-7.7); Neutrophils % (Auto) 66 % (37-80); Nucleated Red Blood Cell # 0.00 Thou/mm3 (0.00-0.00); Nucleated Red Blood Cell % 0 /100 WBC (0); Platelet Count 153 Thou/mm3 (140-440); RDW Standard Deviation 57.7 fL (36.4-46.3); Red Blood Count 2.51 Miln/mm3 (4.00-5.20); White Blood Count 4.4 Thou/mm3 (3.6-11.0)
[2025-09-17 06:40] LABS: Glucose Estimated Average 108 mg/dL (80-131); Hemoglobin A1C 5.4 % Hgb (4.8-6.0)
[2025-09-17 07:07] LABS: Alanine Aminotransferase 231 U/L (10-49); Albumin, Serum 3.7 gm/dL (3.4-4.8); Albumin/Globulin Ratio 3.7 (1.2-2.2); Alkaline Phosphatase 129 U/L (46-116); Anion Gap 9 (7-16); Aspartate Amino Transferase 279 U/L (0-34); BUN/Creatinine Ratio 16 Ratio (12-20); Bilirubin,Total 0.6 mg/dL (0.3-1.2); Blood Urea Nitrogen 14 mg/dL (9-23); Calcium 7.7 mg/dL (8.3-10.6); Calcium (Corrected) 7.9 mg/dL (8.5-10.1); Carbon Dioxide 22.2 mMol/L (20.0-31.0); Chloride 105 mMol/L (98-107); Creatinine (Component) 0.9 mg/dL (0.6-1.3); Estimated Creatinine Clearance 68.6 mL/min (>60); Globulin 1.0 gm/dL (2.3-3.5); Glucose 122 mg/dL (74-106); Magnesium 2.1 mg/dL (1.6-2.6); Osmolality,Calculated 273 (275-295); Phosphorous 3.4 mg/dL (2.4-5.1); Potassium 4.9 mMol/L (3.4-5.1); Sodium 136 mMol/L (136-145); Total Protein 4.7 gm/dL (5.7-8.2); eGFR > 60 See Note
[2025-09-17 07:26] LABS: Troponin I 3.004 ng/mL (0.0-0.045)
--- NOTE | 2025-09-17 07:40 | XR_ITS ---
EXAMINATION: AP chest single view TECHNIQUE: AP portable semiupright chest single view Date and time: September 17, 2025, 0748 hours, comparison September 16, 2025 INDICATIONS: Hypoxic respiratory failure, history ventricular fibrillation and ventricular tachycardia, cardiopulmonary arrest yesterday, post intubation FINDINGS: Mild to moderate enlargement left ventricle Tracheal tube tip 4.9 cm above josephine Right internal jugular Port-A-Cath tip satisfactory position Prominent vascular congestion Decrease in edema and/or pneumonia in the left lung Prominent osteopenia Please see the CT chest report September 16, 2025 for description of rib fractures No pneumothorax IMPRESSION: Significant decrease in left lung opacity Tracheal tube tip 4.9 cm above josephine Prominent vascular congestion No pneumothorax
--- NOTE | 2025-09-17 08:05 | XR_ITS ---
Examination: Venous duplex lower extremity sonogram, bilateral. Date and time of exam: September 17, 2025, 0837 hours INDICATIONS: Cardiopulmonary arrest yesterday, bilateral pulmonary artery emboli on CT/study yesterday Technique: Multiple sonographic images of the deep venous system have been obtained. B-mode/2-D grayscale imaging of vascular structures and Doppler spectral analysis (waveforms) and color performed Both legs are examined. Findings: Deep venous systems do not demonstrate abnormal echogenicity. All visualized deep veins exhibit compressibility. All visualized deep veins exhibit augmentation. Impression: Negative for deep vein thrombosis
[2025-09-17 09:38] LABS: Hematocrit 26.1 % (36.0-46.0)
[2025-09-17 09:40] LABS: Hemoglobin 8.4 g/dL (12.0-16.0)
--- NOTE | 2025-09-17 09:45 | ESPR_ITS ---
<Statement entered by Matheus Braxton MD - 09/18/25 13:24> The patient is evaluated by me in the intensive care unit discussed with tire center supervisor team patient is clinically stable hypotension resolved successfully extubated arterial line is removed there is minor bleeding heparin is withheld for a few hours which is okay with me. QT prolongation is clearly the cause of ventricular fibrillation polymorphic VT VF no need for antiarrhythmic drug therapy will continue to avoid QT prolonging agents difficult to find 1 for nausea but antianxiety medications to be given as well. Patient will not require ICD implantation since the reversible causes for ventricular fibrillation. Documentation for date of: 09/17/25 Exam Vital Signs Temp Pulse Resp BP Pulse Ox O2 Del Method FiO2 97.4 F 48 L 18 95/60 100 Mechanical Ventilation 35 09/17/25 05:00 09/17/25 06:00 09/17/25 06:00 09/17/25 06:00 09/17/25 06:00 09/16/25 16:09 09/17/25 05:48 Narrative Exam General: now extubated, alert and oriented, fatigued, mild distress HEENT: NC/AT, mucous membranes moist, bilateral sclera anicteric Cardiovascular: regular rate and rhythm, S1/S2 present, no murmurs appreciated Pulmonary: clear to auscultation bilaterally, no rales/rhonchi/wheezes Abdominal: soft, non-tender, non-distended, no rebound/guarding, normal bowel sounds present Musculoskeletal: normal ROM, no peripheral edema Skin: warm and dry, intact, no rashes Objective Labs 09/18/25 10:00 09/18/25 03:02 Labs: Laboratory Results - last 24 hr 09/16/25 09/16/25 09/16/25 10:52 11:45 14:25 WBC 8.5 D RBC 3.73 L Hgb 12.0 Hct 37.6 MCV 101 H MCH 32.2 MCHC 31.9 RDW Std Deviation 57.9 H Plt Count 215 Neut % (Auto) 39 Lymph % (Auto) 44 Evans % (Auto) 10 Eos % (Auto) 2 Baso % (Auto) 2 Neut # (Auto) 3.3 Lymph # (Auto) 3.8 Evans # (Auto) 0.8 Eos # (Auto) 0.1 Baso # (Auto) 0.1 Immature Gran # (Auto) 0.33 H Absolute Nucleated RBC 0.05 H Immature Gran % 4 H Nucleated RBC % 1 H ESR 2 PT 11.3 INR 1.1 APTT 20.6 L D-Dimer > 3820 H Puncture Site ABG pH ABG pCO2 ABG pO2 ABG HCO3 ABG O2 Saturation ABG Base Excess FiO2 Sodium 141 141 Potassium 3.7 3.2 L D Chloride 106 102 Carbon Dioxide 19.9 L 26.7 Anion Gap 15 12 BUN 11 15 Creatinine 1.1 1.0 Estim Creat Clear Calc Not Performed. 61.7 eGFR 57 L > 60 BUN/Creatinine Ratio 10 L 15 Glucose [address] H [address] Glu mg/dL Hemoglobin A1c Calculated Osmolality 281 287 Lactic Acid 7.9 H* 4.5 H* Calcium 8.8 7.9 L Corrected Calcium 8.9 8.4 L Phosphorus Magnesium 1.8 Total Bilirubin 0.4 0.5 Direct Bilirubin < 0.1 AST 136 H 557 H* ALT 95 H 292 H Alkaline Phosphatase 170 H 178 H Total Creatine Kinase 211 H Troponin I 7.031 H* C-Reactive Prot, Quant < 0.5 B-Natriuretic Peptide 385 H Total Protein 5.4 L 4.5 L Albumin 3.9 D 3.4 D Globulin 1.5 L 1.1 L Albumin/Globulin Ratio 2.6 H 3.1 H Lipase 35 Beta-Hydroxybutyrate/Acetoacetate 0.1 Procalcitonin 0.05 TSH 3.31 Ur Collection Type Clean Catch Urine Color Lt-Yellow Urine Clarity Hazy Urine pH 7.0 Ur Specific [place] 1.016 Urine Protein 3+ A Urine Glucose (UA) 3+ A Urine Ketones Negative Urine Blood 2+ A Urine Nitrite Negative Urine Bilirubin Negative Urine Urobilinogen (Auto) Negative Ur Leukocyte Esterase Negative Urine RBC 48 H Urine WBC 46 H Ur Squamous Epith Cells < 1 Urine Bacteria Rare Ur Culture Indicated? Yes Urine Opiates Screen Negative Urine Fentanyl Screen Negative Ur Barbiturates Screen Negative U Amphetamin/Meth Scrn Negative U Benzodiazepines Scrn Negative U Cocaine Metab Screen Negative U Marijuana (THC) Screen Positive A Ethyl Alcohol < 3.0 09/16/25 09/16/25 09/16/25 18:48 18:56 22:36 WBC RBC Hgb Hct MCV MCH MCHC RDW Std Deviation Plt Count Neut % (Auto) Lymph % (Auto) Evans % (Auto) Eos % (Auto) Baso % (Auto) Neut # (Auto) Lymph # (Auto) Evans # (Auto) Eos # (Auto) Baso # (Auto) Immature Gran # (Auto) Absolute Nucleated RBC Immature Gran % Nucleated RBC % ESR PT 12.3 H INR 1.2 APTT > 139.0 H* D D-Dimer Puncture Site Arterial Line ABG pH 7.38 ABG pCO2 43 ABG pO2 353 H ABG HCO3 25 ABG O2 Saturation 99 H ABG Base Excess 0 FiO2 21 Sodium 133 L Potassium 4.8 D Chloride 101 Carbon Dioxide 24.9 Anion Gap 7 BUN 15 Creatinine 1.0 Estim Creat Clear Calc 61.7 eGFR > 60 BUN/Creatinine Ratio 15 Glucose [address] Glu mg/dL Hemoglobin A1c Calculated Osmolality 271 L Lactic Acid 2.6 H 2.3 H Calcium 9.4 D Corrected Calcium 9.6 Phosphorus 4.0 Magnesium Total Bilirubin Direct Bilirubin AST ALT Alkaline Phosphatase Total Creatine Kinase Troponin I C-Reactive Prot, Quant B-Natriuretic Peptide Total Protein Albumin 3.8 Globulin Albumin/Globulin Ratio Lipase Beta-Hydroxybutyrate/Acetoacetate Procalcitonin TSH Ur Collection Type Urine Color Urine Clarity Urine pH Ur Specific [place] Urine Protein Urine Glucose (UA) Urine Ketones Urine Blood Urine Nitrite Urine Bilirubin Urine Urobilinogen (Auto) Ur Leukocyte Esterase Urine RBC Urine WBC Ur Squamous Epith Cells Urine Bacteria Ur Culture Indicated? Urine Opiates Screen Urine Fentanyl Screen Ur Barbiturates Screen U Amphetamin/Meth Scrn U Benzodiazepines Scrn U Cocaine Metab Screen U Marijuana (THC) Screen Ethyl Alcohol 09/17/25 09/17/25 09/17/25 00:27 04:20 06:15 WBC 4.4 D RBC 2.51 L Hgb 8.3 L D Hct 24.8 L D MCV 99 MCH 33.1 MCHC 33.5 RDW Std Deviation 57.7 H Plt Count 153 D Neut % (Auto) 66 Lymph % (Auto) 16 Evans % (Auto) 15 H Eos % (Auto) 1 Baso % (Auto) 1 Neut # (Auto) 2.9 Lymph # (Auto) 0.7 L Evans # (Auto) 0.7 Eos # (Auto) 0.1 Baso # (Auto) 0.1 Immature Gran # (Auto) 0.03 H Absolute Nucleated RBC 0.00 Immature Gran % 1 H Nucleated RBC % 0 ESR PT INR APTT > 139.0 H* D-Dimer Puncture Site Right Femoral ABG pH 7.35 ABG pCO2 43 ABG pO2 171 H D ABG HCO3 24 ABG O2 Saturation 100 H ABG Base Excess -2 FiO2 21 Sodium 136 Potassium 4.9 Chloride 105 Carbon Dioxide 22.2 Anion Gap 9 BUN 14 Creatinine 0.9 Estim Creat Clear Calc 68.6 eGFR > 60 BUN/Creatinine Ratio 16 Glucose [address] Glu mg/dL 108 Hemoglobin A1c 5.4 Calculated Osmolality 273 L Lactic Acid 1.7 Calcium 7.7 L D Corrected Calcium 7.9 L D Phosphorus 3.4 Magnesium 2.1 Total Bilirubin 0.6 Direct Bilirubin AST 279 H ALT 231 H Alkaline Phosphatase 129 H D Total Creatine Kinase Troponin I 3.004 H* D C-Reactive Prot, Quant B-Natriuretic Peptide Total Protein 4.7 L Albumin 3.7 Globulin 1.0 L Albumin/Globulin Ratio 3.7 H Lipase Beta-Hydroxybutyrate/Acetoacetate Procalcitonin TSH Ur Collection Type Urine Color Urine Clarity Urine pH Ur Specific [place] Urine Protein Urine Glucose (UA) Urine Ketones Urine Blood Urine Nitrite Urine Bilirubin Urine Urobilinogen (Auto) Ur Leukocyte Esterase Urine RBC Urine WBC Ur Squamous Epith Cells Urine Bacteria Ur Culture Indicated? Urine Opiates Screen Urine Fentanyl Screen Ur Barbiturates Screen U Amphetamin/Meth Scrn U Benzodiazepines Scrn U Cocaine Metab Screen U Marijuana (THC) Screen Ethyl Alcohol 09/17/25 09:00 WBC RBC Hgb 8.4 L Hct 26.1 L MCV MCH MCHC RDW Std Deviation Plt Count Neut % (Auto) Lymph % (Auto) Evans % (Auto) Eos % (Auto) Baso % (Auto) Neut # (Auto) Lymph # (Auto) Evans # (Auto) Eos # (Auto) Baso # (Auto) Immature Gran # (Auto) Absolute Nucleated RBC Immature Gran % Nucleated RBC % ESR PT INR APTT D-Dimer Puncture Site ABG pH ABG pCO2 ABG pO2 ABG HCO3 ABG O2 Saturation ABG Base Excess FiO2 Sodium Potassium Chloride Carbon Dioxide Anion Gap BUN Creatinine Estim Creat Clear Calc eGFR BUN/Creatinine Ratio Glucose Estimated Ave Glu mg/dL Hemoglobin A1c Calculated Osmolality Lactic Acid Calcium Corrected Calcium Phosphorus Magnesium Total Bilirubin Direct Bilirubin AST ALT Alkaline Phosphatase Total Creatine Kinase Troponin I C-Reactive Prot, Quant B-Natriuretic Peptide Total Protein Albumin Globulin Albumin/Globulin Ratio Lipase Beta-Hydroxybutyrate/Acetoacetate Procalcitonin TSH Ur Collection Type Urine Color Urine Clarity Urine pH Ur Specific [place] Urine Protein Urine Glucose (UA) Urine Ketones Urine Blood Urine Nitrite Urine Bilirubin Urine Urobilinogen (Auto) Ur Leukocyte Esterase Urine RBC Urine WBC Ur Squamous Epith Cells Urine Bacteria Ur Culture Indicated? Urine Opiates Screen Urine Fentanyl Screen Ur Barbiturates Screen U Amphetamin/Meth Scrn U Benzodiazepines Scrn U Cocaine Metab Screen U Marijuana (THC) Screen Ethyl Alcohol ABG Interpretation ABG results: 09/16/25 09/17/25 18:56 04:20 ABG pH 7.38 7.35 ABG pCO2 43 43 ABG pO2 353 H 171 H D ABG HCO3 25 24 ABG O2 Saturation 99 H 100 H ABG Base Excess 0 -2 Quality Measures Quality Measures VTE therapy Assessment & Plan Assessment Current Active Medications: Generic Name Dose Route Start Last Admin Trade Name Freq PRN Reason Stop Dose Admin Norepinephrine/Dextrose 8 mg in 250 mls @ 6.572 mls/hr 09/16/25 14:43 09/17/25 06:00 Levophed In D5w 8mg/250ml IV 10/16/25 14:42 0.09 mcg/kg/min .Q24H PRN 11.829 mls/hr PER PROTOCOL Titration Protocol 0.05 MCG/KG/MIN Vasopressin/Sodium Chloride 20 unit in 100 mls @ 9 mls/hr 09/16/25 17:52 09/17/25 06:00 Vasostrict/Ns Ivpb IV 10/16/25 17:51 0.03 unit/min .[id number] PRN 9 mls/hr PER PROTOCOL Titration Protocol 0.03 UNIT/MIN Heparin Sodium/Dextrose 25,000 unit in 250 mls @ 12.618 mls/hr 09/16/25 18:15 09/17/25 06:00 Heparin In D5w Ivpb IV 09/30/25 18:14 15 units/kg/hr .[id number] GABE 10.515 mls/hr Protocol Titration 18 UNITS/KG/HR Cefepime HCl 2 gm/ Sodium 50 mls @ 100 mls/hr 09/16/25 22:00 09/17/25 08:32 Chloride IV 09/23/25 21:59 Not Given Q8HR GABE Albumin Human 25 gm in 100 mls @ 100 mls/hr 09/16/25 20:50 09/17/25 08:34 Albuminex 25% Ivpb IV 09/19/25 20:49 100 mls/hr QDAY GABE Administration Amiodarone HCl/Dextrose 360 mg in 200 mls @ 16.667 mls/hr 09/16/25 22:00 09/17/25 06:00 Nexterone Ivpb IV 09/17/25 21:59 16.667 mls/hr .Q12H GABE Infusion Vancomycin/Sodium Chloride 750 mg in 150 mls @ 120 mls/hr 09/17/25 10:00 Vancomycin/Ns 750 Mg Ivpb IV 09/24/25 09:59 Q12H GABE Protocol Fentanyl Citrate 2,500 mcg in 250 mls @ 2.5 mls/hr 09/17/25 08:04 Sublimaze Inj 2,500 Mcg/250 Ml Bag IV 09/21/25 13:46 .Q24H PRN PER PROTOCOL Protocol 25 MCG/HR Propofol 1,000 mg in 100 mls @ 2.31 mls/hr 09/17/25 08:04 Diprivan Ivpb IV 10/16/25 10:56 .Q24H PRN Per Protocol Protocol 5 MCG/KG/MIN Levothyroxine Sodium 88 mcg 09/17/25 09:00 09/17/25 08:33 Levothyroxine Inj 100 Mcg Vial IV 10/17/25 08:59 88 mcg DAILY GABE Administration Pantoprazole Sodium 40 mg 09/16/25 16:45 09/17/25 08:35 Pantoprazole Inj 40 Mg Vial IV 10/16/25 16:44 40 mg QDAY GABE Administration Pharmacy Consult 1 each 09/17/25 09:00 Vancomycin Pharmacy To Dose 1 Each Each IV 10/17/25 08:59 QDAY GABE Plan Jeanine Lozano is a 59-year-old female with a past medical history of multiple myeloma with multiple bony lytic lesions (status post radiation, four cycles of D-RVd chemotherapy, and bone marrow transplant), Basia's thyroiditis, and SIADH/hyponatremia who is admitted status-post cardiac arrest secondary to ventricular arrhythmia and cardiology consulted for the same. #[id number] arrestSuccessful resuscitation?negative coronary angiogram #Ventricular fibrillation polymorphic ventricular tachycardia secondary to QT prolongation Presents after suffering cardiac arrest in field, underwent CPR, and required multiple shocks for ventricular arrhythmia. Started on amiodarone drip and continued to have episodes of arrhythmia requiring defibrillation and recommended lidocaine drip. Bedside echo did not show regional wall motion abnormalities but patient noted to be on epinephrine drip. Given that leading cause of ventricular arrhythmia remains to be ischemic heart disease decision was made to take patient to [facility] emerg[facility], but revealed no significant no coronary artery disease. Differentials include cardiomyopathy (dilated vs hypertrophic vs infiltrative), electrolyte abnormalities, channelopathies, drug-induced, and acute illness. Electrolytes were within normal limits. EKG 09/16 showed QTc 479 on amiodarone and previous EKGs show QTc 440-480. Manual measurement of QT interval is approximately 500 ms or more Per chart review, she is on some medications associated with arrhythmias (Bactrim, dapsone, gabapentin, lenalidomide, Velcade) and upon further history taking, she has been taking Zofran for nausea that is also known to be associated with QT prolongation. At this time, etiology of her ventricular arrhythmias suspected to be drug-induced and given that a reversible cause found, no indication for ICD placement. ? Amiodarone 200 mg p.o. twice daily ? Closely monitor electrolytes; K > 4, Mg > 2 ? Closely monitor on telemetry ? Avoid QT prolonging agents when possible #Shock, likely septic Shock due to left lower lobe pneumonia and postcardiopulmonary gestation now resolved #Pneumonia with ARDS #Multiple pulmonary emboli #Hepatitis #Lactic acidosis #Basia disease #Sepsis ? Continue management per primary team ----- Matheus Osuna MD PGY-2 Internal Medicine Attending Provider Attestation/Addendum I personally examined the patient intensive care unit reviewed the chart patient clearly has acute QT prolongation due to Zofran and another multiple agents recommend continue amiodarone possibly discontinue after 24 hours tomorrow if there are no further arrhythmias. No need for ICD implantation Cardiac echo showed normal left central function. No RV strain CT scan did show pulmonary emboli which are not massive continue the anticoagulation. Femoral sheath was removed no need for hemodynamic monitoring patient's blood pressure is stable with no vasopressors.
[2025-09-17] MEDS: fentaNYL CIT INJ 50 mCg/ML AMP 2ML 25 MCG IVP ×4 (10:04→20:30)
[2025-09-17] MEDS: HYDROcodone/APAP 7.5/325 TABLET 1 TAB PO ×3 (10:04→21:21)
[2025-09-17 10:31] LABS: Lactate (Lactic Acid) 3.3 mMol/L (0.4-2.0)
[2025-09-17 10:44] LABS: Partial Thromboplastin Time > 139.0 Seconds (22.0-36.0)
--- NOTE | 2025-09-17 11:18 | PC.SS ---
TRUST MANAGER ASSISTANT conducted bedside contact with the patient conduct initial assessment and to discuss discharge planning.? At bedside with patient was spouse, Dylan Lozano .? Information obtained from spouse, due to patient?s extubation today.? Patient resides at home with spouse.? Patient resides at home with spouse.? Patient does not utilize DME to assist with ambulation.? Patient does not utilize home oxygen.? Patient currently on 3L oxygen.? Patient possesses the ability to complete ADL?s independently.? Patient?s PCP is Dr. Cordero.? Patient?s oncologist is Dr. Castro, [facility].? Dr. Cordova is aligned with patient for radiation services at [facility].? The patient does not possess a history of mental health.? The patient does not participate with dialysis.? Discharge plan is for the patient to return home at the time of discharge.? If home oxygen required no preferred provider identified.? Family will provide transportation on behalf of the patient.? No further intervention required at this time, high school social science teacher will be available to address any further concerns.? Next of Kin: Dylan Lozano D/C Plan: Home
[2025-09-17] MEDS: VANCOMYCIN/NS 750 MG IVPB 750 MG/150 ML BAG 120 MG IV ×2 (11:38→21:20)
--- NOTE | 2025-09-17 13:25 | EKG_ITS ---
[facility] Test Date: 2025-09-17 Pat Name: EDER CORDOVA [facility] Chamfering Machine Operator: MARLENE : 1965 Requested By: Donell Gardner Order Number: [id number] Reading MD: Donell Gardner Measurements Intervals [place] Rate: 78 P: 71 LA: 153 QRS: 88 QRSD: 107 T: 18 QT: 400 QTc: 457 Interpretive Statements SINUS RHYTHM NONSPECIFIC ST & T-WAVE ABNORMALITY Compared to ECG 09/16/2025 14:25:57 T-wave abnormality now present Sinus tachycardia no longer present Myocardial infarct finding no longer present /[id number]/[id number]
[2025-09-17 13:29] LABS: Reflex Lactate? Y
[2025-09-17 13:44] LABS: Lactic Acid, 3 HR 1.6 mMol/L (0.4-2.0)
[2025-09-17] MEDS: SCOPOLAMINE 1 MG TDSY TOP (15:08)
[2025-09-17] MEDS: AMIODARONE HCL 200 MG TABLET PO (15:09)
--- NOTE | 2025-09-17 15:10 | PC.SS ---
Patient has been transitioned to high flow nasal cannula, 40L.
[2025-09-17] MEDS: PROTAMINE SULFATE 10 MG/ML 5ML VIAL 20 MG IV (16:15)
[2025-09-17 16:47] LABS: Hematocrit 23.1 % (36.0-46.0)
[2025-09-17 16:58] LABS: Hemoglobin 7.6 g/dL (12.0-16.0)
[2025-09-17] MEDS: CEFEPIME INJ 2 GM in SODIUM CHLORIDE 0.9% (Popper) 50 ML IV ×2 (17:01→21:20)
--- NOTE | 2025-09-17 17:46 | ESPR_ITS ---
<Statement entered by Betty Meng MD - 09/19/25 18:46> TOTAL TIME: 45MINUTES ON DIRECT MEDICAL CARE, MANAGEMENT - COORDINATION AND COUNSELING > 50% OF TOTAL TIME I saw and evaluated the patient. I reviewed the resident?s note and agree with findings and plan as documented in the resident?s note. Message left w/ Dr. Barrera ([facility] oncology) to discuss MM meds in setting of full dose AC Right fem sheath removed - extended duration of pressure applied due to pulling out while on heparin gtt (intentionally). however due to extended duration of pressure required - heparin pasued and 20mg protamine given. hemostasis achieved and fempop placed as precaution for max 60min duration. inflatted to 90mmHg - just above diastolic pressure. check h/h overnight after heparin gtt restarted in 4hrs (no bolus) off pressors f/u sputum clx final results cont abx updated at bedside Documentation for date of: 09/17/25 Subjective Subjective Interval history: History of present illness: 59 y/o F with PMHx significant for multiple myeloma on chemotherapy, anemia, Basia's presented to ED after having been witnessed to slump over and pass out on a bench. Patient received 1 shock from AED in the field, 3 more shocks from EMS. In ED, patient found to be altered, unresponsive. Underwent multiple rounds of v-fib/v-tach in ED requiring mutiple shocks. Due to concern for ischemic heart disease causing arrythmias, patient underwent urgent cardiac catheterization which revealed no obstructions. Patient was started on amiodarone drip, lidocaine drip, Versed drip, epinephrine drip in the ED. Patient received 2 L bolus lactated Ringer's. Intubated in the ED. ED course: Labs significant for: Lactic acid 7.9, BNP 385, potassium 3.2, calcium 8.4, AST 136, ALT 95, T. bili 0.4, troponin 7. Beta hydroxybutyrate 0.1, Pro-Nehemias 0.05. TSH 3.31. Urinalysis showed 3+ protein, 3+ glucose, RBC 48, WBC 46, rare bacteria. U tox positive for marijuana. Imaging significant for: Chest/abdomen/pelvis CTA positive for multiple pulmonary emboli, widespread significant pneumonia, widespread osteolytic lesions, multiple bilateral rib fractures. Head CT unremarkable. EKG showed sinus tachycardia, QTc 479. Interval History 09/17/2025: Overnight, amiodarone was decreased due to low heart rate. Patient was weaned off sedation, following commands, successfully extubated in the orning. Due to low sats, patient placed on HFNC, weaning down. No arrythmias noted. Repeat EKG showed prolonged QTc 457. Arterial line was removed, however there was difficulty to control bleeding despite holding pressure, complicated by heparin drip. Heparin drip was paused, and protamine sulfate was given. Bleeding was controlled with aid of Femstop, which was removed after 1 hour without additional bleeding. Hemoglobin was ordered, 7.6, decreased from 8.4. Type and screen pending, due to history MM requires specialized antibody test, results should be available tomorrow. Will continue to hold heparin drip, resume at 2100 tonight, without bolus. Spoke with Dr. Barrera, [facility] Oncologist, who cares for patient regarding medications. Advised that holding patient's lenalidomide for 1-2 weeks would be acceptable, and that transitioning patient to Eliquis would work with her chemotherapy regiment. Exam Vital Signs Temp Pulse Resp BP Pulse Ox O2 Del Method O2 Flow Rate 96.8 F 97 14 107/64 99 Mechanical Ventilation 30 09/17/25 08:01 09/17/25 16:00 09/17/25 15:06 09/17/25 15:09 09/17/25 15:06 09/17/25 08:01 09/17/25 15:06 FiO2 35 09/17/25 15:06 Narrative Exam PE: Gen: Well-developed and well-nourished. Lethargic. HEENT: NCAT, PERRLA, EOMI, MMM, anicteric conjunctivae. CVS: Regular rate and rhythm. Resp: Diffuse rhonchorous breath sounds, significantly improved. Abd: soft, non-tender, non-distended. BS+ in all 4 quadrants. MSK: No edema or rash. Chest pain, pleuritic, reproducible with palpation. Neuro: No focal neurological deficits. Lethargic, arousable to voice, follows commands, A&Ox4. Objective Labs 09/17/25 16:37 09/17/25 06:15 Labs: Laboratory Results - last 24 hr 09/16/25 09/16/25 09/16/25 10:52 18:48 18:56 WBC RBC Hgb Hct MCV MCH MCHC RDW Std Deviation Plt Count Neut % (Auto) Lymph % (Auto) [place] % (Auto) Eos % (Auto) Baso % (Auto) Neut # (Auto) Lymph # (Auto) [place] # (Auto) Eos # (Auto) Baso # (Auto) Immature Gran # (Auto) Absolute Nucleated RBC Immature Gran % Nucleated RBC % PT 12.3 H INR 1.2 APTT > 139.0 H* D Puncture Site Arterial Line ABG pH 7.38 ABG pCO2 43 ABG pO2 353 H ABG HCO3 25 ABG O2 Saturation 99 H ABG Base Excess 0 FiO2 21 Sodium Potassium Chloride Carbon Dioxide Anion Gap BUN Creatinine Estim Creat Clear Calc eGFR BUN/Creatinine Ratio Glucose Estimated Ave Glu mg/dL Hemoglobin A1c Calculated Osmolality Lactic Acid 2.6 H Calcium Corrected Calcium Phosphorus Magnesium Total Bilirubin AST ALT Alkaline Phosphatase Troponin I Total Protein Albumin Globulin Albumin/Globulin Ratio Blood Type Cancelled Antibody Screen Cancelled Blood Bank Wristband ID Cancelled 09/16/25 09/17/25 09/17/25 22:36 00:27 04:20 WBC RBC Hgb Hct MCV MCH MCHC RDW Std Deviation Plt Count Neut % (Auto) Lymph % (Auto) [place] % (Auto) Eos % (Auto) Baso % (Auto) Neut # (Auto) Lymph # (Auto) [place] # (Auto) Eos # (Auto) Baso # (Auto) Immature Gran # (Auto) Absolute Nucleated RBC Immature Gran % Nucleated RBC % PT INR APTT > 139.0 H* Puncture Site Right Femoral ABG pH 7.35 ABG pCO2 43 ABG pO2 171 H D ABG HCO3 24 ABG O2 Saturation 100 H ABG Base Excess -2 FiO2 21 Sodium 133 L Potassium 4.8 D Chloride 101 Carbon Dioxide 24.9 Anion Gap 7 BUN 15 Creatinine 1.0 Estim Creat Clear Calc 61.7 eGFR > 60 BUN/Creatinine Ratio [address] Glu mg/dL Hemoglobin A1c Calculated Osmolality 271 L Lactic Acid 2.3 H Calcium 9.4 D Corrected Calcium 9.6 Phosphorus 4.0 Magnesium Total Bilirubin AST ALT Alkaline Phosphatase Troponin I Total Protein Albumin 3.8 Globulin Albumin/Globulin Ratio Blood Type Antibody Screen Blood Bank Wristband ID 09/17/25 09/17/25 09/17/25 06:15 09:00 10:11 WBC 4.4 D RBC 2.51 L Hgb 8.3 L D 8.4 L Hct 24.8 L D 26.1 L MCV 99 MCH 33.1 MCHC 33.5 RDW Std Deviation 57.7 H Plt Count 153 D Neut % (Auto) 66 Lymph % (Auto) 16 [place] % (Auto) 15 H Eos % (Auto) 1 Baso % (Auto) 1 Neut # (Auto) 2.9 Lymph # (Auto) 0.7 L [place] # (Auto) 0.7 Eos # (Auto) 0.1 Baso # (Auto) 0.1 Immature Gran # (Auto) 0.03 H Absolute Nucleated RBC 0.00 Immature Gran % 1 H Nucleated RBC % 0 PT INR APTT > 139.0 H* Puncture Site ABG pH ABG pCO2 ABG pO2 ABG HCO3 ABG O2 Saturation ABG Base Excess FiO2 Sodium 136 Potassium 4.9 Chloride 105 Carbon Dioxide 22.2 Anion Gap 9 BUN 14 Creatinine 0.9 Estim Creat Clear Calc 68.6 eGFR > 60 BUN/Creatinine Ratio [address] Glu mg/dL 108 Hemoglobin A1c 5.4 Calculated Osmolality 273 L Lactic Acid 1.7 3.3 H Calcium 7.7 L D Corrected Calcium 7.9 L D Phosphorus 3.4 Magnesium 2.1 Total Bilirubin 0.6 AST 279 H ALT 231 H Alkaline Phosphatase 129 H D Troponin I 3.004 H* D Total Protein 4.7 L Albumin 3.7 Globulin 1.0 L Albumin/Globulin Ratio 3.7 H Blood Type A Positive Antibody Screen POSITIVE Blood Bank Wristband ID Yes 09/17/25 09/17/25 13:30 16:37 WBC RBC Hgb 7.6 L Hct 23.1 L MCV MCH MCHC RDW Std Deviation Plt Count Neut % (Auto) Lymph % (Auto) [place] % (Auto) Eos % (Auto) Baso % (Auto) Neut # (Auto) Lymph # (Auto) [place] # (Auto) Eos # (Auto) Baso # (Auto) Immature Gran # (Auto) Absolute Nucleated RBC Immature Gran % Nucleated RBC % PT INR APTT Puncture Site ABG pH ABG pCO2 ABG pO2 ABG HCO3 ABG O2 Saturation ABG Base Excess FiO2 Sodium Potassium Chloride Carbon Dioxide Anion Gap BUN Creatinine Estim Creat Clear Calc eGFR BUN/Creatinine Ratio Glucose Estimated Ave Glu mg/dL Hemoglobin A1c Calculated Osmolality Lactic Acid 1.6 Calcium Corrected Calcium Phosphorus Magnesium Total Bilirubin AST ALT Alkaline Phosphatase Troponin I Total Protein Albumin Globulin Albumin/Globulin Ratio Blood Type Antibody Screen Blood Bank Wristband ID ABG Interpretation ABG results: 09/16/25 09/17/25 18:56 04:20 ABG pH 7.38 7.35 ABG pCO2 43 43 ABG pO2 353 H 171 H D ABG HCO3 25 24 ABG O2 Saturation 99 H 100 H ABG Base Excess 0 -2 Quality Measures Quality Measures VTE therapy Assessment & Plan Assessment Current Active Medications: Generic Name Dose Route Start Last Admin Trade Name Freq PRN Reason Stop Dose Admin Hydrocodone Bitart/Acetaminophen 1 tab 09/17/25 14:00 09/17/25 15:09 Hydrocodone/Apap 7.5/325 Tablet PO 09/22/25 13:59 1 tab TID GABE Administration Amiodarone HCl 200 mg 09/17/25 13:30 09/17/25 15:09 Amiodarone Hcl 200 Mg Tablet PO 10/17/25 13:29 200 mg BID GABE Administration Fentanyl Citrate 25 mcg 09/17/25 09:53 09/17/25 17:27 Fentanyl Cit Inj 50 Mcg/Ml Amp 2ml IVP 09/22/25 09:59 25 mcg Q3H PRN Administration PAIN SCALE 4-10(Mod-Sev Protocol Norepinephrine/Dextrose 8 mg in 250 mls @ 6.572 mls/hr 09/16/25 14:43 09/17/25 09:00 Levophed In D5w 8mg/250ml IV 10/16/25 14:42 0 mcg/kg/min .Q24H PRN 0 mls/hr PER PROTOCOL Titration Protocol 0.05 MCG/KG/MIN Vasopressin/Sodium Chloride 20 unit in 100 mls @ 9 mls/hr 09/16/25 17:52 09/17/25 10:17 Vasostrict/Ns Ivpb IV 10/16/25 17:51 0 unit/min .Q11H7M PRN 0 mls/hr PER PROTOCOL Titration Protocol 0.03 UNIT/MIN Heparin Sodium/Dextrose 25,000 unit in 250 mls @ 12.618 mls/hr 09/16/25 18:15 09/17/25 16:00 Heparin In D5w Ivpb IV 09/30/25 18:14 0 units/kg/hr .[id number] GABE 0 mls/hr Protocol Titration 18 UNITS/KG/HR Albumin Human 25 gm in 100 mls @ 100 mls/hr 09/16/25 20:50 09/17/25 08:34 Albuminex 25% Ivpb IV 09/19/25 20:49 100 mls/hr QDAY GABE Administration Vancomycin/Sodium Chloride 750 mg in 150 mls @ 120 mls/hr 09/17/25 10:00 09/17/25 11:38 Vancomycin/Ns 750 Mg Ivpb IV 09/24/25 09:59 120 mls/hr Q12H GABE Administration Protocol Fentanyl Citrate 2,500 mcg in 250 mls @ 2.5 mls/hr 09/17/25 08:04 Sublimaze Inj 2,500 Mcg/250 Ml Bag IV 09/21/25 13:46 .Q24H PRN PER PROTOCOL Protocol 25 MCG/HR Propofol 1,000 mg in 100 mls @ 2.31 mls/hr 09/17/25 08:04 Diprivan Ivpb IV 10/16/25 10:56 .Q24H PRN Per Protocol Protocol 5 MCG/KG/MIN Cefepime HCl 2 gm/ Sodium 50 mls @ 100 mls/hr 09/17/25 15:30 09/17/25 17:01 Chloride IV 09/24/25 15:29 100 mls/hr Q8HR GABE Administration Levothyroxine Sodium 88 mcg 09/17/25 09:00 09/17/25 08:33 Levothyroxine Inj 100 Mcg Vial IV 10/17/25 08:59 88 mcg DAILY GABE Administration Pantoprazole Sodium 40 mg 09/16/25 16:45 09/17/25 08:35 Pantoprazole Inj 40 Mg Vial IV 10/16/25 16:44 40 mg QDAY GABE Administration Pharmacy Consult 1 each 09/17/25 09:00 09/17/25 12:06 Vancomycin Pharmacy To Dose 1 Each Each IV 10/17/25 08:59 Not Given QDAY GABE Scopolamine 1 mg 09/17/25 15:00 09/17/25 15:08 Scopolamine 1 Mg Tdsy TOP 10/17/25 14:59 1 mg Q3D GABE Administration Plan 59 y/o F with PMHx significant for multiple myeloma on chemotherapy, anemia, Basia's presented to ED after having been witnessed to slump over and pass out on a bench, admitted to ICU for septic shock Neuro: No active issues Cardio: #V-fib/V. tach DDx: Medication side effect, acidosis Patient slumped over and passed out, received AED shock, +3 shocks from EMS en route to hospital In ED patient underwent multiple rounds of V-fib/V. tach requiring multiple shocks. Patient taken for urgent cardiac catheterization, revealed no obstructions. Per chart review, patient taken multiple medications associated with arrhythmias: -Bactrim, dapsone, gabapentin, lenalidomide, Velcade EKG revealed prolonged QTc: 479 Amiodarone drip transitioned to PO. Lidocaine drip, titrtated off. - Telemetry monitoring - Cardiology consulted, appreciate recommendations - Monitor electrolytes, replete as needed - Avoid QTc prolonging agents - Amiodarone 200 mg PO BID #Septic shock (resolved) DDx: Pneumonia, UTI Patient presented in shock requiring pressors. Initially suspected to be due to poor heart function in setting of multiple V-fib/V. tach episodes. Bedside echo showed adequate heart function, incongruent with level of shock. Patient found to have significant diffuse pneumonia on CT imaging. Urinalysis indicates potential UTI with rare bacteria, 46 WBCs. Patient weaned off pressors 09/17 - Follow-up urine/blood/sputum cultures - Empiric antibiotics: Vancomycin and ceftriaxone (started 09/16) - Can give fluid if fluid responsive Pulm: #Pneumonia with ARDS Patient was intubated due to inability protect airway in setting of V-fib/V. tach. CT chest/abdomen/pelvis revealed extensive bilateral pneumonia. Gram stain of sputum showed rare gram positive cocci. Extubated 09/17, on HFNC - Sputum culture pending - Empiric antibiotics: Vancomycin and Rocephin (started 09/16) - Wean down HFNC. #Multiple pulmonary emboli CT angio revealed multiple pulmonary emboli, right sided. Based on imaging, not massive PE, no significant right ventricular strain. Suspect hemodynamic instability due to sepsis and sedation, HR improved with propofol off. Discussed risk/benefits of thrombolytic therapy with patient's , will hold off at this time, consider if hemodynamic instability worsens. Patient showed improvement. Spoke with Dr. Barrera, [facility] oncologist managing patient, advised transitioning to Eliquis would be appropriate with patient's chemo regiment. -Heparin drip protocol - Telemetry monitoring GI: #Hepatitis DDx: Sepsis, medication side effect Patient presents with elevated liver enzymes. LFTs worsened on repeat check: AST 557, ALT 292, ALP 178. Total bilirubin normal. Unlikely shock liver given normal kidney function. LFTs improving. -Monitor LFTs - Avoid hepatotoxins - Judicious use of hepatically metabolized medications Renal: #Lactic acidosis (resolved) Lactic acid elevated, 7.9 on admission. After receiving IV fluids, lactic acid improved to 2.6. Lactic acidosis resolved, patient off pressors. 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 -Levothyroxine 125 mcg PO daily (home med) Heme: #Acute anemia DDx: Blood loss, dilutional Patient hemoglobin decreased from admission. Patient net positive 2.3 L fluid. Type and screen pending. - Continue to monitor. - Transfuse as appropriate ID: #Sepsis Patient presented with septic shock. Urine, blood, sputum cultures pending. Significant pneumonia seen on imaging. Rare gram positive cocci on sputum gram stain. - Treat as above ICU Health maintenance: Mechanical ventilation: No. Sedation: No. Diet: Cardiac DVT ppx: Heparin drip GI ppx: Protonix Yung: No. IV lines: PIV Central line: No. Arterial line: No. Code status: Full code Plan of care discussed with attending Dr. Meng. Pedro Nath MD PGY?2
[2025-09-17 21:32] LABS: Hematocrit 22.0 % (36.0-46.0)
[2025-09-17 21:33] LABS: Hemoglobin 7.3 g/dL (12.0-16.0)
[2025-09-17 22:16] LABS: INR 1.2 (0.9-1.3); Partial Thromboplastin Time 89.7 Seconds (22.0-36.0); Prothrombin Time 12.4 Seconds (9.0-12.2)
[2025-09-17] MEDS: Heparin/D5w 25K 250 ML Ivpb 25,000 UNIT/250 ML BAG 8.412 UNIT IV (23:50)
[2025-09-18] VITALS (54 sets, daily range): BP systolic 108–155; BP diastolic 60–94; PULSE 70–102; RESP 14–30; TEMP 36.6–37.2; O2SAT 95–100; BMI 22.8
[2025-09-18] MEDS: fentaNYL CIT INJ 50 mCg/ML AMP 2ML 25 MCG IVP ×2 (00:02→00:20)
[2025-09-18] MEDS: LIDOCAINE 5% 1 PATCH TOP (00:06)
[2025-09-18 01:20] LABS: Hematocrit 22.5 % (36.0-46.0)
[2025-09-18 01:25] LABS: Hemoglobin 7.3 g/dL (12.0-16.0)
[2025-09-18 03:33] LABS: Basophils # (Auto) 0.1 Thou/mm3 (0.0-0.2); Basophils % (Auto) 1 % (0-2.5); Eosinophils # (Auto) 0.0 Thou/mm3 (0.0-0.5); Eosinophils % (Auto) 0 % (0-10); Hematocrit 22.0 % (36.0-46.0); Immature Granulocytes Auto 0.06 Thou/mm3 (0.00-0.00); Lymphocytes # (Auto) 0.7 Thou/mm3 (1.0-4.8); Lymphocytes % (Auto) 11 % (10-50); Mean Corpuscular HGB Conc 32.7 g/dl (31.0-37.0); Mean Corpuscular Hemoglobin 32.1 pg (25.0-35.0); Mean Corpuscular Volume 98 fL (80-100); Monocytes # (Auto) 0.7 Thou/mm3 (0.0-0.8); Monocytes % (Auto) 10 % (0-12); Neutrophils # (Auto) 5.0 Thou/mm3 (1.8-7.7); Neutrophils % (Auto) 77 % (37-80); Nucleated Red Blood Cell # 0.00 Thou/mm3 (0.00-0.00); Nucleated Red Blood Cell % 0 /100 WBC (0); Platelet Count 123 Thou/mm3 (140-440); RDW Standard Deviation 58.9 fL (36.4-46.3); Red Blood Count 2.24 Miln/mm3 (4.00-5.20); White Blood Count 6.5 Thou/mm3 (3.6-11.0)
[2025-09-18 03:34] LABS: Hemoglobin 7.2 g/dL (12.0-16.0)
[2025-09-18 03:42] LABS: Alanine Aminotransferase 154 U/L (10-49); Albumin, Serum 4.0 gm/dL (3.4-4.8); Albumin/Globulin Ratio 4.0 (1.2-2.2); Alkaline Phosphatase 118 U/L (46-116); Anion Gap 9 (7-16); Aspartate Amino Transferase 120 U/L (0-34); BUN/Creatinine Ratio 14 Ratio (12-20); Bilirubin,Total 1.1 mg/dL (0.3-1.2); Blood Urea Nitrogen 11 mg/dL (9-23); Calcium 8.5 mg/dL (8.3-10.6); Calcium (Corrected) 8.5 mg/dL (8.5-10.1); Carbon Dioxide 25.2 mMol/L (20.0-31.0); Chloride 108 mMol/L (98-107); Creatinine (Component) 0.8 mg/dL (0.6-1.3); Estimated Creatinine Clearance 74.5 mL/min (>60); Globulin 1.0 gm/dL (2.3-3.5); Glucose 113 mg/dL (74-106); Magnesium 2.1 mg/dL (1.6-2.6); Osmolality,Calculated 283 (275-295); Phosphorous 2.2 mg/dL (2.4-5.1); Potassium 3.9 mMol/L (3.4-5.1); Sodium 142 mMol/L (136-145); Total Protein 5.0 gm/dL (5.7-8.2); eGFR > 60 See Note
[2025-09-18 04:08] LABS: INR 1.2 (0.9-1.3); Prothrombin Time 12.4 Seconds (9.0-12.2)
[2025-09-18 04:10] LABS: Partial Thromboplastin Time > 139.0 Seconds (22.0-36.0)
[2025-09-18] MEDS: CEFEPIME INJ 2 GM in SODIUM CHLORIDE 0.9% (Popper) 50 ML IV ×3 (05:19→22:25)
[2025-09-18] MEDS: LEVOTHYROXINE SODIUM 125 MCG TABLET PO (05:20)
[2025-09-18] MEDS: POT PHOS 15 mMol in NS 250 ML 15 MMOL/250 ML BAG 62.5 MMOL IV ×2 (05:20→23:17)
--- NOTE | 2025-09-18 05:37 | EKG_ITS ---
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
[2025-09-18 07:49] LABS: Hematocrit 22.6 % (36.0-46.0)
[2025-09-18 07:58] LABS: Hemoglobin 7.5 g/dL (12.0-16.0)
[2025-09-18] MEDS: ALBUMIN HUMAN-KJDA 25% IVPB 25 GM/100 ML BTL IV (08:06)
[2025-09-18] MEDS: AMIODARONE HCL 200 MG TABLET PO (08:07)
[2025-09-18 08:28] LABS: Troponin I 0.774 ng/mL (0.0-0.045)
--- NOTE | 2025-09-18 08:45 | PD.RESPRO ---
Documentation for date of: 09/18/25 Subjective Subjective Interval history: 59 y/o F with PMHx significant for multiple myeloma on chemotherapy, anemia, Basia's presented to ED after having been witnessed to slump over and pass out on a bench. Patient received 1 shock from AED in the field, 3 more shocks from EMS. In ED, patient found to be altered, unresponsive. Underwent multiple rounds of v-fib/v-tach in ED requiring mutiple shocks. Due to concern for ischemic heart disease causing arrythmias, patient underwent urgent cardiac catheterization which revealed no obstructions. Patient was started on amiodarone drip, lidocaine drip, Versed drip, epinephrine drip in the ED. Patient received 2 L bolus lactated Ringer's. Intubated in the ED. ED course: Labs significant for: Lactic acid 7.9, BNP 385, potassium 3.2, calcium 8.4, AST 136, ALT 95, T. bili 0.4, troponin 7. Beta hydroxybutyrate 0.1, Pro-Nehemias 0.05. TSH 3.31. Urinalysis showed 3+ protein, 3+ glucose, RBC 48, WBC 46, rare bacteria. U tox positive for marijuana. Imaging significant for: Chest/abdomen/pelvis CTA positive for multiple pulmonary emboli, widespread significant pneumonia, widespread osteolytic lesions, multiple bilateral rib fractures. Head CT unremarkable. EKG showed sinus tachycardia, QTc 479. Interval History 09/17/2025: Overnight, amiodarone was decreased due to low heart rate. Patient was weaned off sedation, following commands, successfully extubated in the orning. Due to low sats, patient placed on HFNC, weaning down. No arrythmias noted. Repeat EKG showed prolonged QTc 457. Arterial line was removed, however there was difficulty to control bleeding despite holding pressure, complicated by heparin drip. Heparin drip was paused, and protamine sulfate was given. Bleeding was controlled with aid of Femstop, which was removed after 1 hour without additional bleeding. Hemoglobin was ordered, 7.6, decreased from 8.4. Type and screen pending, due to history MM requires specialized antibody test, results should be available tomorrow. Will continue to hold heparin drip, resume at 2100 tonight, without bolus. Spoke with Dr. Barrera, [facility] Oncologist, who cares for patient regarding medications. Advised that holding patient's lenalidomide for 1-2 weeks would be acceptable, and that transitioning patient to Eliquis would work with her chemotherapy regiment. 09/18/2025: Patient was seen and examined at bedside this morning. Overnight patient had some bigeminy and trigeminy therefore was given K-Phos. This morning patient's EKG showed QTc of 507. Gave patient 2 g of magnesium along with 12.5 of metoprolol succinate. Spoke with cardiology and reviewed the strips and initial strips that show polymorphic V-fib therefore event was most likely medication induced. Spoke with patient's at bedside and with the patient that she had not been taking Zofran daily and she has only been taking it around 5 times in the past month and gotten 1 dose prior to her last infusions. Patient was transition from high flow nasal cannula to nasal cannula. Cardiology also recommended stopping both metoprolol and amiodarone at this time and monitor patient closely. Repeat EKG that showed QTc of 468. Ativan 0.5 mg x1 for nausea and anxiety. Will continue with heparin drip for now and will need to discuss with oncologist preference for DOAC. Patient's hemoglobin down trended slightly currently at 7 therefore will transfuse 1 PRBCs, but otherwise no bloody vomitings or black stools or active signs of bleeding, will repeat H/H at 1800. At this time patient is stable enough to be downgraded to the medical floors. Exam Vital Signs Temp Pulse Resp BP Pulse Ox O2 Del Method O2 Flow Rate 98.2 F 83 20 125/72 100 High Flow Nasal Cannula 25 09/18/25 08:00 09/18/25 08:07 09/18/25 08:00 09/18/25 08:07 09/18/25 08:00 09/18/25 08:00 09/18/25 08:00 FiO2 35 09/18/25 08:00 Narrative Exam General: A/O x3, no acute distress Eyes: PERRL, EOMI. Anicteric, vision grossly intact. Ears: No ear pain, no ear discharge, Hearing grossly intact. Nose: No nasal discharge. Mouth/Throat: Dry mucous membranes, no redness, no lesions. Neck: Neck supple, non-tender, no cervical lymphadenopathy. Lungs: mild rhonchi RAVI, No accessory muscle use. Cardio: Normal S1/S2, regular rhythm, no murmurs, no JVD, chest wall tenderness Abdomen: Soft, non-tender, no palpable masses, peristalsis present, no guarding or rebound. Extremities: Symmetrical, no significant deformities, no peripheral edema , non-tender, peripheral pulses presents. Skin: No rashes, no lesions, warm to touch. Neuro: No focal neurological deficits, motor and sensory intact Psych: Cooperative, appropriate mood and effect. Objective Labs 09/20/25 04:14 09/20/25 17:45 Labs: Laboratory Results - last 24 hr 09/16/25 09/17/25 09/17/25 10:52 09:00 10:11 WBC RBC Hgb 8.4 L Hct 26.1 L MCV MCH MCHC RDW Std Deviation Plt Count Neut % (Auto) Lymph % (Auto) [place] % (Auto) Eos % (Auto) Baso % (Auto) Neut # (Auto) Lymph # (Auto) [place] # (Auto) Eos # (Auto) Baso # (Auto) Immature Gran # (Auto) Absolute Nucleated RBC Immature Gran % Nucleated RBC % PT INR APTT > 139.0 H* Sodium Potassium Chloride Carbon Dioxide Anion Gap BUN Creatinine Estim Creat Clear Calc eGFR BUN/Creatinine Ratio Glucose Calculated Osmolality Lactic Acid 3.3 H Calcium Corrected Calcium Phosphorus Magnesium Total Bilirubin AST ALT Alkaline Phosphatase Troponin I Total Protein Albumin Globulin Albumin/Globulin Ratio Blood Type Cancelled A Positive Antibody Screen Cancelled POSITIVE Blood Bank Wristband ID Cancelled Yes 09/17/25 09/17/25 09/17/25 13:30 16:37 20:49 WBC RBC Hgb 7.6 L 7.3 L Hct 23.1 L 22.0 L MCV MCH MCHC RDW Std Deviation Plt Count Neut % (Auto) Lymph % (Auto) [place] % (Auto) Eos % (Auto) Baso % (Auto) Neut # (Auto) Lymph # (Auto) [place] # (Auto) Eos # (Auto) Baso # (Auto) Immature Gran # (Auto) Absolute Nucleated RBC Immature Gran % Nucleated RBC % PT INR APTT Sodium Potassium Chloride Carbon Dioxide Anion Gap BUN Creatinine Estim Creat Clear Calc eGFR BUN/Creatinine Ratio Glucose Calculated Osmolality Lactic Acid 1.6 Calcium Corrected Calcium Phosphorus Magnesium Total Bilirubin AST ALT Alkaline Phosphatase Troponin I Total Protein Albumin Globulin Albumin/Globulin Ratio Blood Type Antibody Screen Blood Bank Wristband ID [id number] 09/18/25 21:39 00:42 03:02 WBC 6.5 D RBC 2.24 L Hgb 7.3 L 7.2 L Hct 22.5 L 22.0 L MCV 98 MCH 32.1 MCHC 32.7 RDW Std Deviation 58.9 H Plt Count 123 L D Neut % (Auto) 77 Lymph % (Auto) 11 [place] % (Auto) 10 Eos % (Auto) 0 Baso % (Auto) 1 Neut # (Auto) 5.0 Lymph # (Auto) 0.7 L [place] # (Auto) 0.7 Eos # (Auto) 0.0 Baso # (Auto) 0.1 Immature Gran # (Auto) 0.06 H Absolute Nucleated RBC 0.00 Immature Gran % 1 H Nucleated RBC % 0 PT 12.4 H 12.4 H INR 1.2 1.2 APTT 89.7 H D > 139.0 H* D Sodium 142 Potassium 3.9 D Chloride 108 H Carbon Dioxide 25.2 Anion Gap 9 BUN 11 Creatinine 0.8 Estim Creat Clear Calc 74.5 eGFR > 60 BUN/Creatinine Ratio 14 Glucose 113 H Calculated Osmolality 283 Lactic Acid Calcium 8.5 Corrected Calcium 8.5 Phosphorus 2.2 L Magnesium 2.1 Total Bilirubin 1.1 D AST 120 H ALT 154 H Alkaline Phosphatase 118 H Troponin I Total Protein 5.0 L Albumin 4.0 Globulin 1.0 L Albumin/Globulin Ratio 4.0 H Blood Type Antibody Screen Blood Bank Wristband ID 09/18/25 06:00 WBC RBC Hgb 7.5 L Hct 22.6 L MCV MCH MCHC RDW Std Deviation Plt Count Neut % (Auto) Lymph % (Auto) [place] % (Auto) Eos % (Auto) Baso % (Auto) Neut # (Auto) Lymph # (Auto) [place] # (Auto) Eos # (Auto) Baso # (Auto) Immature Gran # (Auto) Absolute Nucleated RBC Immature Gran % Nucleated RBC % PT INR APTT Sodium Potassium Chloride Carbon Dioxide Anion Gap BUN Creatinine Estim Creat Clear Calc eGFR BUN/Creatinine Ratio Glucose Calculated Osmolality Lactic Acid Calcium Corrected Calcium Phosphorus Magnesium Total Bilirubin AST ALT Alkaline Phosphatase Troponin I 0.774 H* D Total Protein Albumin Globulin Albumin/Globulin Ratio Blood Type Antibody Screen Blood Bank Wristband ID ABG Interpretation ABG results: 09/16/25 09/17/25 18:56 04:20 ABG pH 7.38 7.35 ABG pCO2 43 43 ABG pO2 353 H 171 H D ABG HCO3 25 24 ABG O2 Saturation 99 H 100 H ABG Base Excess 0 -2 Quality Measures Quality Measures VTE therapy Assessment & Plan Assessment Current Active Medications: Generic Name Dose Route Start Last Admin Trade Name Freq PRN Reason Stop Dose Admin Amiodarone HCl 200 mg 09/17/25 13:30 09/18/25 08:07 Amiodarone Hcl 200 Mg Tablet PO 10/17/25 13:29 200 mg BID GABE Administration Fentanyl Citrate 25 mcg 09/17/25 23:11 09/18/25 00:02 Fentanyl Cit Inj 50 Mcg/Ml Amp 2ml IVP 09/22/25 09:59 25 mcg Q3H PRN Administration PAIN SCALE 7-10 (Severe Protocol Hydromorphone HCl 0.5 mg 09/17/25 23:12 Hydromorphone Inj 2 Mg/Ml Vial IVP 09/22/25 22:59 Q4HR PRN PAIN SCALE 4-6 (Moderate Norepinephrine/Dextrose 8 mg in 250 mls @ 6.572 mls/hr 09/16/25 14:43 09/17/25 09:00 Levophed In D5w 8mg/250ml IV 10/16/25 14:42 0 mcg/kg/min .Q24H PRN 0 mls/hr PER PROTOCOL Titration Protocol 0.05 MCG/KG/MIN Vasopressin/Sodium Chloride 20 unit in 100 mls @ 9 mls/hr 09/16/25 17:52 09/17/25 10:17 Vasostrict/Ns Ivpb IV 10/16/25 17:51 0 unit/min .Q11H7M PRN 0 mls/hr PER PROTOCOL Titration Protocol 0.03 UNIT/MIN Heparin Sodium/Dextrose 25,000 unit in 250 mls @ 12.618 mls/hr 09/16/25 18:15 09/18/25 05:13 Heparin In D5w Ivpb IV 09/30/25 18:14 9 units/kg/hr .[id number] GABE 6.309 mls/hr Protocol Titration 18 UNITS/KG/HR Albumin Human 25 gm in 100 mls @ 100 mls/hr 09/16/25 20:50 09/18/25 08:06 Albuminex 25% Ivpb IV 09/19/25 20:49 100 mls/hr QDAY GABE Administration Vancomycin/Sodium Chloride 750 mg in 150 mls @ 120 mls/hr 09/17/25 10:00 09/17/25 21:20 Vancomycin/Ns 750 Mg Ivpb IV 09/24/25 09:59 120 mls/hr Q12H GABE Administration Protocol Fentanyl Citrate 2,500 mcg in 250 mls @ 2.5 mls/hr 09/17/25 08:04 Sublimaze Inj 2,500 Mcg/250 Ml Bag IV 09/21/25 13:46 .Q24H PRN PER PROTOCOL Protocol 25 MCG/HR Propofol 1,000 mg in 100 mls @ 2.31 mls/hr 09/17/25 08:04 Diprivan Ivpb IV 10/16/25 10:56 .Q24H PRN Per Protocol Protocol 5 MCG/KG/MIN Cefepime HCl 2 gm/ Sodium 50 mls @ 100 mls/hr 09/17/25 15:30 09/18/25 05:19 Chloride IV 09/24/25 15:29 100 mls/hr Q8HR GABE Administration Potassium Phosphate 15 mmol in 250 mls @ 62.5 mls/hr 09/18/25 05:08 09/18/25 05:20 Pot Phos 15 Mmol In Ns 250 Ml IV 09/18/25 09:07 62.5 mls/hr X1 ONE Administration Levothyroxine Sodium 125 mcg 09/18/25 06:00 09/18/25 05:20 Levothyroxine Sodium 125 Mcg Tablet PO 10/18/25 05:59 125 mcg ACBR GABE Administration Lidocaine 1 patch 09/17/25 18:46 09/18/25 00:06 Lidocaine 5% 1 Patch TOP 10/17/25 18:45 1 patch UD PRN Administration PAIN Protocol Pantoprazole Sodium 40 mg 09/16/25 16:45 09/18/25 08:07 Pantoprazole Inj 40 Mg Vial IV 10/16/25 16:44 40 mg QDAY GABE Administration Pharmacy Consult 1 each 09/17/25 09:00 09/17/25 12:06 Vancomycin Pharmacy To Dose 1 Each Each IV 10/17/25 08:59 Not Given QDAY GABE Scopolamine 1 mg 09/17/25 15:00 09/17/25 15:08 Scopolamine 1 Mg Tdsy TOP 10/17/25 14:59 1 mg Q3D GABE Administration Plan 59 y/o F with PMHx significant for multiple myeloma on chemotherapy, anemia, Basia's presented to ED after having been witnessed to slump over and pass out on a bench, admitted to ICU for septic shock Neuro: No active issues Cardio: #V-fib/V. tach DDx: Medication side effect, acidosis Patient slumped over and passed out, received AED shock, +3 shocks from EMS en route to hospital In ED patient underwent multiple rounds of V-fib/V. tach requiring multiple shocks. Patient taken for urgent cardiac catheterization, revealed no obstructions. Per chart review, patient taken multiple medications associated with arrhythmias: -Bactrim, Zofran EKG revealed prolonged QTc: 479 Amiodarone drip transitioned to PO, but now discontinued. Lidocaine drip, titrtated off. - Telemetry monitoring - Cardiology consulted, appreciate recommendations - Monitor electrolytes, replete as needed - Avoid QTc prolonging agents - No beta blockers for now - Discontinued Amiodarone 200 mg PO BID #Septic shock (resolved) DDx: Pneumonia, UTI Patient presented in shock requiring pressors. Initially suspected to be due to poor heart function in setting of multiple V-fib/V. tach episodes. Bedside echo showed adequate heart function, incongruent with level of shock. Patient found to have significant diffuse pneumonia on CT imaging. Urinalysis indicates potential UTI with rare bacteria, 46 WBCs. Patient weaned off pressors 09/17 - Follow-up urine/blood/sputum cultures - Empiric antibiotics: Vancomycin and ceftriaxone (started 09/16-09/18) -On Cefepime 09/17- Pulm: #Pneumonia with ARDS Patient was intubated due to inability protect airway in setting of V-fib/V. tach. CT chest/abdomen/pelvis revealed extensive bilateral pneumonia. Gram stain of sputum showed rare gram positive cocci. Extubated 09/17, on HFNC - Sputum culture pending - Empiric antibiotics: Vancomycin and ceftriaxone (started 09/16-09/18) - On cefepime 09/17- - Transitioned to NC from HFNC. #Multiple pulmonary emboli CT angio revealed multiple pulmonary emboli, right sided. Based on imaging, not massive PE, no significant right ventricular strain. Suspect hemodynamic instability due to sepsis and sedation, HR improved with propofol off. Discussed risk/benefits of thrombolytic therapy with patient's , will hold off at this time, consider if hemodynamic instability worsens. Patient showed improvement. Spoke with Dr. Barrera, [facility] oncologist managing patient, advised transitioning to Eliquis would be appropriate with patient's chemo regiment. -Heparin drip protocol - Telemetry monitoring -Discuss with oncology choice of DOAC prior to transitioning GI: #Hepatitis DDx: Sepsis, medication side effect Patient presents with elevated liver enzymes. LFTs worsened on repeat check: AST 557, ALT 292, ALP 178. Total bilirubin normal. Unlikely shock liver given normal kidney function. LFTs improving. -Monitor LFTs - Avoid hepatotoxins - Judicious use of hepatically metabolized medications Renal: #Lactic acidosis (resolved) Lactic acid elevated, 7.9 on admission. After receiving IV fluids, lactic acid improved to 2.6. Lactic acidosis resolved, patient off pressors. 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 -Levothyroxine 125 mcg PO daily (home med) Heme: #Acute anemia DDx: Blood loss, dilutional Patient hemoglobin decreased from admission. today 7, therefore will transfuse 1 PRBC Patient net positive 2.3 L fluid. - Will transfuse 1 PRBC - Repeat H/H 1800 - Continue to monitor. ID: #Sepsis, resolved Patient presented with septic shock. Urine, blood, sputum cultures pending. Significant pneumonia seen on imaging. Rare gram positive cocci on sputum gram stain. - Treat as above ICU Health maintenance: Mechanical ventilation: No. Sedation: No. Diet: Cardiac DVT ppx: Heparin drip GI ppx: Protonix Yung: No. IV lines: PIV Central line: No. Arterial line: No. Code status: Full code Case disclosed with Attending Dr. Nii Brown PGY2 Disclaimer: Even though this this note was dictated by speech recognition and even though it was carefully revised there may still be minor errors in rn internal medicine due to voice recognition software. Attending Provider Attestation/Addendum Patient seen and examined with above resident, Lee Brown MD. I agree with the findings, assessment, and plan of care as document except for any differences below. Patient with continued improvement postextubation yesterday. She has not had any recurrent episodes of tachyarrhythmia but her QTc remains prolonged. Underlying pulmonary embolism seems less likely as etiology of cardiac arrest after review of case extensively with director of intercollegiate athletics at bedside. We were able to identify initial rhythm strips which showed polymorphic V. tach/torsades therefore likely in the setting of prolonged QTc. Extensive review of the patient's home medications including chemotherapy as potential etiologies. Zofran seems to most likely with 2 episodes in the previous week. Patient was previously on dapsone for prophylaxis but this had been discontinued. 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 Patient's immunotherapy and chemotherapeutic agents are less likely as etiology of and may affect sleep, was on and have led to QT prolongation secondary to Zofran use. All QT prolonging agents have been discontinued patient's nausea appropriately with treatment. Patient has underlying pneumonia and remains on appropriate antibiotics plan to transition to [place] now if she has been aggressive and weaned off high humidity/high flow nasal cannula. Patient is primary care provider will assume primary responsibility for transition to medicine robers[place]. Patient and family extensively counseled by ourselves as well as cardiology given extensive review. We will stop all beta-blockade and amiodarone continue to watch her closely on telemetry on the roberson. Ultimate need for defibrillator will be determined by course after completion of antibiotics with cardiology discretion. Total critical care time: I personally spent 60 minutes for review of physiologic parameters, directing plan of care throughout the day, coordination of care with other specialties, and counseling patient and her family extensively at bedside. This is exclusive of time spent teaching housestaff or performing any separate billable procedures. Patient remains at significant risk for further morbidity and mortality warranting close monitoring and care only available in the ICU. Patient required critical care services for acute pulmonary embolism, ventricular fibrillation/cardiac arrest secondary to require prolonged QTc syndrome, and community-acquired pneumonia/aspiration pneumonia.
--- NOTE | 2025-09-18 09:01 | PD.NEPHPROG ---
Documentation for date of: 09/18/25 Subjective Subjective Interval history: Ms. Lozano is a 59-year-old lady with past medical history significant for multiple myeloma on chemotherapy, anemia, Basia's thyroiditis presented to the emergency department after witnessed cardiac arrest at his school while she was visiting her grandkirashid Smith. On the field the patient received 1 shock for V-fib. In the emergency department she was found to be altered and unresponsive. Patient noted to have ventricular arrhythmias and received multiple shocks, intubated and subsequently transferred to ICU. She was started on amiodarone drip, lidocaine drip, Versed drip, epinephrine drip. Also was given IV fluids. ED course: Labs significant for: Lactic acid 7.9, BNP 385, potassium 3.2, calcium 8.4, AST 136, ALT 95, T. bili 0.4, troponin 7. Beta hydroxybutyrate 0.1, Pro-Nehemias 0.05. TSH 3.31. Urinalysis showed 3+ protein, 3+ glucose, RBC 48, WBC 46, rare bacteria. U tox positive for marijuana. Imaging significant for: Chest/abdomen/pelvis CTA positive for multiple pulmonary emboli, widespread significant pneumonia, widespread osteolytic lesions, multiple bilateral rib fractures. Head CT unremarkable. EKG showed sinus tachycardia, QTc 479. 09/17/2025: Overnight, amiodarone was decreased due to low heart rate. Patient was weaned off sedation, following commands, successfully extubated in the morning. Due to low sats, patient placed on HFNC, weaning down. No arrythmias noted. Repeat EKG showed prolonged QTc 457. Labs and medications reviewed. Patient under the care of Dr. Casiano. Currently on broad-spectrum antibiotics, heparin drip. 09/18/2025 patient was transitioned to telemetry. Per review ICU team Dr. Casiano recommended to hold off on amiodarone, metoprolol. Patient was having significant nausea and I had to give 1 dose of promethazine. On Dilaudid for pain and requested tramadol which was ordered. Review of Systems Review of Systems Narrative Review of Systems: CONSTITUTIONAL: Patient denies any fever, chills. Complaining of fatigue HEENT: Denies any visual disturbances or hearing problems. CARDIOVASCULAR: Patient complaining of left-sided rib cage pain PULMONARY: Patient complaining of shortness of breath GASTROINTESTINAL: Patient denies any abdominal pain, constipation, nausea, vomiting, diarrhea. GENITOURINARY: Patient denies any urinary symptoms of burning or frequency or hematuria, denies any form in the urine. SKIN: Denies any rash. MUSCULOSKELETAL: Complaining of weakness NEUROLOGICAL: Denies any neurological problems of strokes, seizures or confusion. Denies any memory problems. Exam Vital Signs Temp Pulse Resp BP Pulse Ox O2 Del Method O2 Flow Rate 36.8 C 86 30 H 136/88 H 98 Nasal Cannula 5 09/18/25 19:12 09/18/25 19:12 09/18/25 19:12 09/18/25 19:12 09/18/25 19:12 09/18/25 16:00 09/18/25 19:12 FiO2 35 09/18/25 12:00 Narrative Exam GENERAL APPEARANCE: Patient seems to be comfortable, adequately hydrated and nourished. HEENT: EOMI, PERRLA NECK: Neck supple, no JVD or bruit CARDIOVASCULAR: Heart regular, no murmurs LUNGS/CHEST: Chest clear to auscultation. No rales, rhonchi, wheezing ABDOMEN: Soft, nontender, nondistended. No masses. Normal bowel sounds. EXTREMITIES: No edema, clubbing or cyanosis. SKIN: Skin exam normal without any rashes MUSCULOSKELETAL: In bed NEUROLOGICAL : No neurological deficits Objective Labs 09/19/25 02:31 09/19/25 18:45 Labs: Laboratory Results - last 24 hr 09/17/25 09/17/25 09/17/25 10:11 20:49 21:39 WBC RBC Hgb 7.3 L Hct 22.0 L MCV MCH MCHC RDW Std Deviation Plt Count Neut % (Auto) Lymph % (Auto) [place] % (Auto) Eos % (Auto) Baso % (Auto) Neut # (Auto) Lymph # (Auto) [place] # (Auto) Eos # (Auto) Baso # (Auto) Immature Gran # (Auto) Absolute Nucleated RBC Immature Gran % Nucleated RBC % PT 12.4 H INR 1.2 APTT 89.7 H D Sodium Potassium Chloride Carbon Dioxide Anion Gap BUN Creatinine Estim Creat Clear Calc eGFR BUN/Creatinine Ratio Glucose Calculated Osmolality Calcium Corrected Calcium Phosphorus Magnesium Total Bilirubin AST ALT Alkaline Phosphatase Troponin I Total Protein Albumin Globulin Albumin/Globulin Ratio Vancomycin Trough Blood Type A Positive Antibody Screen POSITIVE Antibody Identification Inconclusive Crossmatch See Detail Blood Bank Wristband ID Yes 09/18/25 09/18/25 09/18/25 00:42 03:02 06:00 WBC 6.5 D RBC 2.24 L Hgb 7.3 L 7.2 L 7.5 L Hct 22.5 L 22.0 L 22.6 L MCV 98 MCH 32.1 MCHC 32.7 RDW Std Deviation 58.9 H Plt Count 123 L D Neut % (Auto) 77 Lymph % (Auto) 11 [place] % (Auto) 10 Eos % (Auto) 0 Baso % (Auto) 1 Neut # (Auto) 5.0 Lymph # (Auto) 0.7 L [place] # (Auto) 0.7 Eos # (Auto) 0.0 Baso # (Auto) 0.1 Immature Gran # (Auto) 0.06 H Absolute Nucleated RBC 0.00 Immature Gran % 1 H Nucleated RBC % 0 PT 12.4 H INR 1.2 APTT > 139.0 H* D Sodium 142 Potassium 3.9 D Chloride 108 H Carbon Dioxide 25.2 Anion Gap 9 BUN 11 Creatinine 0.8 Estim Creat Clear Calc 74.5 eGFR > 60 BUN/Creatinine Ratio 14 Glucose 113 H Calculated Osmolality 283 Calcium 8.5 Corrected Calcium 8.5 Phosphorus 2.2 L Magnesium 2.1 Total Bilirubin 1.1 D AST 120 H ALT 154 H Alkaline Phosphatase 118 H Troponin I 0.774 H* D Total Protein 5.0 L Albumin 4.0 Globulin 1.0 L Albumin/Globulin Ratio 4.0 H Vancomycin Trough Blood Type Antibody Screen Antibody Identification Crossmatch Blood Bank Wristband ID 09/18/25 09/18/25 09/18/25 09:07 10:00 18:05 WBC RBC Hgb 7.0 L Hct 20.7 L* MCV MCH MCHC RDW Std Deviation Plt Count Neut % (Auto) Lymph % (Auto) [place] % (Auto) Eos % (Auto) Baso % (Auto) Neut # (Auto) Lymph # (Auto) [place] # (Auto) Eos # (Auto) Baso # (Auto) Immature Gran # (Auto) Absolute Nucleated RBC Immature Gran % Nucleated RBC % PT INR APTT 44.9 H D 45.7 H Sodium Potassium Chloride Carbon Dioxide Anion Gap BUN Creatinine Estim Creat Clear Calc eGFR BUN/Creatinine Ratio Glucose Calculated Osmolality Calcium Corrected Calcium Phosphorus Magnesium Total Bilirubin AST ALT Alkaline Phosphatase Troponin I Total Protein Albumin Globulin Albumin/Globulin Ratio Vancomycin Trough 10.0 Blood Type Antibody Screen Antibody Identification Crossmatch Blood Bank Wristband ID ABG Interpretation ABG results: 09/16/25 09/17/25 18:56 04:20 ABG pH 7.38 7.35 ABG pCO2 43 43 ABG pO2 353 H 171 H D ABG HCO3 25 24 ABG O2 Saturation 99 H 100 H ABG Base Excess 0 -2 Assessment & Plan Assessment and plan (1) Cardiac arrest: Status: Acute (2) Ventricular fibrillation: Status: Acute (3) Syncope and collapse: Status: Acute (4) Pneumonia: Status: Acute (5) UTI (urinary tract infection): Status: Acute (6) Multiple myeloma: Status: Acute (7) Ventricular tachycardia: Status: Acute (8) Elevated LFTs: Status: Acute (9) Hypothyroidism (acquired): Status: Acute (10) Pulmonary embolism: Status: Acute Additional Assessment & Plan Additional Plan: Continue broad-spectrum antibiotics, Eliquis, maintain potassium around 4.5, magnesium around 2.5. Dr. Casiano on the case.
--- NOTE | 2025-09-18 09:46 | ESPR_ITS ---
<Statement entered by Matheus Braxton MD - 09/18/25 13:26> I personally evaluated examined the patient in CKD and has multiple medical issues. Patient survived [id number] cardiac arrest due to ventricular fibrillation polymorphic VT VF reviewed the findings with ICU team patient will not benefit from amiodarone will be discontinued. Hemodynamically stable right groin showed no bleeding or ecchymosis. Anticoagulation be continued heparin can be switched to Eliquis. Spent more than 55 minutes critical care time evaluating and managing the patient. I evaluated the patient with resident physician PGY 1 Pio lAarcon agree with the treatment plan recommendation as documented Documentation for date of: 09/18/25 Subjective Subjective Interval history: Patient seen and examined at bedside; overnight had some bigeminy and trigeminy on telemetry. No other acute events overnight. Exam Vital Signs Temp Pulse Resp BP Pulse Ox O2 Del Method O2 Flow Rate 98.2 F 88 22 H 112/67 99 High Flow Nasal Cannula 09/18/25 08:00 09/18/25 09:09 09/18/25 09:09 09/18/25 09:00 09/18/25 09:00 09/18/25 08:00 09/18/25 09:09 FiO2 35 09/18/25 09:09 Narrative Exam General: alert and oriented x3, fatigued, mild distress HEENT: NC/AT, mucous membranes moist, bilateral sclera anicteric Cardiovascular: regular rate and rhythm, S1/S2 present, no murmurs appreciated Pulmonary: clear to auscultation bilaterally, no rales/rhonchi/wheezes Abdominal: soft, non-tender, non-distended, no rebound/guarding, normal bowel sounds present Musculoskeletal: normal ROM, no peripheral edema Skin: warm and dry, intact, no rashes Objective Labs 09/18/25 10:00 09/18/25 03:02 Labs: Laboratory Results - last 24 hr 09/16/25 09/17/25 09/17/25 10:52 09:00 10:11 WBC RBC Hgb Hct MCV MCH MCHC RDW Std Deviation Plt Count Neut % (Auto) Lymph % (Auto) [place] % (Auto) Eos % (Auto) Baso % (Auto) Neut # (Auto) Lymph # (Auto) [place] # (Auto) Eos # (Auto) Baso # (Auto) Immature Gran # (Auto) Absolute Nucleated RBC Immature Gran % Nucleated RBC % PT INR APTT > 139.0 H* Sodium Potassium Chloride Carbon Dioxide Anion Gap BUN Creatinine Estim Creat Clear Calc eGFR BUN/Creatinine Ratio Glucose Calculated Osmolality Lactic Acid 3.3 H Calcium Corrected Calcium Phosphorus Magnesium Total Bilirubin AST ALT Alkaline Phosphatase Troponin I Total Protein Albumin Globulin Albumin/Globulin Ratio Blood Type Cancelled A Positive Antibody Screen Cancelled POSITIVE Blood Bank Wristband ID Cancelled Yes 09/17/25 09/17/25 09/17/25 13:30 16:37 20:49 WBC RBC Hgb 7.6 L 7.3 L Hct 23.1 L 22.0 L MCV MCH MCHC RDW Std Deviation Plt Count Neut % (Auto) Lymph % (Auto) [place] % (Auto) Eos % (Auto) Baso % (Auto) Neut # (Auto) Lymph # (Auto) [place] # (Auto) Eos # (Auto) Baso # (Auto) Immature Gran # (Auto) Absolute Nucleated RBC Immature Gran % Nucleated RBC % PT INR APTT Sodium Potassium Chloride Carbon Dioxide Anion Gap BUN Creatinine Estim Creat Clear Calc eGFR BUN/Creatinine Ratio Glucose Calculated Osmolality Lactic Acid 1.6 Calcium Corrected Calcium Phosphorus Magnesium Total Bilirubin AST ALT Alkaline Phosphatase Troponin I Total Protein Albumin Globulin Albumin/Globulin Ratio Blood Type Antibody Screen Blood Bank Wristband ID 09/17/25 09/18/25 09/18/25 21:39 00:42 03:02 WBC 6.5 D RBC 2.24 L Hgb 7.3 L 7.2 L Hct 22.5 L 22.0 L MCV 98 MCH 32.1 MCHC 32.7 RDW Std Deviation 58.9 H Plt Count 123 L D Neut % (Auto) 77 Lymph % (Auto) 11 [place] % (Auto) 10 Eos % (Auto) 0 Baso % (Auto) 1 Neut # (Auto) 5.0 Lymph # (Auto) 0.[address] [place] # (Auto) 0.7 Eos # (Auto) 0.0 Baso # (Auto) 0.1 Immature Gran # (Auto) 0.06 H Absolute Nucleated RBC 0.00 Immature Gran % 1 H Nucleated RBC % 0 PT 12.4 H 12.4 H INR 1.2 1.2 APTT 89.7 H D > 139.0 H* D Sodium 142 Potassium 3.9 D Chloride 108 H Carbon Dioxide 25.2 Anion Gap 9 BUN 11 Creatinine 0.8 Estim Creat Clear Calc 74.5 eGFR > 60 BUN/Creatinine Ratio 14 Glucose 113 H Calculated Osmolality 283 Lactic Acid Calcium 8.5 Corrected Calcium 8.5 Phosphorus 2.2 L Magnesium 2.1 Total Bilirubin 1.1 D AST 120 H ALT 154 H Alkaline Phosphatase 118 H Troponin I Total Protein 5.0 L Albumin 4.0 Globulin 1.0 L Albumin/Globulin Ratio 4.0 H Blood Type Antibody Screen Blood Bank Wristband ID 09/18/25 06:00 WBC RBC Hgb 7.5 L Hct 22.6 L MCV MCH MCHC RDW Std Deviation Plt Count Neut % (Auto) Lymph % (Auto) [place] % (Auto) Eos % (Auto) Baso % (Auto) Neut # (Auto) Lymph # (Auto) [place] # (Auto) Eos # (Auto) Baso # (Auto) Immature Gran # (Auto) Absolute Nucleated RBC Immature Gran % Nucleated RBC % PT INR APTT Sodium Potassium Chloride Carbon Dioxide Anion Gap BUN Creatinine Estim Creat Clear Calc eGFR BUN/Creatinine Ratio Glucose Calculated Osmolality Lactic Acid Calcium Corrected Calcium Phosphorus Magnesium Total Bilirubin AST ALT Alkaline Phosphatase Troponin I 0.774 H* D Total Protein Albumin Globulin Albumin/Globulin Ratio Blood Type Antibody Screen Blood Bank Wristband ID ABG Interpretation ABG results: 09/16/25 09/17/25 18:56 04:20 ABG pH 7.38 7.35 ABG pCO2 43 43 ABG pO2 353 H 171 H D ABG HCO3 25 24 ABG O2 Saturation 99 H 100 H ABG Base Excess 0 -2 Quality Measures Quality Measures VTE therapy Assessment & Plan Assessment Current Active Medications: Generic Name Dose Route Start Last Admin Trade Name Salma PRN Reason Stop Dose Admin Amiodarone HCl 200 mg 09/17/25 13:30 09/18/25 08:07 Amiodarone Hcl 200 Mg Tablet PO 10/17/25 13:29 200 mg BID GABE Administration Fentanyl Citrate 25 mcg 09/17/25 23:11 09/18/25 00:02 Fentanyl Cit Inj 50 Mcg/Ml Amp 2ml IVP 09/22/25 09:59 25 mcg Q3H PRN Administration PAIN SCALE 7-10 (Severe Protocol Hydromorphone HCl 0.5 mg 09/17/25 23:12 Hydromorphone Inj 2 Mg/Ml Vial IVP 09/22/25 22:59 Q4HR PRN PAIN SCALE 4-6 (Moderate Norepinephrine/Dextrose 8 mg in 250 mls @ 6.572 mls/hr 09/16/25 14:43 09/17/25 09:00 Levophed In D5w 8mg/250ml IV 10/16/25 14:42 0 mcg/kg/min .Q24H PRN 0 mls/hr PER PROTOCOL Titration Protocol 0.05 MCG/KG/MIN Vasopressin/Sodium Chloride 20 unit in 100 mls @ 9 mls/hr 09/16/25 17:52 09/17/25 10:17 Vasostrict/Ns Ivpb IV 10/16/25 17:51 0 unit/min .Q11H7M PRN 0 mls/hr PER PROTOCOL Titration Protocol 0.03 UNIT/MIN Heparin Sodium/Dextrose 25,000 unit in 250 mls @ 12.618 mls/hr 09/16/25 18:15 09/18/25 05:13 Heparin In D5w Ivpb IV 09/30/25 18:14 9 units/kg/hr .[id number] GABE 6.309 mls/hr Protocol Titration 18 UNITS/KG/HR Albumin Human 25 gm in 100 mls @ 100 mls/hr 09/16/25 20:50 09/18/25 09:06 Albuminex 25% Ivpb IV 09/19/25 20:49 Infused QDAY GABE Infusion Vancomycin/Sodium Chloride 750 mg in 150 mls @ 120 mls/hr 09/17/25 10:00 09/17/25 21:20 Vancomycin/Ns 750 Mg Ivpb IV 09/24/25 09:59 120 mls/hr Q12H GABE Administration Protocol Fentanyl Citrate 2,500 mcg in 250 mls @ 2.5 mls/hr 09/17/25 08:04 Sublimaze Inj 2,500 Mcg/250 Ml Bag IV 09/21/25 13:46 .Q24H PRN PER PROTOCOL Protocol 25 MCG/HR Propofol 1,000 mg in 100 mls @ 2.31 mls/hr 09/17/25 08:04 Diprivan Ivpb IV 10/16/25 10:56 .Q24H PRN Per Protocol Protocol 5 MCG/KG/MIN Cefepime HCl 2 gm/ Sodium 50 mls @ 100 mls/hr 09/17/25 15:30 09/18/25 05:19 Chloride IV 09/24/25 15:29 100 mls/hr Q8HR GABE Administration Magnesium Sulfate 2 gm in 50 mls @ 25 mls/hr 09/18/25 09:42 Magnesium Sulfate Ivpb IV 09/18/25 11:41 X1 ONE Levothyroxine Sodium 125 mcg 09/18/25 06:00 09/18/25 05:20 Levothyroxine Sodium 125 Mcg Tablet PO 10/18/25 05:59 125 mcg ACBR GABE Administration Lidocaine 1 patch 09/17/25 18:46 09/18/25 00:06 Lidocaine 5% 1 Patch TOP 10/17/25 18:45 1 patch UD PRN Administration PAIN Protocol Metoprolol Succinate 12.5 mg 09/18/25 09:45 Metoprolol Succinate Xl 25 Mg Tabcr PO 10/18/25 09:44 QDAY GABE Pantoprazole Sodium 40 mg 09/16/25 16:45 09/18/25 08:07 Pantoprazole Inj 40 Mg Vial IV 10/16/25 16:44 40 mg QDAY GABE Administration Pharmacy Consult 1 each 09/17/25 09:00 09/18/25 09:29 Vancomycin Pharmacy To Dose 1 Each Each IV 10/17/25 08:59 Not Given QDAY GABE Scopolamine 1 mg 09/17/25 15:00 09/17/25 15:08 Scopolamine 1 Mg Tdsy TOP 10/17/25 14:59 1 mg Q3D GABE Administration Plan Jeanine Lozano is a 59-year-old female with a past medical history of multiple myeloma with multiple bony lytic lesions (status post radiation, four cycles of D-RVd chemotherapy, and bone marrow transplant), Basia's thyroiditis, and SIADH/hyponatremia who is admitted status-post cardiac arrest secondary to ventricular arrhythmia and cardiology consulted for the same. #Out of hospital cardiac arrest resulting from #Polymorphic ventricular tachycardia likely secondary to #QT prolongation secondary to combination of zofran and dapsone #Type II NSTEMI (demand ischemia) Presents after suffering cardiac arrest in field, underwent CPR, and required multiple shocks for ventricular arrhythmia. Started on amiodarone drip and continued to have episodes of arrhythmia requiring defibrillation and recommended lidocaine drip. Bedside echo did not show regional wall motion abnormalities but patient noted to be on epinephrine drip. Given that leading cause of ventricular arrhythmia remains to be ischemic heart disease decision was made to take patient to [facility] emergently, but revealed no significant no coronary artery disease. Differentials include cardiomyopathy (dilated vs hypertrophic vs infiltrative), electrolyte abnormalities, channelopathies, drug-induced, and acute illness. Electrolytes were within normal limits. EKG 09/16 showed QTc 479 on amiodarone and previous EKGs show QTc 440-480. Per chart review, she is on some medications associated with arrhythmias (Bactrim, dapsone, gabapentin, lenalidomide, Velcade) and upon further history taking, she has been taking Zofran for nausea that is also known to be associated with QT prolongation. At this time, etiology of her ventricular arrhythmias suspected to be drug-induced secondary to combination of Zofran and dapsone; given that a reversible cause found, no indication for ICD placement, and amiodarone has been discontinued. Plan: ? Amiodarone discontinued ? Closely monitor electrolytes; K > 4, Mg > 2 ? Closely monitor on telemetry ? Avoid QT prolonging agents when possible #Shock, likely septic vs cardiac #Pneumonia with ARDS #Multiple pulmonary emboli #Hepatitis #Lactic acidosis #Basia disease #Sepsis ? Continue management per primary team ----- This case was discussed with my attending physician, Dr. Braxton. Grzegorz Alarcon, PGY1
[2025-09-18] MEDS: Magnesium Sulfate 2 GM Ivpb 2 GM/50 ML BAG IV ×2 (09:48→23:30)
[2025-09-18] MEDS: METOPROLOL SUCCINATE XL 25 MG TABCR 12.5 MG PO (09:48)
[2025-09-18 10:01] LABS: Vancomycin,Trough 10.0 mcg/mL (5.0-10.0)
[2025-09-18 10:34] LABS: Partial Thromboplastin Time 44.9 Seconds (22.0-36.0)
[2025-09-18 10:45] LABS: Hematocrit 20.7 % (36.0-46.0)
[2025-09-18 10:54] LABS: Hemoglobin 7.0 g/dL (12.0-16.0)
[2025-09-18] MEDS: HEPARIN SOD INJ 5000 UNIT/ML VIAL 2800 UNIT IVP (11:57)
--- NOTE | 2025-09-18 12:00 | EKG_ITS ---
[facility] Test Date: 2025-09-18 Pat Name: EDER CORDOVA Department: Room: S256A Gender: Female Facility Attendant: GARETT : 1965 Requested By: Lee Brown Order Number: [id number] Reading MD: Lee Brown Measurements Intervals [place] Rate: 80 P: 89 [place]: 163 QRS: 103 QRSD: 109 T: 0 QT: 404 QTc: 468 Interpretive Statements SINUS RHYTHM WITH MARKED RHYTHM IRREGULARITY, POSSIBLE NON-CONDUCTED PAC, SA BLOCK, AV BLOCK, OR SINUS PAUSE MARKED RIGHT AXIS DEVIATION ST DEVIATION AND MODERATE T-WAVE ABNORMALITY, CONSIDER LATERAL ISCHEMIA INTERPRETATION BASED ON A DEFAULT AGE OF 40 YEARS Compared to ECG 09/18/2025 05:56:32 Right-axis deviation now present T-wave abnormality now present Possible ischemia now present Ventricular premature complex(es) no longer present /store/S0/[id number].pdf
--- NOTE | 2025-09-18 12:50 | PC.NURSE ---
pt transferred from ICU
--- NOTE | 2025-09-18 13:08 | PC.NURSE ---
called Md for orders for pain med, per Dr. Rico order tramadol 50mg q6h prn pain, and tylenol 500mg q6h prn and meg heath
--- NOTE | 2025-09-18 13:49 | PC.SS ---
SS update: downgrade from ICU to tele.
--- NOTE | 2025-09-18 15:45 | PC.NURSE ---
Called Dr. Rico for orders for nausea , ordered phenergan 12.5 iv q6h prn
[2025-09-18] MEDS: PROMETHAZINE INJ 12.5 MG in SODIUM CHLORIDE 0.9% 50 ML 151.5 MG IV ×2 (16:19→22:24)
[2025-09-18 18:47] LABS: Partial Thromboplastin Time 45.7 Seconds (22.0-36.0)
[2025-09-18] MEDS: ACETAMINOPHEN 500 MG TABLET PO (20:28)
[2025-09-18] MEDS: HEPARIN SOD INJ 5000 UNIT/ML VIAL 2800 UNIT IV (20:29)
[2025-09-18 20:57] LABS: Hematocrit 24.9 % (36.0-46.0)
[2025-09-18 20:59] LABS: Hemoglobin 8.2 g/dL (12.0-16.0)
--- NOTE | 2025-09-18 21:36 | EKG_ITS ---
[facility] Test Date: 2025-09-18 Pat Name: EDER CORDOVA Department: Room: S263A Gender: Female Central Supply Assistant: JOÃO : 1965 Requested By: Donell Gardner Order Number: [id number] Reading MD: Donell Gardner Measurements Intervals [place] Rate: 96 P: 100 VT: 164 QRS: 75 QRSD: 102 T: 227 QT: 382 QTc: 483 Interpretive Statements SINUS RHYTHM ST DEVIATION AND MODERATE T-WAVE ABNORMALITY, CONSIDER ANTEROLATERAL ISCHEMIA ST DEVIATION AND MODERATE T-WAVE ABNORMALITY, CONSIDER INFERIOR ISCHEMIA Compared to ECG 09/18/2025 12:11:12 Right-axis deviation no longer present T-wave abnormality still present Possible ischemia still present /store/S0/[id number].pdf
[2025-09-18 22:45] LABS: Anion Gap 10 (7-16); BUN/Creatinine Ratio 17 Ratio (12-20); Blood Urea Nitrogen 12 mg/dL (9-23); Calcium 8.1 mg/dL (8.3-10.6); Carbon Dioxide 18.6 mMol/L (20.0-31.0); Chloride 110 mMol/L (98-107); Creatinine (Component) 0.7 mg/dL (0.6-1.3); Estimated Creatinine Clearance 85.1 mL/min (>60); Glucose 120 mg/dL (74-106); Magnesium 2.6 mg/dL (1.6-2.6); Osmolality,Calculated 278 (275-295); Phosphorous 1.5 mg/dL (2.4-5.1); Potassium 4.0 mMol/L (3.4-5.1); Sodium 139 mMol/L (136-145); eGFR > 60 See Note
--- NOTE | 2025-09-18 22:51 | EKG_ITS ---
[facility] Test Date: 2025-09-18 Pat Name: EDER CORDOVA Department: Room: S263A Gender: Female Synchronizer: [id number] : 1965 Requested By: Donell Gardner Order Number: [id number] Reading MD: Donell Gardner Measurements Intervals [place] Rate: 84 P: 75 [place]: 160 QRS: 104 QRSD: 96 T: 0 QT: 400 QTc: 474 Interpretive Statements SINUS RHYTHM MARKED RIGHT AXIS DEVIATION NONSPECIFIC ST & T-WAVE ABNORMALITY Compared to ECG 09/18/2025 12:11:12 Possible ischemia no longer present T-wave abnormality still present /store/SV/[id number].pdf
--- NOTE | 2025-09-18 23:03 | PC.RT ---
Responded to Rapid EKG done no other respiratory orders at this time pt conitnuous to tolerate 5L hnc RR20s sats %100%
[2025-09-18 23:12] LABS: Base Excess, Venous -4 (-3-3); O2 Saturation, Venous 100 % (96-97); PCO2, Venous 32 mmHg (36-56); PO2, Venous 128 mmHg (15-58); pH, Venous 7.42 (7.33-7.66)
[2025-09-18 23:14] LABS: Basophils # (Auto) 0.1 Thou/mm3 (0.0-0.2); Basophils % (Auto) 1 % (0-2.5); Eosinophils # (Auto) 0.0 Thou/mm3 (0.0-0.5); Eosinophils % (Auto) 0 % (0-10); Hematocrit 25.2 % (36.0-46.0); Immature Granulocytes Auto 0.06 Thou/mm3 (0.00-0.00); Lymphocytes # (Auto) 1.0 Thou/mm3 (1.0-4.8); Lymphocytes % (Auto) 11 % (10-50); Mean Corpuscular HGB Conc 33.3 g/dl (31.0-37.0); Mean Corpuscular Hemoglobin 32.9 pg (25.0-35.0); Mean Corpuscular Volume 99 fL (80-100); Monocytes # (Auto) 0.9 Thou/mm3 (0.0-0.8); Monocytes % (Auto) 11 % (0-12); Neutrophils # (Auto) 6.5 Thou/mm3 (1.8-7.7); Neutrophils % (Auto) 77 % (37-80); Nucleated Red Blood Cell # 0.00 Thou/mm3 (0.00-0.00); Nucleated Red Blood Cell % 0 /100 WBC (0); Platelet Count 110 Thou/mm3 (140-440); RDW Standard Deviation 57.4 fL (36.4-46.3); Red Blood Count 2.55 Miln/mm3 (4.00-5.20); White Blood Count 8.5 Thou/mm3 (3.6-11.0)
[2025-09-18 23:16] LABS: Hemoglobin 8.4 g/dL (12.0-16.0)
[2025-09-18 23:17] LABS: Lactate (Lactic Acid) 0.9 mMol/L (0.4-2.0)
[2025-09-18 23:33] LABS: Alanine Aminotransferase 112 U/L (10-49); Albumin, Serum 4.1 gm/dL (3.4-4.8); Albumin/Globulin Ratio 2.6 (1.2-2.2); Alkaline Phosphatase 115 U/L (46-116); Anion Gap 9 (7-16); Aspartate Amino Transferase 76 U/L (0-34); BUN/Creatinine Ratio 13 Ratio (12-20); Bilirubin,Total 1.3 mg/dL (0.3-1.2); Blood Urea Nitrogen 9 mg/dL (9-23); Calcium 8.4 mg/dL (8.3-10.6); Calcium (Corrected) 8.4 mg/dL (8.5-10.1); Carbon Dioxide 19.3 mMol/L (20.0-31.0); Chloride 110 mMol/L (98-107); Creatinine (Component) 0.7 mg/dL (0.6-1.3); Estimated Creatinine Clearance 85.1 mL/min (>60); Globulin 1.6 gm/dL (2.3-3.5); Glucose 121 mg/dL (74-106); Magnesium 2.5 mg/dL (1.6-2.6); Osmolality,Calculated 275 (275-295); Phosphorous 1.4 mg/dL (2.4-5.1); Potassium 3.9 mMol/L (3.4-5.1); Sodium 138 mMol/L (136-145); Total Protein 5.7 gm/dL (5.7-8.2); eGFR > 60 See Note
[2025-09-18 23:40] LABS: Troponin I 0.371 ng/mL (0.0-0.045)
[2025-09-18] MEDS: ETOMIDATE INJ 2 MG/ML VIAL 10 ML 20 MG IVP (23:57)
[2025-09-18] MEDS: ROCURONIUM INJ 10 MG/ML VIAL 10 ML 100 MG IVP (23:58)
[2025-09-19] VITALS (92 sets, daily range): BP systolic 43–171; BP diastolic 40–115; PULSE 56–151; RESP 0–36; TEMP 36–36.6; O2SAT 86–100; BMI 22.8
--- NOTE | 2025-09-19 00:02 | XR_ITS ---
EXAMINATION: AP chest single view TECHNIQUE: AP portable supine chest single view Date and time: September 19, 2025, 0017 hours, comparison September 17, 2025 INDICATIONS: Hypoxic respiratory failure, history ventricular fibrillation ventricular tachycardia, status post cardiopulmonary arrest FINDINGS: Severe bilateral lung opacity Mild prominence left ventricle Orogastric tube is in the stomach, the tip is below the level of the film Tracheal tube tip is 4.7 cm above josephine No pneumothorax Right Port-A-Cath tip satisfactory position Significant osteopenia, please see the CT chest report September 16, 2025 IMPRESSION: Interval severe bilateral pneumonia/pulmonary edema No pneumothorax Endotracheal tube tip 4.8 cm above josephine No pneumothorax
--- NOTE | 2025-09-19 00:04 | PD.RESEVENT ---
Documentation for date of: 09/19/25 Event Note Event Note: Rapid Response and CODE blue Rapid response changed to CODE BLUE called at 23:48 as patient became unresponsive with no pulse. Cardiac Pads were placed and CPR was started immediately along with Ambu bag. equipment monitor phototypesetting revealed V. tach and V-fib at 23:49. Patient received 200 J shock and CPR was resumed. She converted back to sinus rhythm at 23:52 and Patient received 1 amp of epinephrine, 1 amp of bicarb and seun gluconate along with 2g magnesium sulphate which was rushed in 10 mins. STAT labs were ordered. Patient was shifted to ICU for intubation due to hypoxia and tacypnea and post cardiac arrest. Etomidate 20 mg and Rocronium 100 mg was given x1 and patient was intubated. Patient discussed with Attending Physician, Dr Anay Gardner MD PGY3
--- NOTE | 2025-09-19 00:05 | ESCONSULT_ITS ---
HPI Data of Consult Requesting Physician: Betty Meng MD Admitting Provider: Betty Meng MD Attending Provider: Betty Meng MD Primary Care Provider: Jc Rico MD Consult Narrative Reason for consult: Post cardiac arrest and Vtac+ Vfib History of present illness: This 59 y/o F with PMHx significant for multiple myeloma on chemotherapy, anemia, Basia's presented to ED on 09/16/25 after having been witnessed to slump over and pass out on a bench. Patient received 1 shock from AED in the field, 3 more shocks from EMS. In ED, patient found to be altered, unresponsive. Underwent multiple rounds of v-fib/v-tach in ED requiring mutiple shocks. Due to concern for ischemic heart disease causing arrythmias, patient underwent urgent cardiac catheterization which revealed no obstructions. Patient was started on amiodarone drip, lidocaine drip, Versed drip, epinephrine drip in the ED. Patient received 2 L bolus lactated Ringer's. Intubated in the ED.Labs significant for: Lactic acid 7.9, BNP 385, potassium 3.2, calcium 8.4, AST 136, ALT 95, T. bili 0.4, troponin 7. Beta hydroxybutyrate 0.1, Pro-Seun 0.05. TSH 3.31. Urinalysis showed 3+ protein, 3+ glucose, RBC 48, WBC 46, rare bacteria. U tox positive for marijuana. Imaging significant for: Chest/abdomen/pelvis CTA positive for multiple pulmonary emboli, widespread significant pneumonia, widespread osteolytic lesions, multiple bilateral rib fractures. Head CT unremarkable. EKG showed sinus tachycardia, QTc 479.Patient was admitted to ICU for septic shock due to pneumonia and ARDS and V. tach/V-fib postcardiac arrest and shock therapy. [employer] Controls Operator stated that QT prolongation is clearly the cause of ventricular fibrillation polymorphic VT/VF no need for antiarrhythmic drug therapy will continue to avoid QT prolonging agents. Amiodarone drip was continued to for V. tach and the rate was decreased due to bradycardia. Patient was extubated after weaning off sedation on 09/17 initiated was placed on high flow nasal cannula and transition to normal nasal cannula. Repeat EKG showed prolonged QTc 457. Arterial line was removed and due to prolonged bleeding from the site of arterial line heparin drip was paused for few hours and restarted again overnight. Hemoglobin dropped mildly only. Heparin drip was restarted. Per patient's oncologist at [facility], Dr. Barrera he advised to hold patient's lenalidomide for 1 to 2 weeks that would be acceptable and transition the patient to Eliis would work with her chemotherapy regimen. On 09/18 in the morning, patient had some bigeminy's and trigeminy therefore K- Phos was given. EKG showed QTc 507. Patient received magnesium and metoprolol succinate. Initial strips showed polymorphic V. tach which was attributed to medication use. Patient was not taking Zofran. [employer] Controls Operator recommended to stop amiodarone metoprolol and monitor patient closely. Repeat EKG showed QTc 468. Ativan was given for nausea and anxiety. Heparin drip was continued. Patient's hemoglobin down trended to 7 therefore 1 unit PRBC was transfused. Although no signs of bleeding were observed. 09/18/2025 Rapid response changed to CODE BLUE called at 23:48 as patient became unresponsive with no pulse. Cardiac Pads were placed and CPR was started immediately along with Ambu bag. threat monitoring analyst revealed V. tach and V-fib at 23:49. Patient received 200 J shock and CPR was resumed. She converted back to sinus rhythm at 23:52 and Patient received 1 amp of epinephrine, 1 amp of bicarb and seun gluconate along with 2g magnesium sulphate which was rushed in 10 mins. STAT labs were ordered. Patient was shifted to ICU for intubation due to hypoxia and tacypnea and post cardiac arrest. Etomidate 20 mg and Rocronium 100 mg was given x1. Before this code blue patient had a rapid response due to Torsades pointes. At that time patient was feeling dizzy and was tachypneic on 5 L nasal cannula. And EKG was ordered along with 30 mmol of K-phosp. 2 g Mg was ordered to be run in 10 mins. EKG at 22:02 showed sinus rhythm with QTc 474. Repeat EKG at 22:55 showed sinus rhythm with QTc 483. Patient is upgraded to ICU due to Post cardiac arrest due to VT/VF post Defib, intubated and mechanical ventialtion due to cardiac arrest and AHRF due to ARDS Pnuemonia. cc:: cc: Betty Meng MD Review of Systems Review of Systems ROS Unobtainable: due to endotracheal tube Past Medical History Past Medical History NEUROLOGIC: Positive Neurological Disorders and Meningitis RESPIRATORY: Positive Bronchitis (in past) GASTROINTESTINAL: Positive Gastrointestinal Disorders and Gall Bladder Disease GENITOURINARY: Positive Genitourinary Disorders and Kidney Stones REPRODUCTIVE: Positive Previous Pregnancies MUSCULOSKELETAL: Positive Musculoskeletal Disorders (right side of neck pain) ENDOCRINE: Positive Endocrine Disorders and Hypothyroidism HEMATOLOGIC: Positive Blood Disorders and Anemia PSYCHO/SOCIAL: Positive Anxiety (not taking meds) OTHER HISTORY: Positive Hospitalization, Chemotherapy, Radiation Therapy, Measles and Cancer (multiple myeloma) Family History FAMILY HISTORY: Positive Family Respiratory Disorders, Family Cardiac Disorders and Family Gastrointestinal Problems Surgical History SURGICAL: Positive Abdominal Surgery and Hysterectomy Social History SMOKING STATUS: Never smoker Exam Vital Signs Temp Pulse Resp BP Pulse Ox O2 Del Method O2 Flow Rate 98.2 F 92 22 H 148/90 H 95 Nasal Cannula 5 09/18/25 23:06 09/18/25 23:06 09/18/25 23:06 09/18/25 23:06 09/18/25 23:06 09/18/25 16:00 09/18/25 23:06 FiO2 95 09/18/25 23:06 Narrative Exam GENERAL APPEARANCE: Patient is intubated and mechanically ventilated. HEENT: NC, AT. MMM. EOMI, clear conjunctiva, intubated. NECK: Supple without lymphadenopathy. No stiffness or restricted ROM. HEART: Sinus tachycardia with regular rhythm, normal S1/S2, no m/r/g LUNGS: CTAB, moving air well. Bilateral basal crackles heard on auscultation ABDOMEN: Soft, nontender, nondistended with good bowel sounds heard. BACK: No CVAT, no obvious deformity. EXTREMITIES: Without cyanosis, clubbing or edema. NEUROLOGICAL: Grossly nonfocal. Intubated and mechanically ventilated. Skin: Warm and dry without any rash. Results Labs 09/22/25 04:49 09/22/25 04:49 Labs: Short CBC 09/18/25 09/18/25 09/18/25 Range/Units 00:42 03:02 06:00 WBC 6.5 D (3.6-11.0) Thou/mm3 Hgb 7.3 L 7.2 L 7.5 L (12.0-16.0) g/dL Hct 22.5 L 22.0 L 22.6 L (36.0-46.0) % Plt Count 123 L D (140-440) Thou/mm3 09/18/25 09/18/25 09/18/25 Range/Units 10:00 20:47 23:05 WBC 8.5 (3.6-11.0) Thou/mm3 Hgb 7.0 L 8.2 L 8.4 L (12.0-16.0) g/dL Hct 20.7 L* 24.9 L 25.2 L (36.0-46.0) % Plt Count 110 L (140-440) Thou/mm3 BMP 09/18/25 09/18/25 09/18/25 03:02 20:47 23:05 Sodium 142 139 138 Potassium 3.9 D 4.0 3.9 Chloride 108 H 110 H 110 H Carbon Dioxide 25.2 18.6 L 19.3 L BUN 11 12 9 Creatinine 0.8 0.7 0.7 Glucose 113 H 120 H 121 H Calcium 8.5 8.1 L 8.4 Cardiac Enzymes 09/18/25 09/18/25 Range/Units 06:00 23:05 Troponin I 0.774 H* D 0.371 H* D (0.0-0.045) ng/mL Liver Function 09/18/25 09/18/25 Range/Units 03:02 23:05 Total Bilirubin 1.1 D 1.3 H (0.3-1.2) mg/dL AST 120 H 76 H (0-34) U/L ALT 154 H 112 H (10-49) U/L Alkaline Phosphatase 118 H 115 (46-116) U/L Albumin 4.0 4.1 (3.4-4.8) gm/dL ABG Interpretation ABG results: 09/16/25 09/17/25 09/18/25 18:56 04:20 23:05 ABG pH 7.38 7.35 ABG pCO2 43 43 ABG pO2 353 H 171 H D ABG HCO3 25 24 ABG O2 Saturation 99 H 100 H ABG Base Excess 0 -2 VBG pH 7.42 VBG pCO2 32 L VBG pO2 128 H VBG Base Excess -4 L Quality Measures Quality Measures VTE therapy (Heparin drip ) Medications Home Medications and Allergies Home Medications ?Medication ?Instructions ?Recorded ?Confirmed ?Type levothyroxine 125 mcg tablet 125 mcg PO QAM 01/29/18 1 11/18/24 History sulfamethoxazole 800 1 tab PO QDAY 02/07/2409/18 History mg-trimethoprim 160 mg tablet calcium 325 mg-vit D3 12.5 2 tab PO BID 03/04/2409/18 History mcg-zinc 2.75 [id number] tablet (Citracal-D3 Maximum Plus) cyclobenzaprine 10 mg tablet 10 mg PO DAILY PRN Cramps 03/04/24 09/18/25 History hydrocodone 5 mg-acetaminophen 325 1 tab PO Q6H PRN Pa in 03/04/24 09/18/25 History mg tablet ondansetron 4 mg disintegrating 4 mg PO Q6H PRN Nausea And Vomiting 03/04/24 09/18/25 History tablet sodium chloride 1 gram tablet 1,000 mg PO TID 03/04/24 09/18/25 History gabapentin 100 mg capsule 100 mg PO BID 05/26/2409/18 History acyclovir 400 mg tablet 400 mg PO Q12H 09/17/2512/12 History aspirin 81 mg tablet 81 mg PO QDAY 09/17/2509/18 History denosumab 120 mg/1.7 mL (70 mg/mL) 120 mg subcut Q7D 1 09/17/25 History subcutaneous solution gabapentin 300 mg capsule 600 mg PO Q8H 09/17/2509/18 History ondansetron HCl 8 mg tablet 8 mg PO QDAY 09/17/2508/20 History docusate sodium 100 mg capsule 100 mg PO QDAY PRN cons tipation 09/18/25 09/18/25 History loratadine 10 mg capsule (Allergy 10 mg PO QDAY 09/18/25 History Relief (loratadine)) Allergies Allergy/AdvReac Type Severity Reaction Status Date / Time Penicillins Allergy Unknown Rash Verified 05/25/24 16:40 Visit Medications Acetaminophen (Acetaminophen 500 Mg Tablet) 500 mg PO Q6HR PRN PRN Reason: PAIN 1-3 Stop: 10/18/25 13:10 Last Admin: 09/18/25 20:28 Dose: 500 mg Etomidate (Etomidate Inj 2 Mg/Ml Vial 10 Ml) 20 mg IVP X1 ONE Stop: 09/19/25 00:03 Hydromorphone HCl (Hydromorphone Inj 2 Mg/Ml Vial) 0.5 mg IVP Q4HR PRN PRN Reason: PAIN SCALE 7-10 Stop: 09/22/25 22:59 Heparin Sodium/Dextrose (Heparin In D5w Ivpb) 25,000 unit in 250 mls @ 12.618 mls/hr IV .[id number] GABE; Protocol Stop: 09/30/25 18:14 Last Titration: 09/18/25 20:33 Dose: 13 units/kg/hr, 9.113 mls/hr Cefepime HCl 2 gm/ Sodium (Chloride) 50 mls @ 100 mls/hr IV Q8HR GABE Stop: 09/24/25 15:29 Last Admin: 09/18/25 22:25 Dose: 100 mls/hr Promethazine HCl 12.5 mg/ (Sodium Chloride) 50.5 mls @ 151.5 mls/hr IV Q6HR PRN; Protocol PRN Reason: NAUSEA Stop: 10/18/25 15:54 Last Admin: 09/18/25 22:24 Dose: 151.5 mls/hr Potassium Phosphate (Pot Phos 15 Mmol In Ns 250 Ml) 15 mmol in 250 mls @ 62.5 mls/hr IV X1 ONE Stop: 09/19/25 02:59 Last Admin: 09/18/25 23:17 Dose: 62.5 mls/hr Potassium Phosphate (Pot Phos 15 Mmol In Ns 250 Ml) 15 mmol in 250 mls @ 62.5 mls/hr IV X1 ONE Stop: 09/19/25 06:59 Magnesium Sulfate (Magnesium Sulfate Ivpb) 2 gm in 50 mls @ 10 mls/hr IV X1 ONE Stop: 09/19/25 04:12 Amiodarone HCl/Dextrose (Nexterone Ivpb) 360 mg in 200 mls @ 33.333 mls/hr IV .Q6H ONE Stop: 09/19/25 05:15 Amiodarone HCl/Dextrose (Nexterone Ivpb) 360 mg in 200 mls @ 16.667 mls/hr IV .Q12H GABE Stop: 09/19/25 23:16 Propofol (Diprivan Ivpb) 1,000 mg in 100 mls @ 2.103 mls/hr IV .Q24H PRN; Protocol PRN Reason: PER PROTOCOL Stop: 10/19/25 00:02 Fentanyl Citrate (Sublimaze Inj 2,500 Mcg/250 Ml Bag) 2,500 mcg in 250 mls @ 2.5 mls/hr IV .Q24H PRN; Protocol PRN Reason: PER PROTOCOL Stop: 09/24/25 00:02 Levothyroxine Sodium (Levothyroxine Sodium 125 Mcg Tablet) 125 mcg PO ACBR GABE Stop: 10/18/25 05:59 Last Admin: 09/18/25 05:20 Dose: 125 mcg Lidocaine (Lidocaine 5% 1 Patch) 1 patch TOP UD PRN; Protocol PRN Reason: PAIN Stop: 10/17/25 18:45 Last Admin: 09/18/25 00:06 Dose: 1 patch Pantoprazole Sodium (Pantoprazole Inj 40 Mg Vial) 40 mg IV QDAY GABE Stop: 10/16/25 16:44 Last Admin: 09/18/25 08:07 Dose: 40 mg Rocuronium [place] (Rocuronium Inj 10 Mg/Ml Vial 10 Ml) 100 mg IVP X1 ONE Stop: 09/19/25 00:03 Scopolamine (Scopolamine 1 Mg Tdsy) 1 mg TOP Q3D GABE Stop: 10/17/25 14:59 Last Admin: 09/17/25 15:08 Dose: 1 mg Tramadol HCl (Tramadol Hcl 50 Mg Tablet) 50 mg PO Q6HR PRN PRN Reason: PAIN 4-6 Stop: 09/23/25 13:09 Last Admin: 09/18/25 22:26 Dose: 50 mg Discontinued Medications Hydrocodone Bitart/Acetaminophen (Hydrocodone/Apap 7.5/325 Tablet) 1 tab PO X1 ONE Stop: 09/17/25 09:54 Last Admin: 09/17/25 10:04 Dose: 1 tab Hydrocodone Bitart/Acetaminophen (Hydrocodone/Apap 7.5/325 Tablet) 1 tab PO Q4HR PRN PRN Reason: PAIN Stop: 09/22/25 09:52 Hydrocodone Bitart/Acetaminophen (Hydrocodone/Apap 7.5/325 Tablet) 1 tab PO TID GABE Stop: 09/22/25 13:59 Last Admin: 09/17/25 21:21 Dose: 1 tab Albumin Human (Albumin Human-Kjda 25% Ivpb 25 Gm/100 Ml Btl) 25 gm IV X1 ONE Stop: 09/17/25 01:01 Last Admin: 09/17/25 01:10 Dose: 25 gm Amiodarone HCl (Amiodarone Hcl 200 Mg Tablet) 200 mg PO BID GABE Stop: 10/17/25 13:29 Last Admin: 09/18/25 08:07 Dose: 200 mg Calcium Gluconate (Calcium Gluconate 10% Inj 1 Gm/10 Ml Vial) 1 gm IV X1 ONE Stop: 09/16/25 21:12 Last Admin: 09/16/25 21:52 Dose: 1 gm Epinephrine HCl (Epinephrine Inj 0.1 Mg/Ml Syringe 10ml) 1 mg IVP X1 ONE Stop: 09/16/25 10:41 Last Admin: 09/16/25 10:44 Dose: 1 mg Etomidate (Etomidate Inj 2 Mg/Ml Vial 10 Ml) 20 mg IVP X1 ONE Stop: 09/16/25 10:41 Last Admin: 09/16/25 10:45 Dose: 20 mg Fentanyl Citrate (Fentanyl Cit Inj 50 Mcg/Ml Amp 2ml) 25 mcg IVP X1 ONE Stop: 09/17/25 09:54 Last Admin: 09/17/25 10:04 Dose: 25 mcg Fentanyl Citrate (Fentanyl Cit Inj 50 Mcg/Ml Amp 2ml) 25 mcg IVP Q3H PRN; Protocol PRN Reason: PAIN SCALE 4-10(Mod-Sev Stop: 09/22/25 09:59 Last Admin: 09/17/25 20:30 Dose: 25 mcg Fentanyl Citrate (Fentanyl Cit Inj 50 Mcg/Ml Amp 2ml) 25 mcg IVP Q3H PRN; Protocol PRN Reason: PAIN SCALE 7-10 (Severe Stop: 09/22/25 09:59 Last Admin: 09/18/25 00:02 Dose: 25 mcg Fentanyl Citrate (Fentanyl Cit Inj 50 Mcg/Ml Amp 2ml) 25 mcg IVP X1 ONE Stop: 09/18/25 00:02 Last Admin: 09/18/25 00:20 Dose: 25 mcg Heparin Sodium (Porcine) (Heparin Sod Inj 5000 Unit/Ml Vial) 5,000 unit SC Q12HR GABE Stop: 09/30/25 20:59 Heparin Sodium (Porcine) (Heparin Sod Inj 5000 Unit/Ml Vial) 5,600 unit 80 unit/kg (5600 unit) IV X1 ONE; Protocol Stop: 09/16/25 18:11 Last Admin: 09/16/25 18:33 Dose: 5,600 unit Heparin Sodium (Porcine) (Heparin Sod Inj 5000 Unit/Ml Vial) 2,800 unit IVP X1 ONE Stop: 09/18/25 11:26 Last Admin: 09/18/25 11:57 Dose: 2,800 unit Heparin Sodium (Porcine) (Heparin Sod Inj 5000 Unit/Ml Vial) 2,800 unit 40 unit/kg (2800 unit) IV X1 ONE Stop: 09/18/25 19:57 Last Admin: 09/18/25 20:29 Dose: 2,800 unit Hydromorphone HCl (Hydromorphone Inj 2 Mg/Ml Vial) 0.5 mg IVP Q4HR PRN PRN Reason: PAIN SCALE 4-10(Mod-Sev Stop: 09/22/25 22:59 Hydromorphone HCl (Hydromorphone Inj 2 Mg/Ml Vial) 0.5 mg IVP Q4HR PRN PRN Reason: PAIN SCALE 4-6 (Moderate Stop: 09/22/25 22:59 Epinephrine/Sodium Chloride (Adrenalin/Ns 4 Mg Ivpb) 4 mg in 250 mls @ 14.438 mls/hr IV .[id number] PRN; Protocol PRN Reason: per protocol Stop: 10/16/25 10:51 Last Titration: 09/16/25 16:30 Dose: 0 mcg/kg/min, 0 mls/hr Sodium Chloride (Ns) 1,000 mls @ 999 mls/hr IV .Q1H1M ONE Stop: 09/16/25 11:52 Last Admin: 09/16/25 12:50 Dose: Not Given Amiodarone HCl/Dextrose (Nexterone Ivpb) 360 mg in 200 mls @ 33.333 mls/hr IV .Q6H ONE Stop: 09/16/25 16:51 Last Admin: 09/16/25 11:03 Dose: 33.333 mls/hr Propofol (Diprivan Ivpb) 1,000 mg in 100 mls @ 2.31 mls/hr IV .Q24H PRN; Protocol PRN Reason: Per Protocol Stop: 10/16/25 10:56 Last Titration: 09/16/25 16:00 Dose: 30 mcg/kg/min, 13.86 mls/hr Midazolam HCl (Versed Pf Inj In Ns Premix) 100 mg in 100 mls @ 1 mls/hr IV .Q24H PRN; Protocol PRN Reason: PER PROTOCOL Stop: 09/21/25 11:15 Last Titration: 09/16/25 14:00 Dose: 0 mg/hr, 0 mls/hr Lidocaine HCl/Dextrose (Xylocaine In D5w Ivpb) 1,000 mg in 250 mls @ 15 mls/hr IV .[id number] GABE; Protocol Stop: 10/16/25 11:27 Last Infusion: 09/16/25 21:02 Dose: 0 mls/hr Sodium Chloride (Ns) 1,000 mls @ 999 mls/hr IV .Q1H1M ONE Stop: 09/16/25 12:30 Last Admin: 09/16/25 12:51 Dose: Not Given Azithromycin 500 mg/ Sodium (Chloride) 250 mls @ 250 mls/hr IV X1 ONE Stop: 09/16/25 12:57 Last Admin: 09/16/25 17:16 Dose: Not Given Amiodarone HCl 300 mg/ (Dextrose) 106 mls @ 600 mls/hr IV X1 ONE Stop: 09/16/25 10:50 Last Admin: 09/16/25 12:50 Dose: Not Given Lactated Ringer's (Lactated Ringers) 1,000 mls @ 999 mls/hr IV .Q1H1M ONE Stop: 09/16/25 13:41 Last Infusion: 09/16/25 15:07 Dose: Infused Lactated Ringer's (Lactated Ringers) 1,000 mls @ 999 mls/hr IV .Q1H1M ONE Stop: 09/16/25 13:41 Last Infusion: 09/16/25 15:07 Dose: Infused Magnesium Sulfate (Magnesium Sulfate Ivpb) 2 gm in 50 mls @ 999 mls/hr IV X1 ONE Stop: 09/16/25 11:10 Last Infusion: 09/17/25 07:00 Dose: Infused Azithromycin 500 mg/ Sodium (Chloride) 250 mls @ 250 mls/hr IV QDAY GABE Stop: 09/24/25 08:59 Ceftriaxone Sodium/Dextrose (Rocephin/D5w 1gm Iv Premix) 1 gm in 50 mls @ 100 mls/hr IV QDAY GABE Stop: 09/23/25 13:46 Last Infusion: 09/17/25 07:00 Dose: Infused Fentanyl Citrate (Sublimaze Inj 2,500 Mcg/250 Ml Bag) 2,500 mcg in 250 mls @ 2.5 mls/hr IV .Q24H PRN; Protocol PRN Reason: PER PROTOCOL Stop: 09/21/25 13:46 Last Titration: 09/17/25 09:07 Dose: 0 mcg/hr, 0 mls/hr Propofol (Diprivan Ivpb) 1,000 mg in 100 mls @ 2.31 mls/hr IV .Q24H PRN; Protocol PRN Reason: Per Protocol Stop: 10/16/25 10:56 Last Titration: 09/17/25 02:00 Dose: 20 mcg/kg/min, 9.24 mls/hr Doxycycline Hyclate 100 mg/ (Sodium Chloride) 100 mls @ 100 mls/hr IV BID [facility] Stop: 09/23/25 20:59 Norepinephrine/Dextrose (Levophed In D5w 8mg/250ml) 8 mg in 250 mls @ 6.572 mls/hr IV .Q24H PRN; Protocol PRN Reason: PER PROTOCOL Stop: 10/16/25 14:42 Last Titration: 09/17/25 09:00 Dose: 0 mcg/kg/min, 0 mls/hr Potassium Chloride (Kcl Ivpb) 10 meq in 100 mls @ 100 mls/hr IV Q1H [facility] Stop: 09/16/25 19:36 Last Infusion: 09/17/25 07:00 Dose: Infused Amiodarone HCl/Dextrose (Nexterone Ivpb) 360 mg in 200 mls @ 33.333 mls/hr IV .Q6H ONE Stop: 09/16/25 23:09 Last Admin: 09/16/25 17:17 Dose: 33.333 mls/hr Vasopressin/Sodium Chloride (Vasostrict/Ns Ivpb) 20 unit in 100 mls @ 9 mls/hr IV .Q11H7M PRN; Protocol PRN Reason: PER PROTOCOL Stop: 10/16/25 17:51 Last Titration: 09/17/25 10:17 Dose: 0 unit/min, 0 mls/hr Ceftriaxone Sodium 2 gm/ (Sodium Chloride) 50 mls @ 100 mls/hr IV QDAY [facility] Stop: 09/23/25 18:18 Last Infusion: 09/17/25 07:00 Dose: Infused Propofol (Diprivan Ivpb) 1,000 mg in 100 mls @ 2.103 mls/hr IV .Q24H PRN; Protocol PRN Reason: Per Protocol Stop: 10/16/25 10:56 Last Titration: 09/17/25 09:07 Dose: 0 mcg/kg/min, 0 mls/hr Vancomycin HCl/Dextrose (Vancomycin/D5w 1500 Mg Ivpb) 300 mls @ 120 mls/hr IV X1 ONE Stop: 09/16/25 22:14 Last Infusion: 09/17/25 07:00 Dose: Infused Cefepime HCl 2 gm/ Sodium (Chloride) 50 mls @ 100 mls/hr IV Q8HR [facility] Stop: 09/23/25 21:59 Last Admin: 09/17/25 19:31 Dose: Not Given Albumin Human (Albuminex 25% Ivpb) 25 gm in 100 mls @ 100 mls/hr IV QDAY GABE Stop: 09/19/25 20:49 Last Infusion: 09/18/25 09:06 Dose: Infused Amiodarone HCl/Dextrose (Nexterone Ivpb) 360 mg in 200 mls @ 20.8 mls/hr IV .Q9H37M ONE Stop: 09/17/25 02:46 Last Admin: 09/18/25 07:18 Dose: Not Given Sodium Chloride (Ns) 1,000 mls @ 999 mls/hr IV .Q1H1M ONE Stop: 09/17/25 00:44 Last Infusion: 09/17/25 07:00 Dose: Infused Amiodarone HCl/Dextrose (Nexterone Ivpb) 360 mg in 200 mls @ 16.667 mls/hr IV .Q12H [facility] Stop: 09/18/25 00:55 Last Admin: 09/18/25 07:17 Dose: Not Given Amiodarone HCl/Dextrose (Nexterone Ivpb) 360 mg in 200 mls @ 16.667 mls/hr IV .Q12H [facility] Stop: 09/17/25 21:59 Last Admin: 09/17/25 19:31 Dose: Not Given Sodium Chloride (Ns) 1,000 mls @ 250 mls/hr IV .Q4H ONE Stop: 09/17/25 07:02 Last Admin: 09/17/25 03:05 Dose: 250 mls/hr Vancomycin/Sodium Chloride (Vancomycin/Ns 750 Mg Ivpb) 750 mg in 150 mls @ 120 mls/hr IV Q12H GABE; Protocol Stop: 09/24/25 09:59 Last Admin: 09/17/25 21:20 Dose: 120 mls/hr Fentanyl Citrate (Sublimaze Inj 2,500 Mcg/250 Ml Bag) 2,500 mcg in 250 mls @ 2.5 mls/hr IV .Q24H PRN; Protocol PRN Reason: PER PROTOCOL Stop: 09/21/25 13:46 Propofol (Diprivan Ivpb) 1,000 mg in 100 mls @ 2.31 mls/hr IV .Q24H PRN; Protocol PRN Reason: Per Protocol Stop: 10/16/25 10:56 Potassium Phosphate (Pot Phos 15 Mmol In Ns 250 Ml) 15 mmol in 250 mls @ 62.5 mls/hr IV X1 ONE Stop: 09/18/25 09:07 Last Infusion: 09/18/25 09:20 Dose: Infused Magnesium Sulfate (Magnesium Sulfate Ivpb) 2 gm in 50 mls @ 25 mls/hr IV X1 ONE Stop: 09/18/25 11:41 Last Admin: 09/18/25 09:48 Dose: 25 mls/hr Potassium Phosphate (Pot Phos 15 Mmol In Ns 250 Ml) 15 mmol in 250 mls @ 62.5 mls/hr IV X1 ONE Stop: 09/19/25 02:52 Potassium Phosphate (Pot Phos 15 Mmol In Ns 250 Ml) 15 mmol in 250 mls @ 62.5 mls/hr IV Q4H GABE Stop: 09/19/25 06:54 Amiodarone HCl/Dextrose (Nexterone Ivpb) 150 mg in 100 mls @ 600 mls/hr IV .Q10M ONE Stop: 09/18/25 23:25 Levothyroxine Sodium (Levothyroxine Inj 100 Mcg Vial) 88 mcg IV DAILY GABE Stop: 10/17/25 08:59 Last Admin: 09/17/25 08:33 Dose: 88 mcg Lidocaine HCl (Lidocaine Inj 2% 20 Mg/Ml Syringe 5 Ml) 100 mg IV X1 ONE Stop: 09/16/25 11:31 Last Admin: 09/16/25 11:47 Dose: 100 mg Lorazepam (Lorazepam 2 Mg/Ml Vial) 0.5 mg IVP X1 ONE Stop: 09/18/25 06:16 Lorazepam (Lorazepam 0.5 Mg Tablet) 0.5 mg PO X1 ONE Stop: 09/18/25 10:25 Last Admin: 09/18/25 10:34 Dose: 0.5 mg Metoprolol Succinate (Metoprolol Succinate Xl 25 Mg Tabcr) 12.5 mg PO QDAY [facility] Stop: 10/18/25 09:44 Last Admin: 09/18/25 09:48 Dose: 12.5 mg Midazolam HCl (Midazolam Inj 1 Mg/Ml Vial 2 Ml) 5 mg IVP X1 ONE Stop: 09/16/25 11:17 Last Admin: 09/16/25 11:23 Dose: 5 mg Midazolam HCl (Midazolam Inj 1 Mg/Ml Vial 2 Ml) 2 mg IVP X1 ONE Stop: 09/18/25 04:23 Last Admin: 09/18/25 07:16 Dose: Not Given Ondansetron HCl (Ondansetron Inj 2 Mg/Ml Inj 2 Ml) 4 mg IVP X1 ONE; Protocol Stop: 09/16/25 10:53 Last Admin: 09/16/25 12:50 Dose: Not Given Pharmacy Consult (Vancomycin Pharmacy To Dose 1 Each Each) 1 each IV QDAY [facility] Stop: 10/17/25 08:59 Last Admin: 09/18/25 09:29 Dose: Not Given Protamine Sulfate (Protamine Sulfate 10 Mg/Ml 5ml Vial) 20 mg IV X1 ONE Stop: 09/17/25 16:04 Last Admin: 09/17/25 16:15 Dose: 20 mg Sodium Bicarbonate (Sodium Bicarb Inj 8.4% Syr 50 Ml Syringe) 50 ml IV X1 ONE Stop: 09/16/25 10:51 Last Admin: 09/16/25 10:49 Dose: 50 ml Sodium Bicarbonate (Sodium Bicarb Inj 8.4% Syr 50 Ml Syringe) 50 ml IV X1 ONE Stop: 09/16/25 10:49 Last Admin: 09/16/25 10:49 Dose: 50 ml Sodium Chloride (Sodium Chloride Rt 10% 15 Ml Nebu) 5 ml INH X1 ONE Stop: 09/16/25 11:07 Last Admin: 09/16/25 20:14 Dose: Not Given Sodium Chloride (Sodium Chloride Rt 10% 15 Ml Nebu) 5 ml INH X1 ONE Stop: 09/16/25 13:47 Last Admin: 09/16/25 20:14 Dose: Not Given Sodium Chloride (Sodium Chloride Rt 10% 15 Ml Nebu) 5 ml INH X1 ONE Stop: 09/16/25 19:56 Last Admin: 09/18/25 06:59 Dose: Not Given Succinylcholine Chloride (Succinylcholine Inj 20 Mg/Ml Vial 10 Ml) 100 mg IV X1 ONE Stop: 09/16/25 10:41 Last Admin: 09/16/25 10:45 Dose: 100 mg Assessment & Plan Plan This 59 y/o F with PMHx significant for multiple myeloma on chemotherapy, anemia, Basia's upgraded to icu on 09/18 for post cardiac arrest due to VT/VF post CPR and shock and ARDS with Pneumonia. Neuro: #Sedation Patient is sedated with propofol and fentanyl with RAAS -4 Patient required sedation due to intubation and mechanically ventilated. She is post cardiac arrest due to V. tach V-fib post CPR and shock. -Will titrate down sedation as appropriate Cardio: #V-fib/V. tach #Cardiac arrest post CPR and Shock DDx: Medication side effect, acidosis On 09/16, patient slumped over and passed out, received AED shock, +3 shocks from EMS en route to hospital. In ED patient underwent multiple rounds of V- fib/V. tach requiring multiple shocks. Patient taken for urgent cardiac catheterization, revealed no obstructions. Per chart review, patient taken multiple medications associated with arrhythmias:Bactrim, Zofran. EKG revealed prolonged QTc: 479 Patient received amiodarone drip and lidocaine drip which was discontinued later. on 09/18 Rapid response changed to CODE BLUE called at 23:48 as patient became unresponsive with no pulse. Cardiac Pads were placed and CPR was started immediately along with Ambu bag. threat monitoring analyst revealed V. tach and V-fib at 23:49. Patient received 200 J shock and CPR was resumed. She converted back to sinus rhythm at 23:52 and Patient received 1 amp of epinephrine, 1 amp of bicarb and seun gluconate along with 2g magnesium sulphate which was rushed in 10 mins.EKG at 22:02 showed sinus rhythm with QTc 474. Repeat EKG at 22:55 showed sinus rhythm with QTc 483. Troponin I 0.371 - Amiodarone per protocol with heparin drip - Keep Mag above 2 and K above 4 - Repleting Phosp - Cardiology consulted, appreciate recommendations - Monitor electrolytes, replete as needed - Avoid QTc prolonging agents - Promethazine and tramadol increase QTC both discontinued #Septic shock DDx ARDS Pneumonia During RR she was tacycardiac and tacypnic. Met 2/4 SIRs criteria. qSOFA score 2 BP kept dropping with sedation and high PEEP. -Patient has a decreased UO around 20 /h only -Cont with levophed and vasopressin -Hydrocortisone 100 mg x1 and 50 mg q6hr -Continue antibiotics -Follow with repeat BCx -Low tidal volume and high PEEP settings. reducing PEEP as blood gases showed improvement in saturation and to help inc in BP -Repeat Blood gases and adjust vent settings Pulm: #AHRF due to Pneumonia with ARDS -Intubated and mech ventilation Patient was intubated due to inability protect airway in setting of V-fib/V. tach. CXR showed extensive ARDS pattern on 09/16 CT chest/abdomen/pelvis revealed extensive bilateral pneumonia. Gram stain of sputum showed rare gram positive cocci. She was initially Extubated 09/17, on HFNC to ID but got intubated during cardiac arrest on 09/18 at night During RR she was tacycardiac and tacypnic. Met 2/4 SIRs criteria. qSOFA score 2 Pao2/Fio2 : 60 ABG post intubation pH 7.21 Pco2 50 Po2 60 Fio2 100 Repeat ABGs shows pH 7.25 pco2 49 po2 154 - On cefepime 09/17- - MV: VT 400 , PEEP 14 , RR 22 FIo2 100 % - Follow with blood gases - Repeat Sputum culture pending #Multiple pulmonary emboli CT angio revealed multiple pulmonary emboli, right sided. Based on imaging, not massive PE, no significant right ventricular strain. Patient showed improvement. ICU team spoke with Dr. Barrera, [facility] oncologist managing patient, advised transitioning to Eliquis would be appropriate with patient's chemo regiment. -Continue Heparin drip protocol - Telemetry monitoring -Discuss with oncology choice of DOAC prior to transitioning GI: #Hepatitis DDx: Sepsis, medication side effect elevated liver enzymes.Total bilirubin 1.3 Unlikely shock liver given normal kidney function. LFTs improving. -Monitor LFTs - Avoid hepatotoxins - Judicious use of hepatically metabolized medications Renal: #BERNADINE #Decreased Urine output -in the setting of septic shock -Patient has a dec urine output since she came in ICU. 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 -Levothyroxine 125 mcg PO daily (home med) Heme: #Acute anemia,resolved DDx: Blood loss, dilutional Patient hemoglobin decreased initially and rec 1 unit PRBC a day ago - Goal of hgb above 7 - Continue to monitor. #leukocytosis -in the setting of sepsis and cardiac arrest wbc 11.9 -Cont to trend and BCx repeated ID: #Septic shock #Severe ARDS Pneumonia Patient went up on sedation and req pressors During RR she was tacycardiac and tacypnic. Met 2/4 SIRs criteria. qSOFA score 2 Significant pneumonia seen on imaging - Cont Cefepime - Vent settings adjused with low Tidal volume and high PEEP and antibiotics - Repeat sputum cx pending - Treat as above ICU Health maintenance: Mechanical ventilation: Yes Sedation: Yes, Prop and fent Diet:NPO, OG Tube DVT ppx: Heparin drip GI ppx: Protonix Yung: YES IV lines: PIV, Port A cath Central line: No. Arterial line: No. Code status: Full code Patient was seen and discussed with attending Physician, Dr Anay Gardner MD PGY3 Attending Provider Attestation/Addendum After examination of the patient and review of the clinical data I feel that this patient needs admission to the hospital for further treatment/evaluation. TOTAL CC TIME: 75 MIN TOTAL TIME: 75 Minutes of direct medical management and planning of care. I Gabriela Cueva MD, attest that I was physically present for holguin portions of evaluation, and examined patient, labs and imagings and plan of care were discussed with IM residents team, and I agree with the findings and plans documented above.
[2025-09-19] MEDS: AMIODARONE 360 MG IVPB 360 MG/200 ML BAG 33.333 MG IV (00:12)
[2025-09-19] MEDS: PROPOFOL 1,000 MG IVPB 1,000 MG/100 ML VIAL 2.103 MG IV (00:14)
[2025-09-19] MEDS: fentaNYL 2,500 MCG/250 ML BAG 2,500 MCG/250 ML BAG IV (00:16)
[2025-09-19] MEDS: fentaNYL 2,500 MCG/250 ML BAG 2,500 MCG/250 ML BAG 7.5 MCG IV (01:00)
[2025-09-19] MEDS: PROPOFOL 1,000 MG IVPB 1,000 MG/100 ML VIAL 4.206 MG IV (01:00)
--- NOTE | 2025-09-19 01:04 | ESOP_ITS ---
PROCEDURES: Procedure Date / Time 09/19/25 0104 Intubation Indication(s): acute Resp Failure and inability to protect airway Informed consent obtained: implied and procedure done urgently Time out done, and the following verified: correct patient, side and site, procedure, patient position and implants and/or equipment Sedative: etomidate (20) Paralytic: rocuronium (100) Laryngoscope: fiber optic video scope ET tube size: 7.5 Tube secured depth (cm): 22 Tube secured location: teeth Tube placement confirmation: visualized tube passing through cords, equal breath sounds bilaterally, no breath sounds over epigastrium and confirmation by capnom etry Patient tolerated procedure: well Intubation complications: none Additional comments: Endotracheal intubation The patient required endotracheal intubation. The patient was given 20 mg Etomidate?and 100 mg Rocuronium. Once the patient was adequately sedated and paralyzed, a?Mac 4?laryngoscope was used to directly visualize the cords. Using this direct visualization, a?7.5?endotracheal tube was then passed easily through the cords.This tube was inserted to?22 cm?at the lip.There was excellent color change on the end-tidal CO2 monitor. The patient was easily and adequately ventilated. There were appreciable breath sounds bilaterally with no breath sounds heard over the epigastrium. The tube was secured in the standard fashion. The patient tolerated this procedure well and there were no complications. Post-intubation chest x-ray demonstrates endotracheal tube placement at right position. Proceedure performed under supervision of ED Physician Dr Tasha Gardner MD PGY3
[2025-09-19 01:13] LABS: Base Excess -8 (-3-3); HCO3 20 mEq/L (20-26); Inspired Oxygen, FIO2 100 %; O2 Saturation 87 % (91-98); PCO2 50 mmHg (32.0-48.0); PO2 60 mmHg (83-108); pH, Arterial 7.21 (7.35-7.45)
[2025-09-19 01:15] LABS: Puncture Site Right Radial
[2025-09-19 01:16] LABS: Allen Test Performed/OK
--- NOTE | 2025-09-19 01:25 | PC.RT ---
RR increased to 22 per abg results per DR. lund
[2025-09-19] MEDS: Norepinephrine/D5W 8mg/250ml 8 MG/250 ML BAG 6.572 MG IV (02:07)
[2025-09-19 02:16] LABS: Base Excess -6 (-3-3); HCO3 21 mEq/L (20-26); Inspired Oxygen, FIO2 21 %; O2 Saturation 99 % (91-98); PCO2 49 mmHg (32.0-48.0); PO2 154 mmHg (83-108); pH, Arterial 7.25 (7.35-7.45)
[2025-09-19 02:17] LABS: Allen Test Performed/OK; Puncture Site Left Radial
[2025-09-19] MEDS: VASOPRESSIN IN NS IVPB 20 UNIT/100 ML BAG 9 UNIT IV (02:35)
[2025-09-19] MEDS: POT PHOS 15 mMol in NS 250 ML 15 MMOL/250 ML BAG 62.5 MMOL IV ×2 (02:55→08:50)
[2025-09-19] MEDS: HYDROCORTISONE SOD SUCC INJ 100 MG 2 ML VIAL IV (02:55)
[2025-09-19 03:05] LABS: Basophils # (Auto) 0.1 Thou/mm3 (0.0-0.2); Basophils % (Auto) 1 % (0-2.5); Eosinophils # (Auto) 0.0 Thou/mm3 (0.0-0.5); Eosinophils % (Auto) 0 % (0-10); Hematocrit 28.5 % (36.0-46.0); Hemoglobin 9.3 g/dL (12.0-16.0); Immature Granulocytes Auto 0.26 Thou/mm3 (0.00-0.00); Lymphocytes # (Auto) 0.5 Thou/mm3 (1.0-4.8); Lymphocytes % (Auto) 4 % (10-50); Mean Corpuscular HGB Conc 32.6 g/dl (31.0-37.0); Mean Corpuscular Hemoglobin 32.7 pg (25.0-35.0); Mean Corpuscular Volume 100 fL (80-100); Monocytes # (Auto) 1.3 Thou/mm3 (0.0-0.8); Monocytes % (Auto) 11 % (0-12); Neutrophils # (Auto) 9.7 Thou/mm3 (1.8-7.7); Neutrophils % (Auto) 82 % (37-80); Nucleated Red Blood Cell # 0.00 Thou/mm3 (0.00-0.00); Nucleated Red Blood Cell % 0 /100 WBC (0); Platelet Count 149 Thou/mm3 (140-440); RDW Standard Deviation 59.4 fL (36.4-46.3); Red Blood Count 2.84 Miln/mm3 (4.00-5.20); White Blood Count 11.9 Thou/mm3 (3.6-11.0)
[2025-09-19 03:13] LABS: Partial Thromboplastin Time 53.3 Seconds (22.0-36.0)
[2025-09-19 03:16] LABS: Alanine Aminotransferase 127 U/L (10-49); Albumin, Serum 4.1 gm/dL (3.4-4.8); Albumin/Globulin Ratio 3.4 (1.2-2.2); Alkaline Phosphatase 135 U/L (46-116); Anion Gap 8 (7-16); Aspartate Amino Transferase 106 U/L (0-34); BUN/Creatinine Ratio 16 Ratio (12-20); Bilirubin,Total 1.0 mg/dL (0.3-1.2); Blood Urea Nitrogen 16 mg/dL (9-23); Calcium 9.1 mg/dL (8.3-10.6); Calcium (Corrected) 9.1 mg/dL (8.5-10.1); Carbon Dioxide 24.4 mMol/L (20.0-31.0); Chloride 109 mMol/L (98-107); Creatinine (Component) 1.0 mg/dL (0.6-1.3); Estimated Creatinine Clearance 59.6 mL/min (>60); Globulin 1.2 gm/dL (2.3-3.5); Glucose 188 mg/dL (74-106); Magnesium 2.7 mg/dL (1.6-2.6); Osmolality,Calculated 287 (275-295); Phosphorous 5.2 mg/dL (2.4-5.1); Potassium 4.5 mMol/L (3.4-5.1); Sodium 141 mMol/L (136-145); Total Protein 5.3 gm/dL (5.7-8.2); eGFR > 60 See Note
[2025-09-19] MEDS: Norepinephrine/D5W 8mg/250ml 8 MG/250 ML BAG 65.719 MG IV (03:43)
--- NOTE | 2025-09-19 03:50 | PC.RT ---
titrate bpeep to [address] wasiq order RN made aware
[2025-09-19 05:25] LABS: Base Excess -6 (-3-3); HCO3 20 mEq/L (20-26); Inspired Oxygen, FIO2 21 %; O2 Saturation 100 % (91-98); PCO2 39 mmHg (32.0-48.0); PO2 199 mmHg (83-108); pH, Arterial 7.31 (7.35-7.45)
[2025-09-19 05:27] LABS: Allen Test Performed/OK; Puncture Site Right Radial
[2025-09-19] MEDS: Norepinephrine/NS 16mg/250ml 16 MG/250 ML BAG 32.859 MG IV (06:28)
[2025-09-19] MEDS: AMIODARONE 360 MG IVPB 360 MG/200 ML BAG 16.667 MG IV (06:29)
[2025-09-19] MEDS: LEVOTHYROXINE SODIUM 125 MCG TABLET PO (06:30)
[2025-09-19] MEDS: CEFEPIME INJ 2 GM in SODIUM CHLORIDE 0.9% (Popper) 50 ML IV ×3 (06:32→20:57)
[2025-09-19] MEDS: Heparin/D5w 25K 250 ML Ivpb 25,000 UNIT/250 ML BAG 9.113 UNIT IV (06:34)
--- NOTE | 2025-09-19 07:16 | EKG_ITS ---
[facility] Test Date: 2025-09-19 Pat Name: EDER CORDOVA [facility] Supervisor [employer]: TAMMY : 1965 Requested By: Lee Brown Order Number: [id number] Reading MD: Lee Brown Measurements Intervals [place] Rate: 69 P: 74 [place]: 142 QRS: 83 QRSD: 102 T: 90 QT: 474 QTc: 511 Interpretive Statements SINUS RHYTHM MODERATE T-WAVE ABNORMALITY, CONSIDER ANTEROLATERAL ISCHEMIA Compared to ECG 09/18/2025 22:55:13 No significant changes /store/S0/[id number]/[id number].pdf
--- NOTE | 2025-09-19 07:49 | ESPR_ITS ---
<Statement entered by Matheus Braxton MD - 09/19/25 17:38> I personally examined evaluate the patient intensive care unit patient's critically ill again had episode of ventricular fibrillation polymorphic VT followed by ventricular fibrillation requiring defibrillation intubation successfully extubated magnesium level is about 2.6. Patient was given IV amiodarone today QT interval appears to be 440 computer reading is 470 QTc 500 but appears to be a lot better than yesterday I am quite concerned about recurrent VT VF with polymorphic VT with normal coronary arteries and normal echo. Reviewed all the medication the patient was could be that one of the oncology medication could be contributing factor but appears to be multifactorial in nature but quite concerned patient has recurrent episodes of cardiac arrest with VF may require ICD implantation prior to discharge because underlying pneumonia infection would like to avoid until later on in the hospitalization discussed with patient and about it. For now we will stop amiodarone since it could also prolong the QT interval and avoid any antiarrhythmic drugs if there is an antiemetic drug there is not going to prolong QT interval we will discuss whether we can obtain this drug which is similar to Zofran family but has less effect on QT intervals. Patient did receive promethazine and tramadol yesterday but today she is not receiving any no nausea. I spent more than 50 minutes in intensive care and going over all the questions concerns with the family and also evaluating and managing the patient. Documentation for date of: 09/19/25 Subjective Subjective Interval history: Patient was seen and examined at bedside; patient had code blue called at 23:48 on 09/18/25, with vtach and vfib seen. Shock was delivered and patient returned to sinus rhythm; intubated and moved back to ICU. Details in event note. Patient was intubated and taken to ICU. Per family, her mother had a pacemaker. Patient was placed on daratumumab (Darzalex) and Lenalidomide (revlemid) regimen for MM in 06/2025; Darzalex associated with small but clinically insignificant QT prolongation (PMID: 96068686), and lenalidomide has also been associated with QT prolongation (PMID: 55057834). In addition, patient received regimen once a week for first 2 weeks, instead of once a month per plan. Patient also had additional less severe event Saturday prior to first event that terminated itself. Patient extubated by ICU at 12:50. Exam Vital Signs Temp Pulse Resp BP Pulse Ox O2 Del Method O2 Flow Rate 98.8 F 64 25 H 126/75 100 Mechanical Ventilation 5 09/19/25 00:00 09/19/25 07:00 09/19/25 07:00 09/19/25 07:00 09/19/25 07:00 09/19/25 02:55 09/19/25 00:00 FiO2 80 09/19/25 06:05 Narrative Exam General: post-intubation; A&O x3 Eyes: PERRL, EOMI. Anicteric, vision grossly intact. Ears: No ear pain, no ear discharge, Hearing grossly intact. Nose: No nasal discharge. Mouth/Throat: Moist mucous membranes, no redness, no lesions. Neck: Neck supple, non-tender, no cervical lymphadenopathy. Lungs: Clear RAVI to auscultation and percussion, No accessory muscle use. Cardio: Normal S1/S2, regular rhythm, no murmurs, no JVD or carotid bruits. Abdomen: Soft, non-tender, no palpable masses, peristalsis present, no guarding or rebound. Extremities: Symmetrical, no significant deformities, no peripheral edema , non-tender, peripheral pulses present. Skin: No rashes, no lesions, warm to touch. Neuro: No focal neurological deficits. Psych: Cooperative, appropriate mood and effect. Objective Labs 09/19/25 02:31 09/19/25 07:20 Labs: Laboratory Results - last 24 hr 09/17/25 09/18/25 09/18/25 10:11 09:07 10:00 WBC RBC Hgb 7.0 L Hct 20.7 L* MCV MCH MCHC RDW Std Deviation Plt Count Neut % (Auto) Lymph % (Auto) [place] % (Auto) Eos % (Auto) Baso % (Auto) Neut # (Auto) Lymph # (Auto) [place] # (Auto) Eos # (Auto) Baso # (Auto) Immature Gran # (Auto) Absolute Nucleated RBC Immature Gran % Nucleated RBC % APTT 44.9 H D Puncture Site ABG pH ABG pCO2 ABG pO2 ABG HCO3 ABG O2 Saturation ABG Base Excess VBG pH VBG pCO2 VBG pO2 VBG O2 Sat (Chan) VBG Base Excess FiO2 Sodium Potassium Chloride Carbon Dioxide Anion Gap BUN Creatinine Estim Creat Clear Calc eGFR BUN/Creatinine Ratio Glucose Calculated Osmolality Lactic Acid Calcium Corrected Calcium Phosphorus Magnesium Total Bilirubin AST ALT Alkaline Phosphatase Troponin I Total Protein Albumin Globulin Albumin/Globulin Ratio Vancomycin Trough 10.0 Blood Type A Positive Antibody Screen POSITIVE Antibody Identification Inconclusive Crossmatch See Detail Blood Bank Wristband ID Yes 09/18/25 09/18/25 09/18/25 18:05 20:47 23:05 WBC 8.5 RBC 2.55 L Hgb 8.2 L 8.4 L Hct 24.9 L 25.2 L MCV 99 MCH 32.9 MCHC 33.3 RDW Std Deviation 57.4 H Plt Count 110 L Neut % (Auto) 77 Lymph % (Auto) 11 [place] % (Auto) 11 Eos % (Auto) 0 Baso % (Auto) 1 Neut # (Auto) 6.5 Lymph # (Auto) 1.0 [place] # (Auto) 0.9 H Eos # (Auto) 0.0 Baso # (Auto) 0.1 Immature Gran # (Auto) 0.06 H Absolute Nucleated RBC 0.00 Immature Gran % 1 H Nucleated RBC % 0 APTT 45.7 H Puncture Site ABG pH ABG pCO2 ABG pO2 ABG HCO3 ABG O2 Saturation ABG Base Excess VBG pH 7.42 VBG pCO2 32 L VBG pO2 128 H VBG O2 Sat (Chan) 100 H VBG Base Excess -4 L FiO2 Sodium 139 138 Potassium 4.0 3.9 Chloride 110 H 110 H Carbon Dioxide 18.6 L 19.3 L Anion Gap 10 9 BUN 12 9 Creatinine 0.7 0.7 Estim Creat Clear Calc 85.1 85.1 eGFR > 60 > 60 BUN/Creatinine Ratio 17 13 Glucose 120 H 121 H Calculated Osmolality 278 275 Lactic Acid 0.9 Calcium 8.1 L 8.4 Corrected Calcium 8.4 L Phosphorus 1.5 L 1.4 L Magnesium 2.6 2.5 Total Bilirubin 1.3 H AST 76 H ALT 112 H Alkaline Phosphatase 115 Troponin I 0.371 H* D Total Protein 5.7 Albumin 4.1 Globulin 1.6 L Albumin/Globulin Ratio 2.6 H Vancomycin Trough Blood Type Antibody Screen Antibody Identification Crossmatch Blood Bank Wristband ID 09/19/25 09/19/25 09/19/25 00:51 02:09 02:31 WBC 11.9 H RBC 2.84 L Hgb 9.3 L Hct 28.5 L MCV 100 MCH 32.7 MCHC 32.6 RDW Std Deviation 59.4 H Plt Count 149 D Neut % (Auto) 82 H Lymph % (Auto) [address] [place] % (Auto) 11 Eos % (Auto) 0 Baso % (Auto) 1 Neut # (Auto) 9.7 H Lymph # (Auto) 0.[address] [place] # (Auto) 1.3 H Eos # (Auto) 0.0 Baso # (Auto) 0.1 Immature Gran # (Auto) 0.26 H Absolute Nucleated RBC 0.00 Immature Gran % 2 H Nucleated RBC % 0 APTT 53.3 H Puncture Site Right Radial Left Radial ABG pH 7.21 L D 7.25 L ABG pCO2 50 H 49 H ABG pO2 60 L D 154 H D ABG HCO3 20 21 ABG O2 Saturation 87 L 99 H ABG Base Excess -8 L -6 L VBG pH VBG pCO2 VBG pO2 VBG O2 Sat (Chan) VBG Base Excess FiO2 100 21 Sodium 141 Potassium 4.5 D Chloride 109 H Carbon Dioxide 24.4 Anion Gap 8 BUN 16 Creatinine 1.0 Estim Creat Clear Calc 59.6 L eGFR > 60 BUN/Creatinine Ratio 16 Glucose 188 H D Calculated Osmolality 287 Lactic Acid Calcium 9.1 Corrected Calcium 9.1 Phosphorus 5.2 H Magnesium 2.7 H Total Bilirubin 1.0 AST 106 H ALT 127 H Alkaline Phosphatase 135 H D Troponin I Total Protein 5.3 L Albumin 4.1 Globulin 1.2 L Albumin/Globulin Ratio 3.4 H Vancomycin Trough Blood Type Antibody Screen Antibody Identification Crossmatch Blood Bank Wristband ID 09/19/25 05:17 WBC RBC Hgb Hct MCV MCH MCHC RDW Std Deviation Plt Count Neut % (Auto) Lymph % (Auto) [place] % (Auto) Eos % (Auto) Baso % (Auto) Neut # (Auto) Lymph # (Auto) [place] # (Auto) Eos # (Auto) Baso # (Auto) Immature Gran # (Auto) Absolute Nucleated RBC Immature Gran % Nucleated RBC % APTT Puncture Site Right Radial ABG pH 7.31 L ABG pCO2 39 D ABG pO2 199 H D ABG HCO3 20 ABG O2 Saturation 100 H ABG Base Excess -6 L VBG pH VBG pCO2 VBG pO2 VBG O2 Sat (Chan) VBG Base Excess FiO2 21 Sodium Potassium Chloride Carbon Dioxide Anion Gap BUN Creatinine Estim Creat Clear Calc eGFR BUN/Creatinine Ratio Glucose Calculated Osmolality Lactic Acid Calcium Corrected Calcium Phosphorus Magnesium Total Bilirubin AST ALT Alkaline Phosphatase Troponin I Total Protein Albumin Globulin Albumin/Globulin Ratio Vancomycin Trough Blood Type Antibody Screen Antibody Identification Crossmatch Blood Bank Wristband ID ABG Interpretation ABG results: 09/16/25 09/17/25 09/18/25 18:56 04:20 23:05 ABG pH 7.38 7.35 ABG pCO2 43 43 ABG pO2 353 H 171 H D ABG HCO3 25 24 ABG O2 Saturation 99 H 100 H ABG Base Excess 0 -2 VBG pH 7.42 VBG pCO2 32 L VBG pO2 128 H VBG Base Excess -4 L 09/19/25 09/19/25 09/19/25 00:51 02:09 05:17 ABG pH 7.21 L D 7.25 L 7.31 L ABG pCO2 50 H 49 H 39 D ABG pO2 60 L D 154 H D 199 H D ABG HCO3 20 21 20 ABG O2 Saturation 87 L 99 H 100 H ABG Base Excess -8 L -6 L -6 L VBG pH VBG pCO2 VBG pO2 VBG Base Excess Quality Measures Quality Measures VTE therapy (Heparin drip ) Assessment & Plan Assessment Current Active Medications: Generic Name Dose Route Start Last Admin Trade Name Freq PRN Reason Stop Dose Admin Acetaminophen 500 mg 09/18/25 13:11 09/18/25 20:28 Acetaminophen 500 Mg Tablet PO 10/18/25 13:10 500 mg Q6HR PRN Administration PAIN 1-3 Hydrocortisone Sodium Succinate 50 mg 09/19/25 02:35 09/19/25 06:31 Hydrocortisone Sod Succ Inj 100 Mg 2 Ml Vial IV 10/19/25 02:34 Not Given Q6HR [facility] Hydromorphone HCl 0.5 mg 09/18/25 13:13 Hydromorphone Inj 2 Mg/Ml Vial IVP 09/22/25 22:59 Q4HR PRN PAIN SCALE 7-10 Heparin Sodium/Dextrose 25,000 unit in 250 mls @ 12.618 mls/hr 09/16/25 18:15 09/19/25 06:34 Heparin In D5w Ivpb IV 09/30/25 18:14 13 units/kg/hr .[id number] GABE 9.113 mls/hr Protocol Administration 18 UNITS/KG/HR Cefepime HCl 2 gm/ Sodium 50 mls @ 100 mls/hr 09/17/25 15:30 09/19/25 06:32 Chloride IV 09/24/25 15:29 100 mls/hr Q8HR GABE Administration Amiodarone HCl/Dextrose 360 mg in 200 mls @ 16.667 mls/hr 09/18/25 23:17 09/19/25 06:29 Nexterone Ivpb IV 09/19/25 23:16 16.667 mls/hr .Q12H GABE Administration Fentanyl Citrate 2,500 mcg in 250 mls @ 2.5 mls/hr 09/19/25 00:57 09/19/25 06:00 Sublimaze Inj 2,500 Mcg/250 Ml Bag IV 09/24/25 00:02 225 mcg/hr .Q24H PRN 22.5 mls/hr PER PROTOCOL Titration Protocol 25 MCG/HR Propofol 1,000 mg in 100 mls @ 2.103 mls/hr 09/19/25 00:57 09/19/25 06:00 Diprivan Ivpb IV 10/19/25 00:02 10 mcg/kg/min .Q24H PRN 4.206 mls/hr PER PROTOCOL Titration Protocol 5 MCG/KG/MIN Potassium Phosphate 15 mmol in 250 mls @ 62.5 mls/hr 09/19/25 06:30 Pot Phos 15 Mmol In Ns 250 Ml IV 09/19/25 10:29 X1 ONE Vasopressin/Sodium Chloride 20 unit in 100 mls @ 9 mls/hr 09/19/25 02:36 09/19/25 02:35 Vasostrict/Ns Ivpb IV 10/19/25 02:35 0.03 unit/min .Q11H7M PRN 9 mls/hr PER PROTOCOL Administration Protocol 0.03 UNIT/MIN Norepinephrine Bitartrate 16 mg in 250 mls @ 3.286 mls/hr 09/19/25 03:32 09/19/25 06:28 Levophed In Ns 16mg/250ml IV 10/19/25 03:31 0.5 mcg/kg/min .Q24H PRN 32.859 mls/hr PER PROTOCOL Administration Protocol 0.05 MCG/KG/MIN Levothyroxine Sodium 125 mcg 09/18/25 06:00 09/19/25 06:30 Levothyroxine Sodium 125 Mcg Tablet PO 10/18/25 05:59 125 mcg ACBR GABE Administration Lidocaine 1 patch 09/17/25 18:46 09/18/25 00:06 Lidocaine 5% 1 Patch TOP 10/17/25 18:45 1 patch UD PRN Administration PAIN Protocol Pantoprazole Sodium 40 mg 09/16/25 16:45 09/18/25 08:07 Pantoprazole Inj 40 Mg Vial IV 10/16/25 16:44 40 mg QDAY GABE Administration Scopolamine 1 mg 09/17/25 15:00 09/17/25 15:08 Scopolamine 1 Mg Tdsy TOP 10/17/25 14:59 1 mg Q3D GABE Administration Plan Jeanine Lozano is a 59-year-old female with a past medical history of multiple myeloma with multiple bony lytic lesions (status post radiation, four cycles of D-RVd chemotherapy, and bone marrow transplant), Basia's thyroiditis, and SIADH/hyponatremia who is admitted status-post cardiac arrest secondary to ventricular arrhythmia and cardiology consulted for the same. #Out of hospital cardiac arrest resulting from #Polymorphic ventricular tachycardia likely secondary to #QT prolongation secondary to combination of zofran and dapsone #Type II NSTEMI (demand ischemia) Presents after suffering cardiac arrest in field, underwent CPR, and required multiple shocks for ventricular arrhythmia. Started on amiodarone drip and continued to have episodes of arrhythmia requiring defibrillation and recommended lidocaine drip. Bedside echo did not show regional wall motion abnormalities but patient noted to be on epinephrine drip. Given that leading cause of ventricular arrhythmia remains to be ischemic heart disease decision was made to take patient to [facility] emergently, but revealed no significant no coronary artery disease. Differentials include cardiomyopathy (dilated vs hypertrophic vs infiltrative), electrolyte abnormalities, channelopathies, drug-induced, and acute illness. Electrolytes were within normal limits. EKG 09/16 showed QTc 479 on amiodarone and previous EKGs show QTc 440-480. Per chart review, she is on some medications associated with arrhythmias (Bactrim, dapsone, gabapentin, lenalidomide, Velcade) and upon further history taking, she has been taking Zofran for nausea that is also known to be associated with QT prolongation. At this time, etiology of her ventricular arrhythmias suspected to be drug-induced secondary to combination of Zofran and dapsone; given that a reversible cause found, no indication for ICD placement, and amiodarone has been discontinued. 09/19/25- Discontinue amiodarone after code blue; not helpful in QT-prolongation syndromes. Patient had code blue called at 23:48 on 09/18/25, with vtach and vfib seen. Shock was delivered and patient returned to sinus rhythm; intubated and moved back to ICU. Details in event note. Patient was intubated and taken to ICU. Patient received promethazine dose yesterday. Patient was placed on daratumumab (Darzalex) and Lenalidomide (revlemid) regimen for MM in 06/2025; Darzalex associated with small but clinically insignificant QT prolongation (PMID: 93195034), and lenalidomide has also been associated with QT prolongation (PMID: 43326959). In addition, patient received regimen once a week for first 2 weeks, instead of once a month per plan. Patient also had additional less severe event Saturday prior to first event that terminated itself. Amiodarone has no role, as it can prolong QT, and she has a known noncardiovascular cause. Plan: ? Amiodarone discontinued, extubated ? Closely monitor electrolytes; K > 4, Mg 2.5 to 3 ? Closely monitor on telemetry ? Avoid QT prolonging agents when possible #Shock, likely septic vs cardiac #Pneumonia with ARDS #Multiple pulmonary emboli #Hepatitis #Lactic acidosis #Basia disease #Sepsis ? Continue management per primary team ----- This case was discussed with my attending physician, Dr. Braxton. Grzegorz Alarcon, PGY1
[2025-09-19 08:17] LABS: Albumin, Serum 3.9 gm/dL (3.4-4.8); Anion Gap 9 (7-16); BUN/Creatinine Ratio 14 Ratio (12-20); Blood Urea Nitrogen 18 mg/dL (9-23); Calcium 8.5 mg/dL (8.3-10.6); Calcium (Corrected) 8.6 mg/dL (8.5-10.1); Carbon Dioxide 21.3 mMol/L (20.0-31.0); Chloride 108 mMol/L (98-107); Creatinine (Component) 1.3 mg/dL (0.6-1.3); Estimated Creatinine Clearance 45.8 mL/min (>60); Free T4 (Free Thyroxine) 1.37 ng/dL (0.89-1.76); Glucose 244 mg/dL (74-106); Osmolality,Calculated 285 (275-295); Phosphorous 4.6 mg/dL (2.4-5.1); Potassium 5.4 mMol/L (3.4-5.1); Sodium 138 mMol/L (136-145); eGFR 47 See Note
[2025-09-19 08:26] LABS: Partial Thromboplastin Time 51.4 Seconds (22.0-36.0)
--- NOTE | 2025-09-19 08:55 | ESPR_ITS ---
Documentation for date of: 09/19/25 Subjective Subjective Interval history: This 59 y/o F with PMHx significant for multiple myeloma on chemotherapy, anemia, Basia's presented to ED on 09/16/25 after having been witnessed to slump over and pass out on a bench. Patient received 1 shock from AED in the field, 3 more shocks from EMS. In ED, patient found to be altered, unresponsive. Underwent multiple rounds of v-fib/v-tach in ED requiring mutiple shocks. Due to concern for ischemic heart disease causing arrythmias, patient underwent urgent cardiac catheterization which revealed no obstructions. Patient was started on amiodarone drip, lidocaine drip, Versed drip, epinephrine drip in the ED. Patient received 2 L bolus lactated Ringer's. Intubated in the ED.Labs significant for: Lactic acid 7.9, BNP 385, potassium 3.2, calcium 8.4, AST 136, ALT 95, T. bili 0.4, troponin 7. Beta hydroxybutyrate 0.1, Pro-Seun 0.05. TSH 3.31. Urinalysis showed 3+ protein, 3+ glucose, RBC 48, WBC 46, rare bacteria. U tox positive for marijuana. Imaging significant for: Chest/abdomen/pelvis CTA positive for multiple pulmonary emboli, widespread significant pneumonia, widespread osteolytic lesions, multiple bilateral rib fractures. Head CT unremarkable. EKG showed sinus tachycardia, QTc 479.Patient was admitted to ICU for septic shock due to pneumonia and ARDS and V. tach/V-fib postcardiac arrest and shock therapy. International Account Manager stated that QT prolongation is clearly the cause of ventricular fibrillation polymorphic VT/VF no need for antiarrhythmic drug therapy will continue to avoid QT prolonging agents. Amiodarone drip was continued to for V. tach and the rate was decreased due to bradycardia. Patient was extubated after weaning off sedation on 09/17 initiated was placed on high flow nasal cannula and transition to normal nasal cannula. Repeat EKG showed prolonged QTc 457. Arterial line was removed and due to prolonged bleeding from the site of arterial line heparin drip was paused for few hours and restarted again overnight. Hemoglobin dropped mildly only. Heparin drip was restarted. Per patient's oncologist at [facility], Dr. Barrera he advised to hold patient's lenalidomide for 1 to 2 weeks that would be acceptable and transition the patient to [facility] would work with her chemotherapy regimen. On 09/18 in the morning, patient had some bigeminy's and trigeminy therefore K- Phos was given. EKG showed QTc 507. Patient received magnesium and metoprolol succinate. Initial strips showed polymorphic V. tach which was attributed to medication use. Patient was not taking Zofran. International Account Manager recommended to stop amiodarone metoprolol and monitor patient closely. Repeat EKG showed QTc 468. Ativan was given for nausea and anxiety. Heparin drip was continued. Patient's hemoglobin down trended to 7 therefore 1 unit PRBC was transfused. Although no signs of bleeding were observed. 09/18/2025 Rapid response changed to CODE BLUE called at 23:48 as patient became unresponsive with no pulse. Cardiac Pads were placed and CPR was started immediately along with Ambu bag. revenue analyst revealed V. tach and V-fib at 23:49. Patient received 200 J shock and CPR was resumed. She converted back to sinus rhythm at 23:52 and Patient received 1 amp of epinephrine, 1 amp of bicarb and seun gluconate along with 2g magnesium sulphate which was rushed in 10 mins. STAT labs were ordered. Patient was shifted to ICU for intubation due to hypoxia and tacypnea and post cardiac arrest. Etomidate 20 mg and Rocronium 100 mg was given x1. Before this code blue patient had a rapid response due to Torsades pointes. At that time patient was feeling dizzy and was tachypneic on 5 L nasal cannula. And EKG was ordered along with 30 mmol of K-phosp. 2 g Mg was ordered to be run in 10 mins. EKG at 22:02 showed sinus rhythm with QTc 474. Repeat EKG at 22:55 showed sinus rhythm with QTc 483. Patient is upgraded to ICU due to Post cardiac arrest due to VT/VF post Defib, intubated and mechanical ventialtion due to cardiac arrest and AHRF due to ARDS Pnuemonia. 09/19/2025: Patient was seen and examined at bedside this morning. Overnight patient was upgraded back to the ICU postcardiac arrest due to V. tach V-fib. Patient had 3 runs of V. tach V-fib while patient was in telemetry. This morning patient has not had any more runs of V. tach V-fib. Patient's potassium went up to 5.4 and magnesium is 2.7. Will aim for potassium 4.5-5 and Mg 3 Chest x-ray looks to be pulmonary edema therefore will give Lasix 40 x 1 IV push. Patient is EKG this morning showed again a QTc of 511. Patient does not have any family or personal history of syncope, seizures, or previous sudden cardiac in the family. Patient was weaned off vasopressors and was following commands therefore SBT was done and patient was successfully extubated around noon time. Given that this is the second cardiac event this patient has had due to V. tach/V-fib patient would benefit from an ICD. Also given that the patient has been having ectopy including today after patient was successfully extubated she did have some PVCs shortly after she will likely be started on propranolol 10 mg 3 times daily if BP and HR allow in hopes of improving QTc. Patient also had significant urine output after Lasix 40 mg x 1 IVP. It was noticed that patient had a paradoxical chest motion with inspiration and given concern for flail chest order chest CT, but once when patient was can get taken to CT she started having feelings that she was going to faint and having similar symptoms when she went to V. tach/V-fib. At this time ordered 1 g of magnesium and ordered repeat EKG. Showed QTc of around 440 manually and on EKG reports show for 53 QTc. Ordered Ativan 0.5 mg via NG, but patient still having nausea. Gave patient 4 mg of dexamethasone IV for nausea, she did have improvement after dexamethasone. Ordered a chest x-ray while waiting for chest CT and that showed improvement in pulmonary edema. Will wait for chest CT, but will continue with pain management and will start patient on CPAP possible floor chest. Patient asked me to speak with her and her family concerning her CODE STATUS. She stated that she had decided after careful consideration and discussion of her family that she would like to be DNR/DNI. She stated that her decision to be DNR/DNI at this time was because of personal reasons as well as a cancer and due to the recent cardiac events that she has had she will like to be DNR/DNI and not get any more shocks or any more resuscitation efforts including epinephrine if her heart stops. She would like to continue all other medical management for now. POLST form was signed with patient, , and daughter at bedside as well as senior resident Dr. Gardner and [place] resident Dr. Shannon at bedside. Patient made clear that she would not want a PEG tube placed, but was okay with NG tube and tube feeds for short-term for nutritional support as well as TPN. Exam Vital Signs Temp Pulse Resp BP Pulse Ox O2 Del Method O2 Flow Rate 98.8 F 64 25 H 126/75 100 Mechanical Ventilation 5 09/19/25 00:00 09/19/25 07:00 09/19/25 07:00 09/19/25 07:00 09/19/25 07:00 09/19/25 02:55 09/19/25 00:00 FiO2 80 09/19/25 06:05 Narrative Exam General: A/O x3, no acute distress, hoarse voice 2/2 extubation Eyes: PERRL, EOMI. Anicteric, vision grossly intact. Ears: No ear pain, no ear discharge, Hearing grossly intact. Nose: No nasal discharge. Mouth/Throat: Dry mucous membranes, no redness, no lesions. Neck: Neck supple, non-tender, no cervical lymphadenopathy. Lungs: crackles RAVI, paradoxical chest motion, No accessory muscle use. Cardio: Normal S1/S2, regular rhythm, no murmurs, no JVD, chest wall tenderness Abdomen: Soft, non-tender, no palpable masses, peristalsis present, no guarding or rebound. Extremities: Symmetrical, no significant deformities, no peripheral edema , non-tender, peripheral pulses presents. Skin: No rashes, no lesions, warm to touch. Neuro: No focal neurological deficits, motor and sensory intact Psych: Cooperative Objective Labs 09/20/25 04:14 09/20/25 17:45 Labs: Laboratory Results - last 24 hr 09/17/25 09/18/25 09/18/25 10:11 09:07 10:00 WBC RBC Hgb 7.0 L Hct 20.7 L* MCV MCH MCHC RDW Std Deviation Plt Count Neut % (Auto) Lymph % (Auto) [facility] % (Auto) Eos % (Auto) Baso % (Auto) Neut # (Auto) Lymph # (Auto) [facility] # (Auto) Eos # (Auto) Baso # (Auto) Immature Gran # (Auto) Absolute Nucleated RBC Immature Gran % Nucleated RBC % APTT 44.9 H D Puncture Site ABG pH ABG pCO2 ABG pO2 ABG HCO3 ABG O2 Saturation ABG Base Excess VBG pH VBG pCO2 VBG pO2 VBG O2 Sat (Chan) VBG Base Excess FiO2 Sodium Potassium Chloride Carbon Dioxide Anion Gap BUN Creatinine Estim Creat Clear Calc eGFR BUN/Creatinine Ratio Glucose Calculated Osmolality Lactic Acid Calcium Corrected Calcium Phosphorus Magnesium Total Bilirubin AST ALT Alkaline Phosphatase Troponin I Total Protein Albumin Globulin Albumin/Globulin Ratio Free T4 Vancomycin Trough 10.0 Blood Type A Positive Antibody Screen POSITIVE Antibody Identification Inconclusive Crossmatch See Detail Blood Bank Wristband ID Yes 09/18/25 09/18/25 09/18/25 18:05 20:47 23:05 WBC 8.5 RBC 2.55 L Hgb 8.2 L 8.4 L Hct 24.9 L 25.2 L MCV 99 MCH 32.9 MCHC 33.3 RDW Std Deviation 57.4 H Plt Count 110 L Neut % (Auto) 77 Lymph % (Auto) 11 [facility] % (Auto) 11 Eos % (Auto) 0 Baso % (Auto) 1 Neut # (Auto) 6.5 Lymph # (Auto) 1.0 [facility] # (Auto) 0.9 H Eos # (Auto) 0.0 Baso # (Auto) 0.1 Immature Gran # (Auto) 0.06 H Absolute Nucleated RBC 0.00 Immature Gran % 1 H Nucleated RBC % 0 APTT 45.7 H Puncture Site ABG pH ABG pCO2 ABG pO2 ABG HCO3 ABG O2 Saturation ABG Base Excess VBG pH 7.42 VBG pCO2 32 L VBG pO2 128 H VBG O2 Sat (Chan) 100 H VBG Base Excess -4 L FiO2 Sodium 139 138 Potassium 4.0 3.9 Chloride 110 H 110 H Carbon Dioxide 18.6 L 19.3 L Anion Gap 10 9 BUN 12 9 Creatinine 0.7 0.7 Estim Creat Clear Calc 85.1 85.1 eGFR > 60 > 60 BUN/Creatinine Ratio 17 13 Glucose 120 H 121 H Calculated Osmolality 278 275 Lactic Acid 0.9 Calcium 8.1 L 8.4 Corrected Calcium 8.4 L Phosphorus 1.5 L 1.4 L Magnesium 2.6 2.5 Total Bilirubin 1.3 H AST 76 H ALT 112 H Alkaline Phosphatase 115 Troponin I 0.371 H* D Total Protein 5.7 Albumin 4.1 Globulin 1.6 L Albumin/Globulin Ratio 2.6 H Free T4 Vancomycin Trough Blood Type Antibody Screen Antibody Identification Crossmatch Blood Bank Wristband ID 09/19/25 09/19/25 09/19/25 00:51 02:09 02:31 WBC 11.9 H RBC 2.84 L Hgb 9.3 L Hct 28.5 L MCV 100 MCH 32.7 MCHC 32.6 RDW Std Deviation 59.4 H Plt Count 149 D Neut % (Auto) 82 H Lymph % (Auto) [address] [facility] % (Auto) 11 Eos % (Auto) 0 Baso % (Auto) 1 Neut # (Auto) 9.7 H Lymph # (Auto) 0.[address] [facility] # (Auto) 1.3 H Eos # (Auto) 0.0 Baso # (Auto) 0.1 Immature Gran # (Auto) 0.26 H Absolute Nucleated RBC 0.00 Immature Gran % 2 H Nucleated RBC % 0 APTT 53.3 H Puncture Site Right Radial Left Radial ABG pH 7.21 L D 7.25 L ABG pCO2 50 H 49 H ABG pO2 60 L D 154 H D ABG HCO3 20 21 ABG O2 Saturation 87 L 99 H ABG Base Excess -8 L -6 L VBG pH VBG pCO2 VBG pO2 VBG O2 Sat (Chan) VBG Base Excess FiO2 100 21 Sodium 141 Potassium 4.5 D Chloride 109 H Carbon Dioxide 24.4 Anion Gap 8 BUN 16 Creatinine 1.0 Estim Creat Clear Calc 59.6 L eGFR > 60 BUN/Creatinine Ratio 16 Glucose 188 H D Calculated Osmolality 287 Lactic Acid Calcium 9.1 Corrected Calcium 9.1 Phosphorus 5.2 H Magnesium 2.7 H Total Bilirubin 1.0 AST 106 H ALT 127 H Alkaline Phosphatase 135 H D Troponin I Total Protein 5.3 L Albumin 4.1 Globulin 1.2 L Albumin/Globulin Ratio 3.4 H Free T4 Vancomycin Trough Blood Type Antibody Screen Antibody Identification Crossmatch Blood Bank Wristband ID 09/19/25 09/19/25 05:17 07:20 WBC RBC Hgb Hct MCV MCH MCHC RDW Std Deviation Plt Count Neut % (Auto) Lymph % (Auto) [facility] % (Auto) Eos % (Auto) Baso % (Auto) Neut # (Auto) Lymph # (Auto) [facility] # (Auto) Eos # (Auto) Baso # (Auto) Immature Gran # (Auto) Absolute Nucleated RBC Immature Gran % Nucleated RBC % APTT 51.4 H Puncture Site Right Radial ABG pH 7.31 L ABG pCO2 39 D ABG pO2 199 H D ABG HCO3 20 ABG O2 Saturation 100 H ABG Base Excess -6 L VBG pH VBG pCO2 VBG pO2 VBG O2 Sat (Chan) VBG Base Excess FiO2 21 Sodium 138 Potassium 5.4 H D Chloride 108 H Carbon Dioxide 21.3 Anion Gap 9 BUN 18 Creatinine 1.3 Estim Creat Clear Calc 45.8 L eGFR 47 L BUN/Creatinine Ratio 14 Glucose 244 H D Calculated Osmolality 285 Lactic Acid Calcium 8.5 Corrected Calcium 8.6 Phosphorus 4.6 Magnesium Total Bilirubin AST ALT Alkaline Phosphatase Troponin I Total Protein Albumin 3.9 Globulin Albumin/Globulin Ratio Free T4 1.37 Vancomycin Trough Blood Type Antibody Screen Antibody Identification Crossmatch Blood Bank Wristband ID ABG Interpretation ABG results: 09/16/25 09/17/25 09/18/25 18:56 04:20 23:05 ABG pH 7.38 7.35 ABG pCO2 43 43 ABG pO2 353 H 171 H D ABG HCO3 25 24 ABG O2 Saturation 99 H 100 H ABG Base Excess 0 -2 VBG pH 7.42 VBG pCO2 32 L VBG pO2 128 H VBG Base Excess -4 L 09/19/25 09/19/25 09/19/25 00:51 02:09 05:17 ABG pH 7.21 L D 7.25 L 7.31 L ABG pCO2 50 H 49 H 39 D ABG pO2 60 L D 154 H D 199 H D ABG HCO3 20 21 20 ABG O2 Saturation 87 L 99 H 100 H ABG Base Excess -8 L -6 L -6 L VBG pH VBG pCO2 VBG pO2 VBG Base Excess Quality Measures Quality Measures VTE therapy (Heparin drip ) Assessment & Plan Assessment Current Active Medications: Generic Name Dose Route Start Last Admin Trade Name Freq PRN Reason Stop Dose Admin Acetaminophen 500 mg 09/18/25 13:11 09/18/25 20:28 Acetaminophen 500 Mg Tablet PO 10/18/25 13:10 500 mg Q6HR PRN Administration PAIN 1-3 Hydrocortisone Sodium Succinate 50 mg 09/19/25 02:35 09/19/25 06:31 Hydrocortisone Sod Succ Inj 100 Mg 2 Ml Vial IV 10/19/25 02:34 Not Given Q6HR GABE Hydromorphone HCl 0.5 mg 09/18/25 13:13 Hydromorphone Inj 2 Mg/Ml Vial IVP 09/22/25 22:59 Q4HR PRN PAIN SCALE 7-10 Heparin Sodium/Dextrose 25,000 unit in 250 mls @ 12.618 mls/hr 09/16/25 18:15 09/19/25 07:20 Heparin In D5w Ivpb IV 09/30/25 18:14 13 units/kg/hr .[id number] GABE 9.113 mls/hr Protocol Titration 18 UNITS/KG/HR Cefepime HCl 2 gm/ Sodium 50 mls @ 100 mls/hr 09/17/25 15:30 09/19/25 06:32 Chloride IV 09/24/25 15:29 100 mls/hr Q8HR GABE Administration Amiodarone HCl/Dextrose 360 mg in 200 mls @ 16.667 mls/hr 09/18/25 23:17 09/19/25 06:29 Nexterone Ivpb IV 09/19/25 23:16 16.667 mls/hr .Q12H GABE Administration Fentanyl Citrate 2,500 mcg in 250 mls @ 2.5 mls/hr 09/19/25 00:57 09/19/25 06:00 Sublimaze Inj 2,500 Mcg/250 Ml Bag IV 09/24/25 00:02 225 mcg/hr .Q24H PRN 22.5 mls/hr PER PROTOCOL Titration Protocol 25 MCG/HR Propofol 1,000 mg in 100 mls @ 2.103 mls/hr 09/19/25 00:57 09/19/25 06:00 Diprivan Ivpb IV 10/19/25 00:02 10 mcg/kg/min .Q24H PRN 4.206 mls/hr PER PROTOCOL Titration Protocol 5 MCG/KG/MIN Potassium Phosphate 15 mmol in 250 mls @ 62.5 mls/hr 09/19/25 06:30 09/19/25 08:50 Pot Phos 15 Mmol In Ns 250 Ml IV 09/19/25 10:29 62.5 mls/hr X1 ONE Administration Vasopressin/Sodium Chloride 20 unit in 100 mls @ 9 mls/hr 09/19/25 02:36 09/19/25 02:35 Vasostrict/Ns Ivpb IV 10/19/25 02:35 0.03 unit/min .Q11H7M PRN 9 mls/hr PER PROTOCOL Administration Protocol 0.03 UNIT/MIN Norepinephrine Bitartrate 16 mg in 250 mls @ 3.286 mls/hr 09/19/25 03:32 09/19/25 08:45 Levophed In Ns 16mg/250ml IV 10/19/25 03:31 0.28 mcg/kg/min .Q24H PRN 18.401 mls/hr PER PROTOCOL Titration Protocol 0.05 MCG/KG/MIN Levothyroxine Sodium 125 mcg 09/18/25 06:00 09/19/25 06:30 Levothyroxine Sodium 125 Mcg Tablet PO 10/18/25 05:59 125 mcg ACBR GABE Administration Lidocaine 1 patch 09/17/25 18:46 09/18/25 00:06 Lidocaine 5% 1 Patch TOP 10/17/25 18:45 1 patch UD PRN Administration PAIN Protocol Pantoprazole Sodium 40 mg 09/16/25 16:45 09/19/25 08:50 Pantoprazole Inj 40 Mg Vial IV 10/16/25 16:44 40 mg QDAY GABE Administration Scopolamine 1 mg 09/17/25 15:00 09/17/25 15:08 Scopolamine 1 Mg Tdsy TOP 10/17/25 14:59 1 mg Q3D GABE Administration Plan 59 y/o F with PMHx significant for multiple myeloma on chemotherapy, anemia, Basia's upgraded to icu on 09/18 for post cardiac arrest due to VT/VF post CPR and shock and ARDS with Pneumonia. Neuro: No active diseases Cardio: #V-fib/V. tach #Cardiac arrest post CPR and Shock DDx: Medication side effect, acidosis On 09/16, patient slumped over and passed out, received AED shock, +3 shocks from EMS en route to hospital. In ED patient underwent multiple rounds of V- fib/V. tach requiring multiple shocks. Patient taken for urgent cardiac catheterization, revealed no obstructions. Per chart review, patient taken multiple medications associated with arrhythmias:Bactrim, Zofran. EKG revealed prolonged QTc: 479 Patient received amiodarone drip and lidocaine drip which was discontinued later. on 09/18 Rapid response changed to CODE BLUE called at 23:48 as patient became unresponsive with no pulse. Cardiac Pads were placed and CPR was started immediately along with Ambu bag. revenue analyst revealed V. tach and V-fib at 23:49. Patient received 200 J shock and CPR was resumed. She converted back to sinus rhythm at 23:52 and Patient received 1 amp of epinephrine, 1 amp of bicarb and seun gluconate along with 2g magnesium sulphate which was rushed in 10 mins.EKG at 22:02 showed sinus rhythm with QTc 474. Repeat EKG at 22:55 showed sinus rhythm with QTc 483. Troponin I 0.371 Patient had tramadol and promethazine yesterday Plan: - Amiodarone discontinued as per cardiology - Keep Mag at 3 and K 4.5 to 5 - propanolol 10mg TID - Patient would benefit from ICD implantation as its her second Cardiac Event. - Cardiology consulted, appreciate recommendations - Monitor electrolytes, replete as needed - Avoid QTc prolonging agents #Septic shock DDx ARDS Pneumonia During RR she was tacycardiac and tacypnic. Met 2/4 SIRs criteria. qSOFA score 2 BP kept dropping with sedation and high PEEP. Plan: -Weaned off levophed and vasopressin -Hydrocortisone 100 mg x1 -Continue antibiotics -Follow with repeat BCx Pulm: #AHRF #Community acquired Pneumonia #Pulmonary Edema 09/18 Patient was intubated due to inability protect airway in setting of V- fib/V. tach. CXR showed pulmonary edema on 09/16 CT chest/abdomen/pelvis revealed extensive bilateral pneumonia. Gram stain of sputum showed rare gram positive cocci. She was initially Extubated 09/17, on HFNC to [place] but got intubated during cardiac arrest on 09/18 at night During RR she was tacycardiac and tacypnic. Met 2/4 SIRs criteria. qSOFA score 2 Pao2/Fio2 : 60 ABG post intubation pH 7.21 Pco2 50 Po2 60 Fio2 100 Repeat ABGs shows pH 7.25 pco2 49 po2 154 Plan: - On cefepime 09/17- - Successfully extubated 09/19/2025 - Diuresis with lasix - Follow with repeat CXR - Repeat Sputum culture pending #Flail chest Patient was noticed to have paradoxical chest motion with breathing Likely 2/2 CPR Plan: Chest CT and CXR CPAP Gabapentin for pain control as morphine causes nausea and dilaudi hallucinations to patient #Multiple pulmonary emboli CT angio revealed multiple pulmonary emboli, right sided. Based on imaging, not massive PE, no significant right ventricular strain. Patient showed improvement. ICU team spoke with Dr. Barrera, [facility] oncologist managing patient, advised transitioning to Eliquis would be appropriate with patient's chemo regiment. Plan: -Continue Heparin drip protocol - Telemetry monitoring -Will discuss with oncology choice of DOAC prior to transitioning GI: #Hepatitis DDx: Sepsis, medication side effect elevated liver enzymes.Total bilirubin 1.3 Unlikely shock liver given normal kidney function. LFTs improving. Plan: -Monitor LFTs - Avoid hepatotoxins - Judicious use of hepatically metabolized medications #Intractable Nausea Still complaining of nausea Plan: Consider dexamethasone for nausea Can give ativan 0.5mg for nausea if needed AVOID QTC prolonging medications at all time. 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 -Levothyroxine 125 mcg PO daily (home med) Heme: #Acute anemia,resolved DDx: Blood loss, dilutional hgb 9.3 S/p 1 unit PRBC Plan: - Goal of hgb above 7 - Continue to monitor. #leukocytosis -in the setting of sepsis and cardiac arrest wbc 11.9 Plan: -Cont to trend and BCx repeated ID: #Septic shock # Pneumonia Patient went up on sedation and req pressors During RR she was tacycardiac and tacypnic. Met 2/4 SIRs criteria. qSOFA score 2 Significant pneumonia seen on imaging - Cont Cefepime - Repeat sputum cx pending - Treat as above ICU Health maintenance: Mechanical ventilation: No Sedation: No Diet:NPO, OG Tube DVT ppx: Heparin drip GI ppx: Protonix Yung: YES IV lines: PIV, Port A cath Central line: No. Arterial line: No. Code status: DNR/DNI Case disclosed with Attending Dr. Nii Brown PGY2 Disclaimer: Even though this this note was dictated by speech recognition and even though it was carefully revised there may still be minor errors in sampler and test preparer due to voice recognition software. Attending Provider Attestation/Addendum Patient seen and examined with above resident, Lee Brown MD. I agree with the findings, assessment, and plan of care as documented except for any differences below. Patient unfortunately with recurrent episode of torsade de pointes/V-fib arrest. She was shocked and given magnesium with ROSC achieved within a couple minutes. Patient required reintubation due to hypoxia and inability to adequately ventilate. Investigation showed the patient did receive Phenergan as well as tramadol in the last 24 hours while on the floor, this was likely the precipitant agent for acquired prolonged QT which we have discovered in the previous 24 hours. Patient also on heparin drip appropriately for underlying PE in the setting of immunotherapy for her multiple myeloma. This has been continued with no evidence of bleeding at any site. Chest x-ray post arrest suggestive of pulmonary edema versus contusion. However, after adequate improvement overnight with high PEEP she was rapidly decreased to PEEP of 6 and tolerated spontaneous breathing trial well. She was extubated to nasal cannula. Paradoxical movement of the chest was noted and patient likely flail chest due to multiple rib fractures given her previous history of osteoporosis and repeated rounds of CPR. Patient was sent for CT scan of the chest to confirm diagnosis. Given multiple rib fractures this will need to be assessed by surgical service at some point. In interim, we will use local lidocaine, systemic gabapentin, and PAP therapy to ensure appropriate prevention of splinting/hypoventilation and repeat respiratory failure. Patient continues to have chemotherapy induced nausea/vomiting. She has been transitioned over to dexamethasone appropriately. Patient also with variable borderline tachycardia during which she feels like this is about to precipitate previous episodes of A- fib. Propranolol was started to blunt any sympathetic tone which may have also been a precipitant of the event overnight given her extubation and rapid treatment of underlying pneumonia. We have not change her antibiotics at this point as clinically her lung function continues to improve. Patient and family counseled extensively at bedside given events in the last 24 hours. Will monitor very closely in the ICU for the next 24 to 48 hours for transfer back to the [facility] for ongoing management. Total critical care time: I personally spent 60 minutes for review of physiologic parameters, directing plan of care throughout the day, coordination of care with other subspecialist, and counseling the patient and family at bedside. This is exclusive of time spent teaching on staff or performing any separate billable procedures. Patient remains at significant risk for further morbidity and mortality warranting close monitoring and care only available in the ICU. Critical care services required for V-fib/torsades de pointes with cardiac arrest, acute hypoxic respiratory failure, multiple rib fractures secondary to CPR, pulmonary embolism secondary to immunotherapy.
[2025-09-19] MEDS: FUROSEMIDE INJ 10 MG/ML 4ML VIAL 40 MG IVP (09:55)
--- NOTE | 2025-09-19 10:13 | PD.NEPHPROG ---
Documentation for date of: 09/19/25 Subjective Subjective Interval history: Ms. Lozano is a 59-year-old lady with past medical history significant for multiple myeloma on chemotherapy, anemia, Basia's thyroiditis presented to the emergency department after witnessed cardiac arrest at his school while she was visiting her grandkirashid Smith. On the field the patient received 1 shock for V-fib. In the emergency department she was found to be altered and unresponsive. Patient noted to have ventricular arrhythmias and received multiple shocks, intubated and subsequently transferred to ICU. She was started on amiodarone drip, lidocaine drip, Versed drip, epinephrine drip. Also was given IV fluids. ED course: Labs significant for: Lactic acid 7.9, BNP 385, potassium 3.2, calcium 8.4, AST 136, ALT 95, T. bili 0.4, troponin 7. Beta hydroxybutyrate 0.1, Pro-Nehemias 0.05. TSH 3.31. Urinalysis showed 3+ protein, 3+ glucose, RBC 48, WBC 46, rare bacteria. U tox positive for marijuana. Imaging significant for: Chest/abdomen/pelvis CTA positive for multiple pulmonary emboli, widespread significant pneumonia, widespread osteolytic lesions, multiple bilateral rib fractures. Head CT unremarkable. EKG showed sinus tachycardia, QTc 479. 09/17/2025: Overnight, amiodarone was decreased due to low heart rate. Patient was weaned off sedation, following commands, successfully extubated in the morning. Due to low sats, patient placed on HFNC, weaning down. No arrythmias noted. Repeat EKG showed prolonged QTc 457. Labs and medications reviewed. Patient under the care of Dr. Casiano. Currently on broad-spectrum antibiotics, heparin drip. 09/18/2025 patient was transitioned to telemetry. Per review ICU team Dr. Casiano recommended to hold off on amiodarone, metoprolol. Patient was having significant nausea and I had to give 1 dose of promethazine. On Dilaudid for pain and requested tramadol which was ordered. 09/19/2025 patient overnight had another episode of torsades, V-fib/V. tach and needing defibrillator, amiodarone drip and was intubated and transferred back to ICU. Currently she is alert and awake. Possible extubation this morning. Potassium and magnesium are normal. Could be med related (tramadol 1 dose and promethazine 1 dose) QTc seems to be improving after stopping all the medications. Urine output down. 1 dose of Lasix was given. Started to improve. Creatinine 1.6. Electrolytes stable. Noted elevation in the liver enzymes. Review of Systems Review of Systems ROS Unobtainable: due to endotracheal tube Exam Vital Signs Temp Pulse Resp BP Pulse Ox O2 Del Method O2 Flow Rate 36.6 C 79 36 H 114/78 95 Oxy Mask 8 09/19/25 16:00 09/19/25 19:00 09/19/25 19:00 09/19/25 19:00 09/19/25 19:00 09/19/25 16:00 09/19/25 18:48 FiO2 30 09/19/25 12:47 Narrative Exam GENERAL APPEARANCE: Patient seems to be comfortable, on vent NECK: Neck supple, no JVD or bruit CARDIOVASCULAR: Heart regular, no murmurs LUNGS/CHEST: Rhonchi noted bilaterally ABDOMEN: Soft, nontender, nondistended. No masses. Normal bowel sounds. EXTREMITIES: No edema, clubbing or cyanosis. SKIN: Skin exam normal without any rashes MUSCULOSKELETAL: In bed NEUROLOGICAL : intubated,awake Objective Labs 09/19/25 02:31 09/19/25 18:45 Labs: Laboratory Results - last 24 hr 09/18/25 09/18/25 09/19/25 20:47 23:05 00:51 WBC 8.5 RBC 2.55 L Hgb 8.4 L Hct 25.2 L MCV 99 MCH 32.9 MCHC 33.3 RDW Std Deviation 57.4 H Plt Count 110 L Neut % (Auto) 77 Lymph % (Auto) 11 [place] % (Auto) 11 Eos % (Auto) 0 Baso % (Auto) 1 Neut # (Auto) 6.5 Lymph # (Auto) 1.0 [place] # (Auto) 0.9 H Eos # (Auto) 0.0 Baso # (Auto) 0.1 Immature Gran # (Auto) 0.06 H Absolute Nucleated RBC 0.00 Immature Gran % 1 H Nucleated RBC % 0 APTT Puncture Site Right Radial ABG pH 7.21 L D ABG pCO2 50 H ABG pO2 60 L D ABG HCO3 20 ABG O2 Saturation 87 L ABG Base Excess -8 L VBG pH 7.42 VBG pCO2 32 L VBG pO2 128 H VBG O2 Sat (Chan) 100 H VBG Base Excess -4 L FiO2 100 Sodium 139 138 Potassium 4.0 3.9 Chloride 110 H 110 H Carbon Dioxide 18.6 L 19.3 L Anion Gap 10 9 BUN 12 9 Creatinine 0.7 0.7 Estim Creat Clear Calc 85.1 85.1 eGFR > 60 > 60 BUN/Creatinine Ratio 17 13 Glucose 120 H 121 H Calculated Osmolality 278 275 Lactic Acid 0.9 Calcium 8.1 L 8.4 Corrected Calcium 8.4 L Phosphorus 1.5 L 1.4 L Magnesium 2.6 2.5 Total Bilirubin 1.3 H AST 76 H ALT 112 H Alkaline Phosphatase 115 Troponin I 0.371 H* D Total Protein 5.7 Albumin 4.1 Globulin 1.6 L Albumin/Globulin Ratio 2.6 H Free T4 09/19/25 09/19/25 09/19/25 02:09 02:31 05:17 WBC 11.9 H RBC 2.84 L Hgb 9.3 L Hct 28.5 L MCV 100 MCH 32.7 MCHC 32.6 RDW Std Deviation 59.4 H Plt Count 149 D Neut % (Auto) 82 H Lymph % (Auto) 4 L [place] % (Auto) 11 Eos % (Auto) 0 Baso % (Auto) 1 Neut # (Auto) 9.7 H Lymph # (Auto) 0.5 L [place] # (Auto) 1.3 H Eos # (Auto) 0.0 Baso # (Auto) 0.1 Immature Gran # (Auto) 0.26 H Absolute Nucleated RBC 0.00 Immature Gran % 2 H Nucleated RBC % 0 APTT 53.3 H Puncture Site Left Radial Right Radial ABG pH 7.25 L 7.31 L ABG pCO2 49 H 39 D ABG pO2 154 H D 199 H D ABG HCO3 21 20 ABG O2 Saturation 99 H 100 H ABG Base Excess -6 L -6 L VBG pH VBG pCO2 VBG pO2 VBG O2 Sat (Chan) VBG Base Excess FiO2 21 21 Sodium 141 Potassium 4.5 D Chloride 109 H Carbon Dioxide 24.4 Anion Gap 8 BUN 16 Creatinine 1.0 Estim Creat Clear Calc 59.6 L eGFR > 60 BUN/Creatinine Ratio 16 Glucose 188 H D Calculated Osmolality 287 Lactic Acid Calcium 9.1 Corrected Calcium 9.1 Phosphorus 5.2 H Magnesium 2.7 H Total Bilirubin 1.0 AST 106 H ALT 127 H Alkaline Phosphatase 135 H D Troponin I Total Protein 5.3 L Albumin 4.1 Globulin 1.2 L Albumin/Globulin Ratio 3.4 H Free T4 09/19/25 09/19/25 09/19/25 07:20 13:00 18:45 WBC RBC Hgb Hct MCV MCH MCHC RDW Std Deviation Plt Count Neut % (Auto) Lymph % (Auto) [place] % (Auto) Eos % (Auto) Baso % (Auto) Neut # (Auto) Lymph # (Auto) [place] # (Auto) Eos # (Auto) Baso # (Auto) Immature Gran # (Auto) Absolute Nucleated RBC Immature Gran % Nucleated RBC % APTT 51.4 H 51.0 H 43.9 H Puncture Site ABG pH ABG pCO2 ABG pO2 ABG HCO3 ABG O2 Saturation ABG Base Excess VBG pH VBG pCO2 VBG pO2 VBG O2 Sat (Chan) VBG Base Excess FiO2 Sodium 138 140 138 Potassium 5.4 H D 4.6 D 4.7 Chloride 108 H 108 H 108 H Carbon Dioxide 21.3 22.6 21.2 Anion Gap 9 9 9 BUN 18 21 23 Creatinine 1.3 1.4 H 1.6 H Estim Creat Clear Calc 45.8 L 42.6 L 37.2 L eGFR 47 L 43 L 36 L BUN/Creatinine Ratio 14 15 14 Glucose 244 H D 164 H D 130 H Calculated Osmolality 285 286 281 Lactic Acid Calcium 8.5 8.8 8.7 Corrected Calcium 8.6 8.8 8.7 Phosphorus 4.6 3.1 2.6 Magnesium 3.1 H Total Bilirubin AST ALT Alkaline Phosphatase Troponin I Total Protein Albumin 3.9 4.3 4.1 Globulin Albumin/Globulin Ratio Free T4 1.37 ABG Interpretation ABG results: 09/16/25 09/17/25 09/18/25 18:56 04:20 23:05 ABG pH 7.38 7.35 ABG pCO2 43 43 ABG pO2 353 H 171 H D ABG HCO3 25 24 ABG O2 Saturation 99 H 100 H ABG Base Excess 0 -2 VBG pH 7.42 VBG pCO2 32 L VBG pO2 128 H VBG Base Excess -4 L 09/19/25 09/19/25 09/19/25 00:51 02:09 05:17 ABG pH 7.21 L D 7.25 L 7.31 L ABG pCO2 50 H 49 H 39 D ABG pO2 60 L D 154 H D 199 H D ABG HCO3 20 21 20 ABG O2 Saturation 87 L 99 H 100 H ABG Base Excess -8 L -6 L -6 L VBG pH VBG pCO2 VBG pO2 VBG Base Excess Assessment & Plan Assessment and plan (1) Cardiac arrest: Status: Acute (2) Ventricular fibrillation: Status: Acute (3) Syncope and collapse: Status: Acute (4) Pneumonia: Status: Acute (5) UTI (urinary tract infection): Status: Acute (6) Multiple myeloma: Status: Acute (7) Ventricular tachycardia: Status: Acute (8) Elevated LFTs: Status: Acute (9) Hypothyroidism (acquired): Status: Acute (10) Pulmonary embolism: Status: Acute (11) BERNADINE (acute kidney injury): Status: Acute Additional Assessment & Plan Additional Plan: Continue broad-spectrum antibiotics, Eliquis, maintain potassium around 4.5, magnesium around 2.5-3. Dr. Casiano on the case. avoid meds that increase QTc. Might need defibrillator prior to discharge. Continue antibiotics for the pneumonia. Spoke to Dr. Casiano.
[2025-09-19] MEDS: fentaNYL 2,500 MCG/250 ML BAG 2,500 MCG/250 ML BAG 12.5 MCG IV (10:14)
--- NOTE | 2025-09-19 10:43 | PC.SS ---
SS update: patient had code overnight, on pressors, coming down sedations.
[2025-09-19] MEDS: HYDROCORTISONE SOD SUCC INJ 100 MG 2 ML VIAL 50 MG IV (12:55)
[2025-09-19 13:45] LABS: Partial Thromboplastin Time 51.0 Seconds (22.0-36.0)
[2025-09-19 13:52] LABS: Albumin, Serum 4.3 gm/dL (3.4-4.8); Anion Gap 9 (7-16); BUN/Creatinine Ratio 15 Ratio (12-20); Blood Urea Nitrogen 21 mg/dL (9-23); Calcium 8.8 mg/dL (8.3-10.6); Calcium (Corrected) 8.8 mg/dL (8.5-10.1); Carbon Dioxide 22.6 mMol/L (20.0-31.0); Chloride 108 mMol/L (98-107); Creatinine (Component) 1.4 mg/dL (0.6-1.3); Estimated Creatinine Clearance 42.6 mL/min (>60); Glucose 164 mg/dL (74-106); Osmolality,Calculated 286 (275-295); Phosphorous 3.1 mg/dL (2.4-5.1); Potassium 4.6 mMol/L (3.4-5.1); Sodium 140 mMol/L (136-145); eGFR 43 See Note
--- NOTE | 2025-09-19 14:52 | XR_ITS ---
Examination: CT chest, without intravenous contrast. Sagittal and coronal 2-D reconstructions. Exam date and time: September 19, 2025, 1813 hours, comparison September 16, 2025 INDICATIONS: Diagnosis multiple myeloma, positive for pulmonary artery emboli, extensive edema and/or pneumonia throughout the lungs on CT chest September 16, 2025, widespread osteolytic lesions, status post cardiopulmonary arrest 4 days ago CTDI:vol (mGy) 5.99 DLP: (mGycm) 330 Technique: Multiple 3.0 mm axial sections of the chest to been obtained. Bone and lung density settings are obtained. Sagittal and coronal 2-D reconstructions have been obtained. Low dose protocols were performed. One or more of the following dose reduction techniques were used; automated exposure control, adjustment of the mA and/or KV according to patient size, use of iterative reconstruction technique. Findings: No thoracic aortic aneurysmal dilatation Main pulmonary artery segment 37 mm Mild enlargement cardiac contour Severe bilateral lung opacity, pneumonia/ARDS, pulmonary edema, also noted on the September 16, 2025 exam Moderate right and mild left pleural fluid No visualized liver or splenic lesion Visualized abdominal aorta intact Again noted widespread osteolytic lesions The largest involving T11 Acute fractures involving the mid and lower body of the sternum without significant displacement No change in acute fractures right first, second, third, fourth, fifth, sixth ribs and left third, fourth, fifth, sixth left ribs IMPRESSION: Again noted is severe bilateral lung opacity, pneumonia/ARDS, aspiration pneumonia, pulmonary edema not excluded Osseous changes as above including bilateral rib fractures, nondisplaced fracture of body of the sternum
[2025-09-19] MEDS: PROPRANOLOL 10 MG TABLET PO ×2 (15:31→20:54)
--- NOTE | 2025-09-19 16:10 | XR_ITS ---
EXAMINATION: AP chest single view TECHNIQUE: AP portable sitting chest single view Date and time: September 19, 2025, 1730 hours, comparison September 19, 2025 12:17 a.m. INDICATIONS: Status post cardiopulmonary arrest FINDINGS: Moderate CHF Mild to moderate enlargement cardiac contour. Prominent vascular congestion with perihilar edema and likely pneumonia Right Port-A-Cath tip satisfactory position No pneumothorax Please see the CT chest report IMPRESSION: Moderate CHF Bilateral perihilar pneumonia and pulmonary edema No pneumothorax Air distended stomach
[2025-09-19] MEDS: GABAPENTIN 100 MG CAPSULE 200 MG PO ×2 (16:14→20:55)
--- NOTE | 2025-09-19 16:23 | EKG_ITS ---
[facility] Test Date: 2025-09-19 Pat Name: EDER CORDOVA [facility] Morgue Attendant: TAMMY : 1965 Requested By: Lee Brown Order Number: [id number] Reading MD: Lee Brown Measurements Intervals [place] Rate: 79 P: 70 CT: 158 QRS: 75 QRSD: 98 T: 117 QT: 394 QTc: 453 Interpretive Statements SINUS RHYTHM ST DEVIATION AND MODERATE T-WAVE ABNORMALITY, CONSIDER ANTEROLATERAL ISCHEMIA Compared to ECG 09/19/2025 07:25:37 No significant changes /store/S0/[id number].pdf
--- NOTE | 2025-09-19 17:03 | PRELIM_ITS ---
Radiograph of the chest (single view). September 19, 2025 1728 hours Clinical history: R/O flail chest Comparison: No prior study is available for comparison. Findings: The heart, mediastinum and pulmonary aleksandra are unremarkable. The interstitial markings are prominent. There is no pleural effusion. The bony thorax is unremarkable. There is a Port-A-Cath in the right anterior chest wall with its tip in the right atrium. Impression: Findings suggestive of interstitial pulmonary edema. Report Electronically Signed By: Lisette Dinh 09/19/2025 5:03:42 PM [EST]
[2025-09-19] MEDS: DEXAMETHASONE SOD PHOS INJ 4 MG/ML VIAL IVP (17:27)
[2025-09-19 19:10] LABS: Partial Thromboplastin Time 43.9 Seconds (22.0-36.0)
[2025-09-19 19:16] LABS: Albumin, Serum 4.1 gm/dL (3.4-4.8); Anion Gap 9 (7-16); BUN/Creatinine Ratio 14 Ratio (12-20); Blood Urea Nitrogen 23 mg/dL (9-23); Calcium 8.7 mg/dL (8.3-10.6); Calcium (Corrected) 8.7 mg/dL (8.5-10.1); Carbon Dioxide 21.2 mMol/L (20.0-31.0); Chloride 108 mMol/L (98-107); Creatinine (Component) 1.6 mg/dL (0.6-1.3); Estimated Creatinine Clearance 37.2 mL/min (>60); Glucose 130 mg/dL (74-106); Magnesium 3.1 mg/dL (1.6-2.6); Osmolality,Calculated 281 (275-295); Phosphorous 2.6 mg/dL (2.4-5.1); Potassium 4.7 mMol/L (3.4-5.1); Sodium 138 mMol/L (136-145); eGFR 36 See Note
[2025-09-20] VITALS (33 sets, daily range): BP systolic 100–130; BP diastolic 58–87; PULSE 58–89; RESP 10–28; TEMP 36.2–36.7; O2SAT 94–100; BMI 23.2
[2025-09-20] MEDS: HEPARIN SOD INJ 5000 UNIT/ML VIAL 2800 UNIT IVP (00:28)
[2025-09-20 05:48] LABS: Basophils # (Auto) 0.0 Thou/mm3 (0.0-0.2); Basophils % (Auto) 0 % (0-2.5); Eosinophils # (Auto) 0.0 Thou/mm3 (0.0-0.5); Eosinophils % (Auto) 0 % (0-10); Hematocrit 24.8 % (36.0-46.0); Immature Granulocytes Auto 0.04 Thou/mm3 (0.00-0.00); Lymphocytes # (Auto) 0.5 Thou/mm3 (1.0-4.8); Lymphocytes % (Auto) 5 % (10-50); Mean Corpuscular HGB Conc 32.7 g/dl (31.0-37.0); Mean Corpuscular Hemoglobin 32.7 pg (25.0-35.0); Mean Corpuscular Volume 100 fL (80-100); Monocytes # (Auto) 1.0 Thou/mm3 (0.0-0.8); Monocytes % (Auto) 11 % (0-12); Neutrophils # (Auto) 7.3 Thou/mm3 (1.8-7.7); Neutrophils % (Auto) 83 % (37-80); Nucleated Red Blood Cell # 0.00 Thou/mm3 (0.00-0.00); Nucleated Red Blood Cell % 0 /100 WBC (0); Platelet Count 144 Thou/mm3 (140-440); RDW Standard Deviation 60.6 fL (36.4-46.3); Red Blood Count 2.48 Miln/mm3 (4.00-5.20); White Blood Count 8.8 Thou/mm3 (3.6-11.0)
[2025-09-20 05:49] LABS: Hemoglobin 8.1 g/dL (12.0-16.0)
[2025-09-20 06:14] LABS: Alanine Aminotransferase 100 U/L (10-49); Albumin, Serum 3.8 gm/dL (3.4-4.8); Albumin/Globulin Ratio 2.7 (1.2-2.2); Alkaline Phosphatase 111 U/L (46-116); Anion Gap 9 (7-16); Aspartate Amino Transferase 61 U/L (0-34); BUN/Creatinine Ratio 18 Ratio (12-20); Bilirubin,Total 1.0 mg/dL (0.3-1.2); Blood Urea Nitrogen 29 mg/dL (9-23); Calcium 8.6 mg/dL (8.3-10.6); Calcium (Corrected) 8.8 mg/dL (8.5-10.1); Carbon Dioxide 22.9 mMol/L (20.0-31.0); Chloride 108 mMol/L (98-107); Creatinine (Component) 1.6 mg/dL (0.6-1.3); Estimated Creatinine Clearance 37.2 mL/min (>60); Globulin 1.4 gm/dL (2.3-3.5); Glucose 125 mg/dL (74-106); Magnesium 2.9 mg/dL (1.6-2.6); Osmolality,Calculated 286 (275-295); Phosphorous 2.6 mg/dL (2.4-5.1); Potassium 4.4 mMol/L (3.4-5.1); Sodium 140 mMol/L (136-145); Total Protein 5.2 gm/dL (5.7-8.2); eGFR 36 See Note
[2025-09-20] MEDS: LEVOTHYROXINE SODIUM 125 MCG TABLET PO (06:24)
[2025-09-20] MEDS: PROPRANOLOL 10 MG TABLET PO ×3 (06:24→21:57)
[2025-09-20] MEDS: GABAPENTIN 100 MG CAPSULE 200 MG PO ×3 (06:24→21:56)
[2025-09-20] MEDS: CEFEPIME INJ 2 GM in SODIUM CHLORIDE 0.9% (Popper) 50 ML IV ×3 (06:24→21:57)
--- NOTE | 2025-09-20 06:46 | EKG_ITS ---
[facility] Test Date: 2025-09-20 Pat Name: EDER CORDOVA [facility] Flow Machine Operator: JT : 1965 Requested By: Lee Brown Order Number: [id number] Reading MD: Lee Brown Measurements Intervals [place] Rate: 66 P: 59 W[place]: 163 QRS: 71 QRSD: 95 T: 151 QT: 417 QTc: 438 Interpretive Statements SINUS RHYTHM NONSPECIFIC T-WAVE ABNORMALITY Compared to ECG 09/19/2025 16:29:45 Possible ischemia no longer present T-wave abnormality still present /store/S0/[id number].pdf
[2025-09-20 07:07] LABS: Partial Thromboplastin Time 78.3 Seconds (22.0-36.0)
[2025-09-20] MEDS: POTASSIUM CHLORIDE 10% 20 MEQ/15 ML UDC GT (07:34)
--- NOTE | 2025-09-20 08:00 | ESPR_ITS ---
Documentation for date of: 09/20/25 Subjective Subjective Interval history: This 59 y/o F with PMHx significant for multiple myeloma on chemotherapy, anemia, Basia's presented to ED on 09/16/25 after having been witnessed to slump over and pass out on a bench. Patient received 1 shock from AED in the field, 3 more shocks from EMS. In ED, patient found to be altered, unresponsive. Underwent multiple rounds of v-fib/v-tach in ED requiring mutiple shocks. Due to concern for ischemic heart disease causing arrythmias, patient underwent urgent cardiac catheterization which revealed no obstructions. Patient was started on amiodarone drip, lidocaine drip, Versed drip, epinephrine drip in the ED. Patient received 2 L bolus lactated Ringer's. Intubated in the ED.Labs significant for: Lactic acid 7.9, BNP 385, potassium 3.2, calcium 8.4, AST 136, ALT 95, T. bili 0.4, troponin 7. Beta hydroxybutyrate 0.1, Pro-Nehemias 0.05. TSH 3.31. Urinalysis showed 3+ protein, 3+ glucose, RBC 48, WBC 46, rare bacteria. U tox positive for marijuana. Imaging significant for: Chest/abdomen/pelvis CTA positive for multiple pulmonary emboli, widespread significant pneumonia, widespread osteolytic lesions, multiple bilateral rib fractures. Head CT unremarkable. EKG showed sinus tachycardia, QTc 479.Patient was admitted to ICU for septic shock due to pneumonia and ARDS and V. tach/V-fib postcardiac arrest and shock therapy. Supervisor Quality Control stated that QT prolongation is clearly the cause of ventricular fibrillation polymorphic VT/VF no need for antiarrhythmic drug therapy will continue to avoid QT prolonging agents. Amiodarone drip was continued to for V. tach and the rate was decreased due to bradycardia. Patient was extubated after weaning off sedation on 09/17 initiated was placed on high flow nasal cannula and transition to normal nasal cannula. Repeat EKG showed prolonged QTc 457. Arterial line was removed and due to prolonged bleeding from the site of arterial line heparin drip was paused for few hours and restarted again overnight. Hemoglobin dropped mildly only. Heparin drip was restarted. Per patient's oncologist at [facility], Dr. Barrera he advised to hold patient's lenalidomide for 1 to 2 weeks that would be acceptable and transition the patient to [facility] would work with her chemotherapy regimen. On 09/18 in the morning, patient had some bigeminy's and trigeminy therefore K- Phos was given. EKG showed QTc 507. Patient received magnesium and metoprolol succinate. Initial strips showed polymorphic V. tach which was attributed to medication use. Patient was not taking Zofran. Supervisor Quality Control recommended to stop amiodarone metoprolol and monitor patient closely. Repeat EKG showed QTc 468. Ativan was given for nausea and anxiety. Heparin drip was continued. Patient's hemoglobin down trended to 7 therefore 1 unit PRBC was transfused. Although no signs of bleeding were observed. 09/18/2025 Rapid response changed to CODE BLUE called at 23:48 as patient became unresponsive with no pulse. Cardiac Pads were placed and CPR was started immediately along with Ambu bag. cardiac monitor technician revealed V. tach and V-fib at 23:49. Patient received 200 J shock and CPR was resumed. She converted back to sinus rhythm at 23:52 and Patient received 1 amp of epinephrine, 1 amp of bicarb and nehemias gluconate along with 2g magnesium sulphate which was rushed in 10 mins. STAT labs were ordered. Patient was shifted to ICU for intubation due to hypoxia and tacypnea and post cardiac arrest. Etomidate 20 mg and Rocronium 100 mg was given x1. Before this code blue patient had a rapid response due to Torsades pointes. At that time patient was feeling dizzy and was tachypneic on 5 L nasal cannula. And EKG was ordered along with 30 mmol of K-phosp. 2 g Mg was ordered to be run in 10 mins. EKG at 22:02 showed sinus rhythm with QTc 474. Repeat EKG at 22:55 showed sinus rhythm with QTc 483. Patient is upgraded to ICU due to Post cardiac arrest due to VT/VF post Defib, intubated and mechanical ventialtion due to cardiac arrest and AHRF due to ARDS Pnuemonia. 09/19/2025: Patient was seen and examined at bedside this morning. Overnight patient was upgraded back to the ICU postcardiac arrest due to V. tach V-fib. Patient had 3 runs of V. tach V-fib while patient was in telemetry. This morning patient has not had any more runs of V. tach V-fib. Patient's potassium went up to 5.4 and magnesium is 2.7. Will aim for potassium 4.5-5 and Mg 3 Chest x-ray looks to be pulmonary edema therefore will give Lasix 40 x 1 IV push. Patient is EKG this morning showed again a QTc of 511. Patient does not have any family or personal history of syncope, seizures, or previous sudden cardiac in the family. Patient was weaned off vasopressors and was following commands therefore SBT was done and patient was successfully extubated around noon time. Given that this is the second cardiac event this patient has had due to V. tach/V-fib patient would benefit from an ICD. Also given that the patient has been having ectopy including today after patient was successfully extubated she did have some PVCs shortly after she will likely be started on propranolol 10 mg 3 times daily if BP and HR allow in hopes of improving QTc. Patient also had significant urine output after Lasix 40 mg x 1 IVP. It was noticed that patient had a paradoxical chest motion with inspiration and given concern for flail chest order chest CT, but once when patient was can get taken to CT she started having feelings that she was going to faint and having similar symptoms when she went to V. tach/V-fib. At this time ordered 1 g of magnesium and ordered repeat EKG. Showed QTc of around 440 manually and on EKG reports show for 53 QTc. Ordered Ativan 0.5 mg via NG, but patient still having nausea. Gave patient 4 mg of dexamethasone IV for nausea, she did have improvement after dexamethasone. Ordered a chest x-ray while waiting for chest CT and that showed improvement in pulmonary edema. Will wait for chest CT, but will continue with pain management and will start patient on CPAP possible floor chest. Patient asked me to speak with her and her family concerning her CODE STATUS. She stated that she had decided after careful consideration and discussion of her family that she would like to be DNR/DNI. She stated that her decision to be DNR/DNI at this time was because of personal reasons as well as a cancer and due to the recent cardiac events that she has had she will like to be DNR/DNI and not get any more shocks or any more resuscitation efforts including epinephrine if her heart stops. She would like to continue all other medical management for now. POLST form was signed with patient, , and daughter at bedside as well as senior resident Dr. Gardner and [place] resident Dr. Shannon at bedside. Patient made clear that she would not want a PEG tube placed, but was okay with NG tube and tube feeds for short-term for nutritional support as well as TPN. 09/20/2025: Patient was seen and evaluated at bedside this morning. No acute overnight events. Patient does not have any more runs of PVCs or PACs will be for for V. tach. She did mention that around 2 AM she did feel some discomfort in her heart how she feels when she has an episode of V-fib V. tach. The was at bedside stated that this happened and that her heart rate was in the high 80s. Patient seems to be having these feelings more or less when her heart rates above 85 to higher 90s. Lab milan hemoglobin 8.4 today we will continue to monitor and potassium was 4.4 this morning therefore repleted with 20 mEq to maintain it above 4.5. Patient magnesium was 2.9 therefore gave 1 g to maintain above 3. Patient did develop an BERNADINE with creatinine of 1.6 this morning likely secondary to cardiac arrest, will continue to monitor. Good urine output throughout the night and has been using CPAP which patient states helps her with her breathing. Will advance diet today and encourage p.o. fluids. Patient had decreasing urine output throughout the day therefore gave Lasix 40 IV x 1 again which improved urine output. Patient's QT remained within normal limits on repeat EKGs. Patient had another discussion with oracle technical architect concerning defribrillation and afterwards she was agreeable only to defribrillation. Spoke with thoracic surgeon Dr. Regalado at [facility] who stated that this time patient did not need transfer for any surgical intervention at this time for flail chest. Stated that patient was not a good candidate for surgical procedure due to multiple comorbidities and that given that the rib fractures were nondisplaced patient can be treated medically with pain management. Therefore we will cancel transfer at this time. Tried to reach out to patient's oncologist, but was not available. Left a message to get a call back. Exam Vital Signs Temp Pulse Resp BP Pulse Ox O2 Del Method O2 Flow Rate 97.6 F 77 10 L 108/70 100 Oxy Mask 8 09/20/25 04:00 09/20/25 06:24 09/20/25 06:00 09/20/25 06:24 09/20/25 06:00 09/19/25 16:00 09/19/25 18:48 FiO2 35 09/20/25 02:09 Narrative Exam General: A/O x3, no acute distress, hoarse voice 2/2 extubation Eyes: PERRL, EOMI. Anicteric, vision grossly intact. Ears: No ear pain, no ear discharge, Hearing grossly intact. Nose: No nasal discharge. Mouth/Throat: Dry mucous membranes, no redness, no lesions. Neck: Neck supple, non-tender, no cervical lymphadenopathy. Lungs: crackles RAVI still present, paradoxical chest motion more decreased today, No accessory muscle use. Cardio: Normal S1/S2, regular rhythm, no murmurs, no JVD, chest wall tenderness Abdomen: Soft, non-tender, no palpable masses, peristalsis present, no guarding or rebound. Extremities: Symmetrical, no significant deformities, no peripheral edema , non-tender, peripheral pulses presents. Skin: No rashes, no lesions, warm to touch. Neuro: No focal neurological deficits, motor and sensory intact Psych: Cooperative Objective Labs 09/20/25 04:14 09/20/25 17:45 Labs: Laboratory Results - last 24 hr 09/19/25 09/19/25 09/19/25 07:20 13:00 18:45 WBC RBC Hgb Hct MCV MCH MCHC RDW Std Deviation Plt Count Neut % (Auto) Lymph % (Auto) [place] % (Auto) Eos % (Auto) Baso % (Auto) Neut # (Auto) Lymph # (Auto) [place] # (Auto) Eos # (Auto) Baso # (Auto) Immature Gran # (Auto) Absolute Nucleated RBC Immature Gran % Nucleated RBC % APTT 51.4 H 51.0 H 43.9 H Sodium 138 140 138 Potassium 5.4 H D 4.6 D 4.7 Chloride 108 H 108 H 108 H Carbon Dioxide 21.3 22.6 21.2 Anion Gap 9 9 9 BUN 18 21 23 Creatinine 1.3 1.4 H 1.6 H Estim Creat Clear Calc 45.8 L 42.6 L 37.2 L eGFR 47 L 43 L 36 L BUN/Creatinine Ratio 14 15 14 Glucose 244 H D 164 H D 130 H Calculated Osmolality 285 286 281 Calcium 8.5 8.8 8.7 Corrected Calcium 8.6 8.8 8.7 Phosphorus 4.6 3.1 2.6 Magnesium 3.1 H Total Bilirubin AST ALT Alkaline Phosphatase Total Protein Albumin 3.9 4.3 4.1 Globulin Albumin/Globulin Ratio Free T4 1.37 09/20/25 04:14 WBC 8.8 RBC 2.48 L Hgb 8.1 L Hct 24.8 L MCV 100 MCH 32.7 MCHC 32.7 RDW Std Deviation 60.6 H Plt Count 144 Neut % (Auto) 83 H Lymph % (Auto) 5 L [place] % (Auto) 11 Eos % (Auto) 0 Baso % (Auto) 0 Neut # (Auto) 7.3 Lymph # (Auto) 0.5 L [place] # (Auto) 1.0 H Eos # (Auto) 0.0 Baso # (Auto) 0.0 Immature Gran # (Auto) 0.04 H Absolute Nucleated RBC 0.00 Immature Gran % 1 H Nucleated RBC % 0 APTT 78.3 H D Sodium 140 Potassium 4.4 Chloride 108 H Carbon Dioxide 22.9 Anion Gap 9 BUN 29 H Creatinine 1.6 H Estim Creat Clear Calc 37.2 L eGFR 36 L BUN/Creatinine Ratio 18 Glucose 125 H Calculated Osmolality 286 Calcium 8.6 Corrected Calcium 8.8 Phosphorus 2.6 Magnesium 2.9 H Total Bilirubin 1.0 AST 61 H ALT 100 H Alkaline Phosphatase 111 D Total Protein 5.2 L Albumin 3.8 Globulin 1.4 L Albumin/Globulin Ratio 2.7 H Free T4 ABG Interpretation ABG results: 09/16/25 09/17/25 09/18/25 18:56 04:20 23:05 ABG pH 7.38 7.35 ABG pCO2 43 43 ABG pO2 353 H 171 H D ABG HCO3 25 24 ABG O2 Saturation 99 H 100 H ABG Base Excess 0 -2 VBG pH 7.42 VBG pCO2 32 L VBG pO2 128 H VBG Base Excess -4 L 09/19/25 09/19/25 09/19/25 00:51 02:09 05:17 ABG pH 7.21 L D 7.25 L 7.31 L ABG pCO2 50 H 49 H 39 D ABG pO2 60 L D 154 H D 199 H D ABG HCO3 20 21 20 ABG O2 Saturation 87 L 99 H 100 H ABG Base Excess -8 L -6 L -6 L VBG pH VBG pCO2 VBG pO2 VBG Base Excess Quality Measures Quality Measures VTE therapy (Heparin drip ) Assessment & Plan Assessment Current Active Medications: Generic Name Dose Route Start Last Admin Trade Name Freq PRN Reason Stop Dose Admin Acetaminophen 500 mg 09/18/25 13:11 09/18/25 20:28 Acetaminophen 500 Mg Tablet PO 10/18/25 13:10 500 mg Q6HR PRN Administration PAIN 1-3 Gabapentin 200 mg 09/19/25 15:15 09/20/25 06:24 Gabapentin 100 Mg Capsule PO 10/19/25 15:14 200 mg TID GABE Administration Hydromorphone HCl 0.5 mg 09/18/25 13:13 Hydromorphone Inj 2 Mg/Ml Vial IVP 09/22/25 22:59 Q4HR PRN PAIN SCALE 7-10 Protocol Heparin Sodium/Dextrose 25,000 unit in 250 mls @ 12.618 mls/hr 09/16/25 18:15 09/20/25 00:29 Heparin In D5w Ivpb IV 09/30/25 18:14 15 units/kg/hr .[id number] GABE 10.515 mls/hr Protocol Titration 18 UNITS/KG/HR Cefepime HCl 2 gm/ Sodium 50 mls @ 100 mls/hr 09/17/25 15:30 09/20/25 06:24 Chloride IV 09/24/25 15:29 100 mls/hr Q8HR GABE Administration Fentanyl Citrate 2,500 mcg in 250 mls @ 2.5 mls/hr 09/19/25 00:57 09/19/25 12:00 Sublimaze Inj 2,500 Mcg/250 Ml Bag IV 09/24/25 00:02 0 mcg/hr .Q24H PRN 0 mls/hr PER PROTOCOL Titration Protocol 25 MCG/HR Propofol 1,000 mg in 100 mls @ 2.103 mls/hr 09/19/25 00:57 09/19/25 11:00 Diprivan Ivpb IV 10/19/25 00:02 0 mcg/kg/min .Q24H PRN 0 mls/hr PER PROTOCOL Titration Protocol 5 MCG/KG/MIN Vasopressin/Sodium Chloride 20 unit in 100 mls @ 9 mls/hr 09/19/25 02:36 09/19/25 12:30 Vasostrict/Ns Ivpb IV 10/19/25 02:35 0 unit/min .Q11H7M PRN 0 mls/hr PER PROTOCOL Titration Protocol 0.03 UNIT/MIN Norepinephrine Bitartrate 16 mg in 250 mls @ 3.286 mls/hr 09/19/25 03:32 09/19/25 12:15 Levophed In Ns 16mg/250ml IV 10/19/25 03:31 0 mcg/kg/min .Q24H PRN 0 mls/hr PER PROTOCOL Titration Protocol 0.05 MCG/KG/MIN Levothyroxine Sodium 125 mcg 09/18/25 06:00 09/20/25 06:24 Levothyroxine Sodium 125 Mcg Tablet PO 10/18/25 05:59 125 mcg ACBR GABE Administration Lidocaine 1 patch 09/17/25 18:46 09/18/25 00:06 Lidocaine 5% 1 Patch TOP 10/17/25 18:45 1 patch UD PRN Administration PAIN Protocol Pantoprazole Sodium 40 mg 09/16/25 16:45 09/19/25 08:50 Pantoprazole Inj 40 Mg Vial IV 10/16/25 16:44 40 mg QDAY GABE Administration Propranolol HCl 10 mg 09/19/25 15:00 09/20/25 06:24 Propranolol 10 Mg Tablet PO 10/19/25 14:59 10 mg TID GABE Administration Scopolamine 1 mg 09/17/25 15:00 09/17/25 15:08 Scopolamine 1 Mg Tdsy TOP 10/17/25 14:59 1 mg Q3D GABE Administration Plan 59 y/o F with PMHx significant for multiple myeloma on chemotherapy, anemia, Basia's upgraded to icu on 09/18 for post cardiac arrest due to VT/VF post CPR and shock and ARDS with Pneumonia. Neuro: No active diseases Cardio: #V-fib/V. tach #Cardiac arrest post CPR and Shock DDx: Medication side effect, acidosis On 09/16, patient slumped over and passed out, received AED shock, +3 shocks from EMS en route to hospital. In ED patient underwent multiple rounds of V- fib/V. tach requiring multiple shocks. Patient taken for urgent cardiac catheterization, revealed no obstructions. Per chart review, patient taken multiple medications associated with arrhythmias:Bactrim, Zofran. EKG revealed prolonged QTc: 479 Patient received amiodarone drip and lidocaine drip which was discontinued later. on 09/18 Rapid response changed to CODE BLUE called at 23:48 as patient became unresponsive with no pulse. Cardiac Pads were placed and CPR was started immediately along with Ambu bag. cardiac monitor technician revealed V. tach and V-fib at 23:49. Patient received 200 J shock and CPR was resumed. She converted back to sinus rhythm at 23:52 and Patient received 1 amp of epinephrine, 1 amp of bicarb and nehemias gluconate along with 2g magnesium sulphate which was rushed in 10 mins.EKG at 22:02 showed sinus rhythm with QTc 474. Repeat EKG at 22:55 showed sinus rhythm with QTc 483. Troponin I 0.371 Patient had tramadol and promethazine yesterday Plan: - Amiodarone discontinued as per cardiology - Keep Mag at 3 and K 4.5 to 5 - propanolol 10mg TID - Patient would benefit from ICD implantation as its her second Cardiac Event. - Cardiology consulted, appreciate recommendations - Monitor electrolytes, replete as needed - Avoid QTc prolonging agents #Septic shock DDx ARDS Pneumonia During RR she was tacycardiac and tacypnic. Met 2/4 SIRs criteria. qSOFA score 2 BP kept dropping with sedation and high PEEP. Plan: -Weaned off levophed and vasopressin -Hydrocortisone 100 mg x1 -Continue antibiotics -Follow with repeat BCx Pulm: #AHRF #Community acquired Pneumonia #Pulmonary Edema 09/18 Patient was intubated due to inability protect airway in setting of V- fib/V. tach. CXR showed pulmonary edema on 09/16 CT chest/abdomen/pelvis revealed extensive bilateral pneumonia. Gram stain of sputum showed rare gram positive cocci. She was initially Extubated 09/17, on HFNC to SC but got intubated during cardiac arrest on 09/18 at night During RR she was tacycardiac and tacypnic. Met 2/4 SIRs criteria. qSOFA score 2 Pao2/Fio2 : 60 ABG post intubation pH 7.21 Pco2 50 Po2 60 Fio2 100 Repeat ABGs shows pH 7.25 pco2 49 po2 154 Plan: - On cefepime 09/17- - Successfully extubated 09/19/2025 - Diuresis with lasix - Repeat Sputum culture pending #Flail chest Patient was noticed to have paradoxical chest motion with breathing Likely 2/2 CPR Spoke to thoracic surgeon Dr. Regalado who stated no need for surgical intervention at this time. Plan: CPAP Gabapentin for pain control as morphine causes nausea and dilaudi hallucinations to patient #Multiple pulmonary emboli CT angio revealed multiple pulmonary emboli, right sided. Based on imaging, not massive PE, no significant right ventricular strain. Patient showed improvement. ICU team spoke with Dr. Barrera, [facility] oncologist managing patient, advised transitioning to Eliquis would be appropriate with patient's chemo regiment. Plan: -Continue Heparin drip protocol - Telemetry monitoring -Will discuss with oncology choice of DOAC prior to transitioning GI: #Hepatitis, improving DDx: Sepsis, medication side effect elevated liver enzyme.Total bilirubin 1.3 Unlikely shock liver given normal kidney function. LFTs improving. Plan: -Monitor LFTs - Avoid hepatotoxins - Judicious use of hepatically metabolized medications #Intractable Nausea Still complaining of nausea Plan: Consider dexamethasone for nausea Can give ativan 0.5mg for nausea if needed AVOID QTC prolonging medications at all time. 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 -Levothyroxine 125 mcg PO daily (home med) Heme: #Acute anemia,resolved DDx: Blood loss, dilutional hgb 8.1 S/p 1 unit PRBC Plan: - Goal of hgb above 7 - Continue to monitor. #leukocytosis -in the setting of sepsis and cardiac arrest wbc 8.8 Plan: -Cont to trend ID: #Septic shock # Pneumonia Patient went up on sedation and req pressors During RR she was tacycardiac and tacypnic. Met 2/4 SIRs criteria. qSOFA score 2 Significant pneumonia seen on imaging - Cont Cefepime - Repeat sputum cx pending - Treat as above ICU Health maintenance: Mechanical ventilation: No Sedation: No Diet:NPO, OG Tube DVT ppx: Heparin drip GI ppx: Protonix Yung: YES IV lines: PIV, Port A cath Central line: No. Arterial line: No. Code status: Limited (Ok with defribrillation only, NO CPR or intubation, no epi) Case disclosed with Attending Dr. Nii Brown PGY2 Disclaimer: Even though this this note was dictated by speech recognition and even though it was carefully revised there may still be minor errors in medical transcription editor due to voice recognition software. Attending Provider Attestation/Addendum Patient seen and examined with above resident, Lee Brown MD. I agree with the findings, assessment, and plan of care as document except for any differences below. Patient continues to show rapid improvement. Chest CT yesterday did confirm our suspicion of multiple rib fractures with flail chest. She was placed on conservative management with pain control using gabapentin and PAP therapy for splinting to provide associated atelectasis and risk of pulmonary infection. Patient without any evidence of penetrating trauma. No given the multiple rib fractures after cardiopulmonary resuscitation, and this will need to be assessed for potential transfer. Appreciate general surgery input and we will ask transfer team to arrange evaluation by outside staff. She is doing clinically well this afternoon and was able to sit at the edge of the bed on nasal cannula along. She has been extubated for greater than 24 hours. Patient should continue to sleep with PAP therapy for now. Pain is adequately controlled. With initiation of propranolol yesterday she continues to do well with improvement in her QT prolongation which has now resolved after discontinuation of any offending agents including amiodarone at the discretion of cardiology. The patient lives remotely and is likely to have significant repeat exposure to agents with potential for prolonged QT, we have advised the patient should consider implantation of defibrillator but this will ultimately be between her and cardiology service. She can continue on antibiotics for underlying pneumonia. Patient with limited urine output in setting of ATN secondary to cardiogenic shock/cardiac arrest. Challenge with Lasix shows adequate urine output. Her primary care doctor is also her director of conservation at this point and has beenEnough to continue to follow-up. Patient, , and daughter all updated at bedside together. Total critical care time: I personally spent 40 minutes for review of physiologic parameters, directing plan of care throughout the day, coordination of care with other specialists, and counseling patient and family at bedside. This is exclusive of time spent teaching of staff performing a separate billable procedures. Patient remains at significant risk for further morbidity and mortality warranting close monitoring care only available in the ICU. Critical care services required for acute hypoxic respiratory failure, flail chest, acquired prolonged QT syndrome, cardiac arrest secondary to torsade de pointes, and acute renal failure.
[2025-09-20] MEDS: Heparin/D5w 25K 250 ML Ivpb 25,000 UNIT/250 ML BAG 10.515 UNIT IV (08:21)
--- NOTE | 2025-09-20 09:05 | PD.RESPRO ---
Documentation for date of: 09/20/25 Subjective Subjective Interval history: Ms. Lozano is a 59-year-old lady with past medical history significant for multiple myeloma on chemotherapy, anemia, Basia's thyroiditis presented to the emergency department after witnessed cardiac arrest at his school while she was visiting her grandkirashid Smith. On the field the patient received 1 shock for V-fib. In the emergency department she was found to be altered and unresponsive. Patient noted to have ventricular arrhythmias and received multiple shocks, intubated and subsequently transferred to ICU. She was started on amiodarone drip, lidocaine drip, Versed drip, epinephrine drip. Also was given IV fluids. ED course: Labs significant for: Lactic acid 7.9, BNP 385, potassium 3.2, calcium 8.4, AST 136, ALT 95, T. bili 0.4, troponin 7. Beta hydroxybutyrate 0.1, Pro-Nehemias 0.05. TSH 3.31. Urinalysis showed 3+ protein, 3+ glucose, RBC 48, WBC 46, rare bacteria. U tox positive for marijuana. Imaging significant for: Chest/abdomen/pelvis CTA positive for multiple pulmonary emboli, widespread significant pneumonia, widespread osteolytic lesions, multiple bilateral rib fractures. Head CT unremarkable. EKG showed sinus tachycardia, QTc 479. 09/17/2025: Overnight, amiodarone was decreased due to low heart rate. Patient was weaned off sedation, following commands, successfully extubated in the morning. Due to low sats, patient placed on HFNC, weaning down. No arrythmias noted. Repeat EKG showed prolonged QTc 457. Labs and medications reviewed. Patient under the care of Dr. Casiano. Currently on broad-spectrum antibiotics, heparin drip. 09/18/2025 patient was transitioned to telemetry. Per review ICU team Dr. Casiano recommended to hold off on amiodarone, metoprolol. Patient was having significant nausea and I had to give 1 dose of promethazine. On Dilaudid for pain and requested tramadol which was ordered. 09/19/2025 patient overnight had another episode of torsades, V-fib/V. tach and needing defibrillator, amiodarone drip and was intubated and transferred back to ICU. Currently she is alert and awake. Possible extubation this morning. Potassium and magnesium are normal. Could be med related (tramadol 1 dose and promethazine 1 dose) QTc seems to be improving after stopping all the medications. Urine output down. 1 dose of Lasix was given. Started to improve. Creatinine 1.6. Electrolytes stable. Noted elevation in the liver enzymes. 09/20/2025: No acute overnight events. Patient seen examined at bedside in ICU with . No new complaints, expresses fatigue. Patient is extubated and on 5 L nasal cannula. Per cardiology, recommend tight control of potassium and magnesium, goal K4 0.5-5 and magnesium 3. Urine output slightly improved over the past 24 hours, will avoid giving extra fluid as creatinine stable elevated 1.6 likely secondary to cardiac arrest. Per cardiology, pending improvement of pneumonia prior to defibrillator placement. Nausea controlled with dexamethasone. LFTs downtrending Exam Vital Signs Temp Pulse Resp BP Pulse Ox O2 Del Method O2 Flow Rate 97.6 F 77 10 L 108/70 100 Oxy Mask 8 09/20/25 04:00 09/20/25 06:24 09/20/25 06:00 09/20/25 06:24 09/20/25 06:00 09/19/25 16:00 09/19/25 18:48 FiO2 35 09/20/25 02:09 Narrative Exam GENERAL: AOx3, no acute distress, fatigued HEENT: mucous membranes moist, bilateral sclera anicteric CARDIOVASCULAR: regular rate and rhythm, S1/S2 present, no murmurs appreciated PULMONARY: crackles bilaterally ABDOMINAL: soft, non-tender, non-distended, no rebound/guarding, bowel sounds present EXTREMITIES: no peripheral edema SKIN: warm and dry, intact, no rashes NEURO: CN II-XII grossly intact, no focal deficits, alert, following commands Objective Labs 09/20/25 04:14 09/20/25 17:45 Labs: Laboratory Results - last 24 hr 09/19/25 09/19/25 09/20/25 13:00 18:45 04:14 WBC 8.8 RBC 2.48 L Hgb 8.1 L Hct 24.8 L MCV 100 MCH 32.7 MCHC 32.7 RDW Std Deviation 60.6 H Plt Count 144 Neut % (Auto) 83 H Lymph % (Auto) 5 L [place] % (Auto) 11 Eos % (Auto) 0 Baso % (Auto) 0 Neut # (Auto) 7.3 Lymph # (Auto) 0.5 L [place] # (Auto) 1.0 H Eos # (Auto) 0.0 Baso # (Auto) 0.0 Immature Gran # (Auto) 0.04 H Absolute Nucleated RBC 0.00 Immature Gran % 1 H Nucleated RBC % 0 APTT 51.0 H 43.9 H 78.3 H D Sodium 140 138 140 Potassium 4.6 D 4.7 4.4 Chloride 108 H 108 H 108 H Carbon Dioxide 22.6 21.2 22.9 Anion Gap 9 9 9 BUN 21 23 29 H Creatinine 1.4 H 1.6 H 1.6 H Estim Creat Clear Calc 42.6 L 37.2 L 37.2 L eGFR 43 L 36 L 36 L BUN/Creatinine Ratio 15 14 18 Glucose 164 H D 130 H 125 H Calculated Osmolality 286 281 286 Calcium 8.8 8.7 8.6 Corrected Calcium 8.8 8.7 8.8 Phosphorus 3.1 2.6 2.6 Magnesium 3.1 H 2.9 H Total Bilirubin 1.0 AST 61 H ALT 100 H Alkaline Phosphatase 111 D Total Protein 5.2 L Albumin 4.3 4.1 3.8 Globulin 1.4 L Albumin/Globulin Ratio 2.7 H ABG Interpretation ABG results: 09/16/25 09/17/25 09/18/25 18:56 04:20 23:05 ABG pH 7.38 7.35 ABG pCO2 43 43 ABG pO2 353 H 171 H D ABG HCO3 25 24 ABG O2 Saturation 99 H 100 H ABG Base Excess 0 -2 VBG pH 7.42 VBG pCO2 32 L VBG pO2 128 H VBG Base Excess -4 L 09/19/25 09/19/25 09/19/25 00:51 02:09 05:17 ABG pH 7.21 L D 7.25 L 7.31 L ABG pCO2 50 H 49 H 39 D ABG pO2 60 L D 154 H D 199 H D ABG HCO3 20 21 20 ABG O2 Saturation 87 L 99 H 100 H ABG Base Excess -8 L -6 L -6 L VBG pH VBG pCO2 VBG pO2 VBG Base Excess Quality Measures Quality Measures VTE therapy (Heparin drip ) Assessment & Plan Assessment Current Active Medications: Generic Name Dose Route Start Last Admin Trade Name Freq PRN Reason Stop Dose Admin Acetaminophen 500 mg 09/18/25 13:11 09/18/25 20:28 Acetaminophen 500 Mg Tablet PO 10/18/25 13:10 500 mg Q6HR PRN Administration PAIN 1-3 Gabapentin 200 mg 09/19/25 15:15 09/20/25 06:24 Gabapentin 100 Mg Capsule PO 10/19/25 15:14 200 mg TID GABE Administration Hydromorphone HCl 0.5 mg 09/18/25 13:13 Hydromorphone Inj 2 Mg/Ml Vial IVP 09/22/25 22:59 Q4HR PRN PAIN SCALE 7-10 Protocol Heparin Sodium/Dextrose 25,000 unit in 250 mls @ 12.618 mls/hr 09/16/25 18:15 09/20/25 08:21 Heparin In D5w Ivpb IV 09/30/25 18:14 15 units/kg/hr .[id number] GBAE 10.515 mls/hr Protocol Administration 18 UNITS/KG/HR Cefepime HCl 2 gm/ Sodium 50 mls @ 100 mls/hr 09/17/25 15:30 09/20/25 06:24 Chloride IV 09/24/25 15:29 100 mls/hr Q8HR GABE Administration Fentanyl Citrate 2,500 mcg in 250 mls @ 2.5 mls/hr 09/19/25 00:57 09/19/25 12:00 Sublimaze Inj 2,500 Mcg/250 Ml Bag IV 09/24/25 00:02 0 mcg/hr .Q24H PRN 0 mls/hr PER PROTOCOL Titration Protocol 25 MCG/HR Propofol 1,000 mg in 100 mls @ 2.103 mls/hr 09/19/25 00:57 09/19/25 11:00 Diprivan Ivpb IV 10/19/25 00:02 0 mcg/kg/min .Q24H PRN 0 mls/hr PER PROTOCOL Titration Protocol 5 MCG/KG/MIN Vasopressin/Sodium Chloride 20 unit in 100 mls @ 9 mls/hr 09/19/25 02:36 09/19/25 12:30 Vasostrict/Ns Ivpb IV 10/19/25 02:35 0 unit/min .Q11H7M PRN 0 mls/hr PER PROTOCOL Titration Protocol 0.03 UNIT/MIN Norepinephrine Bitartrate 16 mg in 250 mls @ 3.286 mls/hr 09/19/25 03:32 09/19/25 12:15 Levophed In Ns 16mg/250ml IV 10/19/25 03:31 0 mcg/kg/min .Q24H PRN 0 mls/hr PER PROTOCOL Titration Protocol 0.05 MCG/KG/MIN Levothyroxine Sodium 125 mcg 09/18/25 06:00 09/20/25 06:24 Levothyroxine Sodium 125 Mcg Tablet PO 10/18/25 05:59 125 mcg ACBR GABE Administration Lidocaine 1 patch 09/17/25 18:46 09/18/25 00:06 Lidocaine 5% 1 Patch TOP 10/17/25 18:45 1 patch UD PRN Administration PAIN Protocol Pantoprazole Sodium 40 mg 09/16/25 16:45 09/20/25 08:20 Pantoprazole Inj 40 Mg Vial IV 10/16/25 16:44 40 mg QDAY GABE Administration Propranolol HCl 10 mg 09/19/25 15:00 09/20/25 06:24 Propranolol 10 Mg Tablet PO 10/19/25 14:59 10 mg TID GABE Administration Scopolamine 1 mg 09/17/25 15:00 09/17/25 15:08 Scopolamine 1 Mg Tdsy TOP 10/17/25 14:59 1 mg Q3D GABE Administration Plan 59-year-old female past medical history significant multiple myeloma chemotherapy, anemia, Basia's thyroiditis presented [facility] ED on 09/16 s/p witnessed cardiac arrest, 2/2 QTc prolongation, undergoing multiple rounds of v-rib/v-tach, initially admitted to ICU downgraded on 09/18. Course complicated by CODE BLUE called on 09/19 for patient being unresponsive with no pulse, found to be in V. tach/V-fib. CPR started and received shock and converted back to sinus rhythm, rate upgraded to ICU where patient was intubated. #Cardiac arrest x2 s/p CPR and shock resuscitation 2/2 #V-fib/V-tach #QTc prolongation Patient sustained cardiac arrest x 2, 09/16 and 09/18 secondary to QTc prolongation. Plan: - Avoid all QTc prolonging agents, dexamethasone for nausea for now - Keep K 4.5-5 and Mg at least at 3 at all times - Currently on heparin drip, ICU team to discuss possible transition to Eliquis - Per cardiology, likely ICD implantation following improvement of pneumonia #Acute hypoxic respiratory failure 2/2 #Septic shock 2/2 #CAP #Pulmonary edema Intubated on admission 09/16 and reintubated on 09/18 s/p second cardiac arrest. CTAP revealed extensive bilateral pneumonia. Plan: - Cefepime (09/17- #BERNADINE iso septic shock vs cardiac arrest Patient started to have decreased urine output following cardiac arrest. Creatinine started to uptrend on 09/19 at 1.3 with baseline of 0.6-1.0. Continue to uptrend. Likely 2/2 from septic shock versus cardiac arrest. S/p Lasix 40 x 1 on 09/19 Plan: - CTM creatinine #Multiple pulmonary emboli, stable Pulmonary emboli from underlying multiple myeloma Plan: - Heparin drip Plan of care discussed with attending Dr. Rico. Angela Alvares, PGY-1 Internal Medicine Attending Provider Attestation/Addendum Patient seen and examined with resident physician Dr. Alvares. Note reviewed, agree with findings and recommendations. Spoke to ICU team. Continue with antibiotics. Status postextubation.
[2025-09-20 11:00] LABS: Partial Thromboplastin Time 54.1 Seconds (22.0-36.0)
--- NOTE | 2025-09-20 12:05 | ESPR_ITS ---
<Statement entered by Matheus Braxton MD - 09/21/25 15:10> I personally evaluated examined the patient intensive care unit along with resident physician and went over findings patient does have normal QT interval today no further episodes of ventricular tachycardia overnight since yesterday it looks like patient's QT is now normal amiodarone was discontinued. Patient decided to go DNR but I recommended to at least have defibrillation in case she goes into a V-fib. She has further episodes of VT VF will consider ICD implantation otherwise if her QT is normal and she has no further episodes of VT VF will probably not require ICD implantation this hospitalization. Agree with the treatment plan recommendation as documented by resident physician. Documentation for date of: 09/20/25 Subjective Subjective Interval history: Patient seen and examined at bedside today; no acute events or arrythmias overnight. As cause (medication) for arrhythmias is known, will hold off for now on ICD placement. However, if arrhythmia recurs with normal QT, will consider placing ICD. Patient had concerns regarding pain with defibrillation; it was explained that if she gets another episode of vtach/vfib, she will most likely be unconscious when the shock is delivered, minimizing the amount of pain she will experience. Patient agreed to this treatment plan. In addition, we clarified her DNR status; she agrees to allow defibrillation, but does not want CPR or intubation. Satting at 99% on 5L. Exam Vital Signs Temp Pulse Resp BP Pulse Ox O2 Del Method O2 Flow Rate 98.0 F 58 L 20 116/71 100 BiPAP 6 09/20/25 08:00 09/20/25 11:09/20/25 11:09/20/25 11:09/20/25 11:09/20/25 11:09/20/25 10:05 FiO2 35 09/20/25 10:05 Narrative Exam General: A&O x3 Eyes: PERRL, EOMI. Anicteric, vision grossly intact. Ears: No ear pain, no ear discharge, Hearing grossly intact. Nose: No nasal discharge. Mouth/Throat: Moist mucous membranes, no redness, no lesions. Neck: Neck supple, non-tender, no cervical lymphadenopathy. Lungs: bilateral cracks, No accessory muscle use. Cardio: Normal S1/S2, regular rhythm, no murmurs, no JVD or carotid bruits. Abdomen: Soft, non-tender, no palpable masses, peristalsis present, no guarding or rebound. Extremities: Symmetrical, no significant deformities, no peripheral edema , non-tender, peripheral pulses present. Skin: No rashes, no lesions, warm to touch. Neuro: No focal neurological deficits. Psych: Cooperative, appropriate mood and effect. Objective Labs 09/20/25 04:14 09/20/25 13:24 Labs: Laboratory Results - last 24 hr 09/19/25 09/19/25 09/20/25 13:00 18:45 04:14 WBC 8.8 RBC 2.48 L Hgb 8.1 L Hct 24.8 L MCV 100 MCH 32.7 MCHC 32.7 RDW Std Deviation 60.6 H Plt Count 144 Neut % (Auto) 83 H Lymph % (Auto) 5 L Coleman % (Auto) 11 Eos % (Auto) 0 Baso % (Auto) 0 Neut # (Auto) 7.3 Lymph # (Auto) 0.5 L Coleman # (Auto) 1.0 H Eos # (Auto) 0.0 Baso # (Auto) 0.0 Immature Gran # (Auto) 0.04 H Absolute Nucleated RBC 0.00 Immature Gran % 1 H Nucleated RBC % 0 APTT 51.0 H 43.9 H 78.3 H D Sodium 140 138 140 Potassium 4.6 D 4.7 4.4 Chloride 108 H 108 H 108 H Carbon Dioxide 22.6 21.2 22.9 Anion Gap 9 9 9 BUN 21 23 29 H Creatinine 1.4 H 1.6 H 1.6 H Estim Creat Clear Calc 42.6 L 37.2 L 37.2 L eGFR 43 L 36 L 36 L BUN/Creatinine Ratio 15 14 18 Glucose 164 H D 130 H 125 H Calculated Osmolality 286 281 286 Calcium 8.8 8.7 8.6 Corrected Calcium 8.8 8.7 8.8 Phosphorus 3.1 2.6 2.6 Magnesium 3.1 H 2.9 H Total Bilirubin 1.0 AST 61 H ALT 100 H Alkaline Phosphatase 111 D Total Protein 5.2 L Albumin 4.3 4.1 3.8 Globulin 1.4 L Albumin/Globulin Ratio 2.7 H ABG Interpretation ABG results: 09/16/25 09/17/25 09/18/25 18:56 04:20 23:05 ABG pH 7.38 7.35 ABG pCO2 43 43 ABG pO2 353 H 171 H D ABG HCO3 25 24 ABG O2 Saturation 99 H 100 H ABG Base Excess 0 -2 VBG pH 7.42 VBG pCO2 32 L VBG pO2 128 H VBG Base Excess -4 L 09/19/25 09/19/25 09/19/25 00:51 02:09 05:17 ABG pH 7.21 L D 7.25 L 7.31 L ABG pCO2 50 H 49 H 39 D ABG pO2 60 L D 154 H D 199 H D ABG HCO3 20 21 20 ABG O2 Saturation 87 L 99 H 100 H ABG Base Excess -8 L -6 L -6 L VBG pH VBG pCO2 VBG pO2 VBG Base Excess Quality Measures Quality Measures VTE therapy (Heparin drip ) Assessment & Plan Assessment Current Active Medications: Generic Name Dose Route Start Last Admin Trade Name Freq PRN Reason Stop Dose Admin Acetaminophen 500 mg 09/18/25 13:11 09/18/25 20:28 Acetaminophen 500 Mg Tablet PO 10/18/25 13:10 500 mg Q6HR PRN Administration PAIN 1-3 Gabapentin 200 mg 09/19/25 15:15 09/20/25 06:24 Gabapentin 100 Mg Capsule PO 10/19/25 15:14 200 mg TID GABE Administration Hydromorphone HCl 0.5 mg 09/18/25 13:13 Hydromorphone Inj 2 Mg/Ml Vial IVP 09/22/25 22:59 Q4HR PRN PAIN SCALE 7-10 Protocol Heparin Sodium/Dextrose 25,000 unit in 250 mls @ 12.618 mls/hr 09/16/25 18:15 09/20/25 08:21 Heparin In D5w Ivpb IV 09/30/25 18:14 15 units/kg/hr .[id number] GABE 10.515 mls/hr Protocol Administration 18 UNITS/KG/HR Cefepime HCl 2 gm/ Sodium 50 mls @ 100 mls/hr 09/17/25 15:30 09/20/25 06:24 Chloride IV 09/24/25 15:29 100 mls/hr Q8HR GABE Administration Fentanyl Citrate 2,500 mcg in 250 mls @ 2.5 mls/hr 09/19/25 00:57 09/19/25 12:00 Sublimaze Inj 2,500 Mcg/250 Ml Bag IV 09/24/25 00:02 0 mcg/hr .Q24H PRN 0 mls/hr PER PROTOCOL Titration Protocol 25 MCG/HR Propofol 1,000 mg in 100 mls @ 2.103 mls/hr 09/19/25 00:57 09/19/25 11:00 Diprivan Ivpb IV 10/19/25 00:02 0 mcg/kg/min .Q24H PRN 0 mls/hr PER PROTOCOL Titration Protocol 5 MCG/KG/MIN Vasopressin/Sodium Chloride 20 unit in 100 mls @ 9 mls/hr 09/19/25 02:36 09/19/25 12:30 Vasostrict/Ns Ivpb IV 10/19/25 02:35 0 unit/min .Q11H7M PRN 0 mls/hr PER PROTOCOL Titration Protocol 0.03 UNIT/MIN Norepinephrine Bitartrate 16 mg in 250 mls @ 3.286 mls/hr 09/19/25 03:32 09/19/25 12:15 Levophed In Ns 16mg/250ml IV 10/19/25 03:31 0 mcg/kg/min .Q24H PRN 0 mls/hr PER PROTOCOL Titration Protocol 0.05 MCG/KG/MIN Levothyroxine Sodium 125 mcg 09/18/25 06:00 09/20/25 06:24 Levothyroxine Sodium 125 Mcg Tablet PO 10/18/25 05:59 125 mcg ACBR GABE Administration Lidocaine 1 patch 09/17/25 18:46 09/18/25 00:06 Lidocaine 5% 1 Patch TOP 10/17/25 18:45 1 patch UD PRN Administration PAIN Protocol Pantoprazole Sodium 40 mg 09/16/25 16:45 09/20/25 08:20 Pantoprazole Inj 40 Mg Vial IV 10/16/25 16:44 40 mg QDAY GABE Administration Propranolol HCl 10 mg 09/19/25 15:00 09/20/25 06:24 Propranolol 10 Mg Tablet PO 10/19/25 14:59 10 mg TID GABE Administration Scopolamine 1 mg 09/17/25 15:00 09/17/25 15:08 Scopolamine 1 Mg Tdsy TOP 10/17/25 14:59 1 mg Q3D GABE Administration Plan Jeanine Lozano is a 59-year-old female with a past medical history of multiple myeloma with multiple bony lytic lesions (status post radiation, four cycles of D-RVd chemotherapy, and bone marrow transplant), Basia's thyroiditis, and SIADH/hyponatremia who is admitted status-post cardiac arrest secondary to ventricular arrhythmia and cardiology consulted for the same. #Out of hospital cardiac arrest resulting from #Polymorphic ventricular tachycardia likely secondary to #QT prolongation secondary to combination of zofran and dapsone #Type II NSTEMI (demand ischemia) Presents after suffering cardiac arrest in field, underwent CPR, and required multiple shocks for ventricular arrhythmia. Started on amiodarone drip and continued to have episodes of arrhythmia requiring defibrillation and recommended lidocaine drip. Bedside echo did not show regional wall motion abnormalities but patient noted to be on epinephrine drip. Given that leading cause of ventricular arrhythmia remains to be ischemic heart disease decision was made to take patient to [facility] emergently, but revealed no significant no coronary artery disease. Differentials include cardiomyopathy (dilated vs hypertrophic vs infiltrative), electrolyte abnormalities, channelopathies, drug-induced, and acute illness. Electrolytes were within normal limits. EKG 09/16 showed QTc 479 on amiodarone and previous EKGs show QTc 440-480. Per chart review, she is on some medications associated with arrhythmias (Bactrim, dapsone, gabapentin, lenalidomide, Velcade) and upon further history taking, she has been taking Zofran for nausea that is also known to be associated with QT prolongation. At this time, etiology of her ventricular arrhythmias suspected to be drug-induced secondary to combination of Zofran and dapsone; given that a reversible cause found, no indication for ICD placement, and amiodarone has been discontinued. 09/19/25- Discontinue amiodarone after code blue; not helpful in QT-prolongation syndromes. Patient had code blue called at 23:48 on 09/18/25, with vtach and vfib seen. Shock was delivered and patient returned to sinus rhythm; intubated and moved back to ICU. Details in event note. Patient was intubated and taken to ICU. Patient received promethazine dose yesterday. Patient was placed on daratumumab (Darzalex) and Lenalidomide (revlemid) regimen for MM in 06/2025; Darzalex associated with small but clinically insignificant QT prolongation (PMID: 76116463), and lenalidomide has also been associated with QT prolongation (PMID: 56580362). In addition, patient received regimen once a week for first 2 weeks, instead of once a month per plan. Patient also had additional less severe event Saturday prior to first event that terminated itself. Amiodarone has no role, as it can prolong QT, and she has a known noncardiovascular cause. Plan: - As cause for arrhythmias is known, will hold off for now on ICD placement. However, if arrhythmia recurs with normal QT, will consider placing ICD. ? Amiodarone discontinued, extubated ? Closely monitor electrolytes; K > 4, Mg 2.5 to 3 ? Closely monitor on telemetry ? Avoid QT prolonging agents when possible #Shock, likely septic vs cardiac #Pneumonia with ARDS #Multiple pulmonary emboli #Hepatitis #Lactic acidosis #Basia disease #Sepsis ? Continue management per primary team ----- This case was discussed with my attending physician, Dr. Braxton. Grzegorz Alarcon, PGY1
[2025-09-20 13:58] LABS: Albumin, Serum 4.0 gm/dL (3.4-4.8); Anion Gap 10 (7-16); BUN/Creatinine Ratio 21 Ratio (12-20); Blood Urea Nitrogen 33 mg/dL (9-23); Calcium 8.6 mg/dL (8.3-10.6); Calcium (Corrected) 8.6 mg/dL (8.5-10.1); Carbon Dioxide 20.9 mMol/L (20.0-31.0); Chloride 107 mMol/L (98-107); Creatinine (Component) 1.6 mg/dL (0.6-1.3); Estimated Creatinine Clearance 37.2 mL/min (>60); Glucose 134 mg/dL (74-106); Magnesium 3.0 mg/dL (1.6-2.6); Osmolality,Calculated 284 (275-295); Phosphorous 2.2 mg/dL (2.4-5.1); Potassium 4.4 mMol/L (3.4-5.1); Sodium 138 mMol/L (136-145); eGFR 36 See Note
[2025-09-20] MEDS: SCOPOLAMINE 1 MG TDSY TOP (14:17)
--- NOTE | 2025-09-20 15:30 | EKG_ITS ---
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
--- NOTE | 2025-09-20 15:30 | PC.SS ---
Update: Patient on BI-PAP. P.O. feedings. Afebrile. Receiving IV antibiotics. Heparin drip in place. Cardiology is consulting.
--- NOTE | 2025-09-20 16:15 | PC.CM ---
Addendum entered by Jazmyn Talley RN 09/20/25 19:54: 1920 I called and spoke to Dr. Yu and he states we can cancel the transfer request at this time. 1914 [facility] transfer nurse Janak called me and states their doctor DR. Jason Regalado spoke to Dr. Yu and patient has been declined due to the fact she is not a surgical candidate. 1819 [facility] called and declined patient due to capacity. Addendum entered by Jazmyn Talley RN 09/20/25 16:54: 1610 I contacted [facility] and I initiated a transfer with Janak transfer nurse. I faxed over information. Original Note: 1540 I called [facility] in [place] and I spoke to transfer nurse Joaquín. She states they do not have cardiovascular/thoracic surgeons consultant internship. [facility] declined patient. I contacted [facility] and I initiated a transfer. I faxed over information. 1535 I received a call from Dr. Yu who states they spoke to our surgeon and he states he recommends to try and transfer. 1515 I received a call from [facility] ICU charge nurse who states they are still waiting to hear from surgery to see if they would recommend a transfer. She states she will let me know if they hear from the surgeon. 1430 I received a referral to transfer patient for cardiovascular/thoracic surgery. would like an evaluation for flail chest to see if surgery is indicated or not.
[2025-09-20] MEDS: FUROSEMIDE INJ 10 MG/ML 4ML VIAL 40 MG IVP (17:49)
--- NOTE | 2025-09-20 18:16 | PC.NURSE ---
Dr Yu aware of a patient left arm edema. no new orders received, changed bp cuff from left side to the right side.
[2025-09-20 18:54] LABS: Albumin, Serum 4.3 gm/dL (3.4-4.8); Anion Gap 9 (7-16); BUN/Creatinine Ratio 23 Ratio (12-20); Blood Urea Nitrogen 36 mg/dL (9-23); Calcium 8.9 mg/dL (8.3-10.6); Calcium (Corrected) 8.9 mg/dL (8.5-10.1); Carbon Dioxide 21.7 mMol/L (20.0-31.0); Chloride 105 mMol/L (98-107); Creatinine (Component) 1.6 mg/dL (0.6-1.3); Estimated Creatinine Clearance 37.2 mL/min (>60); Glucose 145 mg/dL (74-106); Magnesium 3.1 mg/dL (1.6-2.6); Osmolality,Calculated 283 (275-295); Phosphorous 1.7 mg/dL (2.4-5.1); Potassium 4.4 mMol/L (3.4-5.1); Sodium 136 mMol/L (136-145); eGFR 36 See Note
[2025-09-20] MEDS: NAPH,KPH MBDB 1 PACKET (1.5 GM) PO (19:56)
[2025-09-20] MEDS: POT PHOS 15 mMol in NS 250 ML 15 MMOL/250 ML BAG 62.5 MMOL IV (21:56)
[2025-09-21] VITALS (26 sets, daily range): BP systolic 87–139; BP diastolic 54–87; PULSE 59–87; RESP 13–30; TEMP 36.2–36.9; O2SAT 98–100; BMI 22.6
[2025-09-21 05:18] LABS: Basophils # (Auto) 0.0 Thou/mm3 (0.0-0.2); Basophils % (Auto) 0 % (0-2.5); Eosinophils # (Auto) 0.1 Thou/mm3 (0.0-0.5); Eosinophils % (Auto) 1 % (0-10); Hematocrit 24.8 % (36.0-46.0); Immature Granulocytes Auto 0.03 Thou/mm3 (0.00-0.00); Lymphocytes # (Auto) 0.5 Thou/mm3 (1.0-4.8); Lymphocytes % (Auto) 11 % (10-50); Mean Corpuscular HGB Conc 32.3 g/dl (31.0-37.0); Mean Corpuscular Hemoglobin 32.0 pg (25.0-35.0); Mean Corpuscular Volume 99 fL (80-100); Monocytes # (Auto) 1.0 Thou/mm3 (0.0-0.8); Monocytes % (Auto) 22 % (0-12); Neutrophils # (Auto) 3.0 Thou/mm3 (1.8-7.7); Neutrophils % (Auto) 65 % (37-80); Nucleated Red Blood Cell # 0.00 Thou/mm3 (0.00-0.00); Nucleated Red Blood Cell % 0 /100 WBC (0); Platelet Count 135 Thou/mm3 (140-440); RDW Standard Deviation 59.7 fL (36.4-46.3); Red Blood Count 2.50 Miln/mm3 (4.00-5.20); White Blood Count 4.6 Thou/mm3 (3.6-11.0)
[2025-09-21 05:21] LABS: Hemoglobin 8.0 g/dL (12.0-16.0)
[2025-09-21 05:42] LABS: Partial Thromboplastin Time 48.8 Seconds (22.0-36.0)
[2025-09-21 06:14] LABS: Alanine Aminotransferase 82 U/L (10-49); Albumin, Serum 3.7 gm/dL (3.4-4.8); Albumin/Globulin Ratio 2.8 (1.2-2.2); Alkaline Phosphatase 100 U/L (46-116); Anion Gap 12 (7-16); Aspartate Amino Transferase 45 U/L (0-34); BUN/Creatinine Ratio 23 Ratio (12-20); Bilirubin,Total 1.1 mg/dL (0.3-1.2); Blood Urea Nitrogen 36 mg/dL (9-23); Calcium 8.2 mg/dL (8.3-10.6); Calcium (Corrected) 8.4 mg/dL (8.5-10.1); Carbon Dioxide 22.4 mMol/L (20.0-31.0); Chloride 106 mMol/L (98-107); Creatinine (Component) 1.6 mg/dL (0.6-1.3); Estimated Creatinine Clearance 37.2 mL/min (>60); Globulin 1.3 gm/dL (2.3-3.5); Glucose 103 mg/dL (74-106); Magnesium 2.8 mg/dL (1.6-2.6); Osmolality,Calculated 287 (275-295); Phosphorous 3.7 mg/dL (2.4-5.1); Potassium 4.0 mMol/L (3.4-5.1); Sodium 140 mMol/L (136-145); Total Protein 5.0 gm/dL (5.7-8.2); eGFR 36 See Note
[2025-09-21] MEDS: LEVOTHYROXINE SODIUM 125 MCG TABLET PO (06:27)
[2025-09-21] MEDS: PROPRANOLOL 10 MG TABLET PO ×3 (06:27→21:25)
[2025-09-21] MEDS: GABAPENTIN 100 MG CAPSULE 200 MG PO ×3 (06:27→21:26)
[2025-09-21] MEDS: CEFEPIME INJ 2 GM in SODIUM CHLORIDE 0.9% (Popper) 50 ML IV ×3 (06:28→21:26)
[2025-09-21] MEDS: HEPARIN SOD INJ 5000 UNIT/ML VIAL 2800 UNIT IV (07:22)
[2025-09-21] MEDS: POTASSIUM CHL 10 mEq IVPB 10 MEQ/100 ML BAG 100 MEQ IV (08:19)
--- NOTE | 2025-09-21 09:00 | EKG_ITS ---
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
--- NOTE | 2025-09-21 09:42 | ESPR_ITS ---
Documentation for date of: 09/21/25 Subjective Subjective Interval history: Ms. Lozano is a 59-year-old lady with past medical history significant for multiple myeloma on chemotherapy, anemia, Basia's thyroiditis presented to the emergency department after witnessed cardiac arrest at his school while she was visiting her grandkirashid Smith. On the field the patient received 1 shock for V-fib. In the emergency department she was found to be altered and unresponsive. Patient noted to have ventricular arrhythmias and received multiple shocks, intubated and subsequently transferred to ICU. She was started on amiodarone drip, lidocaine drip, Versed drip, epinephrine drip. Also was given IV fluids. ED course: Labs significant for: Lactic acid 7.9, BNP 385, potassium 3.2, calcium 8.4, AST 136, ALT 95, T. bili 0.4, troponin 7. Beta hydroxybutyrate 0.1, Pro-Nehemias 0.05. TSH 3.31. Urinalysis showed 3+ protein, 3+ glucose, RBC 48, WBC 46, rare bacteria. U tox positive for marijuana. Imaging significant for: Chest/abdomen/pelvis CTA positive for multiple pulmonary emboli, widespread significant pneumonia, widespread osteolytic lesions, multiple bilateral rib fractures. Head CT unremarkable. EKG showed sinus tachycardia, QTc 479. 09/17/2025: Overnight, amiodarone was decreased due to low heart rate. Patient was weaned off sedation, following commands, successfully extubated in the morning. Due to low sats, patient placed on HFNC, weaning down. No arrythmias noted. Repeat EKG showed prolonged QTc 457. Labs and medications reviewed. Patient under the care of Dr. Casiano. Currently on broad-spectrum antibiotics, heparin drip. 09/18/2025 patient was transitioned to telemetry. Per review ICU team Dr. Casiano recommended to hold off on amiodarone, metoprolol. Patient was having significant nausea and I had to give 1 dose of promethazine. On Dilaudid for pain and requested tramadol which was ordered. 09/19/2025 patient overnight had another episode of torsades, V-fib/V. tach and needing defibrillator, amiodarone drip and was intubated and transferred back to ICU. Currently she is alert and awake. Possible extubation this morning. Potassium and magnesium are normal. Could be med related (tramadol 1 dose and promethazine 1 dose) QTc seems to be improving after stopping all the medications. Urine output down. 1 dose of Lasix was given. Started to improve. Creatinine 1.6. Electrolytes stable. Noted elevation in the liver enzymes. 09/20/2025: No acute overnight events. Patient seen examined at bedside in ICU with . No new complaints, expresses fatigue. Patient is extubated and on 5 L nasal cannula. Per cardiology, recommend tight control of potassium and magnesium, goal K4 0.5-5 and magnesium 3. Urine output slightly improved over the past 24 hours, will avoid giving extra fluid as creatinine stable elevated 1.6 likely secondary to cardiac arrest. Per cardiology, pending improvement of pneumonia prior to defibrillator placement. Nausea controlled with dexamethasone. LFTs downtrending 09/21/2025: No acute overnight events. Patient seen and examined at bedside in ICU with . Endorses chest wall pain from rib and sternum fractures. Saturating 100% on 5 L nasal cannula. QTc on a.m. EKG ~440. No further episodes of arrhythmias. Keep K greater than 4 and Mg 2.5-3 at all times. Per cardiology, no ICD implantation at this time as arrhythmia secondary to Zofran and dapsone however patient experienced V-fib/V. tach and is on any QT prolonging agents will consider ICD implantation. Exam Vital Signs Temp Pulse Resp BP Pulse Ox O2 Del Method O2 Flow Rate 98.2 F 70 23 H 104/71 100 CPAP 4 09/21/25 08:00 09/21/25 09:01 09/21/25 09:01 09/21/25 09:01 09/21/25 09:01 09/21/25 04:00 09/21/25 09:01 FiO2 30 09/21/25 04:00 Narrative Exam GENERAL: AOx3, no acute distress, fatigued HEENT: mucous membranes moist, bilateral sclera anicteric CARDIOVASCULAR: regular rate and rhythm, S1/S2 present, no murmurs appreciated PULMONARY: mild bilateral crackes, +paradoxical chest motion ABDOMINAL: soft, non-tender, non-distended, no rebound/guarding, bowel sounds present EXTREMITIES: no peripheral edema SKIN: warm and dry, intact, no rashes NEURO: CN II-XII grossly intact, no focal deficits, alert, following commands Objective Labs 09/22/25 04:49 09/22/25 04:49 Labs: Laboratory Results - last 24 hr 09/20/25 09/20/25 09/20/25 09:55 13:24 17:45 WBC RBC Hgb Hct MCV MCH MCHC RDW Std Deviation Plt Count Neut % (Auto) Lymph % (Auto) [place] % (Auto) Eos % (Auto) Baso % (Auto) Neut # (Auto) Lymph # (Auto) [place] # (Auto) Eos # (Auto) Baso # (Auto) Immature Gran # (Auto) Absolute Nucleated RBC Immature Gran % Nucleated RBC % APTT 54.1 H D Sodium 138 136 Potassium 4.4 4.4 Chloride 107 105 Carbon Dioxide 20.9 21.7 Anion Gap 10 9 BUN 33 H 36 H Creatinine 1.6 H 1.6 H Estim Creat Clear Calc 37.2 L 37.2 L eGFR 36 L 36 L BUN/Creatinine Ratio 21 H 23 H Glucose 134 H 145 H Calculated Osmolality 284 283 Calcium 8.6 8.9 Corrected Calcium 8.6 8.9 Phosphorus 2.2 L 1.7 L Magnesium 3.0 H 3.1 H Total Bilirubin AST ALT Alkaline Phosphatase Total Protein Albumin 4.0 4.3 Globulin Albumin/Globulin Ratio 09/21/25 04:30 WBC 4.6 D RBC 2.50 L Hgb 8.0 L Hct 24.8 L MCV 99 MCH 32.0 MCHC 32.3 RDW Std Deviation 59.7 H Plt Count 135 L Neut % (Auto) 65 Lymph % (Auto) 11 [place] % (Auto) 22 H Eos % (Auto) 1 Baso % (Auto) 0 Neut # (Auto) 3.0 Lymph # (Auto) 0.5 L [place] # (Auto) 1.0 H Eos # (Auto) 0.1 Baso # (Auto) 0.0 Immature Gran # (Auto) 0.03 H Absolute Nucleated RBC 0.00 Immature Gran % 1 H Nucleated RBC % 0 APTT 48.8 H Sodium 140 Potassium 4.0 Chloride 106 Carbon Dioxide 22.4 Anion Gap 12 BUN 36 H Creatinine 1.6 H Estim Creat Clear Calc 37.2 L eGFR 36 L BUN/Creatinine Ratio 23 H Glucose 103 Calculated Osmolality 287 Calcium 8.2 L Corrected Calcium 8.4 L Phosphorus 3.7 Magnesium 2.8 H Total Bilirubin 1.1 AST 45 H ALT 82 H Alkaline Phosphatase 100 Total Protein 5.0 L Albumin 3.7 D Globulin 1.3 L Albumin/Globulin Ratio 2.8 H ABG Interpretation ABG results: 09/16/25 09/17/25 09/18/25 18:56 04:20 23:05 ABG pH 7.38 7.35 ABG pCO2 43 43 ABG pO2 353 H 171 H D ABG HCO3 25 24 ABG O2 Saturation 99 H 100 H ABG Base Excess 0 -2 VBG pH 7.42 VBG pCO2 32 L VBG pO2 128 H VBG Base Excess -4 L 09/19/25 09/19/25 09/19/25 00:51 02:09 05:17 ABG pH 7.21 L D 7.25 L 7.31 L ABG pCO2 50 H 49 H 39 D ABG pO2 60 L D 154 H D 199 H D ABG HCO3 20 21 20 ABG O2 Saturation 87 L 99 H 100 H ABG Base Excess -8 L -6 L -6 L VBG pH VBG pCO2 VBG pO2 VBG Base Excess Quality Measures Quality Measures VTE therapy (Heparin drip ) Assessment & Plan Assessment Current Active Medications: Generic Name Dose Route Start Last Admin Trade Name Freq PRN Reason Stop Dose Admin Acetaminophen 500 mg 09/18/25 13:11 09/18/25 20:28 Acetaminophen 500 Mg Tablet PO 10/18/25 13:10 500 mg Q6HR PRN Administration PAIN 1-3 Gabapentin 200 mg 09/19/25 15:15 09/21/25 06:27 Gabapentin 100 Mg Capsule PO 10/19/25 15:14 200 mg TID GABE Administration Heparin Sodium/Dextrose 25,000 unit in 250 mls @ 12.618 mls/hr 09/16/25 18:15 09/21/25 07:23 Heparin In D5w Ivpb IV 09/30/25 18:14 17 units/kg/hr .[id number] GABE 11.917 mls/hr Protocol Titration 18 UNITS/KG/HR Cefepime HCl 2 gm/ Sodium 50 mls @ 100 mls/hr 09/17/25 15:30 09/21/25 06:28 Chloride IV 09/24/25 15:29 100 mls/hr Q8HR GABE Administration Levothyroxine Sodium 125 mcg 09/18/25 06:00 09/21/25 06:27 Levothyroxine Sodium 125 Mcg Tablet PO 10/18/25 05:59 125 mcg ACBR GABE Administration Lidocaine 1 patch 09/17/25 18:46 09/18/25 00:06 Lidocaine 5% 1 Patch TOP 10/17/25 18:45 1 patch UD PRN Administration PAIN Protocol Pantoprazole Sodium 40 mg 09/16/25 16:45 09/21/25 08:19 Pantoprazole Inj 40 Mg Vial IV 10/16/25 16:44 40 mg QDAY GABE Administration Propranolol HCl 10 mg 09/19/25 15:00 09/21/25 06:27 Propranolol 10 Mg Tablet PO 10/19/25 14:59 10 mg TID GABE Administration Scopolamine 1 mg 09/17/25 15:00 09/20/25 14:17 Scopolamine 1 Mg Tdsy TOP 10/17/25 14:59 1 mg Q3D GABE Administration Plan 59-year-old female past medical history significant multiple myeloma chemotherapy, anemia, Basia's thyroiditis presented to [facility] ED on 09/16 s/p witnessed cardiac arrest, 2/2 QTc prolongation, undergoing multiple rounds of v-rib/v-tach, initially admitted to ICU downgraded on 09/18. Course complicated by CODE BLUE called on 09/19 for patient being unresponsive with no pulse, found to be in V. tach/V-fib. CPR started and received shock and converted back to sinus rhythm, rate upgraded to ICU. #Cardiac arrest x2 s/p CPR and shock resuscitation 2/2 #V-fib/V-tach #QTc prolongation Patient sustained cardiac arrest x 2, 09/16 and 09/18 secondary to QTc prolongation from Zofran and dapsone. Plan: - Avoid all QTc prolonging agents, dexamethasone for nausea for now - Keep K >4 and Mg 2.5-3 at all times - Currently on heparin drip, ICU team to discuss possible transition to Eliquis - Per cardiology, no ICD implantation as V-fib/V. tach secondary to medication Zofran and dapsone however if patient experiences V-fib/V. tach and is not on any QT prolonging agents will consider ICD implantation #Acute hypoxic respiratory failure 2/2 #Septic shock 2/2 #CAP #Pulmonary edema Intubated on admission 09/16 and reintubated on 09/18 s/p second cardiac arrest. CTAP revealed extensive bilateral pneumonia. Plan: - Cefepime (09/17- #Prerenal BERNADINE iso septic shock vs cardiac arrest Patient started to have decreased urine output following cardiac arrest. Creatinine started to uptrend on 09/19 at 1.3 with baseline of 0.6-1.0. Now stable at 1.6. Likely 12/20 from septic shock versus cardiac arrest. S/p Lasix 40 x 1 on 09/19 Plan: - CTM creatinine #Multiple pulmonary emboli, stable Pulmonary emboli from underlying multiple myeloma Plan: - Heparin drip Plan of care discussed with attending Dr. Rico. Angela Alvares, PGY-1 Internal Medicine Attending Provider Attestation/Addendum Patient seen and examined with resident physician Dr. Alvares. Note reviewed, agree with findings and recommendations. Patient currently seen in ICU. Family at bedside. No evidence of any PVCs. Potassium and magnesium at goal. Creatinine 1.6. Will be Downgraded-hospitalist team to admit.
--- NOTE | 2025-09-21 09:51 | ESPR_ITS ---
<Statement entered by Lee Brown MD - 09/21/25 17:05> I have reviewed the note and agree with the resident's assessment & plan with exceptions as below. I have personally reviewed labs, imaging, home meds/prior records, examined the patient, formulated and discussed management plan with my attending Patient seen and examined at [facility]. No ON events. Patient did have a few PVC's, but no VT/VF. EKG this am showed QT 440. Patient in good spirits and doing well. No other complaints at this time other than some pain with breathing. Spoke with oncologist who agrees with Eliquis for anticoagulation and also spoke with chief concierge who stated we can transition as no plan for ICD. Will transition to Eliquis 10mg BID for 7 days then 5mg BID for 3 months. Lee Brown PGY2 Disclaimer: Even though this this note was dictated by speech recognition and even though it was carefully revised there may still be minor errors in hand singer due to voice recognition software. Documentation for date of: 09/21/25 Subjective Subjective Interval history: Interval history: This 59 y/o F with PMHx significant for multiple myeloma on chemotherapy, anemia, Basia's presented to ED on 09/16/25 after having been witnessed to slump over and pass out on a bench. Patient received 1 shock from AED in the field, 3 more shocks from EMS. In ED, patient found to be altered, unresponsive. Underwent multiple rounds of v-fib/v-tach in ED requiring mutiple shocks. Due to concern for ischemic heart disease causing arrythmias, patient underwent urgent cardiac catheterization which revealed no obstructions. Patient was started on amiodarone drip, lidocaine drip, Versed drip, epinephrine drip in the ED. Patient received 2 L bolus lactated Ringer's. Intubated in the ED.Labs significant for: Lactic acid 7.9, BNP 385, potassium 3.2, calcium 8.4, AST 136, ALT 95, T. bili 0.4, troponin 7. Beta hydroxybutyrate 0.1, Pro-Seun 0.05. TSH 3.31. Urinalysis showed 3+ protein, 3+ glucose, RBC 48, WBC 46, rare bacteria. U tox positive for marijuana. Imaging significant for: Chest/abdomen/pelvis CTA positive for multiple pulmonary emboli, widespread significant pneumonia, widespread osteolytic lesions, multiple bilateral rib fractures. Head CT unremarkable. EKG showed sinus tachycardia, QTc 479.Patient was admitted to ICU for septic shock due to pneumonia and ARDS and V. tach/V-fib postcardiac arrest and shock therapy. Gta stated that QT prolongation is clearly the cause of ventricular fibrillation polymorphic VT/VF no need for antiarrhythmic drug therapy will continue to avoid QT prolonging agents. Amiodarone drip was continued to for V. tach and the rate was decreased due to bradycardia. Patient was extubated after weaning off sedation on 09/17 initiated was placed on high flow nasal cannula and transition to normal nasal cannula. Repeat EKG showed prolonged QTc 457. Arterial line was removed and due to prolonged bleeding from the site of arterial line heparin drip was paused for few hours and restarted again overnight. Hemoglobin dropped mildly only. Heparin drip was restarted. Per patient's oncologist at [facility], Dr. Barrera he advised to hold patient's lenalidomide for 1 to 2 weeks that would be acceptable and transition the patient to Eliis would work with her chemotherapy regimen. On 09/18 in the morning, patient had some bigeminy's and trigeminy therefore K- Phos was given. EKG showed QTc 507. Patient received magnesium and metoprolol succinate. Initial strips showed polymorphic V. tach which was attributed to medication use. Patient was not taking Zofran. Gta recommended to stop amiodarone metoprolol and monitor patient closely. Repeat EKG showed QTc 468. Ativan was given for nausea and anxiety. Heparin drip was continued. Patient's hemoglobin down trended to 7 therefore 1 unit PRBC was transfused. Although no signs of bleeding were observed. 09/18/2025 Rapid response changed to CODE BLUE called at 23:48 as patient became unresponsive with no pulse. Cardiac Pads were placed and CPR was started immediately along with Ambu bag. campus monitor revealed V. tach and V-fib at 23:49. Patient received 200 J shock and CPR was resumed. She converted back to sinus rhythm at 23:52 and Patient received 1 amp of epinephrine, 1 amp of bicarb and seun gluconate along with 2g magnesium sulphate which was rushed in 10 mins. STAT labs were ordered. Patient was shifted to ICU for intubation due to hypoxia and tacypnea and post cardiac arrest. Etomidate 20 mg and Rocronium 100 mg was given x1. Before this code blue patient had a rapid response due to Torsades pointes. At that time patient was feeling dizzy and was tachypneic on 5 L nasal cannula. And EKG was ordered along with 30 mmol of K-phosp. 2 g Mg was ordered to be run in 10 mins. EKG at 22:02 showed sinus rhythm with QTc 474. Repeat EKG at 22:55 showed sinus rhythm with QTc 483. Patient is upgraded to ICU due to Post cardiac arrest due to VT/VF post Defib, intubated and mechanical ventilation due to cardiac arrest and AHRF due to ARDS Pnuemonia. 09/19/2025: Patient was seen and examined at bedside this morning. Overnight patient was upgraded back to the ICU postcardiac arrest due to V. tach V-fib. Patient had 3 runs of V. tach V-fib while patient was in telemetry. This morning patient has not had any more runs of V. tach V-fib. Patient's potassium went up to 5.4 and magnesium is 2.7. Will aim for potassium 4.5-5 and Mg 3 Chest x-ray looks to be pulmonary edema therefore will give Lasix 40 x 1 IV push. Patient is EKG this morning showed again a QTc of 511. Patient does not have any family or personal history of syncope, seizures, or previous sudden cardiac in the family. Patient was weaned off vasopressors and was following commands therefore SBT was done and patient was successfully extubated around noon time. Given that this is the second cardiac event this patient has had due to V. tach/V-fib patient would benefit from an ICD. Also given that the patient has been having ectopy including today after patient was successfully extubated she did have some PVCs shortly after she will likely be started on propranolol 10 mg 3 times daily if BP and HR allow in hopes of improving QTc. Patient also had significant urine output after Lasix 40 mg x 1 IVP. It was noticed that patient had a paradoxical chest motion with inspiration and given concern for flail chest order chest CT, but once when patient was can get taken to CT she started having feelings that she was going to faint and having similar symptoms when she went to V. tach/V-fib. At this time ordered 1 g of magnesium and ordered repeat EKG. Showed QTc of around 440 manually and on EKG reports show for 53 QTc. Ordered Ativan 0.5 mg via NG, but patient still having nausea. Gave patient 4 mg of dexamethasone IV for nausea, she did have improvement after dexamethasone. Ordered a chest x-ray while waiting for chest CT and that showed improvement in pulmonary edema. Will wait for chest CT, but will continue with pain management and will start patient on CPAP possible floor chest. Patient asked me to speak with her and her family concerning her CODE STATUS. She stated that she had decided after careful consideration and discussion of her family that she would like to be DNR/DNI. She stated that her decision to be DNR/DNI at this time was because of personal reasons as well as a cancer and due to the recent cardiac events that she has had she will like to be DNR/DNI and not get any more shocks or any more resuscitation efforts including epinephrine if her heart stops. She would like to continue all other medical management for now. POLST form was signed with patient, , and daughter at bedside as well as senior resident Dr. Gardner and [place] resident Dr. Shannon at bedside. Patient made clear that she would not want a PEG tube placed, but was okay with NG tube and tube feeds for short-term for nutritional support as well as TPN. 09/20/2025: Patient was seen and evaluated at bedside this morning. No acute overnight events. Patient does not have any more runs of PVCs or PACs will be for for V. tach. She did mention that around 2 AM she did feel some discomfort in her heart how she feels when she has an episode of V-fib V. tach. The was at bedside stated that this happened and that her heart rate was in the high 80s. Patient seems to be having these feelings more or less when her heart rates above 85 to higher 90s. Lab milan hemoglobin 8.4 today we will continue to monitor and potassium was 4.4 this morning therefore repleted with 20 mEq to maintain it above 4.5. Patient magnesium was 2.9 therefore gave 1 g to maintain above 3. Patient did develop an BERNADINE with creatinine of 1.6 this morning likely secondary to cardiac arrest, will continue to monitor. Good urine output throughout the night and has been using CPAP which patient states helps her with her breathing. Will advance diet today and encourage p.o. fluids. Patient had decreasing urine output throughout the day therefore gave Lasix 40 IV x 1 again which improved urine output. Patient's QT remained within normal limits on repeat EKGs. Patient had another discussion with chief concierge concerning defribrillation and afterwards she was agreeable only to defribrillation. Spoke with thoracic surgeon Dr. Regalado at [facility] who stated that this time patient did not need transfer for any surgical intervention at this time for flail chest. Stated that patient was not a good candidate for surgical procedure due to multiple comorbidities and that given that the rib fractures were nondisplaced patient can be treated medically with pain management. Therefore we will cancel transfer at this time. Tried to reach out to patient's oncologist, but was not available. Left a message to get a call back. 09/21/2025: Noted to have occasional PVCs on telemetry overnight but no Vtach noted. Patient seen and assessed at bedside. Reports generalized chest soreness and heaviness with deep inspiration, secondary to rib fractures. Otherwise doing well overall. Denies sharp or new chest pain, shortness of breath, or palpitations. Repeat EKG this morning shows QTc of 440. WBC 4.6 (from 8.8). Potassium 4.0, repleted with 20 mEq KCl orally. Magnesium 2.8, repleted magnesium sulfate 1 g IV. AST and ALT continue to improve. Creatinine stable at 1.6 despite Lasix 40 IV x 1 likely secondary to ATN from cardiogenic arrest on 09/18. Per discussion with nephrology, will hold Lasix today as she has good urine output. Continue to monitor. Will remove Yung today. Recommend to continue CPAP at night. Will continue heparin drip for now as pending oncology recommendations for DOAC initiation. Continue propranolol 10 mg 3 times daily. Patient not stable for defibrillator placement at this time per cardiology. Patient is stable for downgrade. Updated patient's oncologist Dr. Govea at [facility] on patient's condition and confirmed that patient is still safe to transition to Eliquis for anticoagulation. Spoke to cardiology who was also agreeable, recommended Eliquis 10 mg BID for 7 days, followed by 5 mg BID for 3 months. Exam Vital Signs Temp Pulse Resp BP Pulse Ox O2 Del Method O2 Flow Rate 98.2 F 70 23 H 104/71 100 CPAP 4 09/21/25 08:00 09/21/25 09:01 09/21/25 09:01 09/21/25 09:01 09/21/25 09:01 09/21/25 04:00 09/21/25 09:01 FiO2 30 09/21/25 04:00 Narrative Exam General: A/O x3, no acute distress. Eyes: PERRL, EOMI. Anicteric, vision grossly intact. Ears: No ear pain, no ear discharge, Hearing grossly intact. Nose: No nasal discharge. Mouth/Throat: Moist mucous membranes, no redness, no lesions. Neck: Neck supple, non-tender, no cervical lymphadenopathy. Lungs: Mild rhonchi in lower lobes bilaterally, CTA in upper lobes. Paradoxical chest motion more decreased, No accessory muscle use. Cardio: Chest wall tenderness. Normal S1/S2, regular rhythm, no murmurs, no JVD. Abdomen: Soft, non-tender, no palpable masses, peristalsis present, no guarding or rebound. Extremities: Symmetrical, no significant deformities, no peripheral edema , non-tender, peripheral pulses presents. Skin: No rashes, no lesions, warm to touch. Neuro: No focal neurological deficits, motor and sensory intact Psych: Cooperative Objective Labs 09/22/25 04:49 09/22/25 04:49 Labs: Laboratory Results - last 24 hr 09/20/25 09/20/25 09/20/25 09:55 13:24 17:45 WBC RBC Hgb Hct MCV MCH MCHC RDW Std Deviation Plt Count Neut % (Auto) Lymph % (Auto) Caroline % (Auto) Eos % (Auto) Baso % (Auto) Neut # (Auto) Lymph # (Auto) Caroline # (Auto) Eos # (Auto) Baso # (Auto) Immature Gran # (Auto) Absolute Nucleated RBC Immature Gran % Nucleated RBC % APTT 54.1 H D Sodium 138 136 Potassium 4.4 4.4 Chloride 107 105 Carbon Dioxide 20.9 21.7 Anion Gap 10 9 BUN 33 H 36 H Creatinine 1.6 H 1.6 H Estim Creat Clear Calc 37.2 L 37.2 L eGFR 36 L 36 L BUN/Creatinine Ratio 21 H 23 H Glucose 134 H 145 H Calculated Osmolality 284 283 Calcium 8.6 8.9 Corrected Calcium 8.6 8.9 Phosphorus 2.2 L 1.7 L Magnesium 3.0 H 3.1 H Total Bilirubin AST ALT Alkaline Phosphatase Total Protein Albumin 4.0 4.3 Globulin Albumin/Globulin Ratio 09/21/25 04:30 WBC 4.6 D RBC 2.50 L Hgb 8.0 L Hct 24.8 L MCV 99 MCH 32.0 MCHC 32.3 RDW Std Deviation 59.7 H Plt Count 135 L Neut % (Auto) 65 Lymph % (Auto) 11 Caroline % (Auto) 22 H Eos % (Auto) 1 Baso % (Auto) 0 Neut # (Auto) 3.0 Lymph # (Auto) 0.5 L Caroline # (Auto) 1.0 H Eos # (Auto) 0.1 Baso # (Auto) 0.0 Immature Gran # (Auto) 0.03 H Absolute Nucleated RBC 0.00 Immature Gran % 1 H Nucleated RBC % 0 APTT 48.8 H Sodium 140 Potassium 4.0 Chloride 106 Carbon Dioxide 22.4 Anion Gap 12 BUN 36 H Creatinine 1.6 H Estim Creat Clear Calc 37.2 L eGFR 36 L BUN/Creatinine Ratio 23 H Glucose 103 Calculated Osmolality 287 Calcium 8.2 L Corrected Calcium 8.4 L Phosphorus 3.7 Magnesium 2.8 H Total Bilirubin 1.1 AST 45 H ALT 82 H Alkaline Phosphatase 100 Total Protein 5.0 L Albumin 3.7 D Globulin 1.3 L Albumin/Globulin Ratio 2.8 H ABG Interpretation ABG results: 09/16/25 09/17/25 09/18/25 18:56 04:20 23:05 ABG pH 7.38 7.35 ABG pCO2 43 43 ABG pO2 353 H 171 H D ABG HCO3 25 24 ABG O2 Saturation 99 H 100 H ABG Base Excess 0 -2 VBG pH 7.42 VBG pCO2 32 L VBG pO2 128 H VBG Base Excess -4 L 09/19/25 09/19/25 09/19/25 00:51 02:09 05:17 ABG pH 7.21 L D 7.25 L 7.31 L ABG pCO2 50 H 49 H 39 D ABG pO2 60 L D 154 H D 199 H D ABG HCO3 20 21 20 ABG O2 Saturation 87 L 99 H 100 H ABG Base Excess -8 L -6 L -6 L VBG pH VBG pCO2 VBG pO2 VBG Base Excess Quality Measures Quality Measures VTE therapy (Heparin drip ) Assessment & Plan Assessment Current Active Medications: Generic Name Dose Route Start Last Admin Trade Name Freq PRN Reason Stop Dose Admin Acetaminophen 500 mg 09/18/25 13:11 09/18/25 20:28 Acetaminophen 500 Mg Tablet PO 10/18/25 13:10 500 mg Q6HR PRN Administration PAIN 1-3 Gabapentin 200 mg 09/19/25 15:15 09/21/25 06:27 Gabapentin 100 Mg Capsule PO 10/19/25 15:14 200 mg TID GABE Administration Heparin Sodium/Dextrose 25,000 unit in 250 mls @ 12.618 mls/hr 09/16/25 18:15 09/21/25 07:23 Heparin In D5w Ivpb IV 09/30/25 18:14 17 units/kg/hr .[id number] GABE 11.917 mls/hr Protocol Titration 18 UNITS/KG/HR Cefepime HCl 2 gm/ Sodium 50 mls @ 100 mls/hr 09/17/25 15:30 09/21/25 06:28 Chloride IV 09/24/25 15:29 100 mls/hr Q8HR GABE Administration Levothyroxine Sodium 125 mcg 09/18/25 06:00 09/21/25 06:27 Levothyroxine Sodium 125 Mcg Tablet PO 10/18/25 05:59 125 mcg ACBR GABE Administration Lidocaine 1 patch 09/17/25 18:46 09/18/25 00:06 Lidocaine 5% 1 Patch TOP 10/17/25 18:45 1 patch UD PRN Administration PAIN Protocol Pantoprazole Sodium 40 mg 09/16/25 16:45 09/21/25 08:19 Pantoprazole Inj 40 Mg Vial IV 10/16/25 16:44 40 mg QDAY GABE Administration Propranolol HCl 10 mg 09/19/25 15:00 09/21/25 06:27 Propranolol 10 Mg Tablet PO 10/19/25 14:59 10 mg TID GABE Administration Scopolamine 1 mg 09/17/25 15:00 09/20/25 14:17 Scopolamine 1 Mg Tdsy TOP 10/17/25 14:59 1 mg Q3D GABE Administration Plan Patient is a 59 y/o F with PMHx significant for multiple myeloma on chemotherapy, anemia, Basia's upgraded to ICU on 09/18 for post cardiac arrest due to VT/VF post CPR and shock and ARDS with Pneumonia. Neuro: No active diseases Cardio: #V-fib/V. tach #Cardiac arrest post CPR and Shock #QT prolongation, likely medication side effect DDx: Medication side effect, acidosis On 09/16, patient slumped over and passed out, received AED shock, +3 shocks from EMS en route to hospital. In ED patient underwent multiple rounds of V- fib/V. tach requiring multiple shocks. Patient taken for urgent cardiac catheterization, revealed no obstructions. Per chart review, patient taken multiple medications associated with arrhythmias:Bactrim, Zofran. EKG revealed prolonged QTc: 479 Patient received amiodarone drip and lidocaine drip which was discontinued later. on 09/18 Rapid response changed to CODE BLUE called at 23:48 as patient became unresponsive with no pulse. Cardiac Pads were placed and CPR was started immediately along with Ambu bag. campus monitor revealed V. tach and V-fib at 23:49. Patient received 200 J shock and CPR was resumed. She converted back to sinus rhythm at 23:52 and Patient received 1 amp of epinephrine, 1 amp of bicarb and seun gluconate along with 2g magnesium sulphate which was rushed in 10 mins.EKG at 22:02 showed sinus rhythm with QTc 474. Repeat EKG at 22:55 showed sinus rhythm with QTc 483. Troponin I 0.371 Patient had tramadol and promethazine on 09/18, was also previously taking Zofran. Note patient was on dapsone in the past but has not been taking since February per review of records. Plan: - Amiodarone discontinued as per cardiology - Keep Mag at 3 and K 4.5 to 5 - Propanolol 10mg TID - Patient would benefit from ICD implantation as its her second Cardiac Event. - Cardiology consulted, appreciate recommendations - Monitor electrolytes, replete as needed - Avoid QTc prolonging agents #Septic shock DDx ARDS Pneumonia During RR she was tacycardiac and tacypnic. Met 2/4 SIRs criteria. qSOFA score 2 BP kept dropping with sedation and high PEEP. Rpt BCx 09/19/25 negative. Plan: -Weaned off levophed and vasopressin -Hydrocortisone 100 mg x1 -Continue Cefepime 2 g IV (09/17- Pulm: #AHRF #Community acquired Pneumonia #Pulmonary Edema 09/18 Patient was intubated due to inability protect airway in setting of V- fib/V. tach. CXR showed pulmonary edema on 09/16 CT chest/abdomen/pelvis revealed extensive bilateral pneumonia. Gram stain of sputum showed rare gram positive cocci. She was initially Extubated 09/17, on HFNC to ME but got intubated during cardiac arrest on 09/18 at night During RR she was tacycardiac and tacypnic. Met 2/4 SIRs criteria. qSOFA score 2 Pao2/Fio2 : 60 ABG post intubation pH 7.21 Pco2 50 Po2 60 Fio2 100 Repeat ABGs shows pH 7.25 pco2 49 po2 154 Plan: - Cefepime (09/17- - Successfully extubated 09/19/2025 - S/p IV Lasix 40 x1 09/20 with improvement in bilateral pulmonary edema on repeat CXR 09/19 - CTM volume status #Flail chest Patient was noticed to have paradoxical chest motion with breathing Likely 2/2 [address] thoracic surgeon Dr. Regalado at [facility], patient does not need surgical intervention at this time as fractures are nondisplaced. Plan: - Continue CPAP nightly - Gabapentin 200 mg TID for pain control as morphine causes nausea and dilaudid causes hallucinations for patient #Multiple pulmonary emboli CT angio revealed multiple pulmonary emboli, right sided. Based on imaging, not massive PE, no significant right ventricular strain. Patient showed improvement. 09/17/25: ICU team spoke with Dr. Barrera, [facility] oncologist managing patient, advised transitioning to Eliquis would be appropriate with patient's chemo regimen. Plan: - Updated patient's oncologist Dr. Govea at [facility] on patient's condition and confirmed that patient is still safe to transition to Eliquis for anticoagulation. Spoke to cardiology who was also agreeable, recommended Eliquis 10 mg BID for 7 days, followed by 5 mg BID for 3 months. - Discontinue heparin drip - Telemetry monitoring - Will discuss with oncology choice of DOAC prior to transitioning as recommendations were prior to cardiac arrest GI: #Hepatitis, improving DDx: Sepsis, medication side effect elevated liver enzyme.Total bilirubin 1.3 Unlikely shock liver given normal kidney function. LFTs improving. Plan: - Monitor LFTs - Avoid hepatotoxins - Judicious use of hepatically metabolized medications #Intractable Nausea Presented with nausea, likely secondary to chemotherapy. 09/19/25: Given dexamethasone 4mg IVP x1 09/21: Denies nausea for the past 2 days Plan: - Consider giving spot dose if nausea reccurs - Can also give ativan 0.5mg for nausea if needed AVOID QTC prolonging medications at all time. 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 -Levothyroxine 125 mcg PO daily (home med) Heme: #Acute anemia,resolved DDx: Blood loss, dilutional hgb 8.1 S/p 1 unit PRBC Plan: - Goal of hgb above 7 - Continue to monitor. #Leukocytosis, reactive, resolved Elevated in the setting of sepsis and cardiac arrest WBC 11.9 09/19 -> 8.8 -> 4.6 Plan: -Continue to monitor ID: #Septic shock #Pneumonia Patient went up on sedation and req pressors During RR she was tachycardic and tacypnic. Met 2/4 SIRs criteria. qSOFA score 2 Significant pneumonia seen on imaging 09/16/25: sputum culture showed 2+ mixed sara, gram stain showed rare WBCs and rare gram positive cocci - Cefepime (09/17- - Treat as above ICU Health maintenance: Mechanical ventilation: No Sedation: No Diet: Cardiac diet DVT prophylaxis: Heparin drip GI prophylaxis: Protonix IV 40 mg daily Yung: Yes, will remove today Lines: PIV, Port A cath Antibiotics: Cefepime 2g IV CODE STATUS: LIMITED (Ok with defribrillation only, NO CPR or intubation, no epi) Patient plan of care was discussed with the senior resident, Dr. Yu, and attending physician, Dr. Bales. Tiffany Alvares DO, PGY-1 Attending Provider Attestation/Addendum Patient seen and examined with above resident, Tiffany Alvares DO. I agree with the findings, assessment, and plan of care as document except for any differences below. Patient continues to do well without any evidence of repeat arrhythmia. QTc continues to improve with discontinuation of any prolonging agent. Continues to do well on propranolol for blockade of sympathetic tone. Patient continues to have mild chest pain though she remains mobile and sitting at the edge of the bed and tolerating p.o. diet well. Continue CPAP therapy for splinting at night. Pain control continues to be adequate per the patient's report. Will defer plan for ICD placement to cardiology. Heparin drip continues to be on she can be transition to a DOAC upon discharge if there is no planned procedure. Patient remains stable for transfer to medicine [place]. We did reach out to thoracic surgeon at [facility], confirm no need for surgical intervention at this point for her flail chest despite multiple rib fractures bilaterally. No plans for transfer at this time. Patient can stop PAP therapy when she is discharged home. Long-term chemotherapy will be deferred to her primary oncologist at [facility], suggest alternative therapy given patient's development of pulmonary embolism which is a known risk factor of her immunotherapy. Total critical care time: I personally spent 40 minutes for review of physiologic parameters, directing plan of care throughout the day, coordination of care with other subspecialist, counseling patient and her at bedside. This is exclusive of time spent teaching on staff performing any separate billable procedures. Patient remained at significant risk for further morbidity and mortality warranting close monitoring and care only available in the ICU. Critical care services required for acute hypoxic respiratory failure, flail chest, cardiac arrest secondary to torsade de pointes, acquired prolonged QT syndrome, and pulmonary embolism.
--- NOTE | 2025-09-21 10:25 | ESPR_ITS ---
<Statement entered by Matheus Braxton MD - 09/27/25 13:14> I personally evaluated examined the patient with PGY 2 Dr. Salas patient appears to be clinically doing better now QT is corrected no further VT VF episodes no need for ICD implantation continue medical management all offending agents are removed discussed extensively with the family. Will watch for another day or so before discharging her home agree with the treatment plan recommendation as documented. Documentation for date of: 09/21/25 Subjective Subjective Interval history: Patient seen and assessed in hospital bed denies having any concerning symptoms at this time. She continues to be on supplemental oxygen via nasal cannula but saturating well. On telemetry, there were infrequent PVCs noted but otherwise no concerning signs. EKG shows continued improvement in QTc interval with latest QTc being 454. Ordered anemia workup as patient has been anemic since admission; moreover, most likely secondary to anemia of chronic disease, multiple myeloma but will rule out underlying multifactorial iron deficiency anemia as well. Switch from heparin gtt to therapeutic PO Eliquis for bilateral PE. Primary team will contact patient's oncologist for further instructions regarding management once stable to be discharged. Exam Vital Signs Temp Pulse Resp BP Pulse Ox O2 Del Method O2 Flow Rate 98.2 F 70 23 H 104/71 100 CPAP 4 09/21/25 08:00 09/21/25 09:01 09/21/25 09:01 09/21/25 09:01 09/21/25 09:01 09/21/25 04:00 09/21/25 09:01 FiO2 30 09/21/25 04:00 Narrative Exam General: A&O x3 Eyes: PERRL, EOMI. Anicteric, vision grossly intact. Ears: No ear pain, no ear discharge, Hearing grossly intact. Nose: No nasal discharge. Mouth/Throat: Moist mucous membranes, no redness, no lesions. Neck: Neck supple, non-tender, no cervical lymphadenopathy. Lungs: bilateral cracks, No accessory muscle use. Cardio: Normal S1/S2, regular rhythm, no murmurs, no JVD or carotid bruits. Abdomen: Soft, non-tender, no palpable masses, peristalsis present, no guarding or rebound. Extremities: Symmetrical, no significant deformities, no peripheral edema , non-tender, peripheral pulses present. Skin: No rashes, no lesions, warm to touch. Neuro: No focal neurological deficits. Psych: Cooperative, appropriate mood and effect. Objective Labs 09/21/25 04:30 09/21/25 04:30 Labs: Laboratory Results - last 24 hr 09/20/25 09/20/25 09/20/25 09:55 13:24 17:45 WBC RBC Hgb Hct MCV MCH MCHC RDW Std Deviation Plt Count Neut % (Auto) Lymph % (Auto) [place] % (Auto) Eos % (Auto) Baso % (Auto) Neut # (Auto) Lymph # (Auto) [place] # (Auto) Eos # (Auto) Baso # (Auto) Immature Gran # (Auto) Absolute Nucleated RBC Immature Gran % Nucleated RBC % APTT 54.1 H D Sodium 138 136 Potassium 4.4 4.4 Chloride 107 105 Carbon Dioxide 20.9 21.7 Anion Gap 10 9 BUN 33 H 36 H Creatinine 1.6 H 1.6 H Estim Creat Clear Calc 37.2 L 37.2 L eGFR 36 L 36 L BUN/Creatinine Ratio 21 H 23 H Glucose 134 H 145 H Calculated Osmolality 284 283 Calcium 8.6 8.9 Corrected Calcium 8.6 8.9 Phosphorus 2.2 L 1.7 L Magnesium 3.0 H 3.1 H Total Bilirubin AST ALT Alkaline Phosphatase Total Protein Albumin 4.0 4.3 Globulin Albumin/Globulin Ratio 09/21/25 04:30 WBC 4.6 D RBC 2.50 L Hgb 8.0 L Hct 24.8 L MCV 99 MCH 32.0 MCHC 32.3 RDW Std Deviation 59.7 H Plt Count 135 L Neut % (Auto) 65 Lymph % (Auto) 11 [place] % (Auto) 22 H Eos % (Auto) 1 Baso % (Auto) 0 Neut # (Auto) 3.0 Lymph # (Auto) 0.5 L [place] # (Auto) 1.0 H Eos # (Auto) 0.1 Baso # (Auto) 0.0 Immature Gran # (Auto) 0.03 H Absolute Nucleated RBC 0.00 Immature Gran % 1 H Nucleated RBC % 0 APTT 48.8 H Sodium 140 Potassium 4.0 Chloride 106 Carbon Dioxide 22.4 Anion Gap 12 BUN 36 H Creatinine 1.6 H Estim Creat Clear Calc 37.2 L eGFR 36 L BUN/Creatinine Ratio 23 H Glucose 103 Calculated Osmolality 287 Calcium 8.2 L Corrected Calcium 8.4 L Phosphorus 3.7 Magnesium 2.8 H Total Bilirubin 1.1 AST 45 H ALT 82 H Alkaline Phosphatase 100 Total Protein 5.0 L Albumin 3.7 D Globulin 1.3 L Albumin/Globulin Ratio 2.8 H ABG Interpretation ABG results: 09/16/25 09/17/25 09/18/25 18:56 04:20 23:05 ABG pH 7.38 7.35 ABG pCO2 43 43 ABG pO2 353 H 171 H D ABG HCO3 25 24 ABG O2 Saturation 99 H 100 H ABG Base Excess 0 -2 VBG pH 7.42 VBG pCO2 32 L VBG pO2 128 H VBG Base Excess -4 L 09/19/25 09/19/25 09/19/25 00:51 02:09 05:17 ABG pH 7.21 L D 7.25 L 7.31 L ABG pCO2 50 H 49 H 39 D ABG pO2 60 L D 154 H D 199 H D ABG HCO3 20 21 20 ABG O2 Saturation 87 L 99 H 100 H ABG Base Excess -8 L -6 L -6 L VBG pH VBG pCO2 VBG pO2 VBG Base Excess Quality Measures Quality Measures VTE therapy (Heparin drip ) Assessment & Plan Assessment Current Active Medications: Generic Name Dose Route Start Last Admin Trade Name Freq PRN Reason Stop Dose Admin Acetaminophen 500 mg 09/18/25 13:11 09/18/25 20:28 Acetaminophen 500 Mg Tablet PO 10/18/25 13:10 500 mg Q6HR PRN Administration PAIN 1-3 Gabapentin 200 mg 09/19/25 15:15 09/21/25 06:27 Gabapentin 100 Mg Capsule PO 10/19/25 15:14 200 mg TID GABE Administration Heparin Sodium/Dextrose 25,000 unit in 250 mls @ 12.618 mls/hr 09/16/25 18:15 09/21/25 07:23 Heparin In D5w Ivpb IV 09/30/25 18:14 17 units/kg/hr .[id number] GABE 11.917 mls/hr Protocol Titration 18 UNITS/KG/HR Cefepime HCl 2 gm/ Sodium 50 mls @ 100 mls/hr 09/17/25 15:30 09/21/25 06:28 Chloride IV 09/24/25 15:29 100 mls/hr Q8HR GABE Administration Levothyroxine Sodium 125 mcg 09/18/25 06:00 09/21/25 06:27 Levothyroxine Sodium 125 Mcg Tablet PO 10/18/25 05:59 125 mcg ACBR GABE Administration Lidocaine 1 patch 09/17/25 18:46 09/18/25 00:06 Lidocaine 5% 1 Patch TOP 10/17/25 18:45 1 patch UD PRN Administration PAIN Protocol Pantoprazole Sodium 40 mg 09/16/25 16:45 09/21/25 08:19 Pantoprazole Inj 40 Mg Vial IV 10/16/25 16:44 40 mg QDAY GABE Administration Propranolol HCl 10 mg 09/19/25 15:00 09/21/25 06:27 Propranolol 10 Mg Tablet PO 10/19/25 14:59 10 mg TID GABE Administration Scopolamine 1 mg 09/17/25 15:00 09/20/25 14:17 Scopolamine 1 Mg Tdsy TOP 10/17/25 14:59 1 mg Q3D GABE Administration Plan 59-year-old female with a past medical history of multiple myeloma with multiple bony lytic lesions (status post radiation, four cycles of D-RVd chemotherapy, and bone marrow transplant), Basia's thyroiditis, and SIADH/hyponatremia who is admitted status-post cardiac arrest secondary to ventricular arrhythmia and cardiology consulted for the same. #Out of hospital cardiac arrest resulting from #Polymorphic ventricular tachycardia likely secondary to #QT prolongation secondary to combination of zofran and dapsone #Type II NSTEMI (demand ischemia) Presented with cardiac arrest in field, underwent CPR, and required multiple shocks for ventricular arrhythmia. Started on amiodarone drip and continued to have episodes of arrhythmia requiring defibrillation and recommended lidocaine drip. Bedside echo did not show regional wall motion abnormalities but patient noted to be on epinephrine drip. Taken to [employer] Sales Representative emergently, but revealed no significant no coronary artery disease. Differentials include cardiomyopathy (dilated vs hypertrophic vs infiltrative), electrolyte abnormalities, channelopathies, drug-induced, and acute illness. Electrolytes continue to be within normal limits. EKG 09/16 showed QTc 479 on amiodarone and previous EKGs show QTc 440-480. Per chart review, she is on some medications associated with arrhythmias (Bactrim, dapsone, gabapentin, lenalidomide, Velcade) and upon further history taking, she has been taking Zofran for nausea that is also known to be associated with QT prolongation. At this time, etiology of her ventricular arrhythmias suspected to be drug- induced secondary to combination of Zofran and dapsone; given that a reversible cause found, no indication for ICD placement, and amiodarone has been discontinued. Patient was placed on daratumumab (Darzalex) and Lenalidomide (revlemid) regimen for MM in 06/2025; Darzalex associated with small but clinically insignificant QT prolongation (PMID: 77500416), and lenalidomide has also been associated with QT prolongation (PMID: 16734713). In addition, patient received regimen once a week for first 2 weeks, instead of once a month per plan. Patient also had additional less severe event Saturday prior to first event that terminated itself. Plan: As cause for arrhythmias is known, will hold off for now on ICD placement. However, if arrhythmia recurs with normal QT, will consider placing ICD. Closely monitor electrolytes; K > 4, Mg 2.5 to 3 Closely monitor on telemetry Avoid QT prolonging agents when possible #Shock, likely septic vs cardiac #Pneumonia with ARDS #Multiple pulmonary emboli #Hepatitis #Lactic acidosis #Basia disease #Sepsis Continue management per primary team Patient seen and examined with attending Dr. Fox Salas, DO PGY-2 Internal Medicine - [facility]
[2025-09-21 10:46] LABS: Immature Reticulocyte Fraction 27.2 % (3.0-15.9); Reticulocyte % (Auto) 3.0 % (0.5-1.5); Reticulocyte Absolute Auto 75.6 Biln/L (25.0-75.0); Reticulocyte Hgb Content 32.3 pg (28.0-35.0)
[2025-09-21] MEDS: Heparin/D5w 25K 250 ML Ivpb 25,000 UNIT/250 ML BAG 11.917 UNIT IV (11:03)
[2025-09-21 11:58] LABS: Path Review Blood Smear Sent to Pathologist
[2025-09-21 13:19] LABS: Ferritin 295 ng/mL (7.3-270.7); Iron 50 mcg/dL (50-170); Percent Iron Saturation 25 % (20-55); Total Iron Binding Capacity 196 mcg/dL (250-425); Unsaturated Iron Binding 146 (225-295)
[2025-09-21 14:12] LABS: Partial Thromboplastin Time 68.7 Seconds (22.0-36.0)
--- NOTE | 2025-09-21 18:43 | PD.RESPRO ---
Documentation for date of: 09/21/25 Subjective Subjective Interval history: She is a 59-year-old female with significant past medical history of multiple myeloma on chemotherapy, anemia, Basia's and noted to have an episode of unconsciousness following which she received 1 shock from AED in the field, 3 more shocks from the EMS. In the ED, patient noted to have V-fib/V. tach for which she received multiple shocks and intubated. Patient underwent cardiac catheterization that ruled out ischemic heart disease. Later patient was started on amiodarone, lidocaine, Versed, epinephrine drip in the ED. CT chest/abdomen/pelvis angiogram done at that time showed multiple pulmonary emboli, significant pneumonia. Wool Classer, Dr. Braxton and noticed that the cause of the ventricular fibrillation is likely due to QT prolongation and recommended to avoid QT prolonging agents. Patient's oncologist at [facility], Dr. Barrera is consulted and he advised to hold lenalidomide for 1 to 2 weeks. Patient was extubated on 09/17 and downgraded to floors for further management. Later on 09/18, patient was supplemented with magnesium and potassium. Heparin drip was continued and as patient was noted to have a low hemoglobin 1 unit of PRBC was transfused. Amiodarone and metoprolol were stopped. Later on the same day patient noted to have a CODE BLUE for the cardiac arrest. Noted to have V. tach and V-fib for which patient underwent CPR and received 200 J shock and patient reverted to normal sinus rhythm. Patient was reintubated again and was taken to ICU On 09/19/2025, patient noted to have flail chest. On the same day, the CODE STATUS is changed to DNR/DNI. Extubated on the same day. On 09/20/2025, patient was doing good and spoke with thoracic surgeon Dr. Malik at [facility] who recommended no surgical intervention as of now for the flail chest and patient was started on pain management. On 09/2025, patient is discharged to floors for further management. Heparin drip was stopped and transition to Eliquis as per oncologist recommendations. Per child welfare manager, patient is not stable for defibrillator placement as of now. Will continue telemetry monitoring and renal functions monitoring. [id number] Exam Vital Signs Temp Pulse Resp BP Pulse Ox O2 Del Method O2 Flow Rate 98.2 F 83 20 130/87 H 100 Nasal Cannula 4 11/04/25 14:10 09/21/25 16:00 09/21/25 15:00 09/21/25 15:00 09/21/25 15:00 09/21/25 15:00 09/21/25 15:00 FiO2 30 09/21/25 04:00 Narrative Exam General: Awake. HEENT: Normocephalic, atraumatic, mucous membranes moist. Heart: Regular rate and rhythm, no murmurs. Lungs: Clear to auscultation with no wheezing or crackles. Tenderness at the site of rib fracture Abdomen: Soft, nondistended, nontender, positive bowel sounds. ?No guarding or rebound tenderness. Neurologic: Alert and oriented x3, no gross neurological deficit, and patient able to move all 4 extremities. Extremities: No edema. Skin: No rash or ecchymoses. Objective Labs 09/22/25 04:49 09/22/25 04:49 Labs: Laboratory Results - last 24 hr 09/20/25 09/21/25 09/21/25 17:45 04:30 13:24 WBC 4.6 D RBC 2.50 L Hgb 8.0 L Hct 24.8 L MCV 99 MCH 32.0 MCHC 32.3 RDW Std Deviation 59.7 H Plt Count 135 L Neut % (Auto) 65 Lymph % (Auto) 11 [place] % (Auto) 22 H Eos % (Auto) 1 Baso % (Auto) 0 Neut # (Auto) 3.0 Lymph # (Auto) 0.5 L [place] # (Auto) 1.0 H Eos # (Auto) 0.1 Baso # (Auto) 0.0 Immature Gran # (Auto) 0.03 H Absolute Nucleated RBC 0.00 Immature Gran % 1 H Nucleated RBC % 0 Smear Path Review Sent to Pathologist Retic Count (auto) 3.0 H Absolute Retic 75.6 H Immature Retic Fraction 27.2 H Retic Hgb Content CHr 32.3 APTT 48.8 H 68.7 H D Sodium 136 140 Potassium 4.4 4.0 Chloride 105 106 Carbon Dioxide 21.7 22.4 Anion Gap 9 12 BUN 36 H 36 H Creatinine 1.6 H 1.6 H Estim Creat Clear Calc 37.2 L 37.2 L eGFR 36 L 36 L BUN/Creatinine Ratio 23 H 23 H Glucose 145 H 103 Calculated Osmolality 283 287 Calcium 8.9 8.2 L Corrected Calcium 8.9 8.4 L Phosphorus 1.7 L 3.7 Magnesium 3.1 H 2.8 H Iron 50 TIBC 196 L Iron Saturation 25 Unsat Iron Binding 146 L Ferritin 295 H Total Bilirubin 1.1 AST 45 H ALT 82 H Alkaline Phosphatase 100 Total Protein 5.0 L Albumin 4.3 3.7 D Globulin 1.3 L Albumin/Globulin Ratio 2.8 H ABG Interpretation ABG results: 09/16/25 09/17/25 09/18/25 18:56 04:20 23:05 ABG pH 7.38 7.35 ABG pCO2 43 43 ABG pO2 353 H 171 H D ABG HCO3 25 24 ABG O2 Saturation 99 H 100 H ABG Base Excess 0 -2 VBG pH 7.42 VBG pCO2 32 L VBG pO2 128 H VBG Base Excess -4 L 09/19/25 09/19/25 09/19/25 00:51 02:09 05:17 ABG pH 7.21 L D 7.25 L 7.31 L ABG pCO2 50 H 49 H 39 D ABG pO2 60 L D 154 H D 199 H D ABG HCO3 20 21 20 ABG O2 Saturation 87 L 99 H 100 H ABG Base Excess -8 L -6 L -6 L VBG pH VBG pCO2 VBG pO2 VBG Base Excess Quality Measures Quality Measures VTE therapy (Heparin drip ) Assessment & Plan Assessment Current Active Medications: Generic Name Dose Route Start Last Admin Trade Name Freq PRN Reason Stop Dose Admin Acetaminophen 500 mg 09/18/25 13:11 09/18/25 20:28 Acetaminophen 500 Mg Tablet PO 10/18/25 13:10 500 mg Q6HR PRN Administration PAIN 1-3 Apixaban 10 mg 09/21/25 21:00 Apixaban 2.5 Mg Tablet PO 09/28/25 09:01 BID GABE Gabapentin 200 mg 09/19/25 15:15 09/21/25 13:52 Gabapentin 100 Mg Capsule PO 10/19/25 15:14 200 mg TID GABE Administration Cefepime HCl 2 gm/ Sodium 50 mls @ 100 mls/hr 09/17/25 15:30 09/21/25 13:52 Chloride IV 09/24/25 15:29 100 mls/hr Q8HR GABE Administration Levothyroxine Sodium 125 mcg 09/18/25 06:00 09/21/25 06:27 Levothyroxine Sodium 125 Mcg Tablet PO 10/18/25 05:59 125 mcg ACBR GABE Administration Lidocaine 1 patch 09/17/25 18:46 09/18/25 00:06 Lidocaine 5% 1 Patch TOP 10/17/25 18:45 1 patch UD PRN Administration PAIN Protocol Pantoprazole Sodium 40 mg 09/16/25 16:45 09/21/25 08:19 Pantoprazole Inj 40 Mg Vial IV 10/16/25 16:44 40 mg QDAY GABE Administration Propranolol HCl 10 mg 09/19/25 15:00 09/21/25 13:52 Propranolol 10 Mg Tablet PO 10/19/25 14:59 10 mg TID GABE Administration Scopolamine 1 mg 09/17/25 15:00 09/20/25 14:17 Scopolamine 1 Mg Tdsy TOP 10/17/25 14:59 1 mg Q3D GABE Administration Plan Patient is a 59 y/o F with PMHx significant for multiple myeloma on chemotherapy, anemia, Basia's upgraded to ICU on 09/18 for post cardiac arrest due to VT/VF post CPR and shock and ARDS with Pneumonia. #V-fib/V. tach #Cardiac arrest post CPR and Shock #QT prolongation, likely medication side effect DDx: Medication side effect, acidosis On 09/16, patient slumped over and passed out, received AED shock, +3 shocks from EMS en route to hospital. In ED patient underwent multiple rounds of V-fib/V. tach requiring multiple shocks. Patient taken for urgent cardiac catheterization, revealed no obstructions. Per chart review, patient taken multiple medications associated with arrhythmias:Bactrim, Zofran. EKG revealed prolonged QTc: 479 Patient received amiodarone drip and lidocaine drip which was discontinued later. on 09/18 Rapid response changed to CODE BLUE called at 23:48 as patient became unresponsive with no pulse. Cardiac Pads were placed and CPR was started immediately along with Ambu bag. electronic device monitor revealed V. tach and V-fib at 23:49. Patient received 200 J shock and CPR was resumed. She converted back to sinus rhythm at 23:52 and Patient received 1 amp of epinephrine, 1 amp of bicarb and seun gluconate along with 2g magnesium sulphate which was rushed in 10 mins.EKG at 22:02 showed sinus rhythm with QTc 474. Repeat EKG at 22:55 showed sinus rhythm with QTc 483. Troponin I 0.371 Patient had tramadol and promethazine on 09/18, was also previously taking Zofran. Note patient was on dapsone in the past but has not been taking since February per review of records. Plan: - Amiodarone discontinued as per cardiology - Keep Mag at 3 and K 4.5 to 5 - Propanolol 10mg TID - Patient would benefit from ICD implantation as its her second Cardiac Event. - Cardiology consulted, appreciate recommendations - Monitor electrolytes, replete as needed - Avoid QTc prolonging agents #Septic shock, resolved DDx ARDS Pneumonia During RR she was tacycardiac and tacypnic. Met 2/4 SIRs criteria. qSOFA score 2 BP kept dropping with sedation and high PEEP. Rpt BCx 09/19/25 negative. Plan: -Weaned off levophed and vasopressin -Hydrocortisone 100 mg x1 given -Continue Cefepime 2 g IV (09/17- #AHRF , resolved #Community acquired Pneumonia #Pulmonary Edema 09/18 Patient was intubated due to inability protect airway in setting of V-fib/V. tach. CXR showed pulmonary edema on 09/16 CT chest/abdomen/pelvis revealed extensive bilateral pneumonia. Gram stain of sputum showed rare gram positive cocci. She was initially Extubated 09/17, on HFNC to [place] but got intubated during cardiac arrest on 09/18 at night During RR she was tacycardiac and tacypnic. Met 2/4 SIRs criteria. qSOFA score 2 Pao2/Fio2 : 60 ABG post intubation pH 7.21 Pco2 50 Po2 60 Fio2 100 Repeat ABGs shows pH 7.25 pco2 49 po2 154 Plan: - Cefepime (09/17- - Successfully extubated 09/19/2025 - S/p IV Lasix 40 x1 09/20 with improvement in bilateral pulmonary edema on repeat CXR 09/19 - CTM volume status #Flail chest Patient was noticed to have paradoxical chest motion with breathing Likely 2/2 [address] surgeon Dr. Regalado at [facility], patient does not need surgical intervention at this time as fractures are nondisplaced. Plan: - Continue CPAP nightly - Gabapentin 200 mg TID for pain control as morphine causes nausea and dilaudid causes hallucinations for patient #Multiple pulmonary emboli CT angio revealed multiple pulmonary emboli, right sided. Based on imaging, not massive PE, no significant right ventricular strain. Patient showed improvement. 09/17/25: ICU team spoke with Dr. Barrera, [facility] oncologist managing patient, advised transitioning to Eliquis would be appropriate with patient's chemo regimen. Plan: - Updated patient's oncologist Dr. Govea at [facility] on patient's condition and confirmed that patient is still safe to transition to Eliquis for anticoagulation. Spoke to cardiology who was also agreeable, recommended Eliquis 10 mg BID for 7 days, followed by 5 mg BID for 3 months. - Discontinued heparin drip - Telemetry monitoring - Will discuss with oncology choice of DOAC prior to transitioning as recommendations were prior to cardiac arrest #Hepatitis, improving DDx: Sepsis, medication side effect elevated liver enzyme.Total bilirubin 1.3 Unlikely shock liver given normal kidney function. LFTs improving. Plan: - Monitor LFTs - Avoid hepatotoxins - Judicious use of hepatically metabolized medications #Intractable Nausea Presented with nausea, likely secondary to chemotherapy. 09/19/25: Given dexamethasone 4mg IVP x1 09/21: Denies nausea for the past 2 days Plan: - Consider giving spot dose if nausea reccurs - Can also give ativan 0.5mg for nausea if needed AVOID QTC prolonging medications at all time. #BERNADINE #Decreased Urine output iso septic shock -Patient has a dec urine output after cardiac arrest -Improved UO after lasix x1 09/19 and 09/21 -Creatinine 1.6 since 09/19, suspect ATN secondary to cardiac arrest on 09/18 -Baseline creatinine 0.8-1.0 Plan: - Continue monitoring UO and creatinine #Electrolyte disturbance #Hypophosphatemia, resolved Phosphorus 1.4--->3.1 Plan: -Replete as necessary #Lactic acidosis, resolved Lactic acid 0.7 #Basia disease Patient has history of Basia's disease, treated with 125 mcg levothyroxine p.o. -Levothyroxine 125 mcg PO daily (home med) #Acute anemia,resolved DDx: Blood loss, dilutional hgb 8.1 S/p 1 unit PRBC Plan: - Goal of hgb above 7 - Continue to monitor. Health maintenance: Diet: Cardiac diet DVT prophylaxis: Eliquis GI prophylaxis: Protonix IV 40 mg daily Lines: PIV, Port A cath Antibiotics: Cefepime 2g IV CODE STATUS: LIMITED (Ok with defribrillation only, NO CPR or intubation, no epi) Patient plan of care was discussed with the attending physician, Dr. Shwetha Nicole, PGY2 Attending Provider Attestation/Addendum I have seen and examined the patient. I was physically present for the holguin portions of the services provided including history, physical exam, diagnosis, treatment plans and orders. I agree with assessment and plan of care as documented by residents. Even though this this note was carefully revised there may still be minor errors in airplane pilot commercial due to voice recognition software. Aniceto Tadeo MD
[2025-09-21] MEDS: APIXABAN 2.5 MG TABLET 10 MG PO (19:30)
[2025-09-22] VITALS (7 sets, daily range): BP systolic 90–121; BP diastolic 61–75; PULSE 62–77; RESP 14–29; TEMP 36.9; O2SAT 98–100; BMI 22.6
[2025-09-22 05:30] LABS: Basophils # (Auto) 0.1 Thou/mm3 (0.0-0.2); Basophils % (Auto) 1 % (0-2.5); Eosinophils # (Auto) 0.3 Thou/mm3 (0.0-0.5); Eosinophils % (Auto) 7 % (0-10); Hematocrit 22.8 % (36.0-46.0); Immature Granulocytes Auto 0.05 Thou/mm3 (0.00-0.00); Lymphocytes # (Auto) 0.6 Thou/mm3 (1.0-4.8); Lymphocytes % (Auto) 12 % (10-50); Mean Corpuscular HGB Conc 33.8 g/dl (31.0-37.0); Mean Corpuscular Hemoglobin 33.2 pg (25.0-35.0); Mean Corpuscular Volume 98 fL (80-100); Monocytes # (Auto) 1.1 Thou/mm3 (0.0-0.8); Monocytes % (Auto) 24 % (0-12); Neutrophils # (Auto) 2.5 Thou/mm3 (1.8-7.7); Neutrophils % (Auto) 54 % (37-80); Nucleated Red Blood Cell # 0.00 Thou/mm3 (0.00-0.00); Nucleated Red Blood Cell % 0 /100 WBC (0); Platelet Count 147 Thou/mm3 (140-440); RDW Standard Deviation 58.1 fL (36.4-46.3); Red Blood Count 2.32 Miln/mm3 (4.00-5.20); White Blood Count 4.6 Thou/mm3 (3.6-11.0)
[2025-09-22 05:32] LABS: Partial Thromboplastin Time 30.2 Seconds (22.0-36.0)
[2025-09-22 05:42] LABS: Alanine Aminotransferase 65 U/L (10-49); Albumin, Serum 3.6 gm/dL (3.4-4.8); Albumin/Globulin Ratio 3.0 (1.2-2.2); Alkaline Phosphatase 92 U/L (46-116); Anion Gap 10 (7-16); Aspartate Amino Transferase 33 U/L (0-34); BUN/Creatinine Ratio 21 Ratio (12-20); Bilirubin,Total 0.9 mg/dL (0.3-1.2); Blood Urea Nitrogen 27 mg/dL (9-23); Calcium 8.0 mg/dL (8.3-10.6); Calcium (Corrected) 8.3 mg/dL (8.5-10.1); Carbon Dioxide 21.3 mMol/L (20.0-31.0); Chloride 109 mMol/L (98-107); Creatinine (Component) 1.3 mg/dL (0.6-1.3); Estimated Creatinine Clearance 45.8 mL/min (>60); Globulin 1.2 gm/dL (2.3-3.5); Glucose 101 mg/dL (74-106); Magnesium 2.4 mg/dL (1.6-2.6); Osmolality,Calculated 284 (275-295); Phosphorous 2.2 mg/dL (2.4-5.1); Potassium 4.1 mMol/L (3.4-5.1); Sodium 140 mMol/L (136-145); Total Protein 4.8 gm/dL (5.7-8.2); eGFR 47 See Note
[2025-09-22] MEDS: CEFEPIME INJ 2 GM in SODIUM CHLORIDE 0.9% (Popper) 50 ML IV (06:16)
[2025-09-22] MEDS: LEVOTHYROXINE SODIUM 125 MCG TABLET PO (06:16)
[2025-09-22] MEDS: GABAPENTIN 100 MG CAPSULE 200 MG PO ×2 (06:16→14:21)
[2025-09-22] MEDS: PROPRANOLOL 10 MG TABLET PO ×2 (06:16→14:21)
[2025-09-22 07:16] LABS: Hemoglobin 7.7 g/dL (12.0-16.0)
--- NOTE | 2025-09-22 08:28 | ESPR_ITS ---
<Statement entered by Matheus Braxton MD - 09/27/25 13:16> I personally examined evaluate the patient with resident physician PGY 1 patient is doing quite well no shortness of breath chest pain no further arrhythmias overnight she is stable to be discharged home no ICD implantation necessary avoid all offending agents including antinausea medications that could cause QT prolongation.. Documentation for date of: 09/22/25 Subjective Subjective Interval history: Patient seen and examined at bedside; no acute events or arrythmias overnight. Exam Vital Signs Temp Pulse Resp BP Pulse Ox O2 Del Method O2 Flow Rate 98.4 F 75 17 108/61 99 Nasal Cannula 4 09/22/25 04:00 09/22/25 06:34 09/22/25 06:34 09/22/25 06:16 09/22/25 06:34 09/21/25 15:00 09/22/25 06:34 FiO2 30 09/21/25 22:05 Narrative Exam General: A&O x3 Eyes: PERRL, EOMI. Anicteric, vision grossly intact. Ears: No ear pain, no ear discharge, Hearing grossly intact. Nose: No nasal discharge. Mouth/Throat: Moist mucous membranes, no redness, no lesions. Neck: Neck supple, non-tender, no cervical lymphadenopathy. Lungs: bilateral cracks, No accessory muscle use. Cardio: Normal S1/S2, regular rhythm, no murmurs, no JVD or carotid bruits. Abdomen: Soft, non-tender, no palpable masses, peristalsis present, no guarding or rebound. Extremities: Symmetrical, no significant deformities, no peripheral edema , non-tender, peripheral pulses present. Skin: No rashes, no lesions, warm to touch. Neuro: No focal neurological deficits. Psych: Cooperative, appropriate mood and effect. Objective Labs 09/22/25 04:49 09/22/25 04:49 Labs: Laboratory Results - last 24 hr 09/21/25 09/21/25 09/22/25 04:30 13:24 04:49 WBC 4.6 RBC 2.32 L Hgb 7.7 L Hct 22.8 L MCV 98 MCH 33.2 MCHC 33.8 RDW Std Deviation 58.1 H Plt Count 147 Neut % (Auto) 54 Lymph % (Auto) 12 [place] % (Auto) 24 H Eos % (Auto) 7 Baso % (Auto) 1 Neut # (Auto) 2.5 Lymph # (Auto) 0.6 L [place] # (Auto) 1.1 H Eos # (Auto) 0.3 Baso # (Auto) 0.1 Immature Gran # (Auto) 0.05 H Absolute Nucleated RBC 0.00 Immature Gran % 1 H Nucleated RBC % 0 Smear Path Review Sent to Pathologist Retic Count (auto) 3.0 H Absolute Retic 75.6 H Immature Retic Fraction 27.2 H Retic Hgb Content CHr 32.3 APTT 68.7 H D 30.2 D Sodium 140 Potassium 4.1 Chloride 109 H Carbon Dioxide 21.3 Anion Gap 10 BUN 27 H Creatinine 1.3 Estim Creat Clear Calc 45.8 L eGFR 47 L BUN/Creatinine Ratio 21 H Glucose 101 Calculated Osmolality 284 Calcium 8.0 L Corrected Calcium 8.3 L Phosphorus 2.2 L Magnesium 2.4 Iron 50 TIBC 196 L Iron Saturation 25 Unsat Iron Binding 146 L Ferritin 295 H Total Bilirubin 0.9 AST 33 ALT 65 H Alkaline Phosphatase 92 Total Protein 4.8 L Albumin 3.6 Globulin 1.2 L Albumin/Globulin Ratio 3.0 H ABG Interpretation ABG results: 09/16/25 09/17/25 09/18/25 18:56 04:20 23:05 ABG pH 7.38 7.35 ABG pCO2 43 43 ABG pO2 353 H 171 H D ABG HCO3 25 24 ABG O2 Saturation 99 H 100 H ABG Base Excess 0 -2 VBG pH 7.42 VBG pCO2 32 L VBG pO2 128 H VBG Base Excess -4 L 09/19/25 09/19/25 09/19/25 00:51 02:09 05:17 ABG pH 7.21 L D 7.25 L 7.31 L ABG pCO2 50 H 49 H 39 D ABG pO2 60 L D 154 H D 199 H D ABG HCO3 20 21 20 ABG O2 Saturation 87 L 99 H 100 H ABG Base Excess -8 L -6 L -6 L VBG pH VBG pCO2 VBG pO2 VBG Base Excess Quality Measures Quality Measures VTE therapy (Heparin drip ) Assessment & Plan Assessment Current Active Medications: Generic Name Dose Route Start Last Admin Trade Name Freq PRN Reason Stop Dose Admin Acetaminophen 500 mg 09/18/25 13:11 09/18/25 20:28 Acetaminophen 500 Mg Tablet PO 10/18/25 13:10 500 mg Q6HR PRN Administration PAIN 1-3 Apixaban 10 mg 09/21/25 18:45 09/21/25 19:30 Apixaban 2.5 Mg Tablet PO 09/28/25 09:01 10 mg BID GABE Administration Gabapentin 200 mg 09/19/25 15:15 09/22/25 06:16 Gabapentin 100 Mg Capsule PO 10/19/25 15:14 200 mg TID GABE Administration Cefepime HCl 2 gm/ Sodium 50 mls @ 100 mls/hr 09/17/25 15:30 09/22/25 06:16 Chloride IV 09/24/25 15:29 100 mls/hr Q8HR GABE Administration Levothyroxine Sodium 125 mcg 09/18/25 06:00 09/22/25 06:16 Levothyroxine Sodium 125 Mcg Tablet PO 10/18/25 05:59 125 mcg ACBR GABE Administration Lidocaine 1 patch 09/17/25 18:46 09/18/25 00:06 Lidocaine 5% 1 Patch TOP 10/17/25 18:45 1 patch UD PRN Administration PAIN Protocol Pantoprazole Sodium 40 mg 09/16/25 16:45 09/21/25 08:19 Pantoprazole Inj 40 Mg Vial IV 10/16/25 16:44 40 mg QDAY GABE Administration Propranolol HCl 10 mg 09/19/25 15:00 09/22/25 06:16 Propranolol 10 Mg Tablet PO 10/19/25 14:59 10 mg TID GABE Administration Scopolamine 1 mg 09/17/25 15:00 09/20/25 14:17 Scopolamine 1 Mg Tdsy TOP 10/17/25 14:59 1 mg Q3D GABE Administration Plan 59-year-old female with a past medical history of multiple myeloma with multiple bony lytic lesions (status post radiation, four cycles of D-RVd chemotherapy, and bone marrow transplant), Basia's thyroiditis, and SIADH/hyponatremia who is admitted status-post cardiac arrest secondary to ventricular arrhythmia and cardiology consulted for the same. #Out of hospital cardiac arrest resulting from #Polymorphic ventricular tachycardia likely secondary to #QT prolongation secondary to combination of zofran and dapsone #Type II NSTEMI (demand ischemia) Presented with cardiac arrest in field, underwent CPR, and required multiple shocks for ventricular arrhythmia. Started on amiodarone drip and continued to have episodes of arrhythmia requiring defibrillation and recommended lidocaine drip. Bedside echo did not show regional wall motion abnormalities but patient noted to be on epinephrine drip. Taken to [facility] emergently, but revealed no significant no coronary artery disease. Differentials include cardiomyopathy (dilated vs hypertrophic vs infiltrative), electrolyte abnormalities, channelopathies, drug-induced, and acute illness. Electrolytes continue to be within normal limits. EKG 09/16 showed QTc 479 on amiodarone and previous EKGs show QTc 440-480. Per chart review, she is on some medications associated with arrhythmias (Bactrim, dapsone, gabapentin, lenalidomide, Velcade) and upon further history taking, she has been taking Zofran for nausea that is also known to be associated with QT prolongation. At this time, etiology of her ventricular arrhythmias suspected to be drug- induced secondary to combination of Zofran and dapsone; given that a reversible cause found, no indication for ICD placement, and amiodarone has been discontinued. Patient was placed on daratumumab (Darzalex) and Lenalidomide (revlemid) regimen for MM in 06/2025; Darzalex associated with small but clinically insignificant QT prolongation (PMID: 46927635), and lenalidomide has also been associated with QT prolongation (PMID: 57035919). In addition, patient received regimen once a week for first 2 weeks, instead of once a month per plan. Patient also had additional less severe event Saturday prior to first event that terminated itself. Plan: As cause for arrhythmias is known, will hold off for now on ICD placement. However, if arrhythmia recurs with normal QT, will consider placing ICD. Closely monitor electrolytes; K > 4, Mg 2.5 to 3 Closely monitor on telemetry Avoid QT prolonging agents when possible #Shock, likely septic vs cardiac #Pneumonia with ARDS #Multiple pulmonary emboli #Hepatitis #Lactic acidosis #Basia disease #Sepsis Continue management per primary team This case was discussed with my attending physician, Dr. Braxton. Grzegorz Alarcon, PGY1
[2025-09-22] MEDS: APIXABAN 2.5 MG TABLET 10 MG PO (08:35)
--- NOTE | 2025-09-22 08:46 | ESPR_ITS ---
Documentation for date of: 09/22/25 Subjective Subjective Interval history: Ms. Lozano is a 59-year-old lady with past medical history significant for multiple myeloma on chemotherapy, anemia, Basia's thyroiditis presented to the emergency department after witnessed cardiac arrest at his school while she was visiting her grandkirashid Smith. On the field the patient received 1 shock for V-fib. In the emergency department she was found to be altered and unresponsive. Patient noted to have ventricular arrhythmias and received multiple shocks, intubated and subsequently transferred to ICU. She was started on amiodarone drip, lidocaine drip, Versed drip, epinephrine drip. Also was given IV fluids. ED course: Labs significant for: Lactic acid 7.9, BNP 385, potassium 3.2, calcium 8.4, AST 136, ALT 95, T. bili 0.4, troponin 7. Beta hydroxybutyrate 0.1, Pro-Nehemias 0.05. TSH 3.31. Urinalysis showed 3+ protein, 3+ glucose, RBC 48, WBC 46, rare bacteria. U tox positive for marijuana. Imaging significant for: Chest/abdomen/pelvis CTA positive for multiple pulmonary emboli, widespread significant pneumonia, widespread osteolytic lesions, multiple bilateral rib fractures. Head CT unremarkable. EKG showed sinus tachycardia, QTc 479. 09/17/2025: Overnight, amiodarone was decreased due to low heart rate. Patient was weaned off sedation, following commands, successfully extubated in the morning. Due to low sats, patient placed on HFNC, weaning down. No arrythmias noted. Repeat EKG showed prolonged QTc 457. Labs and medications reviewed. Patient under the care of Dr. Casiano. Currently on broad-spectrum antibiotics, heparin drip. 09/18/2025 patient was transitioned to telemetry. Per review ICU team Dr. Casiano recommended to hold off on amiodarone, metoprolol. Patient was having significant nausea and I had to give 1 dose of promethazine. On Dilaudid for pain and requested tramadol which was ordered. 09/19/2025 patient overnight had another episode of torsades, V-fib/V. tach and needing defibrillator, amiodarone drip and was intubated and transferred back to ICU. Currently she is alert and awake. Possible extubation this morning. Potassium and magnesium are normal. Could be med related (tramadol 1 dose and promethazine 1 dose) QTc seems to be improving after stopping all the medications. Urine output down. 1 dose of Lasix was given. Started to improve. Creatinine 1.6. Electrolytes stable. Noted elevation in the liver enzymes. 09/20/2025: No acute overnight events. Patient seen examined at bedside in ICU with . No new complaints, expresses fatigue. Patient is extubated and on 5 L nasal cannula. Per cardiology, recommend tight control of potassium and magnesium, goal K4 0.5-5 and magnesium 3. Urine output slightly improved over the past 24 hours, will avoid giving extra fluid as creatinine stable elevated 1.6 likely secondary to cardiac arrest. Per cardiology, pending improvement of pneumonia prior to defibrillator placement. Nausea controlled with dexamethasone. LFTs downtrending 09/21/2025: No acute overnight events. Patient seen and examined at bedside in ICU with . Endorses chest wall pain from rib and sternum fractures. Saturating 100% on 5 L nasal cannula. QTc on a.m. EKG ~440. No further episodes of arrhythmias. Keep K greater than 4 and Mg 2.5-3 at all times. Per cardiology, no ICD implantation at this time as arrhythmia secondary to Zofran and dapsone however patient experienced V-fib/V. tach and is on any QT prolonging agents will consider ICD implantation. 09/22/2025: No acute overnight events. Patient seen and examined at bedside in ICU with . Patient endorses feeling slightly better today. Rib pain tolerable saturating 98% on 4 L. Labs and vitals reviewed. Potassium 4.1, BUN stable elevated 27, creatinine improved from 1.6 to 1.3, calcium 11.3, phosphate low 2.2. Continue to monitor for arrhythmias and monitor creatinine. Exam Vital Signs Temp Pulse Resp BP Pulse Ox O2 Del Method O2 Flow Rate 98.4 F 75 17 108/61 99 Nasal Cannula 4 09/22/25 04:00 09/22/25 06:34 09/22/25 06:34 09/22/25 06:16 09/22/25 06:34 09/21/25 15:00 09/22/25 06:34 FiO2 30 09/21/25 22:05 Narrative Exam GENERAL: AOx3, no acute distress HEENT: mucous membranes moist, bilateral sclera anicteric CARDIOVASCULAR: regular rate and rhythm, S1/S2 present, no murmurs appreciated PULMONARY: trace bilateral crackes, +paradoxical chest motion, ribs TTP ABDOMINAL: soft, non-tender, non-distended, no rebound/guarding, bowel sounds present EXTREMITIES: no peripheral edema SKIN: warm and dry, intact, no rashes NEURO: CN II-XII grossly intact, no focal deficits, alert, following commands Objective Labs 09/22/25 04:49 09/22/25 04:49 Labs: Laboratory Results - last 24 hr 09/21/25 09/21/25 09/22/25 04:30 13:24 04:49 WBC 4.6 RBC 2.32 L Hgb 7.7 L Hct 22.8 L MCV 98 MCH 33.2 MCHC 33.8 RDW Std Deviation 58.1 H Plt Count 147 Neut % (Auto) 54 Lymph % (Auto) 12 [place] % (Auto) 24 H Eos % (Auto) 7 Baso % (Auto) 1 Neut # (Auto) 2.5 Lymph # (Auto) 0.6 L [place] # (Auto) 1.1 H Eos # (Auto) 0.3 Baso # (Auto) 0.1 Immature Gran # (Auto) 0.05 H Absolute Nucleated RBC 0.00 Immature Gran % 1 H Nucleated RBC % 0 Smear Path Review Sent to Pathologist Retic Count (auto) 3.0 H Absolute Retic 75.6 H Immature Retic Fraction 27.2 H Retic Hgb Content CHr 32.3 APTT 68.7 H D 30.2 D Sodium 140 Potassium 4.1 Chloride 109 H Carbon Dioxide 21.3 Anion Gap 10 BUN 27 H Creatinine 1.3 Estim Creat Clear Calc 45.8 L eGFR 47 L BUN/Creatinine Ratio 21 H Glucose 101 Calculated Osmolality 284 Calcium 8.0 L Corrected Calcium 8.3 L Phosphorus 2.2 L Magnesium 2.4 Iron 50 TIBC 196 L Iron Saturation 25 Unsat Iron Binding 146 L Ferritin 295 H Total Bilirubin 0.9 AST 33 ALT 65 H Alkaline Phosphatase 92 Total Protein 4.8 L Albumin 3.6 Globulin 1.2 L Albumin/Globulin Ratio 3.0 H ABG Interpretation ABG results: 09/16/25 09/17/25 09/18/25 18:56 04:20 23:05 ABG pH 7.38 7.35 ABG pCO2 43 43 ABG pO2 353 H 171 H D ABG HCO3 25 24 ABG O2 Saturation 99 H 100 H ABG Base Excess 0 -2 VBG pH 7.42 VBG pCO2 32 L VBG pO2 128 H VBG Base Excess -4 L 09/19/25 09/19/25 09/19/25 00:51 02:09 05:17 ABG pH 7.21 L D 7.25 L 7.31 L ABG pCO2 50 H 49 H 39 D ABG pO2 60 L D 154 H D 199 H D ABG HCO3 20 21 20 ABG O2 Saturation 87 L 99 H 100 H ABG Base Excess -8 L -6 L -6 L VBG pH VBG pCO2 VBG pO2 VBG Base Excess Quality Measures Quality Measures VTE therapy (Heparin drip ) Assessment & Plan Assessment Current Active Medications: Generic Name Dose Route Start Last Admin Trade Name Freq PRN Reason Stop Dose Admin Acetaminophen 500 mg 09/18/25 13:11 09/18/25 20:28 Acetaminophen 500 Mg Tablet PO 10/18/25 13:10 500 mg Q6HR PRN Administration PAIN 1-3 Apixaban 10 mg 09/21/25 18:45 09/22/25 08:35 Apixaban 2.5 Mg Tablet PO 09/28/25 09:01 10 mg BID GABE Administration Gabapentin 200 mg 09/19/25 15:15 09/22/25 06:16 Gabapentin 100 Mg Capsule PO 10/19/25 15:14 200 mg TID GABE Administration Cefepime HCl 2 gm/ Sodium 50 mls @ 100 mls/hr 09/17/25 15:30 09/22/25 06:16 Chloride IV 09/24/25 15:29 100 mls/hr Q8HR GABE Administration Levothyroxine Sodium 125 mcg 09/18/25 06:00 09/22/25 06:16 Levothyroxine Sodium 125 Mcg Tablet PO 10/18/25 05:59 125 mcg ACBR GABE Administration Lidocaine 1 patch 09/17/25 18:46 09/18/25 00:06 Lidocaine 5% 1 Patch TOP 10/17/25 18:45 1 patch UD PRN Administration PAIN Protocol Pantoprazole Sodium 40 mg 09/16/25 16:45 09/22/25 08:35 Pantoprazole Inj 40 Mg Vial IV 10/16/25 16:44 40 mg QDAY GABE Administration Propranolol HCl 10 mg 09/19/25 15:00 09/22/25 06:16 Propranolol 10 Mg Tablet PO 10/19/25 14:59 10 mg TID GABE Administration Scopolamine 1 mg 09/17/25 15:00 09/20/25 14:17 Scopolamine 1 Mg Tdsy TOP 10/17/25 14:59 1 mg Q3D GABE Administration Plan 59-year-old female past medical history significant multiple myeloma chemotherapy, anemia, Basia's thyroiditis presented to [facility] ED on 09/16 s/p witnessed cardiac arrest, 2/2 QTc prolongation, undergoing multiple rounds of v-rib/v-tach, initially admitted to ICU downgraded on 09/18. Course complicated by CODE BLUE called on 09/19 for patient being unresponsive with no pulse, found to be in V. tach/V-fib. CPR started and received shock and converted back to sinus rhythm, rate upgraded to ICU. Downgraded on 09/21. #Cardiac arrest x2 s/p CPR and shock resuscitation 2/2 #V-fib/V-tach #QTc prolongation Patient sustained cardiac arrest x 2, 09/16 and 09/18 secondary to QTc prolongation from Zofran and dapsone. Plan: - Avoid all QTc prolonging agents - Keep K >4 and Mg 2.5-3 at all times - Per cardiology, no ICD implantation as V-fib/V. tach secondary to medication Zofran and dapsone however if patient experiences V-fib/V. tach and is not on any QT prolonging agents will consider ICD implantation #Acute hypoxic respiratory failure 2/2 #Septic shock 2/2 #CAP #Pulmonary edema Intubated on admission 09/16 and reintubated on 09/18 s/p second cardiac arrest. CTAP revealed extensive bilateral pneumonia. Plan: - Cefepime (09/17- #Prerenal BERNADINE iso septic shock vs cardiac arrest, improving Patient started to have decreased urine output following cardiac arrest. Creatinine started to uptrend on 09/19 at 1.3 with baseline of 0.6-1.0. Now stable at 1.6. Likely 2/2 from septic shock versus cardiac arrest. S/p Lasix 40 x 1 on 09/19 Plan: - CTM creatinine #Multiple pulmonary emboli, stable Pulmonary emboli from underlying multiple myeloma Plan: - Eliquis 10 mg BID for 7 days, then 5 mg BID Plan of care discussed with attending Dr. Rico. Angela Alvares, PGY-1 Internal Medicine Attending Provider Attestation/Addendum Patient seen and examined with resident physician Dr. Alvares. Note reviewed, agree with findings and recommendations. Patient currently seen in ICU-under telemetry status. Family at bedside. No evidence of any PVCs. Potassium and magnesium at goal. Creatinine 1.3 Replace electrolytes. LFTs improving
--- NOTE | 2025-09-22 09:42 | CHAP ---
Patient was visited by a Spiritual Care Volunteer on 09/21/2025 between 0900 and 1140 and received comfort, encouragement and/or prayer.
[2025-09-22] MEDS: Magnesium Sulfate 4 GM Ivpb 4 GM/50 ML BAG IV (10:07)
--- NOTE | 2025-09-22 13:55 | PC.SS ---
BATCH ROLLER OPERATOR notified bedside nurse of need to conduct room air evaluation to determine patient's need for home oxygen.
--- NOTE | 2025-09-22 14:29 | ESDS_ITS ---
<Statement entered by Justin Barriga MD - 10/07/25 07:50> I reviewed above note and agree with findings and plans. I have also personally examined the patient with medicine team and went over assessment and plan with medical team including collector of internal revenue and resident physician. <Statement entered by Mark Anthony Nicole MD - 09/22/25 15:01> I have personally seen and examined the patient, agree with residents assessment and plan Patient plan of care was discussed with the attending physician, Dr. Nithya Nicole, PGY2 Planned Discharge Date 09/22/25 DS: Providers Provider Date of admission: 09/16/25 12:59 Primary care physician: Jc Rico MD Admitting Provider: Betty Meng MD Attending Provider on Admission: Aniceto Tadeo MD Consults: 09/16/25 11:07 Consult to Cardiology Stat Comment: Consulting Provider: Matheus Braxton Instructions: Ventricular tachycardia and fibrillation 09/16/25 11:25 Consult to Helper/Driver Stat Comment: Code Consulting Provider: Betty Meng 09/16/25 14:54 Referral Agustin Routine Comment: 09/20/25 14:24 Referral - Aircraft Cabin Cleaner Routine Service Needed for Transfer: Cardiovascular/Thoracic Surg Addl Comments:: Would like evaluation for flail chest if surgery indicated or not. 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 tach/V. fib, requiring intubation, defibrillation, and ICU care, complicated by pneumonia, pulmonary emboli, ARDS, electrolyte disturbances, and acute kidney injury. The patient was admitted after experiencing a witnessed cardiac arrest on 09/16/2025, during which she received one shock from an AED, three additional shocks from EMS, and several more in the ED due to recurrent episodes of V. tach/V. fib. She was intubated and treated with amiodarone, lidocaine, and epinephrine. Cardiac catheterization revealed no ischemic heart disease. The patient's QT prolongation was identified as the likely cause of the arrhythmias, and antiarrhythmic drugs were discontinued as per cardiology's recommendations. On 09/18, the patient experienced another episode of V. tach/V. fib, necessitating CPR and defibrillation, followed by reintubation. After extubation on 09/19, the patient experienced some PVCs but no further arrhythmias. Electrolyte levels were monitored closely, and the patient was stabilized on a regimen of potassium and magnesium repletion. The patient was also diagnosed with multiple pulmonary emboli, which were identified on a CT angiogram. She was treated with heparin initially and transitioned to Eliquis for anticoagulation as recommended by her oncologist. She was also diagnosed with community-acquired pneumonia, which was treated with broad-spectrum antibiotics. The patient developed ARDS and required mechanical ventilation, but after successful extubation on 09/19, her respiratory status improved. She was managed with CPAP support and transitioned to a regular nasal cannula, with continued monitoring for any further respiratory issues. The patient?s rib fractures led to a diagnosis of flail chest, with paradoxical chest motion observed on physical exam. After consultation with thoracic surgery, it was determined that no surgical intervention was required as the fractures were nondisplaced. Pain was managed with gabapentin, as morphine and dilaudid caused significant side effects. Her renal function was closely monitored due to a prior BERNADINE, likely secondary to cardiac arrest and subsequent sepsis. After receiving a dose of Lasix, her urine output improved, and her creatinine levels stabilized. Electrolyte disturbances, including hypokalemia and hypomagnesemia, were corrected with intravenous supplementation, and the levels improved to stable ranges. The patient's nausea, likely secondary to chemotherapy, was managed with dexamethasone and Ativan, with improvement noted in the subsequent days. Regarding her multiple myeloma, her oncologist recommended holding lenalidomide for 1?2 weeks, and the patient was safely transitioned to Eliquis for anticoagulation therapy, which was consistent with her chemotherapy regimen. On day of discharge, the patient was doing well with no acute overnight events. She reported feeling slightly better, with rib pain being tolerable. Labs showed potassium 4.1, BUN elevated at 27, and creatinine improved from 1.6 to 1.3. Calcium was elevated at 11.3, and phosphate was low at 2.2. The patient had no further episodes of arrhythmias, and her vital signs remained stable. Her overall condition was stable for discharge, with plans for continued monitoring of renal function and electrolytes. The patient was alert, oriented, and following commands, and was able to be discharged home with family. Diagnosis during Admission: #Cardiac Arrest (V. tach/V. fib) #Septic Shock (resolved) #Acute Respiratory Failure (resolved) #Multiple Pulmonary Emboli #Community-Acquired Pneumonia #Flail Chest #Multiple Rib Fractures #QT Prolongation, likely medication side effect #Acute Kidney Injury (resolved) #Electrolyte Disturbances (resolved) #Intractable Nausea (resolved) #Multiple Myeloma (on chemotherapy) #Basia?s Disease Discharge Instructions: -Follow-up with PCP within 1 week of discharge. If you do not have appointment, [facility]. Call [phone] to make an appointment. -Recommended to get renal panel within 1 week of discharge -Recommended to take Eliquis 10mg twice daily for 7days and 5mg twice daily for rest of the month -Recommended to take magnesium supplements -Recommended to continue rest of the home medications -Follow up with Dr. Braxton within 1 week of discharge -Return to ED if symptoms persist or return ----- Plan discussed with attending physician Dr. Barriga and senior resident Dr. Corey Santa MD PGY-1 Internal Medicine Time Spent with Patient Time attestation: Total time spent providing and/or coordinating discharge services: Time spent: Greater than 30 minutes Exam Vital Signs Temp Pulse Resp BP Pulse Ox O2 Del Method O2 Flow Rate 98.4 F 73 17 121/75 99 Nasal Cannula 4 09/22/25 04:00 09/22/25 14:21 09/22/25 06:34 09/22/25 14:21 09/22/25 06:34 09/21/25 15:00 09/22/25 06:34 FiO2 30 09/21/25 22:05 Narrative Exam General: Alert and oriented x3, no acute distress. HEENT: Mucous membranes moist, bilateral sclera anicteric. Cardiovascular: Regular rate and rhythm, S1/S2 present, no murmurs appreciated. Pulmonary: Trace bilateral crackles, + paradoxical chest motion, ribs TTP (tender to palpation). Abdominal: Soft, non-tender, non-distended, no rebound/guarding, bowel sounds present. Extremities: No peripheral edema. Skin: Warm and dry, intact, no rashes. Neurological: CN II-XII grossly intact, no focal deficits, alert, following commands Discharge Plan Plan Patient Disposition: HOME (Self Care) Patient condition on transfer: Stable Care Plan Goals: -Follow-up with PCP within 1 week of discharge. If you do not have appointment, [facility]. Call [phone] to make an appointment. -Recommended to get renal panel within 1 week of discharge -Recommended to take Eliquis 10mg twice daily for 7days and 5mg twice daily for rest of the month -Recommended to take magnesium supplements -Recommended to continue rest of the home medications -Follow up with Dr. Braxton within 1 week of discharge -Return to ED if symptoms persist or return Prescriptions/Referrals Prescriptions/Med Rec: New magnesium 200 mg tablet 200 mg PO QDAY Qty: 30 3RF Eliquis DVT-PE Treat 30D Start 5 mg (74 tabs) tablets,dose pack 5 mg PO BID Qty: 74 0RF Continued levothyroxine 125 mcg Tablet 125 mcg PO QAM cyclobenzaprine 10 mg tablet 10 mg PO DAILY PRN (Reason: Cramps) hydrocodone-acetaminophen 5-325 mg Tablet 1 tab PO Q6H PRN (Reason: Pain) sodium chloride 1 gram Tablet 1,000 mg PO TID ondansetron 4 mg Tablet,Disintegrating 4 mg PO Q6H PRN (Reason: Nausea And Vomiting) [id number] [Citracal-D3 Maximum Plus] 325 mg-12.5 mcg -2.75 mg Tablet 2 tab PO BID senna 8.6 mg capsule 8.6 mg PO BID PRN (Reason: constipation) Qty: 30 0RF acyclovir 400 mg tablet 400 mg PO Q12H aspirin 81 mg tablet 81 mg PO QDAY gabapentin 300 mg capsule 600 mg PO Q8H ondansetron HCl 8 mg tablet 8 mg PO QDAY denosumab 120 mg/1.7 mL (70 mg/mL) solution 120 mg subcut Q7D Allergy Relief (loratadine) 10 mg capsule 10 mg PO QDAY docusate sodium 100 mg capsule 100 mg PO QDAY PRN (Reason: constipation) Patient Comments: TAKE ONE CAPSULE BY MOUTH TWICE DAILY NEEDED FOR CONSTIPATION sulfamethoxazole-trimethoprim 800-160 mg tablet 1 tab PO QDAY Patient Comments: TAKE 1 TABLET BY MOUTH EVERY DAY gabapentin 100 mg Capsule 100 mg PO BID Rx Instructions: take 2 capsule of 100mg BID Discontinued Eliquis 2.5 mg tablet 2.5 mg PO BID 30 Days Qty: 60 0RF Referrals: Jc Rico MD [Primary Care Provider, Nephrology] Patient/Caregiver Discharge Instructions Education Materials: Your Heart's Electrical System, Cancer: Preventing Infections, Women and Heart Disease ... Print Language: Hungarian Stand Alone Forms: [employer]uleyma Award Info., Patient Portal Info Letter Discharge Order Discharge Orders: Discharge (Routine); Ordered 09/22/25 Ordered By: Mark Anthony Nicole Quality Discharge Quality Measures VTE therapy
--- NOTE | 2025-09-22 15:25 | PC.SS ---
AGRONOMY MANAGER informed patient does not require home oxygen.
[2025-09-22] MEDS: HEPARIN SOD LOCK SYR 100 UNIT/ML 500 UNIT IV (15:40)
== END 2025-09-22 15:54 | disposition home or self-care (01) | DRG 871 ==
LOC: SERX 12:06 → S2SX 13:31 → SERHOLD 14:25 → S2SX 14:25 → S2NX 09-18 12:31 → S2SX 09-19
PROVIDERS: Internal Medicine Cardiovascular Disease; Internal Medicine Critical Care Medicine; Student in an Organized Health Care Education/Training Program; Admitting Provider Internal Medicine; Emergency Provider Emergency Medicine; PCP Internal Medicine; Visit Provider Student in an Organized Health Care Education/Training Program
DX: A41.9 Sepsis, unspecified organism (principal); I26.99 Other pulmonary embolism without acute cor pulmonale; I49.01 Ventricular fibrillation; R65.21 Severe sepsis with septic shock; J18.9 Pneumonia, unspecified organism; J80 Acute respiratory distress syndrome; I46.2 Cardiac arrest due to underlying cardiac condition; R57.0 Cardiogenic shock; C90.00 Multiple myeloma not having achieved remission; E87.20 Acidosis, unspecified; K92.0 Hematemesis; N39.0 Urinary tract infection, site not specified; I47.21 Torsades de pointes; J81.1 Chronic pulmonary edema; I47.29 Other ventricular tachycardia; E03.9 Hypothyroidism, unspecified; K75.9 Inflammatory liver disease, unspecified; E06.3 Autoimmune thyroiditis; Z88.0 Allergy status to penicillin; D63.8 Anemia in other chronic diseases classified elsewhere; N18.9 Chronic kidney disease, unspecified; M81.0 Age-related osteoporosis without current pathological fracture; T45.1X5A Adverse effect of antineoplastic and immunosuppressive drugs, initial encounter; I48.91 Unspecified atrial fibrillation; E83.39 Other disorders of phosphorus metabolism; I49.3 Ventricular premature depolarization; F41.9 Anxiety disorder, unspecified; Z66 Do not resuscitate; Z79.01 Long term (current) use of anticoagulants; Z79.82 Long term (current) use of aspirin; Z79.890 Hormone replacement therapy; Z79.899 Other long term (current) drug therapy; Z90.710 Acquired absence of both cervix and uterus; Z90.721 Acquired absence of ovaries, unilateral; Z92.3 Personal history of irradiation; Z95.810 Presence of automatic (implantable) cardiac defibrillator
CPT/HCPCS: 36415; 36600; 51702; 70450; 71045; 71250; 71275; 72125; 74174; 80048; 80053; 80069; 80202; 80307; 80320; 81001; 82010; 82248; 82550; 82728; 82803; 83036; 83540; 83550; 83605; 83690; 83735; 83880; 84100; 84145; 84439; 84443; 84484; 85014; 85018; 85025; 85046; 85379; 85610; 85652; 85730; 86140; 86850; 86870; 86900; 86901; 86902; 86921; 86922; 87040; 87081; 87086; 87205; 87502; 92950; 93005; 93306; 93970; 94002; 94003; 94660; 96360; 96361; 96374; 96375; 99152; 99291; 99292; A4314; A4649; C1725; C1769; C1894; J0153; J0168; J0171; J0282; J0283; J0330; J0461; J0612; J0692; J0696; J1100; J1265; J1642; J1643; J1644; J1720; J1938; J2060; J2250; J2251; J2312; J2371; J2470; J2550; J2598; J2704; J2720; J3010; J3373; J3475; J3480; J3490; J7030; J7050; J7120; J7999; P9016; P9047; Q9967; A9270; G0480; J2305; P0947

== ENCOUNTER → 2025-10-06 | Outpatient (CLI) | payer OTHER, SELFPAY ==
[2025-10-06 15:16] LABS: Basophils # (Auto) 0.1 Thou/mm3 (0.0-0.2); Basophils % (Auto) 3 % (0-2.5); Eosinophils # (Auto) 0.2 Thou/mm3 (0.0-0.5); Eosinophils % (Auto) 4 % (0-10); Hematocrit 27.1 % (36.0-46.0); Hemoglobin 8.9 g/dL (12.0-16.0); Immature Granulocytes Auto 0.02 Thou/mm3 (0.00-0.00); Lymphocytes # (Auto) 0.9 Thou/mm3 (1.0-4.8); Lymphocytes % (Auto) 21 % (10-50); Mean Corpuscular HGB Conc 32.8 g/dl (31.0-37.0); Mean Corpuscular Hemoglobin 34.2 pg (25.0-35.0); Mean Corpuscular Volume 104 fL (80-100); Monocytes # (Auto) 0.6 Thou/mm3 (0.0-0.8); Monocytes % (Auto) 13 % (0-12); Neutrophils # (Auto) 2.6 Thou/mm3 (1.8-7.7); Neutrophils % (Auto) 59 % (37-80); Nucleated Red Blood Cell # 0.00 Thou/mm3 (0.00-0.00); Nucleated Red Blood Cell % 0 /100 WBC (0); Platelet Count 240 Thou/mm3 (140-440); RDW Standard Deviation 63.4 fL (36.4-46.3); Red Blood Count 2.60 Miln/mm3 (4.00-5.20); White Blood Count 4.4 Thou/mm3 (3.6-11.0)
[2025-10-06 15:30] LABS: Alanine Aminotransferase 16 U/L (10-49); Albumin, Serum 4.6 gm/dL (3.4-4.8); Albumin/Globulin Ratio 3.8 (1.2-2.2); Alkaline Phosphatase 232 U/L (46-116); Anion Gap 8 (7-16); Aspartate Amino Transferase 14 U/L (0-34); BUN/Creatinine Ratio 15 Ratio (12-20); Bilirubin,Total 0.5 mg/dL (0.3-1.2); Blood Urea Nitrogen 15 mg/dL (9-23); Calcium 9.2 mg/dL (8.3-10.6); Calcium (Corrected) 9.2 mg/dL (8.5-10.1); Carbon Dioxide 27.9 mMol/L (20.0-31.0); Chloride 103 mMol/L (98-107); Creatinine (Component) 1.0 mg/dL (0.6-1.3); Globulin 1.2 gm/dL (2.3-3.5); Glucose 95 mg/dL (74-106); Magnesium 1.8 mg/dL (1.6-2.6); Osmolality,Calculated 278 (275-295); Phosphorous 2.7 mg/dL (2.4-5.1); Potassium 4.2 mMol/L (3.4-5.1); Sodium 139 mMol/L (136-145); Total Protein 5.8 gm/dL (5.7-8.2); eGFR > 60 See Note
== END | disposition home or self-care (01) ==
PROVIDERS: PCP Internal Medicine; Referring Provider Internal Medicine Cardiovascular Disease; Visit Provider Internal Medicine Cardiovascular Disease
DX: C90.00 Multiple myeloma not having achieved remission (principal); E87.1 Hypo-osmolality and hyponatremia; E83.51 Hypocalcemia
CPT/HCPCS: 36415; 80053; 83735; 84100; 85025

== ENCOUNTER 2025-11-01 07:18 | Outpatient (RCR) | payer OTHER, SELFPAY ==
[2025-10-18 10:10] LABS: Basophils # (Auto) 0.1 Thou/mm3 (0.0-0.2); Basophils % (Auto) 1 % (0-2.5); Eosinophils # (Auto) 0.2 Thou/mm3 (0.0-0.5); Eosinophils % (Auto) 5 % (0-10); Hematocrit 30.4 % (36.0-46.0); Hemoglobin 10.2 g/dL (12.0-16.0); Immature Granulocytes Auto 0.02 Thou/mm3 (0.00-0.00); Lymphocytes # (Auto) 1.2 Thou/mm3 (1.0-4.8); Lymphocytes % (Auto) 23 % (10-50); Mean Corpuscular HGB Conc 33.6 g/dl (31.0-37.0); Mean Corpuscular Hemoglobin 34.1 pg (25.0-35.0); Mean Corpuscular Volume 102 fL (80-100); Monocytes # (Auto) 0.6 Thou/mm3 (0.0-0.8); Monocytes % (Auto) 11 % (0-12); Neutrophils # (Auto) 3.2 Thou/mm3 (1.8-7.7); Neutrophils % (Auto) 60 % (37-80); Nucleated Red Blood Cell # 0.00 Thou/mm3 (0.00-0.00); Nucleated Red Blood Cell % 0 /100 WBC (0); Platelet Count 190 Thou/mm3 (140-440); RDW Standard Deviation 62.6 fL (36.4-46.3); Red Blood Count 2.99 Miln/mm3 (4.00-5.20); White Blood Count 5.3 Thou/mm3 (3.6-11.0)
[2025-10-18 10:29] LABS: Alanine Aminotransferase 18 U/L (10-49); Albumin, Serum 4.8 gm/dL (3.4-4.8); Albumin/Globulin Ratio 3.0 (1.2-2.2); Alkaline Phosphatase 143 U/L (46-116); Anion Gap 12 (7-16); Aspartate Amino Transferase 20 U/L (0-34); BUN/Creatinine Ratio 16 Ratio (12-20); Bilirubin,Total 0.5 mg/dL (0.3-1.2); Blood Urea Nitrogen 14 mg/dL (9-23); Calcium 10.2 mg/dL (8.3-10.6); Calcium (Corrected) 10.2 mg/dL (8.5-10.1); Carbon Dioxide 23.8 mMol/L (20.0-31.0); Chloride 105 mMol/L (98-107); Creatinine (Component) 0.9 mg/dL (0.6-1.3); Globulin 1.6 gm/dL (2.3-3.5); Glucose 102 mg/dL (74-106); Osmolality,Calculated 281 (275-295); Potassium 3.8 mMol/L (3.4-5.1); Sodium 141 mMol/L (136-145); Total Protein 6.4 gm/dL (5.7-8.2); eGFR > 60 See Note
--- NOTE | 2025-10-19 15:13 | CTCFLWUP_ITS ---
Patient: EDER CORDOVA : 1965 Page 3 of 5 FOLLOW UP NOTE DATE OF SERVICE: 10/19/2025 NAME: EDER CORDOVA ACCOUNT: [id number] : 1965 AGE: 59 INTERVAL HISTORY: Patient was admitted to hospital with cardiac arrest and pulmonary embolism but not cor pulmonale . she is recovering . she still feels fatigued. She was having diarrhea before she had cardiac event . she had torsades. ONCOLOGY HISTORY:?CloneBlock Oncology Hx? DIAGNOSIS: ?CloneDiagnosis? Multiple myeloma not having achieved remission [ICD10] C90.00 R2-ISS intermediate?high risk: 2 poins, ISS?II (Albumin 3.7, beta-2 microglobulin 3.14, LDH 159, t(4;14)) IgG lambda multiple myeloma with multiple bone lytic lesions (01/27/2024) s/p radiation therapy to the cervical spine (02/07/2024 - 02/19/2024) S/p 4 cycles of D RVD chemotherapy (02/12/2024?05/15/2024). 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 daily DATE OF DIAGNOSIS: 02/03/2024 STAGE/TNM: Stage 3 s/p transplant high risk TREATMENT HISTORY: Care?Plan Start?Date Cycle Day Intent Zoledronic?Acid?4?mg?q?28?days?myeloma 02/12/2024 1 28 Palliative 1?DRVd?pretransplant?Ronaldo?Study?Induction 02/18/2024 1 21 Palliative [facility]?High?risk?MM?Maint?-?Bortezomib?1.3?mg/m*2,?Rx?Lenalido?10mg,?Rx?Dexa?20 11/19/2024 1 28 Maintenance Xgeva?120?mg?q?3?months 03/24/2025 1 90 Palliative PROLia?60mg?every?6?months 05/04/2025 1 180 Maintenance Xgeva?120?mg?q?3?months 06/30/2025 1 90 Maintenance DARatumumab?q?Weekly 08/11/2025 1 7 Palliative DARAtumumab?q?4?wks?ERIN?trial?3 02/17/2026 1 28 Maintenance HISTORY OF PRESENT ILLNESS: Oncological history Myeloma IgG lambda diagnosed on 01/27/2024 R-ISS stage II intermediate high risk 3 third out of 4 categories Deletion 17P present - and the patient also had 1 q. mutation serum LDH more than upper limit of normal also has T4 to 14 mutation high risk genetic mutation and there is a loss of T p53. Substantial skeletal involvement at presentation in the cervical spine treated with radiation status post 5 cycles pretransplant required induction with Alma VRD S/p melphalan 200 based autotransplant day 0 was 07/01/2024 10/01/2024 D90 s/p melphalan autotransplant Myeloma serologies and marrow morphology from 08/31/2024 shows no evidence of myeloma Measurable residual disease by clonal sequence shows 13 cells per million. Low but detectable. Recommendations Maintenance with 10 mg lenalidomide daily Aspirin 81 mg for DVT prophylaxis Velcade 1.3 mg/m? subcu every 2 weeks Dex 20 mg p.o. every 2 weeks with Velcade Bone marrow planned for June 2025 At highest risk immunocompromise due to myeloma therapy PCP prophylaxis Bactrim DS q. Saturday We saturday for 3 to 6 months if CD4 count is more than 200 can stop every 3 months HSV varicella prophylaxis continue acyclovir 400 mg p.o. twice daily Consider IVIG if persistently less than 400 or in for infection complications Vaccination as per [facility] schedule 02/07/2024 - 02/19/2024: Ms. Cordova is with a total of 2900 cGy radiation therapy to the C-spine. 02/12/2024: Serum protein electrophoresis showed abnormal protein band of 5.7 g/dL. 02/12/2024: Ms. Cordova is started on DRVD chemotherapy as well as Zometa. She also started taking acyclovir, Bactrim, Levaquin as well as Eliquis. OTHER MEDICAL HISTORY/CONDITIONS: ANXIETY Laproscopic hysterectomy and RT ophorectomy- 2005 Cholecystectomy/ Appendectomy 2001 ?Clone Other Med Hx? FAMILY HISTORY: Patient?denies?family?cancer?history. ?Clone Family Hx? 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 Tobacco?Use:?denies ETOH?Use:?denies Drug?Note:?Denies Social?History?Note:?Lives?with? ?Clone Social Hx? RECORD MAKER HISTORY: Menarche?-?Age:?12 Date?LMP:?12/19/2005 :?2 Live?Births:?2 Age?1st?:?24 ?Clone RECORD MAKER Hx? MEDICATIONS: 1. acyclovir - 400 mg 1 tab Twice a Day 2. Citracal + D Slow Release - 600 mg-12.5 mcg (500 unit) 1 tab one tab po twice a day 3. Eliquis - 5 mg 1 tab Twice a Day 4. gabapentin - 300 mg 2 Capsule 2 caps three times a day 5. levothyroxine - 125 mcg 1 tab Daily 6. Revlimid - 10 mg 1 Capsule Daily?Palabra Meds? Medications Last Reconciled by Keerthi Elizalde MA on 10/19/2025 ALLERGIES: Penicillins; ZOLEDRONIC ACID REVIEW OF SYSTEMS: A complete 14-point review of systems was performed and is negative except as noted in interval history. PHYSICAL EXAMINATION:?CloneBlock PE? VITAL SIGNS: Temperature?98.6, B/P?135/87, Oxygen?Saturation?99% Weight?144?lbs (Change?since?10/18/25:?0?lbs) PAIN: 4 - Moderate pain ECOG Performance Status: 0 - Asymptomatic and fully active GENERAL APPEARANCE: Appears well, in no apparent distress, appropriately interactive. HEENT: Normocephalic, no temporal wasting, normal conjunctiva, no scleral icterus, normal hearing, lips without lesions, neck normal range of motion. CARDIOVASCULAR: Not assessed. PULMONARY: Normal respiratory effort, no respiratory distress or use of accessory muscles, speaking in full sentences, no tachypnea. EXTREMITIES: No pedal edema or cyanosis. Able to move all extremities SKIN: Normal skin appearance. NEUROLOGIC: Alert and oriented x4. PSHYCHIATRIC: Appropriate affect, mood normal, behavior normal, intact thought and speech. LABORATORY DATA: I have personally reviewed and interpreted each of the patient?s relevant lab tests, abnormal findings are below: Date 10/06/25 10/18/25 ??WHITE?BLOOD?COUNT?(Thou/mm3) ? 5.3 ??RED?BLOOD?COUNT?(Miln/mm3) ? 2.99?L ??HEMOGLOBIN?(gm/dl) ? 10.2?L ??HEMATOCRIT?(%) ? 30.4?L ??PLATELET?COUNT?(Thou/mm3) ? 190 ??NEUTROPHILS?%,?AUTO?(%) ? 60 ??LYMPH?%,?AUTO?(%) ? 23 ??NEUTROPHILS,?AUTO?(Thou/mm3) ? 3.2 ??GLUCOSE,RANDOM?(mg/dL) 95 102 ??BLOOD?UREA?NITROGEN?(mg/dL) 15 14 ??CREATININE?(mg/dL) 1.00 0.90 ??SODIUM?(mmol/L) 139 141 ??POTASSIUM?(mmol/L) 4.2 3.8 ??CHLORIDE?(mmol/L) 103 105 ??CrCl?(CandG)?(ml/min) 60.24 67.69 ??AST/SGOT?(Unit/L) 14 20 ??ALT/SGPT?(Unit/L) 16 18 ??ALKALINE?PHOSPHATASE?(Unit/L) 232?H 143?H ??BILIRUBIN,?TOTAL?(mg/dL) 0.5 0.5 ??PROTEIN?TOTAL?(gm/dl) 5.8 6.4 ??ALBUMIN,?SERUM?(gm/dl) 4.6 4.8 ??GLOBULIN?(gm/dl) 1.2?L 1.6?L ??ALBUMIN/GLOBULIN?RATIO 3.8?H 3.0?H ??CALCIUM,?SERUM?(mg/dL) 9.2 10.2 ??CALCIUM?SERUM?(CORRECTED)?(mg/dL) 9.2 10.2?H ??MAGNESIUM?(mg/dL) 1.8 ? ASSESSMENT/PLAN:?Ivon Koch Assessment/Plan? 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 S/p melphalan based autologous bone marrow transplantation on 07/01/2024.. Patient's myeloma series and marrow morphology from August 2024 shows no myeloma Patient had clonseq which showed 13 cells per million thus her myeloma is detectable As patient have intermediate risk myeloma, double maintenance therapy is recommended by [facility] Patient is advised to have following maintenance therapy Lenalidomide 10 mg daily Aspirin 81 daily for DVT prophylaxis Velcade 1.3 mg/m? subcu every 2 weeks Dex 20 mg p.o. every 2 weeks with Velcade Patient was switched to alma and revalmid based on [facility] trial after stoopping velcade as per [facility] recommendation I will wait for atleast 6 months before any chemotherapy Cont to monitor Ivfluids and electrolytes Labs every 2-3 months for myeloma ORDERS: Order # Description [id number] Basic Metabolic Panel RETURN TO CLINIC: I reviewed the diagnosis, prognosis, and recommended treatment/procedure options with the patient (and/or their legal franchise sales representative), including the potential benefits, risks, side effects and alternative therapies. We also discussed the option of no treatment and the possibility of clinical trial participation, if applicable. All questions were addressed, and they demonstrated understanding. They provided informed consent to proceed with the proposed plan of care. BILLING AND COMPLIANCE: I reviewed external records from providers outside my specialty as summarized above. I spent a total of 50 minutes on this patient?s care on the day of their visit excluding time spent related to any billed procedures. This time includes time spent with the patient as well as time spent documenting in the medical record, reviewing patients records and tests, obtaining history, placing orders, communicating with other healthcare professionals, counseling the patient, family or caregiver, and/or care coordination for the diagnoses above. Electronically Signed by: Reynaldo Koch MD T: 3:11 PM CC: PCP: Jc Rico Referring: Jc Rico This document was completed utilizing speech recognition software. Grammatical errors, random word insertions, pronoun errors, and incomplete sentences are an occasional consequence of this system due to software limitations, ambient noise, and hardware issues. Any formal questions or concerns about the content, text or information contained within the body of this dictation should be directly addressed to the provider for clarification.
[2025-10-20 22:05] LABS: Albumin 4.4 g/dL (3.8-4.8); Alpha-1-Globulin 0.3 g/dL (0.2-0.3); Alpha-2-Globulin 0.7 g/dL (0.5-0.9); Beta-1-Globulin 0.4 g/dL (0.4-0.6); Beta-2-globulin 0.2 g/dL (0.2-0.5); Gamma Globulin 0.3 g/dL (0.8-1.7); Immunoglobulin G 313 mg/dL (600-1540); Kappa Light Chain, Free 3.4 mg/L (3.3-19.4); Lambda Light Chain, Free 2.7 mg/L (5.7-26.3)
[2025-10-21 07:03] LABS: Beta 2 Microglobulin 1.96 mg/L (< OR = 2.51); Immunoglobulin A 31 mg/dL (70-320); Immunoglobulin M 17 mg/dL (50-300); Kappa/Lambda, Free Ratio 1.26 (0.26-1.65); Protein, total, serum 6.3 g/dL (6.1-8.1)
[2025-11-01 08:57] LABS: Basophils # (Auto) 0.0 Thou/mm3 (0.0-0.2); Basophils % (Auto) 1 % (0-2.5); Eosinophils # (Auto) 0.1 Thou/mm3 (0.0-0.5); Eosinophils % (Auto) 2 % (0-10); Hematocrit 32.6 % (36.0-46.0); Hemoglobin 11.1 g/dL (12.0-16.0); Immature Granulocytes Auto 0.01 Thou/mm3 (0.00-0.00); Lymphocytes # (Auto) 1.1 Thou/mm3 (1.0-4.8); Lymphocytes % (Auto) 27 % (10-50); Mean Corpuscular HGB Conc 34.0 g/dl (31.0-37.0); Mean Corpuscular Hemoglobin 34.3 pg (25.0-35.0); Mean Corpuscular Volume 101 fL (80-100); Monocytes # (Auto) 0.6 Thou/mm3 (0.0-0.8); Monocytes % (Auto) 14 % (0-12); Neutrophils # (Auto) 2.2 Thou/mm3 (1.8-7.7); Neutrophils % (Auto) 56 % (37-80); Nucleated Red Blood Cell # 0.00 Thou/mm3 (0.00-0.00); Nucleated Red Blood Cell % 0 /100 WBC (0); Platelet Count 221 Thou/mm3 (140-440); RDW Standard Deviation 57.7 fL (36.4-46.3); Red Blood Count 3.24 Miln/mm3 (4.00-5.20); White Blood Count 4.0 Thou/mm3 (3.6-11.0)
[2025-11-01 09:22] LABS: Magnesium 2.0 mg/dL (1.6-2.6)
[2025-11-01 09:24] LABS: Alanine Aminotransferase 23 U/L (10-49); Albumin, Serum 4.8 gm/dL (3.4-4.8); Albumin/Globulin Ratio 2.7 (1.2-2.2); Alkaline Phosphatase 115 U/L (46-116); Anion Gap 11 (7-16); Aspartate Amino Transferase 23 U/L (0-34); BUN/Creatinine Ratio 16 Ratio (12-20); Bilirubin,Total 0.5 mg/dL (0.3-1.2); Blood Urea Nitrogen 13 mg/dL (9-23); Calcium 9.9 mg/dL (8.3-10.6); Calcium (Corrected) 9.9 mg/dL (8.5-10.1); Carbon Dioxide 24.9 mMol/L (20.0-31.0); Chloride 103 mMol/L (98-107); Creatinine (Component) 0.8 mg/dL (0.6-1.3); Globulin 1.8 gm/dL (2.3-3.5); Glucose 91 mg/dL (74-106); Osmolality,Calculated 277 (275-295); Potassium 4.2 mMol/L (3.4-5.1); Sodium 139 mMol/L (136-145); Total Protein 6.6 gm/dL (5.7-8.2); eGFR > 60 See Note
== END 2025-11-17 23:59 | disposition home or self-care (01) ==
LOC: SCTC 07:18
PROVIDERS: PCP Internal Medicine; Referring Provider Internal Medicine; Visit Provider Internal Medicine Hematology & Oncology
DX: C90.00 Multiple myeloma not having achieved remission (principal); Z92.3 Personal history of irradiation; G62.0 Drug-induced polyneuropathy; T45.1X5D Adverse effect of antineoplastic and immunosuppressive drugs, subsequent encounter; Z94.81 Bone marrow transplant status
CPT/HCPCS: 36591; 80053; 82232; 82784; 83521; 83735; 84155; 84165; 85025; 86334; 96360; 96361; 99212; A4216; J1642; J7030; G0463

== ENCOUNTER 2025-11-09 10:06 | Day surgery (SDC) | payer OTHER, SELFPAY ==
[2025-11-05 16:21] VITALS: BMI 21.9
--- NOTE | 2025-11-08 08:09 | EKG_ITS ---
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
[2025-11-08 10:18] LABS: Basophils # (Auto) 0.0 Thou/mm3 (0.0-0.2); Basophils % (Auto) 1 % (0-2.5); Eosinophils # (Auto) 0.1 Thou/mm3 (0.0-0.5); Eosinophils % (Auto) 2 % (0-10); Hematocrit 33.4 % (36.0-46.0); Hemoglobin 11.1 g/dL (12.0-16.0); Immature Granulocytes Auto 0.01 Thou/mm3 (0.00-0.00); Lymphocytes # (Auto) 1.2 Thou/mm3 (1.0-4.8); Lymphocytes % (Auto) 31 % (10-50); Mean Corpuscular HGB Conc 33.2 g/dl (31.0-37.0); Mean Corpuscular Hemoglobin 33.8 pg (25.0-35.0); Mean Corpuscular Volume 102 fL (80-100); Monocytes # (Auto) 0.5 Thou/mm3 (0.0-0.8); Monocytes % (Auto) 14 % (0-12); Neutrophils # (Auto) 1.9 Thou/mm3 (1.8-7.7); Neutrophils % (Auto) 51 % (37-80); Nucleated Red Blood Cell # 0.00 Thou/mm3 (0.00-0.00); Nucleated Red Blood Cell % 0 /100 WBC (0); Platelet Count 225 Thou/mm3 (140-440); RDW Standard Deviation 58.5 fL (36.4-46.3); Red Blood Count 3.28 Miln/mm3 (4.00-5.20); White Blood Count 3.8 Thou/mm3 (3.6-11.0)
[2025-11-08 10:30] LABS: INR 1.0 (0.9-1.3); Partial Thromboplastin Time 25.6 Seconds (22.0-36.0); Prothrombin Time 10.5 Seconds (9.0-12.2)
[2025-11-08 11:09] LABS: Anion Gap 8 (7-16); BUN/Creatinine Ratio 15 Ratio (12-20); Blood Urea Nitrogen 15 mg/dL (9-23); Calcium 9.6 mg/dL (8.3-10.6); Carbon Dioxide 27.0 mMol/L (20.0-31.0); Chloride 104 mMol/L (98-107); Creatinine (Component) 1.0 mg/dL (0.6-1.3); Estimated Creatinine Clearance 58.8 mL/min (>60); Glucose 89 mg/dL (74-106); Osmolality,Calculated 277 (275-295); Potassium 4.3 mMol/L (3.4-5.1); Sodium 139 mMol/L (136-145); eGFR > 60 See Note
[2025-11-09] VITALS (7 sets, daily range): BP systolic 125–151; BP diastolic 78–91; PULSE 72–81; RESP 16–18; TEMP 36.4–36.8; O2SAT 97–100
[2025-11-09] MEDS: HEPARIN SOD LOCK SYR 100 UNIT/ML 500 UNIT INTRACATH (14:03)
--- NOTE | 2025-11-09 14:18 | PC.NURSE ---
port was disconnected prior to patient being discharged 20CC of Normal saline was used to flush heparin was the flushed needle removed and covered with band aid
--- NOTE | 2025-11-23 18:29 | ESOP_ITS ---
RE: EDER CORDOVA : 1965 DATE OF OPERATION: 11/09/2025 PROCEDURES PERFORMED: 1. Implantation of the implantable loop recorder (ILR), CPT code 11473, cardiac rhythm monitoring system. 2. Conscious sedation, 30-minute duration. DIAGNOSES: Sudden cardiac , ventricular dysrhythmia, polymorphic ventricular tachycardia secondary to chemotherapy agents, and prolonged QT. HISTORY AND INDICATIONS: The patient is a 60-year-old female with a past medical history of multiple myeloma, on chemotherapy. She was recently hospitalized with an episode of sudden cardiac in 09/2025 with prolonged QT secondary to chemotherapy drugs. Followed at [facility]. The patient is having severe problems with that, and she will require another chemotherapy. The patient did not have ICD implantation. There was a QT prolongation, but she wanted to monitor the cardiac arrhythmias during the chemotherapy sessions; hence, an implantable loop recorder cardiac rhythm monitoring system was recommended. PROCEDURE DETAILS: The patient was brought to the cardiac cath laboratory. Conscious sedation was given, 2 mg Versed and 100 mcg fentanyl for sedation. The left parasternal area was cleaned and prepped in sterile fashion. A small incision was made with the device blade, and the device was successfully deployed under the skin after local anesthesia was given. An absorbable suture was placed subcutaneously, and the skin was closed using Steri-Strips. The loop recorder that was implanted is [employer]; model number is LUX-Dx II. The serial number of the loop recorder is [id number]. SUMMARY: Successful implantation of subcutaneous cardiac rhythm monitoring system - implantable loop recorder by [employer]. The programming was done to be monitored closely. Rhythm and QRS voltage were excellent on the testing. DT: 17:49:05 TT: 18:28:00 Ref: [id number] - TID: [id number]
== END 2025-11-09 14:06 | disposition home or self-care (01) ==
PROVIDERS: PCP Internal Medicine; Referring Provider Internal Medicine Cardiovascular Disease; Visit Provider Internal Medicine Cardiovascular Disease
PROC: (CPT 33285; principal; 2025-11-09 11:30)
DX: I47.20 Ventricular tachycardia, unspecified (principal); C90.00 Multiple myeloma not having achieved remission; Z79.01 Long term (current) use of anticoagulants; Z01.810 Encounter for preprocedural cardiovascular examination
CPT/HCPCS: 33285; 36415; 80048; 85025; 85610; 85730; 93005; 99152; A4649; C1781; J0168; J0461; J1642; J2250; J2312; J2371; J3010; J3490